=== PATIENT | male | born 1965 | race Caucasian/White ===

== ENCOUNTER → 2018-05-09 | Outpatient (CLI) | payer BC ==
--- NOTE | 2018-05-09 16:51 | US ---
EXAMINATION TYPE: US venous doppler duplex LE LT DATE OF EXAM: 05/09/2018 4:32 PM COMPARISON: NONE CLINICAL HISTORY: R22.42 Localized swelling, mass and lump, left low. scratched left lower leg and de veloped infection, morbidly obese patient SIDE PERFORMED: Left TECHNIQUE: The lower extremity deep venous system is examined utilizing real time linear array sonog yeison with graded compression, doppler sonography and color-flow sonography. VESSELS IMAGED: External Iliac Vein (EIV) Common Femoral Vein Deep Femoral Vein Greater Saphenous Vein * Femoral Vein Popliteal Vein Small Saphenous Vein * Proximal Calf Veins (* superficial vessels) Left Leg: Limited exam due to body habitus and inability to image groin, appears negative for DVT fr om left fv mid through popiteal vein IMPRESSION: No evidence of deep venous thrombosis in the left leg.
== END | disposition home or self-care (01) ==
LOC: RADUSWWP 16:13
PROVIDERS: ATTEND Internal Medicine
DX: R22.42 Localized swelling, mass and lump, left lower limb (principal)

== ENCOUNTER → 2018-09-22 | Outpatient (CLI) | payer BC ==
[2018-09-22 16:05] VITALS: BMI 72.3
== END | disposition home or self-care (01) ==
LOC: DBWHC3 12:56
PROVIDERS: ATTEND Physician Assistant
DX: E66.01 Morbid (severe) obesity due to excess calories (principal); Z68.45 Body mass index [BMI] 70 or greater, adult
CPT/HCPCS: 97802

== ENCOUNTER 2019-09-22 12:52 | Inpatient (IN) | payer BC, OTHER ==
[2019-09-22] MEDS ORDERED: SODIUM CHLORIDE 0.9% 1,000 ML IV STA (13:06)
--- NOTE | 2019-09-22 13:22 | ED ---
General Adult HPI <Pratik Guillen - Last Filed: 09/22/19 15:08> <Wilfredo Ybarra - Last Filed: 09/22/19 15:18> - General Stated complaint: Diff Breathing Time Seen by Provider: 09/22/19 13:05 - History of Present Illness Initial comments: Patient is a 54-year-old male, morbidly obese presenting to the emergency department with multiple chief complaints. States about 4 days ago he pinched his testicles on the toilet and has since developed swelling and tenderness. States he is able to urinate without issues. Denies any urinary symptoms. States also is having back pain whenever he is walking up the stairs which has been present for a few years. Patient also reports bilateral lower extremity edema for multiple years. States over the last few weeks he developed increased swelling. States that he thinks they are infected with occasional discharge noted. Patient also reports some shortness of breath which has been present for the past 8 months. States he has also noticed some wheezing over the last 4 months. Patient states he is not a smoker. (Wilfredo Ybarra) - Related Data Home Medications Medication Instructions Recorded Confirmed Aspirin 325 mg PO DIRECTED 09/30/14 09/30/14 Lovastatin Unkown Dose 40 tab PO DAILY 09/30/14 10/04/14 Irbesartan/Hydrochlorothiazide 1 tab PO DAILY 10/04/14 10/04/14 [Irbesartan-Hctz 300-12.5 mg Tb] Allergies Allergy/AdvReac Type Severity Reaction Status Date / Time No Known Allergies Allergy Verified 09/22/19 13:47 Review of Systems ROS Other: All systems not noted in ROS Statement are negative. <Pratik Guillen - Last Filed: 09/22/19 15:08> ROS Other: All systems not noted in ROS Statement are negative. <Wilfredo Ybarra - Last Filed: 09/22/19 15:18> ROS Statement: Those systems with pertinent positive or pertinent negative responses have been documented in the HPI. Past Medical History Past Medical History: Hyperlipidemia, Hypertension Additional Past Medical History / Comment(s): BLOOD IN STOOLS,"PREDIABETIC",STEROIDS W/IN 3 MOS History of Any Multi-Drug Resistant Organisms: None Reported Past Surgical History: Hernia Repair Additional Past Surgical History / Comment(s): UMBILICAL HERNIA REPAIR Past Anesthesia/Blood Transfusion Reactions: No Reported Reaction Smoking Status: Never smoker - Past Family History Mother Family Medical History: Cancer, Diabetes Mellitus Additional Family Medical History / Comment(s): OBESITY, BONE CA Father Family Medical History: Coronary Artery Disease (CAD) Additional Family Medical History / Comment(s): CABG-4 VESSEL <Wilfredo Ybarra - Last Filed: 09/22/19 15:18> General Exam Limitations: physical limitation General appearance: alert, in no apparent distress, obese (Morbidly obese) Head exam: Present: atraumatic, normocephalic, normal inspection Eye exam: Present: normal appearance, PERRL, EOMI Pupils: Present: normal accommodation ENT exam: Present: normal exam, normal oropharynx, mucous membranes moist Neck exam: Present: normal inspection, other. Absent: tenderness, meningismus, lymphadenopathy Respiratory exam: Present: wheezes (Mild bilateral wheezing) Cardiovascular Exam: Present: regular rate, normal rhythm, normal heart sounds exam: Present: testicular tenderness, scrotal swelling, other (Unable to visualize penis.) Extremities exam: Present: normal capillary refill. Absent: normal inspection (Bilateral lower extremity edema. Stasis dermatitis. Yellow/clear discharge on bilateral lower extremities.) Back exam: Present: normal inspection. Absent: full ROM (Limited range of motion due to pain) Neurological exam: Present: alert, oriented X3 Psychiatric exam: Present: normal affect, normal mood Skin exam: Present: warm, dry, intact, normal color <Wilfredo Ybarra - Last Filed: 09/22/19 15:18> Course <Pratik Guillen - Last Filed: 09/22/19 15:08> Vital Signs 09/22/19 13:00 Temperature 99.7 F H Pulse Rate 101 H Respiratory 22 Rate Blood Pressure 121/64 O2 Sat by Pulse 92 L Oximetry - Reevaluation(s) Reevaluation #1: 09/22/19 15:08 PA supervision: I proceeded [id number] evaluation patient did present with complaints that included peripheral edema scrotal edema weight gain exertional dyspnea and dyspnea at rest. He does have elevated d-dimer as well as elevated troponin. I did discuss case with Dr. bowers constipation will be admitted with cardiology and pulmonary consultation. (Pratik Guillen) EKG Findings - EKG Comments: EKG Findings:: Ventricular rate 96, MT 160, QRS 94, QTC 459. <Wilfredo Ybarra - Last Filed: 09/22/19 15:18> Medical Decision Making - Lab Data Result diagrams: 09/22/19 13:05 09/22/19 13:05 <Pratik Guillen - Last Filed: 09/22/19 15:08> - Lab Data Result diagrams: 09/22/19 13:05 09/22/19 13:05 <Wilfredo Ybarra - Last Filed: 09/22/19 15:18> - Medical Decision Making Patient is a 54-year-old male with morbid obesity presenting to the emergency department with multiple chief complaints. Patient has been gaining weight which is noticeable in peripheral edema moving progressively towards the abdomen. He does have dyspnea on exertion but denies any chest pain. Patient has elevated d-dimer and troponin. Patient will be admitted for further medical management. also examined patient and is in agreement with the treatment plan. Cardiology consulted. Pulmonology consulted. Admitting physician is (Wilfredo Ybarra) - Lab Data Lab Results 09/22/19 09/22/19 09/22/19 Range/Units 13:05 13:05 13:05 WBC 13.0 H (3.8-10.6) k/uL RBC 4.28 L (4.30-5.90) m/uL Hgb 14.0 (13.0-17.5) gm/dL Hct 45.6 (39.0-53.0) % MCV 106.6 H (80.0-100.0) fL MCH 32.7 (25.0-35.0) pg MCHC 30.7 L (31.0-37.0) g/dL RDW 15.2 (11.5-15.5) % Plt Count 323 (150-450) k/uL Neutrophils % 83 % Lymphocytes % 11 % Monocytes % 4 % Eosinophils % 1 % Basophils % 0 % Neutrophils # 10.8 H (1.3-7.7) k/uL Lymphocytes # 1.4 (1.0-4.8) k/uL Monocytes # 0.5 (0-1.0) k/uL Eosinophils # 0.2 (0-0.7) k/uL Basophils # 0.0 (0-0.2) k/uL Hypochromasia Marked Macrocytosis Moderate PT 10.8 (9.0-12.0) sec INR 1.1 (<1.2) APTT 20.0 L (22.0-30.0) sec D-Dimer (<0.60) mg/L FEU Sodium 137 (137-145) mmol/L Potassium 4.7 (3.5-5.1) mmol/L Chloride 94 L (98-107) mmol/L Carbon Dioxide 37 H (22-30) mmol/L Anion Gap 6 mmol/L BUN 15 (9-20) mg/dL Creatinine 0.89 (0.66-1.25) mg/dL Est GFR (CKD-EPI)AfAm >90 (>60 ml/min/1.73 sqM) Est GFR (CKD-EPI)NonAf >90 (>60 ml/min/1.73 sqM) Glucose 124 H (74-99) mg/dL Plasma Lactic Acid Nikunj (0.7-2.0) mmol/L Calcium 8.4 (8.4-10.2) mg/dL Magnesium 2.0 (1.6-2.3) mg/dL Total Bilirubin 0.7 (0.2-1.3) mg/dL AST 43 (17-59) U/L ALT 80 H (4-49) U/L Alkaline Phosphatase 114 (38-126) U/L Troponin I (0.000-0.034) ng/mL NT-Pro-B Natriuret Pep pg/mL Total Protein 6.8 (6.3-8.2) g/dL Albumin 3.3 L (3.5-5.0) g/dL 09/22/19 09/22/19 09/22/19 Range/Units 13:05 13:05 13:05 WBC (3.8-10.6) k/uL RBC (4.30-5.90) m/uL Hgb (13.0-17.5) gm/dL Hct (39.0-53.0) % MCV (80.0-100.0) fL MCH (25.0-35.0) pg MCHC (31.0-37.0) g/dL RDW (11.5-15.5) % Plt Count (150-450) k/uL Neutrophils % % Lymphocytes % % Monocytes % % Eosinophils % % Basophils % % Neutrophils # (1.3-7.7) k/uL Lymphocytes # (1.0-4.8) k/uL Monocytes # (0-1.0) k/uL Eosinophils # (0-0.7) k/uL Basophils # (0-0.2) k/uL Hypochromasia Macrocytosis PT (9.0-12.0) sec INR (<1.2) APTT (22.0-30.0) sec D-Dimer (<0.60) mg/L FEU Sodium (137-145) mmol/L Potassium (3.5-5.1) mmol/L Chloride (98-107) mmol/L Carbon Dioxide (22-30) mmol/L Anion Gap mmol/L BUN (9-20) mg/dL Creatinine (0.66-1.25) mg/dL Est GFR (CKD-EPI)AfAm (>60 ml/min/1.73 sqM) Est GFR (CKD-EPI)NonAf (>60 ml/min/1.73 sqM) Glucose (74-99) mg/dL Plasma Lactic Acid Nikunj 2.0 (0.7-2.0) mmol/L Calcium (8.4-10.2) mg/dL Magnesium (1.6-2.3) mg/dL Total Bilirubin (0.2-1.3) mg/dL AST (17-59) U/L ALT (4-49) U/L Alkaline Phosphatase (38-126) U/L Troponin I 0.047 H* (0.000-0.034) ng/mL NT-Pro-B Natriuret Pep 3270 pg/mL Total Protein (6.3-8.2) g/dL Albumin (3.5-5.0) g/dL 09/22/19 Range/Units 13:05 WBC (3.8-10.6) k/uL RBC (4.30-5.90) m/uL Hgb (13.0-17.5) gm/dL Hct (39.0-53.0) % MCV (80.0-100.0) fL MCH (25.0-35.0) pg MCHC (31.0-37.0) g/dL RDW (11.5-15.5) % Plt Count (150-450) k/uL Neutrophils % % Lymphocytes % % Monocytes % % Eosinophils % % Basophils % % Neutrophils # (1.3-7.7) k/uL Lymphocytes # (1.0-4.8) k/uL Monocytes # (0-1.0) k/uL Eosinophils # (0-0.7) k/uL Basophils # (0-0.2) k/uL Hypochromasia Macrocytosis PT (9.0-12.0) sec INR (<1.2) APTT (22.0-30.0) sec D-Dimer 0.98 H (<0.60) mg/L FEU Sodium (137-145) mmol/L Potassium (3.5-5.1) mmol/L Chloride (98-107) mmol/L Carbon Dioxide (22-30) mmol/L Anion Gap mmol/L BUN (9-20) mg/dL Creatinine (0.66-1.25) mg/dL Est GFR (CKD-EPI)AfAm (>60 ml/min/1.73 sqM) Est GFR (CKD-EPI)NonAf (>60 ml/min/1.73 sqM) Glucose (74-99) mg/dL Plasma Lactic Acid Nikunj (0.7-2.0) mmol/L Calcium (8.4-10.2) mg/dL Magnesium (1.6-2.3) mg/dL Total Bilirubin (0.2-1.3) mg/dL AST (17-59) U/L ALT (4-49) U/L Alkaline Phosphatase (38-126) U/L Troponin I (0.000-0.034) ng/mL NT-Pro-B Natriuret Pep pg/mL Total Protein (6.3-8.2) g/dL Albumin (3.5-5.0) g/dL Disposition <Pratik Guillen - Last Filed: 09/22/19 15:08> Is patient prescribed a controlled substance at d/c from ED?: No Time of Disposition: 15:17 <Wilfredo Ybarra - Last Filed: 09/22/19 15:18> Clinical Impression: NSTEMI (non-ST elevated myocardial infarction), Shortness of breath Disposition: ADMITTED IP TO THIS HOSP Condition: Good Additional Instructions: Patient will be admitted Referrals: Wilmer Marquez MD [Primary Care Provider] - 1-2 days
[2019-09-22 13:43] LABS: Basophils % (A) 0 %; Eosinophils # (A) 0.2 k/uL (0-0.7); Eosinophils % (A) 1 %; HCT 45.6 % (39.0-53.0); Hypochromasia Marked; Lymphocytes # (A) 1.4 k/uL (1.0-4.8); Lymphocytes % (A) 11 %; MCH 32.7 pg (25.0-35.0); MCHC 30.7 g/dL (31.0-37.0); MCV 106.6 fL (80.0-100.0); Macrocytosis Moderate; Mean Platelet Volume 6.9; Monocytes # (A) 0.5 k/uL (0-1.0); Monocytes % (A) 4 %; Neutrophils # (A) 10.8 k/uL (1.3-7.7); Neutrophils % (A) 83 %; Platelet Count 323 k/uL (150-450); RBC 4.28 m/uL (4.30-5.90); RDW 15.2 % (11.5-15.5)
[2019-09-22 13:48] LABS: ALT 80 U/L (4-49); AST 43 U/L (17-59); African American GFR (CKD) >90 (>60 ml/min/1.73 sqM); Albumin 3.3 g/dL (3.5-5.0); Alkaline Phosphatase 114 U/L (38-126); Anion Gap 6 mmol/L; Blood Urea Nitrogen 15 mg/dL (9-20); Calcium 8.4 mg/dL (8.4-10.2); Carbon Dioxide 37 mmol/L (22-30); Chloride 94 mmol/L (98-107); Glucose 124 mg/dL (74-99); Non-African American GFR(CKD) >90 (>60 ml/min/1.73 sqM); Potassium 4.7 mmol/L (3.5-5.1); Sodium 137 mmol/L (137-145); Total Bilirubin 0.7 mg/dL (0.2-1.3); Total Protein 6.8 g/dL (6.3-8.2)
[2019-09-22 14:08] LABS: INR 1.1 (<1.2); Prothrombin Time 10.8 sec (9.0-12.0)
--- NOTE | 2019-09-22 15:08 | US ---
EXAMINATION TYPE: US scrotum with doppler. Grayscale and color Doppler Duplex imaging performed of t ginna scrotum. DATE OF EXAM: 09/22/2019 COMPARISON: NONE CLINICAL HISTORY: scrotal swelling. pain and edema bilateral testes for 5 days EXAM MEASUREMENTS: TESTICLES: Right Testicle: 4.6 x 3.4 x 3.0 cm Left Testicle: 4.4 x 3.1 x 2.8 cm EPIDIDYMIS HEAD: Right Epididymis: 1.7 cm Left Epididymis: 1.4 cm Doppler performed to assess for testicular vascularity; good bilateral color flow and waveforms are s een. There is no evidence of testicular torsion. Presence of hydroceles: no Presence of varicoceles: no Small amount of fluid adjacent to the left testicle. IMPRESSION: 1. Symmetric flow to the testes. No evidence of testicular mass. 2. There appears to be a soft tissue edema diffusely correlate clinically.
[2019-09-22] MEDS ORDERED: MORPHINE SULFATE 4 MG/ML SYRINGE IV PRN (15:10)
[2019-09-22] MEDS ORDERED: NALOXONE 0.4 MG/ML 1 ML VIAL IV PRN (15:10)
[2019-09-22] MEDS ORDERED: ALPRAZolam 0.25 MG TAB PO PRN (15:10)
[2019-09-22] MEDS ORDERED: ONDANSETRON 4 MG/2 ML VIAL IVP PRN (15:10)
[2019-09-22] MEDS ORDERED: HYDROmorphone 0.5 MG/0.5 ML SYRINGE IVP PRN (15:10)
--- NOTE | 2019-09-22 15:43 | XR ---
EXAMINATION TYPE: XR chest 2V DATE OF EXAM: 09/22/2019 COMPARISON: 02/27/2012 TECHNIQUE: PA and lateral views submitted. HISTORY: Difficulty breathing FINDINGS: Exam markedly limited. There is bibasilar subsegmental consolidation. Correlate for mild venous conge stion or interstitial pneumonitis. Hypertrophic and degenerative change of the spine. Lateral view is nondiagnostic due to positioning and motion. IMPRESSION: 1. Severely Limited exam shows by basilar atelectasis or infiltrate correlate for interstitial pneumo nitis or venous congestion.
[2019-09-23] MEDS ORDERED: SODIUM BICARB 8.4% 50 ML SYR (1 MEQ/ML) ONE ×2 (03:23→03:35)
[2019-09-23] MEDS ORDERED: CALCIUM CHLORIDE 100 MG/ML 10 ML SYRINGE ONE (03:23)
[2019-09-23] MEDS ORDERED: EPINEPHrine 10 ML SYRINGE (0.1 MG/ML) ONE (03:23)
[2019-09-23 03:33] LABS: Glucose,Whole Blood 262 mg/dL (75-99)
[2019-09-23 04:31] LABS: HCT 50.2 % (39.0-53.0); Hypochromasia Marked; MCH 32.4 pg (25.0-35.0); MCHC 27.9 g/dL (31.0-37.0); Macrocytosis Marked; Mean Platelet Volume 7.1; Platelet Count 291 k/uL (150-450); RBC 4.32 m/uL (4.30-5.90); RDW 15.1 % (11.5-15.5); WBC 39.2 k/uL (3.8-10.6)
[2019-09-23 04:32] LABS: MCV 116.2 fL (80.0-100.0)
--- NOTE | 2019-09-23 04:32 | XR ---
EXAMINATION TYPE: XR chest 1V portable DATE OF EXAM: 09/23/2019 COMPARISON: Yesterday HISTORY: Cardiac arrest. TECHNIQUE: Single view FINDINGS: Endotracheal tube is 5 mm into the right mainstem bronchus. There is bilateral pulmonary ed merlyn. Heart is enlarged. Exam limited by patient's size. There is no definite pleural effusion. IMPRESSION: There is new pulmonary edema compared to yesterday and could relate to acute heart failur e or RDS. Malposition of the endotracheal tube in the proximal right mainstem bronchus.
[2019-09-23 04:42] LABS: Calcium 8.9 mg/dL (8.4-10.2)
[2019-09-23 04:55] LABS: Anisocytosis (M) Present; Band Neutrophils % 6 %; Eosinophils # (M) 0.39 k/uL (0-0.7); Lymphocytes # (M) 3.92 k/uL (1.0-4.8); Metamyelocytes # (M) 0.39 k/uL (0); Metamyelocytes % 1 %; Monocytes # (M) 0.39 k/uL (0-1.0); Myelocytes # (M) 0.39 k/uL (0); Myelocytes % 1 %; Neutrophils % (M) 82 %; Nucleated Red Blood Cells 0 /100 WBC (0-0); Polychromasia Present; Total Cells Counted 200
[2019-09-23 04:56] LABS: Stomatocytes Present
[2019-09-23 04:58] LABS: Potassium 4.9 mmol/L (3.5-5.1)
[2019-09-23 05:15] LABS: ABG Base Excess 6.7 mmol/L; ABG HCO3 35 mmol/L (21-25); ABG Oxygen Saturation 73.1 % (94-97); ABG TCO2 38 mmol/L (19-24); Allen Test Performed? Yes
[2019-09-23 05:20] LABS: ABG PCO2 97 mmHg (35-45); ABG PH 7.17 (7.35-7.45); ABG PO2 43 mmHg (83-108)
[2019-09-23] MEDS ORDERED: SODIUM CHLORIDE 0.9% 1,000 ML IV ONE (05:22)
[2019-09-23] MEDS: PROPOFOL 1,000 MG in EMPTY BAG 1 BAG IV SCH ×9 (05:22→21:09)
[2019-09-23] MEDS ORDERED: HEPARIN SODIUM,PORCINE 5,000 UNIT/ML 1 ML VIAL IV ONE (05:25)
[2019-09-23] MEDS ORDERED: HEPARIN SODIUM,PORCINE 5,000 UNIT/ML 1 ML VIAL IV PRN (05:25)
[2019-09-23] MEDS: SODIUM CHLORIDE 0.9% 1,000 ML IV SCH ×3 (05:29→07:07)
[2019-09-23] MEDS ORDERED: HEPARIN SOD,PORK IN 0.45% NACL 25,000 UNIT in 0.45% NACL 1 250ML.BAG IV SCH (05:30)
[2019-09-23 05:48] LABS: HCT 47.9 % (39.0-53.0); HGB 13.9 gm/dL (13.0-17.5); Hypochromasia Marked; MCH 32.7 pg (25.0-35.0); MCV 112.7 fL (80.0-100.0); Macrocytosis Marked; Platelet Count 308 k/uL (150-450); RBC 4.25 m/uL (4.30-5.90); RDW 14.9 % (11.5-15.5); WBC 29.5 k/uL (3.8-10.6)
[2019-09-23 06:07] LABS: D-Dimer 26.1 mg/L FEU (<0.60); INR 1.1 (<1.2); Partial Thromboplastin Time 22.8 sec (22.0-30.0); Prothrombin Time 11.7 sec (9.0-12.0)
[2019-09-23 06:27] LABS: Band Neutrophils % 6 %; Lymphocytes # (M) 1.48 k/uL (1.0-4.8); Neutrophils % (M) 89 %; Nucleated Red Blood Cells 0 /100 WBC (0-0); Total Cells Counted 100
[2019-09-23 06:28] LABS: Anisocytosis (M) Present; Polychromasia Present
[2019-09-23 06:43] LABS: ABG Base Excess 2.5 mmol/L; ABG HCO3 35 mmol/L (21-25); Allen Test Performed? Yes
[2019-09-23 06:46] LABS: ABG PCO2 102 mmHg (35-45); ABG PH 7.16 (7.35-7.45); ABG PO2 57 mmHg (83-108)
[2019-09-23] MEDS ORDERED: METOPROLOL TARTRATE 5 MG/5 ML VIAL IVP SCH (07:15)
--- NOTE | 2019-09-23 07:29 | XR ---
EXAMINATION TYPE: XR chest 1V portable DATE OF EXAM: 09/23/2019 COMPARISON: 09/23/2019 HISTORY: ET tube placement FINDINGS: There are bilateral pleural effusions with cardiomegaly and bibasilar infiltrate. There is a diffuse interstitial pattern. ET tube seen approximately 4.4 cm above the brooke. NG tube seen extending int o the upper abdomen which is only partially included on exam. Hypertrophic change of the spine. IMPRESSION: 1. ET tube now appears in good position. 2. Correlate for CHF with pulmonary edema, ARDS or diffuse pneumonia.
[2019-09-23] MEDS ORDERED: NOREPINEPHRIN 4 MG-0.9% NS PMX 4 MG/250 ML ML IV ONE (07:50)
[2019-09-23] MEDS ORDERED: CISATRACURIUM 2 MG/ML 5 ML VIAL IV ONE ×2 (07:53→08:00)
--- NOTE | 2019-09-23 07:57 | US ---
EXAMINATION TYPE: US venous doppler duplex LE BI DATE OF EXAM: 09/23/2019 7:37 AM COMPARISON: NONE CLINICAL HISTORY: R/O DVT probable PE. Extremely difficult and limited exam due to patient body habit us- [id number]. ICU patient, intubated SIDE PERFORMED: Bilateral TECHNIQUE: The lower extremity deep venous system is examined utilizing real time linear array sonog yeison with graded compression, doppler sonography and color-flow sonography. VESSELS IMAGED: Common Femoral Vein Femoral Vein Popliteal Vein Right Leg: Negative as visualized Left Leg: Negative as visualized IMPRESSION: 1. Bilateral lower extremity ultrasound negative for deep venous thrombosis
[2019-09-23] MEDS ORDERED: FUROSEMIDE 10 MG/ML 4 ML VIAL IV SCH (08:00)
[2019-09-23] MEDS: IPRATROPIUM-ALBUTEROL 3 ML NEB INHALATION SCH ×4 (08:07→20:04)
[2019-09-23] MEDS ORDERED: IPRATROPIUM-ALBUTEROL 3 ML NEB INHALATION PRN (08:11)
[2019-09-23] MEDS ORDERED: NOREPINEPHRINE 32 MG in SODIUM CHLORIDE 0.9% 218 ML IV SCH (08:15)
[2019-09-23 08:19] LABS: ABG Base Excess 8.3 mmol/L; ABG HCO3 35 mmol/L (21-25); ABG Oxygen Saturation 88.9 % (94-97); ABG PH 7.29 (7.35-7.45); ABG TCO2 37 mmol/L (19-24)
[2019-09-23 08:21] LABS: ABG PO2 56 mmHg (83-108); Allen Test Performed? no
[2019-09-23] MEDS ORDERED: DILTIAZEM 125 MG in SODIUM CHLORIDE 0.9% 100 ML IV SCH (08:30)
[2019-09-23] MEDS: NOREPINEPHRINE 4 MG in SODIUM CHLORIDE 0.9% 250 ML IV SCH ×3 (08:35→21:01)
--- NOTE | 2019-09-23 08:46 | ECHOF ---
Referral Reason:afib MEASUREMENTS -------- HEIGHT: 63.0 cm WEIGHT: 573.0 kg BP: RAP: 5.00 mmHg RVSP: 10.07 mmHg FINDINGS -------- This was a technically difficult study with suboptimal views. Morbid Obesity Limited Study Pt. on a vent. Judge not well visulized with lumason due to Morbid Obesity. The RV was not well visualized. The left atrium was not well visualized. The right atrium was not well visualized. 5.0mg of Lumason was utilized for enhancement of images The aortic valve was not well visualized. The mitral valve was not well visualized. The tricuspid valve was not well visualized. The pulmonic valve was not well visualized. CONCLUSIONS -------- 1. This was a technically difficult study with suboptimal views. 2. Morbid Obesity 3. Limited Study 4. Pt. on a vent. 5. Judge not well visulized with lumason due to Morbid Obesity. 6. The RV was not well visualized. 7. 5.0mg of Lumason was utilized for enhancement of images 8. 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
[2019-09-23 08:57] LABS: Glucose,Whole Blood 161 mg/dL (75-99)
--- NOTE | 2019-09-23 08:57 | P.PN ---
Progress Note - Text Progress Note Date: 09/23/19 Code Chance Team Note Code chance activated at 3:25 am. Arrived on the scene at 3:30 am. The patient was undergoing CPR. Notified by the RN that the patient was initially found to be resting comfortably and subsequently developed V-fib on the tele monitor and was found unresponsive in the room. The patient was given IVP Epinephrine boluses, Sodium bicarbonate, and Calcium chloride. He was initially noted to be in PEA though was subsequently noted to be in V-fib x 3 and was shocked with 200 J, 250 J, and 250 J. The patient subsequently had ROSC at 3:[address] Ramos was notified and a cardiology consult was placed. Please refer to code sheet for further information. The patient was transferred to MICU.
--- NOTE | 2019-09-23 09:20 | CONS ---
CONSULTATION Mr. Ardon is a 54-year-old male who presented to the emergency room yesterday with symptoms of progressive scrotal edema, peripheral edema and progressive dyspnea. He was unable to urinate. He was admitted to the hospital on the telemetry floor and during the night had a run of ventricular tachycardia, was intubated and transferred to the ICU. He is intubated and sedated at this time. No prior history is available to me. He is in atrial fibrillation at this time. On presentation, he had ectopic atrial rhythm. The patient has morbid obesity. The duration of his peripheral edema is unclear, but I have no prior admission in the hospital. No other prior history is available and he is medication time of admission was just Tylenol. The patient had no further episode of ventricular tachycardia following his event. He is on no pressors. There is inability to place a Kramer catheter and Urology has been consulted. PHYSICAL EXAMINATION: A 54-year-old male, intubated, sedated, morbidly obese. Blood pressure 126/70 with a heart rate in the 110s to 120s in atrial fibrillation. HEAD: Normocephalic. EYES: Sclerae nonicteric. NECK: Unable to evaluate jugular venous pressure. No bruits. LUNGS: With decreased air exchange but no wheezes. HEART: Irregular, regular, S1, S2. No S3. No rub. ABDOMEN: Obese, soft. EXTREMITIES: Chronic edema noted. Scrotal edema noted. LAB DATA: On presentation his white blood cell was 38,000. Then went up to 39,000. His D-dimer was 0.98 on admission. His BUN and creatinine were 15 and 0.89, then 18 and 1.68 today. Potassium 4.9. His troponin 0.047, 0.046 and 0.053. NT proBNP of 3270 following intubation. His pH was 7.17 with pCO2 of 97, and PO2 of 43. His pCO2 was 102 and PO2 was 57 in the more recent blood gases. His chest x-ray shows possible pulmonary edema, although the images are of suboptimal quality. His initial EKG revealed ectopic atrial rhythm with nonspecific ST-T wave changes. IMPRESSION: 1. Respiratory arrest with ventricle arrhythmia, could be related to the acidosis. Patient most likely has hypercapnic hypoxemic and severe obstructive sleep apnea. 2. Peripheral edema could be related to the right-sided failure. 3. Morbid obesity. 4. Mild troponin elevation; does not represent acute coronary syndrome, most likely related to the hypoxemia and the acidemia. 5. Leukocytosis. Workup in progress. 6. Atrial fibrillation, new since admission. RECOMMENDATION: Patient is on IV heparin at this time. The possibility of pulmonary embolism cannot be totally excluded. A duplex scan of the lower extremities is scheduled. I will obtain echocardiogram with Doppler. I will add to his regimen an intravenous beta hayden to control his ventricular response. Will continue on the IV heparin. Continue diuresis and follow his renal function and depending on his progress, further recommendation will be made. The prognosis is guarded. MMODL / IJN: [id number] /
[2019-09-23] MEDS: PIPERACILLIN-TAZOBACTAM 3.375 GM in SODIUM CHLORIDE 0.9% 100 ML IVPB SCH ×3 (09:44→22:34)
[2019-09-23] MEDS ORDERED: HEPARIN SODIUM,PORCINE 10,000 UNIT/ML 1 ML VIAL IV ONE (09:45)
[2019-09-23] MEDS: HEPARIN SOD,PORK IN 0.45% NACL 25,000 UNIT in 0.45% NACL 1 250ML.BAG IV SCH ×2 (09:45→17:45)
[2019-09-23] MEDS ORDERED: VANCOMYCIN 2,500 MG in SODIUM CHLORIDE 0.9% 500 ML 500 ML IVPB ONE (10:00)
[2019-09-23] MEDS ORDERED: AMIODARONE 360 MG in DEXTROSE 5% IN WATER 200 ML IV ONE ×2 (10:25)
[2019-09-23] MEDS ORDERED: DEXTROSE 5% IN WATER 100 ML with AMIODARONE 150 MG IV ONE (10:25)
[2019-09-23] MEDS ORDERED: METOPROLOL TARTRATE 5 MG/5 ML VIAL IVP ONE (10:29)
[2019-09-23] MEDS: ASPIRIN 81 MG PO SCH (10:33)
[2019-09-23] MEDS: CHLORHEXIDINE GLUCONATE 15 ML CUP MUCOUS MEM SCH ×2 (10:33→20:59)
[2019-09-23 12:17] LABS: Glucose,Whole Blood 163 mg/dL (75-99)
[2019-09-23] MEDS: PANTOPRAZOLE 40 MG/10 ML VIAL IV SCH (12:20)
[2019-09-23] MEDS: INSULIN ASPART (NovoLOG) 100 UNIT/ML VIAL SQ SCH ×2 (12:24→18:46)
--- NOTE | 2019-09-23 13:56 | P.GSCN ---
History of Present Illness Consult date: 09/23/19 Reason for Consult: lopez placement History of present illness: Mr. Ardon is 54 yo male with admitted to the hospital for shortness of breath patient Coded at 3:25 am, patient underwent CPR for 18 minutes with ROSC. He is currently in the ICU intubated and sedated. Of note he has significant scrotal edema, had a scrotal U/S which was WNL. attempted lopez placement was unsuccessful secondary to scrotal edema and Review of Systems ROS unobtainable: due to endotracheal tube Past Medical History Past Medical History: Hyperlipidemia, Hypertension Additional Past Medical History / Comment(s): hemrrhoids, prediabetic History of Any Multi-Drug Resistant Organisms: None Reported Past Surgical History: Hernia Repair Additional Past Surgical History / Comment(s): UMBILICAL HERNIA REPAIR Past Anesthesia/Blood Transfusion Reactions: No Reported Reaction Past Psychological History: Depression Smoking Status: Never smoker Past Alcohol Use History: None Reported Past Drug Use History: None Reported - Past Family History Mother Family Medical History: Cancer, Diabetes Mellitus Additional Family Medical History / Comment(s): OBESITY, BONE CA Father Family Medical History: Coronary Artery Disease (CAD) Additional Family Medical History / Comment(s): CABG-4 VESSEL Medications and Allergies Home Medications Medication Instructions Recorded Confirmed Type Acetaminophen [Tylenol] 1,500 mg PO DAILY PRN 09/22/19 09/22/19 History Allergies Allergy/AdvReac Type Severity Reaction Status Date / Time No Known Allergies Allergy Verified 09/22/19 16:04 Surgical - Exam Vital Signs Temp Pulse Resp BP Pulse Ox 99.7 F H 101 H 22 121/64 92 L 09/22/19 13:00 09/22/19 13:00 09/22/19 13:00 09/22/19 13:00 09/22/19 13:00 - General no distress, obese - Respiratory intubated - Cardiovascular bilateral lower extremity edema - Abdomen Abdomen: soft, non tender - Genitourinary signifcant bilateral scrotal edmea buried penis Results - Labs 09/23/19 05:31 09/23/19 04:07 Abnormal Lab Results - Last 24 Hours (Table) 09/22/19 09/22/19 09/22/19 Range/Units 13:05 13:05 13:05 WBC 13.0 H (3.8-10.6) k/uL RBC 4.28 L (4.30-5.90) m/uL MCV 106.6 H (80.0-100.0) fL MCHC 30.7 L (31.0-37.0) g/dL Neutrophils # 10.8 H (1.3-7.7) k/uL Neutrophils # (Manual) (1.3-7.7) k/uL Metamyelocytes # (Man) (0) k/uL Myelocytes # (Manual) (0) k/uL Macrocytosis APTT 20.0 L (22.0-30.0) sec D-Dimer (<0.60) mg/L FEU ABG pH (7.35-7.45) ABG pCO2 (35-45) mmHg ABG pO2 (83-108) mmHg ABG HCO3 (21-25) mmol/L ABG Total CO2 (19-24) mmol/L ABG O2 Saturation (94-97) % Chloride 94 L (98-107) mmol/L Carbon Dioxide 37 H (22-30) mmol/L Creatinine (0.66-1.25) mg/dL Glucose 124 H (74-99) mg/dL POC Glucose (mg/dL) (75-99) mg/dL Plasma Lactic Acid Nikunj (0.7-2.0) mmol/L ALT 80 H (4-49) U/L Troponin I (0.000-0.034) ng/mL Albumin 3.3 L (3.5-5.0) g/dL 09/22/19 09/22/19 09/23/19 Range/Units 13:05 13:05 03:31 WBC (3.8-10.6) k/uL RBC (4.30-5.90) m/uL MCV (80.0-100.0) fL MCHC (31.0-37.0) g/dL Neutrophils # (1.3-7.7) k/uL Neutrophils # (Manual) (1.3-7.7) k/uL Metamyelocytes # (Man) (0) k/uL Myelocytes # (Manual) (0) k/uL Macrocytosis APTT (22.0-30.0) sec D-Dimer 0.98 H (<0.60) mg/L FEU ABG pH (7.35-7.45) ABG pCO2 (35-45) mmHg ABG pO2 (83-108) mmHg ABG HCO3 (21-25) mmol/L ABG Total CO2 (19-24) mmol/L ABG O2 Saturation (94-97) % Chloride (98-107) mmol/L Carbon Dioxide (22-30) mmol/L Creatinine (0.66-1.25) mg/dL Glucose (74-99) mg/dL POC Glucose (mg/dL) 262 H (75-99) mg/dL Plasma Lactic Acid Nikunj (0.7-2.0) mmol/L ALT (4-49) U/L Troponin I 0.047 H* (0.000-0.034) ng/mL Albumin (3.5-5.0) g/dL 09/23/19 09/23/19 09/23/19 Range/Units 04:07 04:07 04:07 WBC (3.8-10.6) k/uL RBC (4.30-5.90) m/uL MCV (80.0-100.0) fL MCHC (31.0-37.0) g/dL Neutrophils # (1.3-7.7) k/uL Neutrophils # (Manual) (1.3-7.7) k/uL Metamyelocytes # (Man) (0) k/uL Myelocytes # (Manual) (0) k/uL Macrocytosis APTT (22.0-30.0) sec D-Dimer (<0.60) mg/L FEU ABG pH (7.35-7.45) ABG pCO2 (35-45) mmHg ABG pO2 (83-108) mmHg ABG HCO3 (21-25) mmol/L ABG Total CO2 (19-24) mmol/L ABG O2 Saturation (94-97) % Chloride 96 L (98-107) mmol/L Carbon Dioxide (22-30) mmol/L Creatinine 1.68 H (0.66-1.25) mg/dL Glucose 172 H (74-99) mg/dL POC Glucose (mg/dL) (75-99) mg/dL Plasma Lactic Acid Nikunj 4.9 H* (0.7-2.0) mmol/L ALT (4-49) U/L Troponin I 0.046 H* (0.000-0.034) ng/mL Albumin (3.5-5.0) g/dL 09/23/19 09/23/19 09/23/19 Range/Units 04:13 04:54 05:07 WBC 39.2 H (3.8-10.6) k/uL RBC (4.30-5.90) m/uL MCV 116.2 H D (80.0-100.0) fL MCHC 27.9 L (31.0-37.0) g/dL Neutrophils # (1.3-7.7) k/uL Neutrophils # (Manual) 34.40 H (1.3-7.7) k/uL Metamyelocytes # (Man) 0.39 H (0) k/uL Myelocytes # (Manual) 0.39 H (0) k/uL Macrocytosis Marked A APTT (22.0-30.0) sec D-Dimer (<0.60) mg/L FEU ABG pH 7.17 L* (7.35-7.45) ABG pCO2 97 H* (35-45) mmHg ABG pO2 43 L* (83-108) mmHg ABG HCO3 35 H (21-25) mmol/L ABG Total CO2 38 H (19-24) mmol/L ABG O2 Saturation 73.1 L (94-97) % Chloride (98-107) mmol/L Carbon Dioxide (22-30) mmol/L Creatinine (0.66-1.25) mg/dL Glucose (74-99) mg/dL POC Glucose (mg/dL) (75-99) mg/dL Plasma Lactic Acid Nikunj (0.7-2.0) mmol/L ALT (4-49) U/L Troponin I 0.053 H* (0.000-0.034) ng/mL Albumin (3.5-5.0) g/dL 09/23/19 09/23/19 09/23/19 Range/Units 05:31 05:31 06:35 WBC 29.5 H (3.8-10.6) k/uL RBC 4.25 L (4.30-5.90) m/uL MCV 112.7 H (80.0-100.0) fL MCHC 29.0 L (31.0-37.0) g/dL Neutrophils # (1.3-7.7) k/uL Neutrophils # (Manual) 28.00 H (1.3-7.7) k/uL Metamyelocytes # (Man) (0) k/uL Myelocytes # (Manual) (0) k/uL Macrocytosis Marked A APTT (22.0-30.0) sec D-Dimer 26.10 H (<0.60) mg/L FEU ABG pH 7.16 L* (7.35-7.45) ABG pCO2 102 H* (35-45) mmHg ABG pO2 57 L* (83-108) mmHg ABG HCO3 35 H (21-25) mmol/L ABG Total CO2 (19-24) mmol/L ABG O2 Saturation 81.0 L (94-97) % Chloride (98-107) mmol/L Carbon Dioxide (22-30) mmol/L Creatinine (0.66-1.25) mg/dL Glucose (74-99) mg/dL POC Glucose (mg/dL) (75-99) mg/dL Plasma Lactic Acid Nikunj (0.7-2.0) mmol/L ALT (4-49) U/L Troponin I (0.000-0.034) ng/mL Albumin (3.5-5.0) g/dL 09/23/19 09/23/19 09/23/19 Range/Units 08:17 08:45 08:46 WBC (3.8-10.6) k/uL RBC (4.30-5.90) m/uL MCV (80.0-100.0) fL MCHC (31.0-37.0) g/dL Neutrophils # (1.3-7.7) k/uL Neutrophils # (Manual) (1.3-7.7) k/uL Metamyelocytes # (Man) (0) k/uL Myelocytes # (Manual) (0) k/uL Macrocytosis APTT (22.0-30.0) sec D-Dimer (<0.60) mg/L FEU ABG pH 7.29 L (7.35-7.45) ABG pCO2 72 H* (35-45) mmHg ABG pO2 56 L* (83-108) mmHg ABG HCO3 35 H (21-25) mmol/L ABG Total CO2 37 H (19-24) mmol/L ABG O2 Saturation 88.9 L (94-97) % Chloride (98-107) mmol/L Carbon Dioxide (22-30) mmol/L Creatinine (0.66-1.25) mg/dL Glucose (74-99) mg/dL POC Glucose (mg/dL) 161 H (75-99) mg/dL Plasma Lactic Acid Nikunj 2.3 H* (0.7-2.0) mmol/L ALT (4-49) U/L Troponin I (0.000-0.034) ng/mL Albumin (3.5-5.0) g/dL 09/23/19 Range/Units 12:14 WBC (3.8-10.6) k/uL RBC (4.30-5.90) m/uL MCV (80.0-100.0) fL MCHC (31.0-37.0) g/dL Neutrophils # (1.3-7.7) k/uL Neutrophils # (Manual) (1.3-7.7) k/uL Metamyelocytes # (Man) (0) k/uL Myelocytes # (Manual) (0) k/uL Macrocytosis APTT (22.0-30.0) sec D-Dimer (<0.60) mg/L FEU ABG pH (7.35-7.45) ABG pCO2 (35-45) mmHg ABG pO2 (83-108) mmHg ABG HCO3 (21-25) mmol/L ABG Total CO2 (19-24) mmol/L ABG O2 Saturation (94-97) % Chloride (98-107) mmol/L Carbon Dioxide (22-30) mmol/L Creatinine (0.66-1.25) mg/dL Glucose (74-99) mg/dL POC Glucose (mg/dL) 163 H (75-99) mg/dL Plasma Lactic Acid Nikunj (0.7-2.0) mmol/L ALT (4-49) U/L Troponin I (0.000-0.034) ng/mL Albumin (3.5-5.0) g/dL Microbiology - Last 24 Hours (Table) 09/23/19 05:00 Sputum Culture - Preliminary Sputum Diabetes panel 09/22/19 09/23/19 Range/Units 13:05 04:07 Sodium 137 138 (137-145) mmol/L Potassium 4.7 4.9 (3.5-5.1) mmol/L Chloride 94 L 96 L (98-107) mmol/L Carbon Dioxide 37 H 28 (22-30) mmol/L BUN 15 18 (9-20) mg/dL Creatinine 0.89 1.68 H (0.66-1.25) mg/dL Glucose 124 H 172 H (74-99) mg/dL Calcium 8.4 8.9 (8.4-10.2) mg/dL AST 43 (17-59) U/L ALT 80 H (4-49) U/L Alkaline Phosphatase 114 (38-126) U/L Total Protein 6.8 (6.3-8.2) g/dL Albumin 3.3 L (3.5-5.0) g/dL Thyroid panel 09/23/19 Range/Units 08:46 TSH 1.610 (0.465-4.680) mIU/L Calcium panel 09/22/19 09/23/19 Range/Units 13:05 04:07 Calcium 8.4 8.9 (8.4-10.2) mg/dL Albumin 3.3 L (3.5-5.0) g/dL Pituitary panel 09/22/19 09/23/19 09/23/19 Range/Units 13:05 04:07 08:46 Sodium 137 138 (137-145) mmol/L Potassium 4.7 4.9 (3.5-5.1) mmol/L Chloride 94 L 96 L (98-107) mmol/L Carbon Dioxide 37 H 28 (22-30) mmol/L BUN 15 18 (9-20) mg/dL Creatinine 0.89 1.68 H (0.66-1.25) mg/dL Glucose 124 H 172 H (74-99) mg/dL Calcium 8.4 8.9 (8.4-10.2) mg/dL TSH 1.610 (0.465-4.680) mIU/L Adrenal panel 09/22/19 09/23/19 Range/Units 13:05 04:07 Sodium 137 138 (137-145) mmol/L Potassium 4.7 4.9 (3.5-5.1) mmol/L Chloride 94 L 96 L (98-107) mmol/L Carbon Dioxide 37 H 28 (22-30) mmol/L BUN 15 18 (9-20) mg/dL Creatinine 0.89 1.68 H (0.66-1.25) mg/dL Glucose 124 H 172 H (74-99) mg/dL Calcium 8.4 8.9 (8.4-10.2) mg/dL Total Bilirubin 0.7 (0.2-1.3) mg/dL AST 43 (17-59) U/L ALT 80 H (4-49) U/L Alkaline Phosphatase 114 (38-126) U/L Total Protein 6.8 (6.3-8.2) g/dL Albumin 3.3 L (3.5-5.0) g/dL Assessment and Plan Assessment: Ms Ardon is 54 yo male admitted to ICU following a code blue, with ROSC after 18 minutes. Nursing unable to place lopez secondary to scrotal edema and buried penius Plan: -16 Fr sillicone cather placed with return clear yellow urine. Given patient BMI of 71.6, his significant scrotal edema and buried penis, there was difficulty in placing the catheter. catheter can be removed when patient is stable for discharge Time with Patient: Greater than 30
--- NOTE | 2019-09-23 14:00 | P.CNPUL ---
History of Present Illness Consult date: 09/23/19 Reason for consult: other (Cardiac arrest and respiratory failure) Chief complaint: Scrotal swelling History of present illness: This is a 54-year-old white male morbidly obese, patient presented to the ER yesterday with progressive scrotal swelling and progressive peripheral edema. Patient was also complaining of shortness of breath, and unable to urinate. Patient is also known to have history of chronic cellulitis of lower extremities. Last night the patient had a cardiac arrest, and he had initially a run of ventricular tachycardia. Patient was intubated, transferred to the intensive care unit, during CPR, patient received IV epinephrine, sodium bicarb, calcium chloride, and at one point he was in pulseless electrical activity then he developed ventricular fibrillation were in he was shocked 3. Subsequently the patient had return of spontaneous circulation at 3:43 AM. Apparently his code was about 13 minutes long. Patient was intubated, transferred to the ICU, and I was asked to see him on consultation this morning. He is presently on assist control rate of 30 tidal volume is 500 FiO2 is 100% and PEEP is 16. ABG showed a pO2 of 57 pCO2 of 102 pH of 7.16. Patient remains in atrial fibrill ation with a rate of 137. He is also on norepinephrine at 0.05 mcg/kg/m, he is on heparin drip for atrial fibrillation and possibly for underlying deep vein thrombosis and thromboembolic disease/pulmonary embolism. Patient is on propofol at 20 mcg/kg/m, and his IV fluid is at 10 mL per hour. Chest x-ray showed evidence of any edema and recommended Lasix to be given today. I have also recommended arterial line which was placed for hemodynamic monitoring, and the patient had to midline is placed by anesthesia. Echocardiogram was noted to be extremely suboptimal mostly because of his morbid obesity. And quality was poor. However ejection fraction was guessed to be 50%, difficult to assess. Venous Doppler of both lower extremities negative for DVT. D-dimer was significantly elevated. Chest x-ray is suspicious for either congestive heart failure/cardiogenic or ARDS. I suspect this is mostly cardiac pulmonary edema rather than ARDS since developed quite abruptly after his cardiac arrest. Review of Systems ROS unobtainable: due to endotracheal tube Past Medical History Past Medical History: Hyperlipidemia, Hypertension Additional Past Medical History / Comment(s): hemrrhoids, prediabetic History of Any Multi-Drug Resistant Organisms: None Reported Past Surgical History: Hernia Repair Additional Past Surgical History / Comment(s): UMBILICAL HERNIA REPAIR Past Anesthesia/Blood Transfusion Reactions: No Reported Reaction Past Psychological History: Depression Smoking Status: Never smoker Past Alcohol Use History: None Reported Past Drug Use History: None Reported - Past Family History Mother Family Medical History: Cancer, Diabetes Mellitus Additional Family Medical History / Comment(s): OBESITY, BONE CA Father Family Medical History: Coronary Artery Disease (CAD) Additional Family Medical History / Comment(s): CABG-4 VESSEL Medications and Allergies Home Medications Medication Instructions Recorded Confirmed Type Acetaminophen [Tylenol] 1,500 mg PO DAILY PRN 09/22/19 09/22/19 History Allergies Allergy/AdvReac Type Severity Reaction Status Date / Time No Known Allergies Allergy Verified 09/22/19 16:04 Physical Exam Vitals: Vital Signs Temp Pulse Pulse Resp BP BP Pulse Ox 09/23/19 13:00 103 H 30 H 99 09/23/19 12:00 99.4 F 104 H 30 H 99 09/23/19 11:39 100 09/23/19 11:24 103 H 09/23/19 11:00 115 H 30 H 97 09/23/19 10:00 156 H 30 H 94 L 09/23/19 09:30 113 H 30 H 112/79 09/23/19 09:00 151 H 30 H 104/84 94 L 09/23/19 08:30 137 H 30 H 108/94 87 L 09/23/19 08:00 99.2 F 140 H 30 H 82/60 88 L 09/23/19 07:30 140 H 18 132/105 09/23/19 07:00 121 H 22 126/79 09/23/19 06:40 125 H 20 09/23/19 06:20 120 H 24 87/60 09/23/19 06:00 125 H 20 81 L 09/23/19 05:50 126 H 20 81 L 09/23/19 05:40 131 H 20 105/60 77 L 09/23/19 05:30 124 H 135 H 20 78 L 09/23/19 05:20 135 H 20 75 L 09/23/19 05:10 130 H 20 113/20 74 L 09/23/19 05:00 134 H 0 L 102/56 73 L 09/23/19 04:50 141 H 20 73 L 09/23/19 04:40 131 H 20 102/56 09/23/19 04:30 134 H 20 09/23/19 04:20 131 H 20 80 L 09/23/19 04:10 141 H 20 127/77 73 L 09/23/19 04:01 97.7 F 130 H 20 78 L 09/23/19 00:00 97.8 F 97 20 139/79 91 L 09/22/19 20:00 97.9 F 18 L 18 147/82 89 L 09/22/19 17:45 93 20 09/22/19 17:30 98.3 F 93 20 118/71 93 L 09/22/19 17:00 99.8 F H 89 22 134/67 96 09/22/19 15:00 88 22 131/67 99 Intake and Output 09/22/19 09/23/19 09/23/19 22:59 06:59 14:59 Intake Total 1150 1253.029 Output Total 0 500 Balance 1150 753.029 Intake: IV 12 0.9NS Pressure Bag 12 Intake, IV Titration 1150 1241.029 Amount Amiodarone 360 mg In 66 Dextrose 5% in Water 200 ml @ 1 MG/MIN 33.333 mls/ hr IV .Q6H ONE Rx#: [id number] Dextrose 5% in Water 100 100 ml @ 618 mls/hr IV .Q10M ONE with Amiodarone 150 mg Rx#:[id number] Heparin Sod,Pork in 0.45% 83.95 NaCl 25,000 unit In 0.45 % NaCl 1 250ml.bag @ 8. 846 UNITS/KG/HR 23 mls/hr IV .[id number] [facility] Rx#: [id number] Norepinephrine 4 mg In 203.899 Sodium Chloride 0.9% 250 ml @ 0.05 MCG/KG/MIN 49. 53 mls/hr IV .Q5H8M [facility] Rx#:[id number] Piperacillin-Tazobactam 3 75 .375 gm In Sodium Chloride 0.9% 100 ml @ 25 mls/hr IVPB Q8HR [facility] Rx# :[id number] Propofol 1,000 mg In 89.18 Empty Bag 1 bag @ Titrate IV .Q0M [facility] Rx#: [id number] Sodium Chloride 0.9% 1, 50 000 ml @ 10 mls/hr IV . Q24H [facility] Rx#:[id number] Sodium Chloride 0.9% 1, 150 75 000 ml @ 75 mls/hr IV . [id number] [facility] Rx#:[id number] Sodium Chloride 0.9% 1, 1000 000 ml @ 999 mls/hr IV . Q1H1M [facility] Rx#:[id number] Vancomycin 2,500 mg In 498 Sodium Chloride 0.9% 500 ml 500 ml @ 166.667 mls/ hr IVPB ONCE [facility] Rx#: [id number] Output: Urine 0 500 Other: # Voids 1 Weight 331.122 kg 260 kg ABP, PAP, CO, CI - Last 8 Hours Arterial Blood Pressure 119/74 Arterial Blood Pressure 108/74 Arterial Blood Pressure 116/74 Arterial Blood Pressure 146/87 Arterial Blood Pressure 120/85 Arterial Blood Pressure 115/71 Arterial Blood Pressure 115/73 Physical Exam: Revealed a 54-year-old white male, morbidly obese, on mechanical ventilation. Sedated. In no distress. Head: Atraumatic, normocephalic. Endotracheal tube and orogastric tubes are intact. Neck: Short obese neck, no neck masses, no JVD, HEENT: PERRLA, EOMI, no icterus, no neck masses, no stridor. Endotracheal tube is intact. Chest: [Large chest, diminished breath sounds, crackles at the bases, no rhonchi and no wheezes. Cardiac Exam: Distant S1 and S2, irregular rhythm, no S3 gallop. No rub. Abdomen: [Morbidly obese, Soft, nontender, no megaly, no rebound, no guarding, normal bowel sounds.] Extremities: [Chronic venous stasis changes. And significant excoriation of the skin and multiple areas of cellulitis and superficial ulcers in both lower extremity but more so on the left lower extremity calf region.] Neurological Exam: Cannot be assessed, patient is sedated on propofol. Musculoskeletal could not be assessed. No evidence of muscle atrophy no deformities. Skin: Areas of cellulitis and excoriation of the skin noted in lower extremities with venous stasis changes. Genitalia: Swollen scrotum, no tenderness, could not visualize the penile shaft, sunken and into the scrotal area. Results - Laboratory Findings CBC and BMP: 09/23/19 05:31 09/23/19 04:07 ABG ABG pH 7.29 (7.35-7.45) L 09/23/19 08:17 ABG pCO2 72 mmHg (35-45) H* 09/23/19 08:17 ABG pO2 56 mmHg (83-108) L* 09/23/19 08:17 ABG O2 Saturation 88.9 % (94-97) L 09/23/19 08:17 PT/INR, D-dimer PT 11.7 sec (9.0-12.0) 09/23/19 05:31 INR 1.1 (<1.2) 09/23/19 05:31 D-Dimer 26.10 mg/L FEU (<0.60) H 09/23/19 05:31 Abnormal lab findings: Abnormal Labs 09/22/19 09/22/19 09/22/19 13:05 13:05 13:05 WBC 13.0 H RBC 4.28 L MCV 106.6 H MCHC 30.7 L Neutrophils # 10.8 H Neutrophils # (Manual) Metamyelocytes # (Man) Myelocytes # (Manual) Macrocytosis APTT 20.0 L D-Dimer ABG pH ABG pCO2 ABG pO2 ABG HCO3 ABG Total CO2 ABG O2 Saturation Chloride 94 L Carbon Dioxide 37 H Creatinine Glucose 124 H POC Glucose (mg/dL) Plasma Lactic Acid Nikunj ALT 80 H Troponin I Albumin 3.3 L 09/22/19 09/22/19 09/23/19 13:05 13:05 03:31 WBC RBC MCV MCHC Neutrophils # Neutrophils # (Manual) Metamyelocytes # (Man) Myelocytes # (Manual) Macrocytosis APTT D-Dimer 0.98 H ABG pH ABG pCO2 ABG pO2 ABG HCO3 ABG Total CO2 ABG O2 Saturation Chloride Carbon Dioxide Creatinine Glucose POC Glucose (mg/dL) 262 H Plasma Lactic Acid Nikunj ALT Troponin I 0.047 H* Albumin 09/23/19 09/23/19 09/23/19 04:07 04:07 04:07 WBC RBC MCV MCHC Neutrophils # Neutrophils # (Manual) Metamyelocytes # (Man) Myelocytes # (Manual) Macrocytosis APTT D-Dimer ABG pH ABG pCO2 ABG pO2 ABG HCO3 ABG Total CO2 ABG O2 Saturation Chloride 96 L Carbon Dioxide Creatinine 1.68 H Glucose 172 H POC Glucose (mg/dL) Plasma Lactic Acid Nikunj 4.9 H* ALT Troponin I 0.046 H* Albumin 09/23/19 09/23/19 09/23/19 04:13 04:54 05:07 WBC 39.2 H RBC MCV 116.2 H D MCHC 27.9 L Neutrophils # Neutrophils # (Manual) 34.40 H Metamyelocytes # (Man) 0.39 H Myelocytes # (Manual) 0.39 H Macrocytosis Marked A APTT D-Dimer ABG pH 7.17 L* ABG pCO2 97 H* ABG pO2 43 L* ABG HCO3 35 H ABG Total CO2 38 H ABG O2 Saturation 73.1 L Chloride Carbon Dioxide Creatinine Glucose POC Glucose (mg/dL) Plasma Lactic Acid Nikunj ALT Troponin I 0.053 H* Albumin 09/23/19 09/23/19 09/23/19 05:31 05:31 06:35 WBC 29.5 H RBC 4.25 L MCV 112.7 H MCHC 29.0 L Neutrophils # Neutrophils # (Manual) 28.00 H Metamyelocytes # (Man) Myelocytes # (Manual) Macrocytosis Marked A APTT D-Dimer 26.10 H ABG pH 7.16 L* ABG pCO2 102 H* ABG pO2 57 L* ABG HCO3 35 H ABG Total CO2 ABG O2 Saturation 81.0 L Chloride Carbon Dioxide Creatinine Glucose POC Glucose (mg/dL) Plasma Lactic Acid Nikunj ALT Troponin I Albumin 09/23/19 09/23/19 09/23/19 08:17 08:45 08:46 WBC RBC MCV MCHC Neutrophils # Neutrophils # (Manual) Metamyelocytes # (Man) Myelocytes # (Manual) Macrocytosis APTT D-Dimer ABG pH 7.29 L ABG pCO2 72 H* ABG pO2 56 L* ABG HCO3 35 H ABG Total CO2 37 H ABG O2 Saturation 88.9 L Chloride Carbon Dioxide Creatinine Glucose POC Glucose (mg/dL) 161 H Plasma Lactic Acid Nikunj 2.3 H* ALT Troponin I Albumin 09/23/19 09/23/19 12:11 12:14 WBC RBC MCV MCHC Neutrophils # Neutrophils # (Manual) Metamyelocytes # (Man) Myelocytes # (Manual) Macrocytosis APTT 42.5 H D-Dimer ABG pH ABG pCO2 ABG pO2 ABG HCO3 ABG Total CO2 ABG O2 Saturation Chloride Carbon Dioxide Creatinine Glucose POC Glucose (mg/dL) 163 H Plasma Lactic Acid Nikunj ALT Troponin I Albumin - Diagnostic Findings Chest x-ray: image reviewed (As noted in HPI.) Additional studies: Echocardiogram as noted in HPI. Assessment and Plan Assessment: Impression: Acute hypoxic respiratory failure secondary to cardiac arrest, requiring CPR for 9 minutes. And secondary to acute cardiogenic pulmonary edema. Acute cardiogenic pulmonary edema, possible diastolic dysfunction. This is also contributing to his hypoxemia. Morbid obesity with acute on chronic respiratory acidosis, suspect underlying obstructive sleep apnea syndrome and obesity/hypoventilation syndrome. New onset atrial fibrillation, also contributing to his pulmonary edema. Possibility of pulmonary embolism is in the picture, however felt to be less likely especially with negative venous Doppler. Nonetheless the patient will require heparinization mostly for his atrial fibrillation with RVR, patient will not fit in the scanner to have a CT of the chest. Or a VQ scan.We'll treat empirically with heparin. Severe cellulitis of lower extremities, possible sepsis, cultures are pending. In the meantime we will continue IV antibiotics. Empirically. Recommendation: Continue ventilatory support. Will adjust ventilatory settings according to her ABG findings. Presently on high FiO2 and high PEEP at 16 point Continue hemodynamic support. Diuretics for acute pulmonary edema/congestive heart failure GI and DVT prophylaxis. Nutritional support. Empiric antibiotics. Titrate FiO2 to keep O2 saturation above 93%. Increase PEEP to 16 to be able to oxygenate the patient in the meantime diuretics were ordered. May have to consider even a Lasix drip on this patient. Urology consultation for his scrotal swelling and for placement of a Kramer catheter. Continue heparin in the meantime. Venous Doppler showed no evidence of DVT. Amiodarone for atrial fibrillation with RVR. Critical care time is 50 minutes not including time spent on procedures. Time with Patient: Greater than 30
[2019-09-23 14:12] LABS: Appearance,Urine Cloudy (Clear); Bacteria,Urine Many /hpf; Bilirubin,Urine Negative (Negative); Blood,Urine Trace (Negative); Color,Urine Yellow; Glucose,Urine (UA) Negative (Negative); Ketones,Urine Negative (Negative); Leukocyte Esterase,Urine Small (Negative); Mucus,Urine Rare /hpf; Nitrite,Urine Negative (Negative); PH, Urine 5.5 (5.0-8.0); Protein,Urine 1+ (Negative); RBC,Urine 4 /hpf (0-5); Specific Gravity,Urine 1.008 (1.001-1.035); Squamous Epithelial Cell,Urine <1 /hpf (0-4); Urobilinogen,Urine <2.0 mg/dL (<2.0); WBC,Urine 10 /hpf (0-5)
--- NOTE | 2019-09-23 14:19 | P.NPCON ---
History of Present Illness - Reason for Consult acute renal failure - History of Present Illness Reason for presentation: Acute kidney injury History of present illness: Patient is a 54-year-old male seen in consultation for acute kidney injury. Creatinine was 0.89 on admission and is up to 1.68 today. Patient presented to the hospital with generalized weakness. He was also complaining of scrotal mulugeta ma as well as generalized edema and shortness of breath upon presentation. Earlier this morning patient had cardiac arrest and was noted to be in V. fib. CPR was performed for about 18 minutes. He is currently maintained on amiodarone drip. He is also on Levophed. He is maintained on IV diuretics. Kramer catheter was placed about an hour ago. Immediately 500 mL of urine was obtained. Echocardiogram revealed ejection fraction of 50% but might not be accurate due to patient's body habitus. He is currently intubated. He is on 80% FiO2. He is noted to have cellulitis in the lower extremities. No active drainage. Tube feeding will be started today. Vital signs are stable. Currently on vasopressors. General: The patient appeared well nourished and normally developed. HEENT: Head exam is unremarkable. Neck is without jugular venous distension. Intubated. LUNGS: Breath sounds decreased. HEART: Tachycardic. ABDOMEN: Morbidly obese. EXTREMITITES: Erythema noted. No active drainage. 2+ edema. Past Medical History Past Medical History: Hyperlipidemia, Hypertension Additional Past Medical History / Comment(s): hemrrhoids, prediabetic History of Any Multi-Drug Resistant Organisms: None Reported Past Surgical History: Hernia Repair Additional Past Surgical History / Comment(s): UMBILICAL HERNIA REPAIR Past Anesthesia/Blood Transfusion Reactions: No Reported Reaction Past Psychological History: Depression Smoking Status: Never smoker Past Alcohol Use History: None Reported Past Drug Use History: None Reported - Past Family History Mother Family Medical History: Cancer, Diabetes Mellitus Additional Family Medical History / Comment(s): OBESITY, BONE CA Father Family Medical History: Coronary Artery Disease (CAD) Additional Family Medical History / Comment(s): CABG-4 VESSEL Medications and Allergies Home Medications Medication Instructions Recorded Confirmed Type Acetaminophen [Tylenol] 1,500 mg PO DAILY PRN 09/22/19 09/22/19 History Allergies Allergy/AdvReac Type Severity Reaction Status Date / Time No Known Allergies Allergy Verified 09/22/19 16:04 Physical Exam Vitals: Vital Signs Temp Pulse Pulse Resp BP BP Pulse Ox 09/23/19 13:00 103 H 30 H 99 09/23/19 12:00 99.4 F 104 H 30 H 99 09/23/19 11:39 100 09/23/19 11:24 103 H 09/23/19 11:00 115 H 30 H 97 09/23/19 10:00 156 H 30 H 94 L 09/23/19 09:30 113 H 30 H 112/79 09/23/19 09:00 151 H 30 H 104/84 94 L 09/23/19 08:30 137 H 30 H 108/94 87 L 09/23/19 08:00 99.2 F 140 H 30 H 82/60 88 L 09/23/19 07:30 140 H 18 132/105 09/23/19 07:00 121 H 22 126/79 09/23/19 06:40 125 H 20 09/23/19 06:20 120 H 24 87/60 09/23/19 06:00 125 H 20 81 L 09/23/19 05:50 126 H 20 81 L 09/23/19 05:40 131 H 20 105/60 77 L 09/23/19 05:30 124 H 135 H 20 78 L 09/23/19 05:20 135 H 20 75 L 09/23/19 05:10 130 H 20 113/20 74 L 09/23/19 05:00 134 H 0 L 102/56 73 L 09/23/19 04:50 141 H 20 73 L 09/23/19 04:40 131 H 20 102/56 09/23/19 04:30 134 H 20 09/23/19 04:20 131 H 20 80 L 09/23/19 04:10 141 H 20 127/77 73 L 09/23/19 04:01 97.7 F 130 H 20 78 L 09/23/19 00:00 97.8 F 97 20 139/79 91 L 09/22/19 20:00 97.9 F 18 L 18 147/82 89 L 09/22/19 17:45 93 20 09/22/19 17:30 98.3 F 93 20 118/71 93 L 09/22/19 17:00 99.8 F H 89 22 134/67 96 09/22/19 15:00 88 22 131/67 99 Intake and Output 09/22/19 09/23/19 09/23/19 22:59 06:59 14:59 Intake Total 1150 1253.029 Output Total 0 500 Balance 1150 753.029 Intake: IV 12 0.9NS Pressure Bag 12 Intake, IV Titration 1150 1241.029 Amount Amiodarone 360 mg In 66 Dextrose 5% in Water 200 ml @ 1 MG/MIN 33.333 mls/ hr IV .Q6H [facility] Rx#: [id number] Dextrose 5% in Water 100 100 ml @ 618 mls/hr IV .Q10M [facility] with Amiodarone 150 mg Rx#:[id number] Heparin Sod,Pork in 0.45% 83.95 NaCl 25,000 unit In 0.45 % NaCl 1 250ml.bag @ 8. 846 UNITS/KG/HR 23 mls/hr IV .[id number] [facility] Rx#: [id number] Norepinephrine 4 mg In 203.899 Sodium Chloride 0.9% 250 ml @ 0.05 MCG/KG/MIN 49. 53 mls/hr IV .Q5H8M [facility] Rx#:[id number] Piperacillin-Tazobactam 3 75 .375 gm In Sodium Chloride 0.9% 100 ml @ 25 mls/hr IVPB Q8HR [facility] Rx# :[id number] Propofol 1,000 mg In 89.18 Empty Bag 1 bag @ Titrate IV .Q0M [facility] Rx#: [id number] Sodium Chloride 0.9% 1, 50 000 ml @ 10 mls/hr IV . Q24H [facility] Rx#:[id number] Sodium Chloride 0.9% 1, 150 75 000 ml @ 75 mls/hr IV . [id number] [facility] Rx#:[id number] Sodium Chloride 0.9% 1, 1000 000 ml @ 999 mls/hr IV . Q1H1M [facility] Rx#:[id number] Vancomycin 2,500 mg In 498 Sodium Chloride 0.9% 500 ml 500 ml @ 166.667 mls/ hr IVPB ONCE [facility] Rx#: [id number] Output: Urine 0 500 Other: # Voids 1 Weight 331.122 kg 260 kg 260 kg ABP, PAP, CO, CI - Last 8 Hours Arterial Blood Pressure 119/74 Arterial Blood Pressure 108/74 Arterial Blood Pressure 116/74 Arterial Blood Pressure 146/87 Arterial Blood Pressure 120/85 Arterial Blood Pressure 115/71 Arterial Blood Pressure 115/73 Results - Lab Results Most recent lab results ABG pH 7.29 (7.35-7.45) L 09/23/19 08:17 ABG pCO2 72 mmHg (35-45) H* 09/23/19 08:17 ABG pO2 56 mmHg (83-108) L* 09/23/19 08:17 ABG HCO3 35 mmol/L (21-25) H 09/23/19 08:17 ABG O2 Saturation 88.9 % (94-97) L 09/23/19 08:17 Calcium 8.9 mg/dL (8.4-10.2) 09/23/19 04:07 Magnesium 2.0 mg/dL (1.6-2.3) 09/22/19 13:05 09/23/19 05:31 09/23/19 04:07 Assessment and Plan Plan: Assessment: 1. Acute kidney injury secondary to ATN secondary to cardiopulmonary arrest. Baseline creatinine near 1. 1.68 today. 2. Status post cardiopulmonary arrest with down time off about 18 minutes on September 22. Currently on amiodarone and heparin drip. 3. Hypotension maintained on Levophed. 4. Volume overload. 5. Morbid obesity. 6. Lower extremity cellulitis maintained on antibiotics. Plan: I will change Lasix to 60 mg IV twice daily. Maintain Kramer catheter. Strict I's and O's. Wean FiO2 and vasopressors. Check urinalysis. Tube feeds to be started today. Continue to assess daily for need for renal replacement therapy. Thank you for the consultation. I will continue to follow the patient with you during his hospital stay.
[2019-09-23] MEDS: DAPTOmycin 500 MG in SODIUM CHLORIDE 0.9% 50 ML IVPB SCH (14:34)
[2019-09-23] MEDS: METOPROLOL TARTRATE 5 MG/5 ML VIAL IVP SCH ×2 (16:56→22:35)
[2019-09-23] MEDS: AMIODARONE 300 MG in DEXTROSE 5% IN WATER 250 ML IV SCH ×2 (17:25)
[2019-09-23 18:19] LABS: Glucose,Whole Blood 150 mg/dL (75-99)
--- NOTE | 2019-09-23 19:16 | P.HPIM ---
History of Present Illness H&P Date: 09/23/19 Chief Complaint: Swelling of his testicles History of presenting complaint: This is a 54-year-old patient of Dr. Wilmer Goodrich. Presented to ER with multiple complaints. Stated that 4 days ago. Patient's testicles on the toilet this is then he developed swelling and tenderness. Also complained of some lower back pain with walking that is had for years. Also chronic lower extremity swelling. Which is increase in the last few weeks. He is also noticing increasing fluid discharge from lower extremity thought it may be infected. Also shortness of breath going on for a few months. Patient is admitted to the medical floor. At 3:25 AM cord probing was activated. Patient did develop ventricular fibrillation on a laboratory monitor and was found unresponsive in the room. Patient received IV epinephrine, sodium bicarbonate and calcium chloride. Initially found to be JANIA then into ventricular fibrillation and was shocked 3. Transferred to the ICU. Patient is return of spontaneous circulation at 3:43 AM. This morning patient is on the ventilator. Also had an episode of what could've been atrial fibrillation with a high heart rate of 160s was given 5 mg of IV metoprolol and then started on IV amiodarone. Admitting review of systems cannot be done patient intubated Past medical history to include: Hypertension, hyperlipidemia, hemorrhoids depression Social history: No history of alcohol or smoking. Physical examination: VITAL SIGNS: 99.7, 101, 22, 121/64, 92% on 4 L upon presentation GENERAL: BMI 7.6, laying in bed, intubated. EYES: Pupils equal. Conjunctiva normal. HEENT: External appearance of nose and ears normal, oral cavity endotracheal tube. NECK: JVD unable to assess; masses not palpable. HEART: Heart sounds muffled; edema present. LUNGS: Respiratory rate increased; distal breath sounds. ABDOMEN: Soft, nontender, liver spleen not palpable, no masses palpable. Swollen testicle inflamed, with penis embedded in the scrotum PSYCH: Patient sedated, unable to assessl. NEUROLOGICAL: [Cranial nerves grossly intact; no facial asymmetry, unable to assess EXTREMITIES: Breakdown of skin of lower extremity with only some drainage LYMPHATICS: No lymph nodes palpable in the axilla and neck INVESTIGATIONS, reviewed in the clinical context: White count 39.2 hemoglobin 14 platelets 291 left shift potassium 4.9 bun 15 creatinine 0.8 9 repeat 1.68 Troponin I 0.047, 0.046 Albumin 3.3 COVID 19 PCR-not detected EKG tracing personally reviewed by me-upon presentation T-wave changes Chest x-ray film personally reviewed by me-exam limited questionable infiltrate versus fluid Venous Doppler-bilateral negative for DVT 2-D [id number] study-EF around 50% difficult to assess Scrotal ultrasound-no mass. Soft tissue edema Assessment: -Initial presentation of swelling of the scrotum pain and inflammation having suffered injury with the toilet seat likely cellulitis, causing significant edema the source of initial infection -Septic and hypotensive shock -Lactic acidosis -Troponin I leak from septic shock, doubt acute coronary syndrome -Cardiac arrest from DIMAS -Morbid obesity BMI 71.6 -Bilateral lower extremity wounds likely from venous insufficiency and secondary infection with drainage -Paroxysmal atrial fibrillation with rapid ventricular rate now in sinus rhythm -Acute hypoxic and hypercapnic respiratory failure currently on the ventilator on 100% -Acute kidney injury, ATN from sepsis and hypotension Plan: Patient is on DuoNeb, IV amiodarone, was initially given vancomycin because of kidney just sure to daptomycin. IV heparin, norepinephrine, IV Zosyn and propofol. Consultations were done to dry molder, nephrology, neurology, infectious disease. Patient remains on the ventilator. Lower extremity wound care per ID. Past Medical History Past Medical History: Hyperlipidemia, Hypertension Additional Past Medical History / Comment(s): hemrrhoids, prediabetic History of Any Multi-Drug Resistant Organisms: None Reported Past Surgical History: Hernia Repair Additional Past Surgical History / Comment(s): UMBILICAL HERNIA REPAIR Past Anesthesia/Blood Transfusion Reactions: No Reported Reaction Past Psychological History: Depression Smoking Status: Never smoker Past Alcohol Use History: None Reported Past Drug Use History: None Reported - Past Family History Mother Family Medical History: Cancer, Diabetes Mellitus Additional Family Medical History / Comment(s): OBESITY, BONE CA Father Family Medical History: Coronary Artery Disease (CAD) Additional Family Medical History / Comment(s): CABG-4 VESSEL Medications and Allergies Home Medications Medication Instructions Recorded Confirmed Type Acetaminophen [Tylenol] 1,500 mg PO DAILY PRN 09/22/19 09/22/19 History Allergies Allergy/AdvReac Type Severity Reaction Status Date / Time No Known Allergies Allergy Verified 09/22/19 16:04 Physical Exam Vitals: Vital Signs Temp Pulse Pulse Resp BP BP Pulse Ox 09/23/19 10:00 156 H 30 H 94 L 09/23/19 09:30 113 H 30 H 112/79 09/23/19 09:00 151 H 30 H 104/84 94 L 09/23/19 08:30 137 H 30 H 108/94 87 L 09/23/19 08:00 99.2 F 140 H 30 H 82/60 88 L 09/23/19 07:30 140 H 18 132/105 09/23/19 07:00 121 H 22 126/79 09/23/19 06:40 125 H 20 09/23/19 06:20 120 H 24 87/60 09/23/19 06:00 125 H 20 81 L 09/23/19 05:50 126 H 20 81 L 09/23/19 05:40 131 H 20 105/60 77 L 09/23/19 05:30 124 H 135 H 20 78 L 09/23/19 05:20 135 H 20 75 L 09/23/19 05:10 130 H 20 113/20 74 L 09/23/19 05:00 134 H 0 L 102/56 73 L 09/23/19 04:50 141 H 20 73 L 09/23/19 04:40 131 H 20 102/56 09/23/19 04:30 134 H 20 09/23/19 04:20 131 H 20 80 L 09/23/19 04:10 141 H 20 127/77 73 L 09/23/19 04:01 97.7 F 130 H 20 78 L 09/23/19 00:00 97.8 F 97 20 139/79 91 L 09/22/19 20:00 97.9 F 18 L 18 147/82 89 L 09/22/19 17:45 93 20 09/22/19 17:30 98.3 F 93 20 118/71 93 L 09/22/19 17:00 99.8 F H 89 22 134/67 96 09/22/19 15:00 88 22 131/67 99 09/22/19 13:00 99.7 F H 101 H 22 121/64 92 L Intake and Output 09/22/19 09/23/19 09/23/19 22:59 06:59 14:59 Intake Total 1150 372.88 Output Total 0 Balance 1150 372.88 Intake: IV 3 0.9NS Pressure Bag 3 Intake, IV Titration 1150 369.88 Amount Piperacillin-Tazobactam 3 50 .375 gm In Sodium Chloride 0.9% 100 ml @ 25 mls/hr IVPB Q8HR [facility] Rx# :[id number] Propofol 1,000 mg In 48.88 Empty Bag 1 bag @ Titrate IV .Q0M [facility] Rx#: [id number] Sodium Chloride 0.9% 1, 30 000 ml @ 10 mls/hr IV . Q24H [facility] Rx#:[id number] Sodium Chloride 0.9% 1, 150 75 000 ml @ 75 mls/hr IV . [id number] [facility] Rx#:[id number] Sodium Chloride 0.9% 1, 1000 000 ml @ 999 mls/hr IV . Q1H1M [facility] Rx#:[id number] Vancomycin 2,500 mg In 166 Sodium Chloride 0.9% 500 ml 500 ml @ 166.667 mls/ hr IVPB ONCE [facility] Rx#: [id number] Output: Urine 0 Other: Weight 331.122 kg 260 kg ABP, PAP, CO, CI - Last 8 Hours Arterial Blood Pressure 146/87 Arterial Blood Pressure 120/85 Arterial Blood Pressure 115/71 Arterial Blood Pressure 115/73 Results CBC & Chem 7: 09/23/19 05:31 09/23/19 18:18 Labs: Abnormal Lab Results - Last 24 Hours (Table) 09/22/19 09/22/19 09/22/19 Range/Units 13:05 13:05 13:05 WBC 13.0 H (3.8-10.6) k/uL RBC 4.28 L (4.30-5.90) m/uL MCV 106.6 H (80.0-100.0) fL MCHC 30.7 L (31.0-37.0) g/dL Neutrophils # 10.8 H (1.3-7.7) k/uL Neutrophils # (Manual) (1.3-7.7) k/uL Metamyelocytes # (Man) (0) k/uL Myelocytes # (Manual) (0) k/uL Macrocytosis APTT 20.0 L (22.0-30.0) sec D-Dimer (<0.60) mg/L FEU ABG pH (7.35-7.45) ABG pCO2 (35-45) mmHg ABG pO2 (83-108) mmHg ABG HCO3 (21-25) mmol/L ABG Total CO2 (19-24) mmol/L ABG O2 Saturation (94-97) % Chloride 94 L (98-107) mmol/L Carbon Dioxide 37 H (22-30) mmol/L Creatinine (0.66-1.25) mg/dL Glucose 124 H (74-99) mg/dL POC Glucose (mg/dL) (75-99) mg/dL Plasma Lactic Acid Nikunj (0.7-2.0) mmol/L ALT 80 H (4-49) U/L Troponin I (0.000-0.034) ng/mL Albumin 3.3 L (3.5-5.0) g/dL 09/22/19 09/22/19 09/23/19 Range/Units 13:05 13:05 03:31 WBC (3.8-10.6) k/uL RBC (4.30-5.90) m/uL MCV (80.0-100.0) fL MCHC (31.0-37.0) g/dL Neutrophils # (1.3-7.7) k/uL Neutrophils # (Manual) (1.3-7.7) k/uL Metamyelocytes # (Man) (0) k/uL Myelocytes # (Manual) (0) k/uL Macrocytosis APTT (22.0-30.0) sec D-Dimer 0.98 H (<0.60) mg/L FEU ABG pH (7.35-7.45) ABG pCO2 (35-45) mmHg ABG pO2 (83-108) mmHg ABG HCO3 (21-25) mmol/L ABG Total CO2 (19-24) mmol/L ABG O2 Saturation (94-97) % Chloride (98-107) mmol/L Carbon Dioxide (22-30) mmol/L Creatinine (0.66-1.25) mg/dL Glucose (74-99) mg/dL POC Glucose (mg/dL) 262 H (75-99) mg/dL Plasma Lactic Acid Nikunj (0.7-2.0) mmol/L ALT (4-49) U/L Troponin I 0.047 H* (0.000-0.034) ng/mL Albumin (3.5-5.0) g/dL 09/23/19 09/23/19 09/23/19 Range/Units 04:07 04:07 04:07 WBC (3.8-10.6) k/uL RBC (4.30-5.90) m/uL MCV (80.0-100.0) fL MCHC (31.0-37.0) g/dL Neutrophils # (1.3-7.7) k/uL Neutrophils # (Manual) (1.3-7.7) k/uL Metamyelocytes # (Man) (0) k/uL Myelocytes # (Manual) (0) k/uL Macrocytosis APTT (22.0-30.0) sec D-Dimer (<0.60) mg/L FEU ABG pH (7.35-7.45) ABG pCO2 (35-45) mmHg ABG pO2 (83-108) mmHg ABG HCO3 (21-25) mmol/L ABG Total CO2 (19-24) mmol/L ABG O2 Saturation (94-97) % Chloride 96 L (98-107) mmol/L Carbon Dioxide (22-30) mmol/L Creatinine 1.68 H (0.66-1.25) mg/dL Glucose 172 H (74-99) mg/dL POC Glucose (mg/dL) (75-99) mg/dL Plasma Lactic Acid Nikunj 4.9 H* (0.7-2.0) mmol/L ALT (4-49) U/L Troponin I 0.046 H* (0.000-0.034) ng/mL Albumin (3.5-5.0) g/dL 09/23/19 09/23/19 09/23/19 Range/Units 04:13 04:54 05:07 WBC 39.2 H (3.8-10.6) k/uL RBC (4.30-5.90) m/uL MCV 116.2 H D (80.0-100.0) fL MCHC 27.9 L (31.0-37.0) g/dL Neutrophils # (1.3-7.7) k/uL Neutrophils # (Manual) 34.40 H (1.3-7.7) k/uL Metamyelocytes # (Man) 0.39 H (0) k/uL Myelocytes # (Manual) 0.39 H (0) k/uL Macrocytosis Marked A APTT (22.0-30.0) sec D-Dimer (<0.60) mg/L FEU ABG pH 7.17 L* (7.35-7.45) ABG pCO2 97 H* (35-45) mmHg ABG pO2 43 L* (83-108) mmHg ABG HCO3 35 H (21-25) mmol/L ABG Total CO2 38 H (19-24) mmol/L ABG O2 Saturation 73.1 L (94-97) % Chloride (98-107) mmol/L Carbon Dioxide (22-30) mmol/L Creatinine (0.66-1.25) mg/dL Glucose (74-99) mg/dL POC Glucose (mg/dL) (75-99) mg/dL Plasma Lactic Acid Nikunj (0.7-2.0) mmol/L ALT (4-49) U/L Troponin I 0.053 H* (0.000-0.034) ng/mL Albumin (3.5-5.0) g/dL 09/23/19 09/23/19 09/23/19 Range/Units 05:31 05:31 06:35 WBC 29.5 H (3.8-10.6) k/uL RBC 4.25 L (4.30-5.90) m/uL MCV 112.7 H (80.0-100.0) fL MCHC 29.0 L (31.0-37.0) g/dL Neutrophils # (1.3-7.7) k/uL Neutrophils # (Manual) 28.00 H (1.3-7.7) k/uL Metamyelocytes # (Man) (0) k/uL Myelocytes # (Manual) (0) k/uL Macrocytosis Marked A APTT (22.0-30.0) sec D-Dimer 26.10 H (<0.60) mg/L FEU ABG pH 7.16 L* (7.35-7.45) ABG pCO2 102 H* (35-45) mmHg ABG pO2 57 L* (83-108) mmHg ABG HCO3 35 H (21-25) mmol/L ABG Total CO2 (19-24) mmol/L ABG O2 Saturation 81.0 L (94-97) % Chloride (98-107) mmol/L Carbon Dioxide (22-30) mmol/L Creatinine (0.66-1.25) mg/dL Glucose (74-99) mg/dL POC Glucose (mg/dL) (75-99) mg/dL Plasma Lactic Acid Nikunj (0.7-2.0) mmol/L ALT (4-49) U/L Troponin I (0.000-0.034) ng/mL Albumin (3.5-5.0) g/dL 09/23/19 09/23/19 09/23/19 Range/Units 08:17 08:45 08:46 WBC (3.8-10.6) k/uL RBC (4.30-5.90) m/uL MCV (80.0-100.0) fL MCHC (31.0-37.0) g/dL Neutrophils # (1.3-7.7) k/uL Neutrophils # (Manual) (1.3-7.7) k/uL Metamyelocytes # (Man) (0) k/uL Myelocytes # (Manual) (0) k/uL Macrocytosis APTT (22.0-30.0) sec D-Dimer (<0.60) mg/L FEU ABG pH 7.29 L (7.35-7.45) ABG pCO2 72 H* (35-45) mmHg ABG pO2 56 L* (83-108) mmHg ABG HCO3 35 H (21-25) mmol/L ABG Total CO2 37 H (19-24) mmol/L ABG O2 Saturation 88.9 L (94-97) % Chloride (98-107) mmol/L Carbon Dioxide (22-30) mmol/L Creatinine (0.66-1.25) mg/dL Glucose (74-99) mg/dL POC Glucose (mg/dL) 161 H (75-99) mg/dL Plasma Lactic Acid Nikunj 2.3 H* (0.7-2.0) mmol/L ALT (4-49) U/L Troponin I (0.000-0.034) ng/mL Albumin (3.5-5.0) g/dL Microbiology - Last 24 Hours (Table) 06/10/20 05:00 Sputum Culture - Preliminary Sputum Thrombosis Risk Factor Assmnt - Choose All That Apply Each Factor Represents 1 point: Age 41-60 years, Obesity (BMI >25) Thrombosis Risk Factor Assessment Total Risk Factor Score: 2 Thrombosis Risk Factor Assessment Level: Low Risk
--- NOTE | 2019-09-23 19:28 | PCN ---
PROCEDURE NOTE PROCEDURE PERFORMED: Placement of a right radial arterial line. PREOPERATIVE DIAGNOSIS: Acute hypoxic respiratory failure, status post cardiac arrest and CPR. POSTOPERATIVE DIAGNOSIS: Acute hypoxic respiratory failure, status post cardiac arrest and CPR. ANESTHESIA: None deployed. PROCEDURE DETAILS: The patient was placed in the supine position, the right wrist was prepared in a sterile fashion and drapes were applied. The right radial artery was palpated, cannulated, and a guidewire was placed. A Cook's catheter was inserted over the guidewire, and the guidewire was removed. Good blood flow and good waveform noted. No evidence of any immediate complications. MMODL / IJN: [id number] /
[2019-09-23] MEDS: HEPARIN SODIUM,PORCINE 5,000 UNIT/ML 1 ML VIAL IV PRN (20:59)
[2019-09-23] MEDS: FUROSEMIDE 10 MG/ML 10 ML VIAL IV SCH (21:00)
[2019-09-24] MEDS ORDERED: INSULIN ASPART (NovoLOG) 100 UNIT/ML VIAL SQ ONE
[2019-09-24] MEDS: AMIODARONE 300 MG in DEXTROSE 5% IN WATER 250 ML IV SCH ×2 (03:30)
[2019-09-24 03:45] LABS: Glucose,Whole Blood 160 mg/dL (75-99)
[2019-09-24] MEDS: INSULIN ASPART (NovoLOG) 100 UNIT/ML VIAL SQ SCH ×4 (04:43→18:14)
[2019-09-24 04:57] LABS: Glucose,Whole Blood 154 mg/dL (75-99)
[2019-09-24] MEDS: IPRATROPIUM-ALBUTEROL 3 ML NEB INHALATION SCH ×6 (04:57→19:48)
[2019-09-24 05:19] LABS: Basophils % (A) 0 %; Eosinophils # (A) 0.1 k/uL (0-0.7); Eosinophils % (A) 1 %; HCT 43.3 % (39.0-53.0); HGB 13.5 gm/dL (13.0-17.5); Hypochromasia Marked; Lymphocytes # (A) 1.6 k/uL (1.0-4.8); Lymphocytes % (A) 9 %; MCH 32.1 pg (25.0-35.0); MCHC 31.1 g/dL (31.0-37.0); Macrocytosis Slight; Mean Platelet Volume 7.1; Monocytes # (A) 0.9 k/uL (0-1.0); Monocytes % (A) 5 %; Neutrophils # (A) 14.4 k/uL (1.3-7.7); Neutrophils % (A) 84 %; Platelet Count 263 k/uL (150-450); RDW 15.3 % (11.5-15.5); WBC 17.1 k/uL (3.8-10.6)
[2019-09-24 05:25] LABS: MCV 103.1 fL (80.0-100.0)
[2019-09-24 05:37] LABS: Glucose,Whole Blood 162 mg/dL (75-99)
--- NOTE | 2019-09-24 06:49 | P.CONS ---
History of Present Illness - Reason for Consult Consult date: 09/23/19 sepsis Requesting physician: Gustabo Ramos - Chief Complaint scrotal swelling and leg swelling/infection x few days - History of Present Illness Patient is a 54-year-old morbidly obese male presenting to the ER at [facility] yesterday with multiple complaints apparently the patient about 4 days ago paged his testicle on the toilet and since then has developed swelling and tenderness to the testicle area patient denies having any difficulty urination or any burning or frequency of urine he also complaining of back pain patient is walking upstairs. Pain has been there for few years and also significant swelling of the lower extremity apparently also complaining of increasing swelling of the legs and some superficial ulceration and concern for infection with the symptom the patient was evaluated by ER physician on arrival to the ER patient has been running a low-grade fever of 99.7 patient did have a white count of 13,000 patient UA was negative griggs PCR was negative patient did have a chest x-ray which was a limited exam with some pneumonitis or venous congestion while on the floor the patient did correlate her been interventricula r fibrillation/tachycardia patient has been resuscitated intubated and subsequently has been admitted to the ICU patient also noticed to have significant jump in his white count there is up to 39.2 today and the patient had did have a repeat chest x-ray this morning which shows correlate for CHF wit h pulmonary edema ARDS or diffuse pneumonia patient will extremity venous Doppler has been negative for DVT patient received a dose of vancomycin subsequently but has been treated with daptomycin and Zosyn infectious disease has been consulted for further management of antibiotic therapy patient did have a scrotal ultrasound on presentation which did show some soft tissue edema diffusely but no testicular abnormality all this information has been obtained from chart review the chart and talking to the nursing staff the patient currently sedated on the vent and is unable provide any history. Review of Systems Positive point has been mentioned in HPI complete review could not be obtained because of underlying mental status Past Medical History Past Medical History: Hyperlipidemia, Hypertension Additional Past Medical History / Comment(s): hemrrhoids, prediabetic History of Any Multi-Drug Resistant Organisms: None Reported Past Surgical History: Hernia Repair Additional Past Surgical History / Comment(s): UMBILICAL HERNIA REPAIR Past Anesthesia/Blood Transfusion Reactions: No Reported Reaction Past Psychological History: Depression Smoking Status: Never smoker Past Alcohol Use History: None Reported Past Drug Use History: None Reported - Past Family History Mother Family Medical History: Cancer, Diabetes Mellitus Additional Family Medical History / Comment(s): OBESITY, BONE CA Father Family Medical History: Coronary Artery Disease (CAD) Additional Family Medical History / Comment(s): CABG-4 VESSEL Medications and Allergies Home Medications Medication Instructions Recorded Confirmed Type Acetaminophen [Tylenol] 1,500 mg PO DAILY PRN 09/22/19 09/22/19 History Allergies Allergy/AdvReac Type Severity Reaction Status Date / Time No Known Allergies Allergy Verified 09/22/19 16:04 Physical Exam Vitals: Vital Signs Temp Pulse Pulse Resp BP BP Pulse Ox 09/23/19 13:00 103 H 30 H 99 09/23/19 12:00 99.4 F 104 H 30 H 99 09/23/19 11:39 100 09/23/19 11:24 103 H 09/23/19 11:00 115 H 30 H 97 09/23/19 10:00 156 H 30 H 94 L 09/23/19 09:30 113 H 30 H 112/79 09/23/19 09:00 151 H 30 H 104/84 94 L 09/23/19 08:30 137 H 30 H 108/94 87 L 09/23/19 08:00 99.2 F 140 H 30 H 82/60 88 L 09/23/19 07:30 140 H 18 132/105 09/23/19 07:00 121 H 22 126/79 09/23/19 06:40 125 H 20 09/23/19 06:20 120 H 24 87/60 09/23/19 06:00 125 H 20 81 L 09/23/19 05:50 126 H 20 81 L 09/23/19 05:40 131 H 20 105/60 77 L 09/23/19 05:30 124 H 135 H 20 78 L 09/23/19 05:20 135 H 20 75 L 09/23/19 05:10 130 H 20 113/20 74 L 09/23/19 05:00 134 H 0 L 102/56 73 L 09/23/19 04:50 141 H 20 73 L 09/23/19 04:40 131 H 20 102/56 09/23/19 04:30 134 H 20 09/23/19 04:20 131 H 20 80 L 09/23/19 04:10 141 H 20 127/77 73 L 09/23/19 04:01 97.7 F 130 H 20 78 L 09/23/19 00:00 97.8 F 97 20 139/79 91 L 09/22/19 20:00 97.9 F 18 L 18 147/82 89 L 09/22/19 17:45 93 20 09/22/19 17:30 98.3 F 93 20 118/71 93 L 09/22/19 17:00 99.8 F H 89 22 134/67 96 09/22/19 15:00 88 22 131/67 99 Intake and Output 09/22/19 09/23/19 09/23/19 22:59 06:59 14:59 Intake Total 1150 1253.029 Output Total 0 500 Balance 1150 753.029 Intake: IV 12 0.9NS Pressure Bag 12 Intake, IV Titration 1150 1241.029 Amount Amiodarone 360 mg In 66 Dextrose 5% in Water 200 ml @ 1 MG/MIN 33.333 mls/ hr IV .Q6H [facility] Rx#: [id number] Dextrose 5% in Water 100 100 ml @ 618 mls/hr IV .Q10M ONE with Amiodarone 150 mg Rx#:[id number] Heparin Sod,Pork in 0.45% 83.95 NaCl 25,000 unit In 0.45 % NaCl 1 250ml.bag @ 8. 846 UNITS/KG/HR 23 mls/hr IV .[id number] [facility] Rx#: [id number] Norepinephrine 4 mg In 203.899 Sodium Chloride 0.9% 250 ml @ 0.05 MCG/KG/MIN 49. 53 mls/hr IV .Q5H8M [facility] Rx#:[id number] Piperacillin-Tazobactam 3 75 .375 gm In Sodium Chloride 0.9% 100 ml @ 25 mls/hr IVPB Q8HR [facility] Rx# :[id number] Propofol 1,000 mg In 89.18 Empty Bag 1 bag @ Titrate IV .Q0M [facility] Rx#: [id number] Sodium Chloride 0.9% 1, 50 000 ml @ 10 mls/hr IV . Q24H [facility] Rx#:[id number] Sodium Chloride 0.9% 1, 150 75 000 ml @ 75 mls/hr IV . [id number] [facility] Rx#:[id number] Sodium Chloride 0.9% 1, 1000 000 ml @ 999 mls/hr IV . Q1H1M [facility] Rx#:[id number] Vancomycin 2,500 mg In 498 Sodium Chloride 0.9% 500 ml 500 ml @ 166.667 mls/ hr IVPB ONCE ONE Rx#: [id number] Output: Urine 0 500 Other: # Voids 1 Weight 331.122 kg 260 kg 260 kg ABP, PAP, CO, CI - Last 8 Hours Arterial Blood Pressure 119/74 Arterial Blood Pressure 108/74 Arterial Blood Pressure 116/74 Arterial Blood Pressure 146/87 Arterial Blood Pressure 120/85 Arterial Blood Pressure 115/71 Arterial Blood Pressure 115/73 GENERAL DESCRIPTION: Middle-aged male intubated on the vent no distress. No tachypnea or accessory muscle of respiration use. HEENT: Shows Pallor , no scleral icterus. Patient is orally intubated nECK: Trachea central, no thyromegaly. LUNGS: Unlabored breathing. Decreased breath sound at the base. No wheeze or crackle. HEART: S1, S2, regular rate and rhythm. ABDOMEN: Soft, no tenderness , guarding or rigidity EXTREMITIES: Diffuse lower extremity swelling with some pigmentation and superficial ulceration no foul-smelling drainage. SKIN: No rash, no masses palpable. NEUROLOGICAL: The patient is sedated on the vent. Results CBC & Chem 7: 09/24/19 04:55 09/23/19 18:18 Labs: Abnormal Lab Results - Last 24 Hours (Table) 09/22/19 09/22/19 09/22/19 Range/Units 13:05 13:05 13:05 WBC (3.8-10.6) k/uL RBC (4.30-5.90) m/uL MCV (80.0-100.0) fL MCHC (31.0-37.0) g/dL Neutrophils # (Manual) (1.3-7.7) k/uL Metamyelocytes # (Man) (0) k/uL Myelocytes # (Manual) (0) k/uL Macrocytosis APTT 20.0 L (22.0-30.0) sec D-Dimer 0.98 H (<0.60) mg/L FEU ABG pH (7.35-7.45) ABG pCO2 (35-45) mmHg ABG pO2 (83-108) mmHg ABG HCO3 (21-25) mmol/L ABG Total CO2 (19-24) mmol/L ABG O2 Saturation (94-97) % Chloride (98-107) mmol/L Creatinine (0.66-1.25) mg/dL Glucose (74-99) mg/dL POC Glucose (mg/dL) (75-99) mg/dL Plasma Lactic Acid Nikunj (0.7-2.0) mmol/L Troponin I 0.047 H* (0.000-0.034) ng/mL 09/23/19 09/23/19 09/23/19 Range/Units 03:31 04:07 04:07 WBC (3.8-10.6) k/uL RBC (4.30-5.90) m/uL MCV (80.0-100.0) fL MCHC (31.0-37.0) g/dL Neutrophils # (Manual) (1.3-7.7) k/uL Metamyelocytes # (Man) (0) k/uL Myelocytes # (Manual) (0) k/uL Macrocytosis APTT (22.0-30.0) sec D-Dimer (<0.60) mg/L FEU ABG pH (7.35-7.45) ABG pCO2 (35-45) mmHg ABG pO2 (83-108) mmHg ABG HCO3 (21-25) mmol/L ABG Total CO2 (19-24) mmol/L ABG O2 Saturation (94-97) % Chloride 96 L (98-107) mmol/L Creatinine 1.68 H (0.66-1.25) mg/dL Glucose 172 H (74-99) mg/dL POC Glucose (mg/dL) 262 H (75-99) mg/dL Plasma Lactic Acid Nikunj 4.9 H* (0.7-2.0) mmol/L Troponin I (0.000-0.034) ng/mL 09/23/19 09/23/19 09/23/19 Range/Units 04:07 04:13 04:54 WBC 39.2 H (3.8-10.6) k/uL RBC (4.30-5.90) m/uL MCV 116.2 H D (80.0-100.0) fL MCHC 27.9 L (31.0-37.0) g/dL Neutrophils # (Manual) 34.40 H (1.3-7.7) k/uL Metamyelocytes # (Man) 0.39 H (0) k/uL Myelocytes # (Manual) 0.39 H (0) k/uL Macrocytosis Marked A APTT (22.0-30.0) sec D-Dimer (<0.60) mg/L FEU ABG pH (7.35-7.45) ABG pCO2 (35-45) mmHg ABG pO2 (83-108) mmHg ABG HCO3 (21-25) mmol/L ABG Total CO2 (19-24) mmol/L ABG O2 Saturation (94-97) % Chloride (98-107) mmol/L Creatinine (0.66-1.25) mg/dL Glucose (74-99) mg/dL POC Glucose (mg/dL) (75-99) mg/dL Plasma Lactic Acid Nikunj (0.7-2.0) mmol/L Troponin I 0.046 H* 0.053 H* (0.000-0.034) ng/mL 09/23/19 09/23/19 09/23/19 Range/Units 05:07 05:31 05:31 WBC 29.5 H (3.8-10.6) k/uL RBC 4.25 L (4.30-5.90) m/uL MCV 112.7 H (80.0-100.0) fL MCHC 29.0 L (31.0-37.0) g/dL Neutrophils # (Manual) 28.00 H (1.3-7.7) k/uL Metamyelocytes # (Man) (0) k/uL Myelocytes # (Manual) (0) k/uL Macrocytosis Marked A APTT (22.0-30.0) sec D-Dimer 26.10 H (<0.60) mg/L FEU ABG pH 7.17 L* (7.35-7.45) ABG pCO2 97 H* (35-45) mmHg ABG pO2 43 L* (83-108) mmHg ABG HCO3 35 H (21-25) mmol/L ABG Total CO2 38 H (19-24) mmol/L ABG O2 Saturation 73.1 L (94-97) % Chloride (98-107) mmol/L Creatinine (0.66-1.25) mg/dL Glucose (74-99) mg/dL POC Glucose (mg/dL) (75-99) mg/dL Plasma Lactic Acid Nikunj (0.7-2.0) mmol/L Troponin I (0.000-0.034) ng/mL 09/23/19 09/23/19 09/23/19 Range/Units 06:35 08:17 08:45 WBC (3.8-10.6) k/uL RBC (4.30-5.90) m/uL MCV (80.0-100.0) fL MCHC (31.0-37.0) g/dL Neutrophils # (Manual) (1.3-7.7) k/uL Metamyelocytes # (Man) (0) k/uL Myelocytes # (Manual) (0) k/uL Macrocytosis APTT (22.0-30.0) sec D-Dimer (<0.60) mg/L FEU ABG pH 7.16 L* 7.29 L (7.35-7.45) ABG pCO2 102 H* 72 H* (35-45) mmHg ABG pO2 57 L* 56 L* (83-108) mmHg ABG HCO3 35 H 35 H (21-25) mmol/L ABG Total CO2 37 H (19-24) mmol/L ABG O2 Saturation 81.0 L 88.9 L (94-97) % Chloride (98-107) mmol/L Creatinine (0.66-1.25) mg/dL Glucose (74-99) mg/dL POC Glucose (mg/dL) 161 H (75-99) mg/dL Plasma Lactic Acid Nikunj (0.7-2.0) mmol/L Troponin I (0.000-0.034) ng/mL 09/23/19 09/23/19 09/23/19 Range/Units 08:46 12:11 12:11 WBC (3.8-10.6) k/uL RBC (4.30-5.90) m/uL MCV (80.0-100.0) fL MCHC (31.0-37.0) g/dL Neutrophils # (Manual) (1.3-7.7) k/uL Metamyelocytes # (Man) (0) k/uL Myelocytes # (Manual) (0) k/uL Macrocytosis APTT 42.5 H (22.0-30.0) sec D-Dimer (<0.60) mg/L FEU ABG pH (7.35-7.45) ABG pCO2 (35-45) mmHg ABG pO2 (83-108) mmHg ABG HCO3 (21-25) mmol/L ABG Total CO2 (19-24) mmol/L ABG O2 Saturation (94-97) % Chloride (98-107) mmol/L Creatinine (0.66-1.25) mg/dL Glucose (74-99) mg/dL POC Glucose (mg/dL) (75-99) mg/dL Plasma Lactic Acid Nikunj 2.3 H* (0.7-2.0) mmol/L Troponin I 0.188 H* (0.000-0.034) ng/mL 09/23/19 Range/Units 12:14 WBC (3.8-10.6) k/uL RBC (4.30-5.90) m/uL MCV (80.0-100.0) fL MCHC (31.0-37.0) g/dL Neutrophils # (Manual) (1.3-7.7) k/uL Metamyelocytes # (Man) (0) k/uL Myelocytes # (Manual) (0) k/uL Macrocytosis APTT (22.0-30.0) sec D-Dimer (<0.60) mg/L FEU ABG pH (7.35-7.45) ABG pCO2 (35-45) mmHg ABG pO2 (83-108) mmHg ABG HCO3 (21-25) mmol/L ABG Total CO2 (19-24) mmol/L ABG O2 Saturation (94-97) % Chloride (98-107) mmol/L Creatinine (0.66-1.25) mg/dL Glucose (74-99) mg/dL POC Glucose (mg/dL) 163 H (75-99) mg/dL Plasma Lactic Acid Nikunj (0.7-2.0) mmol/L Troponin I (0.000-0.034) ng/mL Microbiology - Last 24 Hours (Table) 09/23/19 05:00 Sputum Culture - Preliminary Sputum Assessment and Plan Assessment: -patient is a 54-year-old morbidly obese male presented hospital with multiple symptoms this patient apparently did have trauma to his scrotal area and significant swelling to the scrotum though scrotal ultrasound was negative and UA has been negative also have significant lower extremity swelling with some superficial ulceration with concern for possible cellulitis subsequently he did have a cardiac arrest requiring resuscitation and is intubated on the vent with concern for possible aspiration pneumonitis will need to cover for both gram-positive skin solo and polymicrobial solo associated with aspiration pneumonitis (1) Sepsis Current Visit: Yes Status: Acute Code(s): A41.9 - SEPSIS, UNSPECIFIED ORGANISM SNOMED Code(s): 81833575 (2) Aspiration pneumonitis Current Visit: Yes Status: Acute Code(s): J69.0 - PNEUMONITIS DUE TO INHALATION OF FOOD AND VOMIT SNOMED Code(s): 222349054 (3) Wound of lower extremity Current Visit: Yes Status: Acute Code(s): S81.809A - UNSPECIFIED OPEN WOUND, UNSPECIFIED LOWER LEG, INIT ENCNTR SNOMED Code(s): 314337465 (4) Cellulitis Current Visit: Yes Status: Acute Code(s): L03.90 - CELLULITIS, UNSPECIFIED SNOMED Code(s): 273931637 Plan: 1-Zosyn 3.375 g every 8 hours 2-daptomycin 4 mg/kg daily 3-we will follow his sputum and blood cultures 4-local wound care to the leg wounds with a dry Aquacel dressing and then Adrian wrap from just above the toe to below the knee We will follow on clinical condition and cultures to further adjust medication if needed Thank you for this consultation we will follow the patient along with you Time with Patient: Greater than 30
[2019-09-24 06:53] LABS: Calcium 7.6 mg/dL (8.4-10.2); Potassium 4.2 mmol/L (3.5-5.1)
[2019-09-24] MEDS: PROPOFOL 1,000 MG in EMPTY BAG 1 BAG IV SCH ×7 (07:21→23:41)
[2019-09-24] MEDS: NOREPINEPHRINE 4 MG in SODIUM CHLORIDE 0.9% 250 ML IV SCH ×4 (07:22→18:59)
[2019-09-24] MEDS: SODIUM CHLORIDE 0.9% 1,000 ML IV SCH (07:26)
[2019-09-24 07:32] LABS: ABG Base Excess 14.4 mmol/L; ABG HCO3 37 mmol/L (21-25); ABG PCO2 47 mmHg (35-45); ABG PH 7.51 (7.35-7.45); ABG PO2 83 mmHg (83-108); ABG TCO2 39 mmol/L (19-24); Allen Test Performed? Yes
[2019-09-24 07:35] LABS: ABG Oxygen Saturation 96.6 % (94-97)
[2019-09-24] MEDS: CHLORHEXIDINE GLUCONATE 15 ML CUP MUCOUS MEM SCH ×2 (08:01→20:25)
[2019-09-24] MEDS: FUROSEMIDE 10 MG/ML 10 ML VIAL IV SCH ×2 (08:02→16:29)
[2019-09-24] MEDS: PIPERACILLIN-TAZOBACTAM 3.375 GM in SODIUM CHLORIDE 0.9% 100 ML IVPB SCH ×2 (08:02→16:30)
[2019-09-24] MEDS: PANTOPRAZOLE 40 MG/10 ML VIAL IV SCH (08:02)
[2019-09-24] MEDS: AMIODARONE 200 MG TAB PO SCH ×2 (08:13→20:25)
[2019-09-24] MEDS: ASPIRIN 81 MG PO SCH (08:13)
[2019-09-24] MEDS: METOPROLOL TARTRATE 50 MG TAB PO SCH ×2 (08:13→20:25)
--- NOTE | 2019-09-24 08:17 | XR ---
EXAMINATION TYPE: XR chest 1V DATE OF EXAM: 09/24/2019 COMPARISON: 09/23/2019 HISTORY: 54-year-old male intubated TECHNIQUE: Single frontal view of the chest is obtained. FINDINGS: ET tube tip at the level of the medial clavicular heads. Exam is underpenetrated. NG tube is seen to the mid thoracic level and then obscured. Moderate cardiomegaly. Perihilar and diffuse interstitial a nd patchy opacities throughout. The right costophrenic angle is excluded from view. IMPRESSION: Underpenetrated exam. Right costophrenic angle is cut off. Findings suggest cardiomegaly with on salma g CHF and pulmonary edema with underlying effusions.
--- NOTE | 2019-09-24 09:11 | PN ---
PROGRESS NOTE Mr. Ardon is a 54-year-old male with severe morbid obesity who presented with symptoms of progressive dyspnea, worsening peripheral edema, subsequently had a run of ventricular tachycardia and subsequently was intubated, transferred to the ICU. He remains intubated and sedated. He presented with ectopic atrial rhythm. Subsequently, he has went in atrial fibrillation with initial rapid ventricular response. His rate is under better control at this time. He has been started on IV amiodarone yesterday in addition to IV Lopressor. A Kramer catheter was in place by the Urology Service. He underwent an echocardiogram yesterday that was a poor study but was reported showing ejection fraction probably around 50%. He is maintained on the IV amiodarone drip as well as the Lasix 60 mg IV q.12 hours, IV heparin and IV metoprolol 5 mg q.8 hours. PHYSICAL EXAMINATION: Blood pressure running in the 100 with a heart rate in the low 100s. LUNGS: Decreased air exchange anteriorly. HEART: Irregular, regular, S1, S2. No S3. No rub appreciated. ABDOMEN: Soft, obese. Positive bowel sounds. EXTREMITIES: +3 edema. Scrotal edema was noted. LAB DATA: Revealed BUN and creatinine 28 and 1.27, potassium 4.2, hemoglobin 13.5, white blood cell of 17.1. IMPRESSION: 1. Respiratory failure with severe hypoxemia, probable an element of obstructive lung disease or hypercapnic hypoxemic state. 2. Atrial fibrillation, new since the respiratory arrest. 3. Morbid obesity. 4. Acute renal injury with ATN, improving. 5. Lower extremities cellulitis. RECOMMENDATION: From the cardiac standpoint, I will continue on IV heparin and once the decision is made that no intervention is needed and oral anticoagulation. I will switch him to oral amiodarone as well as oral beta hayden. Will continue IV diuretics. I will follow his renal function closely. If they are stable, I will add Aldactone to his regimen. Depending on his progress, further recommendation will be made. MMODL / IJN: [id number] /
[2019-09-24] MEDS: HEPARIN SOD,PORK IN 0.45% NACL 25,000 UNIT in 0.45% NACL 1 250ML.BAG IV SCH ×3 (09:46→23:42)
--- NOTE | 2019-09-24 10:23 | P.PN ---
Subjective Patient is seen in follow-up for acute kidney injury. Creatinine peaked at 1.68 this admission and is down to 1.27 today. He is maintained on IV Lasix 60 mg 3 times daily. Nonoliguric. Urine output over 100 mL an hour. Remains edematous. Currently intubated. On 55% FiO2. He is receiving tube feeding. Amiodarone drip to be discontinued today. Still on Levophed. Vital signs are stable. On vasopressor support. General: The patient appeared well nourished and normally developed. HEENT: Head exam is unremarkable. Neck is without jugular venous distension. Intubated. LUNGS: Breath sounds decreased. HEART: Irregular rate and rhythm. ABDOMEN: Soft, obese. EXTREMITITES: 2+ edema. Erythema noted. No drainage. Scrotal edema noted. Objective - Vital Signs Vital signs: Vital Signs Temp 99.5 F 09/24/19 08:00 Pulse 101 H 09/24/19 10:00 Resp 30 H 09/24/19 10:00 BP 112/79 09/23/19 09:30 Pulse Ox 95 09/24/19 10:00 Intake & Output 09/23/19 09/24/19 09/24/19 18:59 06:59 18:59 Intake Total 9090.594 9696.442 651.861 Output Total 1200 2060 1080 Balance 661.530 -297.558 -428.139 Weight 260 kg Intake: IV 27 499 142 0.9NS Pressure Bag 27 39 12 Piperacillin-Tazobactam 3 200 50 .375 gm In Sodium Chloride 0.9% 100 ml @ 25 mls/hr IVPB Q8HR [facility] Rx# :[id number] Sodium Chloride 0.9% 1, 260 80 000 ml @ 10 mls/hr IV . Q24H [facility] Rx#:[id number] Intake, IV Titration 1814.530 803.442 339.861 Amount Amiodarone 300 mg In 25 275 Dextrose 5% in Water 250 ml @ 0.5 MG/MIN 25 mls/hr IV .Q10H [facility] Rx#: [id number] Amiodarone 360 mg In 198 Dextrose 5% in Water 200 ml @ 1 MG/MIN 33.333 mls/ hr IV .Q6H [facility] Rx#: [id number] DAPTOmycin 500 mg In 50 Sodium Chloride 0.9% 50 ml @ 100 mls/hr IVPB Q24H [facility] Rx#:[id number] Dextrose 5% in Water 100 100 ml @ 618 mls/hr IV .Q10M ONE with Amiodarone 150 mg Rx#:[id number] Heparin Sod,Pork in 0.45% 206.62 250.00 NaCl 25,000 unit In 0.45 % NaCl 1 250ml.bag @ 8. 846 UNITS/KG/HR 23 mls/hr IV .[id number] [facility] Rx#: [id number] Norepinephrine 4 mg In 254.000 69.342 217.271 Sodium Chloride 0.9% 250 ml @ 0.05 MCG/KG/MIN 49. 53 mls/hr IV .Q5H8M [facility] Rx#:[id number] Piperacillin-Tazobactam 3 75 .375 gm In Sodium Chloride 0.9% 100 ml @ 25 mls/hr IVPB Q8HR [facility] Rx# :[id number] Propofol 1,000 mg In 282.91 209.1 122.59 Empty Bag 1 bag @ Titrate IV .Q0M [facility] Rx#: [id number] Sodium Chloride 0.9% 1, 50 000 ml @ 10 mls/hr IV . Q24H [facility] Rx#:[id number] Sodium Chloride 0.9% 1, 75 000 ml @ 75 mls/hr IV . [id number] [facility] Rx#:[id number] Vancomycin 2,500 mg In 498 Sodium Chloride 0.9% 500 ml 500 ml @ 166.667 mls/ hr IVPB ONCE [facility] Rx#: [id number] Tube Feeding 20 400 140 Other 60 30 Output: Urine 1200 2060 1080 Other: Voiding Method Indwelling Catheter # Voids 1 ABP, PAP, CO, CI - Last Documented Arterial Blood Pressure 107/66 - Labs CBC & Chem 7: 09/24/19 04:55 09/24/19 04:55 Labs: Abnormal Lab Results - Last 24 Hours (Table) 09/23/19 09/23/19 09/23/19 Range/Units 08:46 12:11 12:11 WBC (3.8-10.6) k/uL RBC (4.30-5.90) m/uL MCV (80.0-100.0) fL Neutrophils # (1.3-7.7) k/uL APTT 42.5 H (22.0-30.0) sec ABG pH (7.35-7.45) ABG pCO2 (35-45) mmHg ABG HCO3 (21-25) mmol/L ABG Total CO2 (19-24) mmol/L Sodium (137-145) mmol/L Chloride (98-107) mmol/L Carbon Dioxide (22-30) mmol/L BUN (9-20) mg/dL Creatinine (0.66-1.25) mg/dL Glucose (74-99) mg/dL POC Glucose (mg/dL) (75-99) mg/dL Plasma Lactic Acid Nikunj 2.3 H* (0.7-2.0) mmol/L Calcium (8.4-10.2) mg/dL Troponin I 0.188 H* (0.000-0.034) ng/mL Urine Protein (Negative) Urine Blood (Negative) Ur Leukocyte Esterase (Negative) Urine WBC (0-5) /hpf Urine Bacteria (None) /hpf Urine Mucus (None) /hpf 09/23/19 09/23/19 09/23/19 Range/Units 12:14 12:35 18:16 WBC (3.8-10.6) k/uL RBC (4.30-5.90) m/uL MCV (80.0-100.0) fL Neutrophils # (1.3-7.7) k/uL APTT (22.0-30.0) sec ABG pH (7.35-7.45) ABG pCO2 (35-45) mmHg ABG HCO3 (21-25) mmol/L ABG Total CO2 (19-24) mmol/L Sodium (137-145) mmol/L Chloride (98-107) mmol/L Carbon Dioxide (22-30) mmol/L BUN (9-20) mg/dL Creatinine (0.66-1.25) mg/dL Glucose (74-99) mg/dL POC Glucose (mg/dL) 163 H 150 H (75-99) mg/dL Plasma Lactic Acid Nikunj (0.7-2.0) mmol/L Calcium (8.4-10.2) mg/dL Troponin I (0.000-0.034) ng/mL Urine Protein 1+ H (Negative) Urine Blood Trace H (Negative) Ur Leukocyte Esterase Small H (Negative) Urine WBC 10 H (0-5) /hpf Urine Bacteria Many H (None) /hpf Urine Mucus Rare H (None) /hpf 09/23/19 09/23/19 09/24/19 Range/Units 19:34 23:39 03:00 WBC (3.8-10.6) k/uL RBC (4.30-5.90) m/uL MCV (80.0-100.0) fL Neutrophils # (1.3-7.7) k/uL APTT 33.5 H 45.8 H (22.0-30.0) sec ABG pH (7.35-7.45) ABG pCO2 (35-45) mmHg ABG HCO3 (21-25) mmol/L ABG Total CO2 (19-24) mmol/L Sodium (137-145) mmol/L Chloride (98-107) mmol/L Carbon Dioxide (22-30) mmol/L BUN (9-20) mg/dL Creatinine (0.66-1.25) mg/dL Glucose (74-99) mg/dL POC Glucose (mg/dL) 160 H (75-99) mg/dL Plasma Lactic Acid Nikunj (0.7-2.0) mmol/L Calcium (8.4-10.2) mg/dL Troponin I (0.000-0.034) ng/mL Urine Protein (Negative) Urine Blood (Negative) Ur Leukocyte Esterase (Negative) Urine WBC (0-5) /hpf Urine Bacteria (None) /hpf Urine Mucus (None) /hpf 09/24/19 09/24/19 09/24/19 Range/Units 04:55 04:55 04:55 WBC 17.1 H (3.8-10.6) k/uL RBC 4.20 L (4.30-5.90) m/uL MCV 103.1 H D (80.0-100.0) fL Neutrophils # 14.4 H (1.3-7.7) k/uL APTT (22.0-30.0) sec ABG pH (7.35-7.45) ABG pCO2 (35-45) mmHg ABG HCO3 (21-25) mmol/L ABG Total CO2 (19-24) mmol/L Sodium 136 L (137-145) mmol/L Chloride 96 L (98-107) mmol/L Carbon Dioxide 35 H (22-30) mmol/L BUN 28 H (9-20) mg/dL Creatinine 1.27 H (0.66-1.25) mg/dL Glucose 154 H (74-99) mg/dL POC Glucose (mg/dL) 154 H (75-99) mg/dL Plasma Lactic Acid Nikunj (0.7-2.0) mmol/L Calcium 7.6 L (8.4-10.2) mg/dL Troponin I (0.000-0.034) ng/mL Urine Protein (Negative) Urine Blood (Negative) Ur Leukocyte Esterase (Negative) Urine WBC (0-5) /hpf Urine Bacteria (None) /hpf Urine Mucus (None) /hpf 09/24/19 09/24/19 Range/Units 05:33 07:25 WBC (3.8-10.6) k/uL RBC (4.30-5.90) m/uL MCV (80.0-100.0) fL Neutrophils # (1.3-7.7) k/uL APTT (22.0-30.0) sec ABG pH 7.51 H (7.35-7.45) ABG pCO2 47 H (35-45) mmHg ABG HCO3 37 H (21-25) mmol/L ABG Total CO2 39 H (19-24) mmol/L Sodium (137-145) mmol/L Chloride (98-107) mmol/L Carbon Dioxide (22-30) mmol/L BUN (9-20) mg/dL Creatinine (0.66-1.25) mg/dL Glucose (74-99) mg/dL POC Glucose (mg/dL) 162 H (75-99) mg/dL Plasma Lactic Acid Nikunj (0.7-2.0) mmol/L Calcium (8.4-10.2) mg/dL Troponin I (0.000-0.034) ng/mL Urine Protein (Negative) Urine Blood (Negative) Ur Leukocyte Esterase (Negative) Urine WBC (0-5) /hpf Urine Bacteria (None) /hpf Urine Mucus (None) /hpf Microbiology - Last 24 Hours (Table) 09/23/19 12:05 Gram Stain - Preliminary Leg - Right Wound Culture - Preliminary 09/23/19 12:05 Gram Stain - Preliminary Leg - Left Wound Culture - Preliminary 09/23/19 10:45 Urine Culture - Preliminary Urine,Catheterized 09/23/19 05:00 Gram Stain - Preliminary Sputum Sputum Culture - Preliminary Assessment and Plan Plan: Assessment: 1. Acute kidney injury secondary to ATN secondary to cardiopulmonary arrest. Baseline creatinine near 1 and peaked at 1.68 this admission - 1.27 today. 2. Status post cardiopulmonary arrest with down time off about 18 minutes on September 22. Currently on amiodarone and heparin drip. 3. Hypotension maintained on Levophed. 4. Volume overload. 5. Morbid obesity. 6. Lower extremity cellulitis maintained on antibiotics. 7. Atrial fibrillation maintained on amiodarone drip and IV heparin. Plan: Maintain IV Lasix 60 mg 3 times daily. Maintain Kramer catheter. Strict I's and O's. Wean FiO2 and vasopressors. Maintain tube feeding. Continue to assess daily for need for renal replacement therapy.
[2019-09-24] MEDS ORDERED: METOPROLOL TARTRATE 5 MG/5 ML VIAL IVP ONE (11:18)
--- NOTE | 2019-09-24 11:39 | CDI ---
Documentation Clarification Form Date: 09/24/2019 11:30:16 AM From: Johnna Peralta RN, CCDS Admit Date: 09/22/2019 03:08:00 PM Patient Name: Troy Ardon Visit Number: [id number] ATTENTION: The Clinical Documentation Specialists (CDI) and [facility] Coding Staff appreciate your assistance in clarifying documentation. Please respond to the clarification below the line at the bottom and electronically sign. The CDI & [facility] Coding staff will review the response and follow-up if needed. Please note: Queries are made part of the Legal Health Record. If you have any questions, please contact the author of this message via ITS. Dr. Gustabo Ramos CHF is documented in the Pulmonary Consult and requires further specificity. History/Risk Factors: HTN, S/P cardiac arrest with 18 minute down time this admission Clinical Indicators: 09/22 Pulmonary Consult: "Chest x-ray is suspicious for either congestive heart failure/cardiogenic or ARDS. Recommendation: Diuretics for acute pulmonary edema/congestive heart failure GI and DVT prophylaxis." 09/21 1300 Admission VS/Pulse OX: Temp 99.7, HR 101, RR 22, B/P 121/64, Spo2 92% 4L NC 09/21 BNP: 3270 09/22 Echocardiogram Results: "EF is probably around 50%- difficult to assess." 09/23 Chest X Ray: "Underpenetrated exam. Right costophrenic angle is cut off. Findings suggest cardiomegaly with on going CHF and pulmonary edema with underlying effusions." Treatment: Lasix 40 mg IVP x 1 dose Lasix 60 mg IVP Q 8 hrs Lopressor 50 mg BID 09/21 1L 0.9% NS IVF Bolus 09/22 1L 0.9% NS IVF bolus In your professional opinion, can you please clarify the acuity and type of CHF if known? Diastolic Heart Failure: Acute Chronic Acute on Chronic Systolic & Diastolic Heart Failure: Acute Chronic Acute on Chronic Heart Failure Unable to Determine Other, please specify (Last Revision: July 2017) Unable to determine MTDD
[2019-09-24 11:57] LABS: Glucose,Whole Blood 189 mg/dL (75-99)
--- NOTE | 2019-09-24 12:55 | P.PN ---
Subjective Progress Note Date: 09/24/19 Principal diagnosis: Acute hypoxic respiratory failure secondary to cardiac arrest, required CPR for 9 minutes. This is a 54-year-old white male morbidly obese, patient presented to the ER yesterday with progressive scrotal swelling and progressive peripheral edema. Patient was also complaining of shortness of breath, and unable to urinate. Patient is also known to have history of chronic cellulitis of lower extremities. Last night the patient had a cardiac arrest, and he had initially a run of ventricular tachycardia. Patient was intubated, transferred to the intensive care unit, during CPR, patient received IV epinephrine, sodium bicarb, calcium chloride, and at one point he was in pulseless electrical activity then he developed ventricular fibrillation were in he was shocked 3. Subsequently the patient had return of spontaneous circulation at 3:43 AM. Apparently his code was about 13 minutes long. Patient was intubated, transferred to the ICU, and I was asked to see him on consultation this morning. He is presently on assist control rate of 30 tidal volume is 500 FiO2 is 100% and PEEP is 16. ABG showed a pO2 of 57 pCO2 of 102 pH of 7.16. Patient remains in atrial fibrillation with a rate of 137. He is also on norepinephrine at 0.05 mcg/kg/m, he is on heparin drip for atrial fibrillation and possibly for underlying deep vein thrombosis and thromboembolic disease/pulmonary embolism. Patient is on propofol at 20 mcg/kg/m, and his IV fluid is at 10 mL per hour. Chest x-ray showed evidence of any edema and recommended Lasix to be given today. I have also recommended arterial line which was placed for hemodynamic monitoring, and the patient had to midline is placed by anesthesia. Echocardiogram was noted to be extremely suboptimal mostly because of his morbid obesity. And quality was poor. However ejection fraction was guessed to be 50%, difficult to assess. Venous Doppler of both lower extremities negative for DVT. D-dimer was s ignificantly elevated. Chest x-ray is suspicious for either congestive heart failure/cardiogenic or ARDS. I suspect this is mostly cardiac pulmonary edema rather than ARDS since developed quite abruptly after his cardiac arrest. Patient was evaluated today on 09/24/19, remains in the ICU, intubated and mechanically ventilated. His ventilator settings are assist control rate of 30 tidal volume is 500 FiO2 is 60% and I cut it down to 55% PEEP remains at 16. ABG showed a pO2 of 83 pCO2 of 47 pH of 7.51. Patient remains on propofol at 15 mcg/kg/m norepinephrine at 0.01 mcg/kg/m amiodarone drip at 0.5 mg per hour. He is also on heparin drip. Chest x-ray continues to show evidence of interstitial edema. Patient responded well to Lasix, hence I increased the dose to 60 mg IV push 3 times a day. Today I plan to hold sedation and assessment of status, and if mental status or neurological findings are abnormal, may even consider a neurological consultation. I'm quite concerned about the possibility of anoxic brain injury . Again the patient had CPR for about 9 minutes. Patient is on enteral feeding, and his feeding is at goal. His cultures including blood cultures and sputum cultures as well as urine cultures and wound cultures are nondiagnostic so far. Patient remains on Zosyn and daptomycin. His atrial fibrillation seems to be well-controlled with amiodarone at present. Objective - Vital Signs Vital signs: Vital Signs Temp 100.5 F H 09/24/19 12:00 Pulse 100 09/24/19 12:00 Resp 30 H 09/24/19 12:00 BP 112/79 09/23/19 09:30 Pulse Ox 96 09/24/19 12:00 Intake & Output 09/23/19 09/24/19 09/24/19 18:59 06:59 18:59 Intake Total 6849.504 5211.442 932.861 Output Total 1200 2060 2030 Balance 661.530 -297.558 -1097.139 Weight 260 kg Intake: IV 27 499 213 0.9NS Pressure Bag 27 39 18 Piperacillin-Tazobactam 3 200 75 .375 gm In Sodium Chloride 0.9% 100 ml @ 25 mls/hr IVPB Q8HR [facility] Rx# :[id number] Sodium Chloride 0.9% 1, 260 120 000 ml @ 10 mls/hr IV . Q24H [facility] Rx#:[id number] Intake, IV Titration 1814.530 803.442 339.861 Amount Amiodarone 300 mg In 25 275 Dextrose 5% in Water 250 ml @ 0.5 MG/MIN 25 mls/hr IV .Q10H [facility] Rx#: [id number] Amiodarone 360 mg In 198 Dextrose 5% in Water 200 ml @ 1 MG/MIN 33.333 mls/ hr IV .Q6H [facility] Rx#: [id number] DAPTOmycin 500 mg In 50 Sodium Chloride 0.9% 50 ml @ 100 mls/hr IVPB Q24H [facility] Rx#:[id number] Dextrose 5% in Water 100 100 ml @ 618 mls/hr IV .Q10M [facility] with Amiodarone 150 mg Rx#:[id number] Heparin Sod,Pork in 0.45% 206.62 250.00 NaCl 25,000 unit In 0.45 % NaCl 1 250ml.bag @ 8. 846 UNITS/KG/HR 23 mls/hr IV .[id number] [facility] Rx#: [id number] Norepinephrine 4 mg In 254.000 69.342 217.271 Sodium Chloride 0.9% 250 ml @ 0.05 MCG/KG/MIN 49. 53 mls/hr IV .Q5H8M [facility] Rx#:[id number] Piperacillin-Tazobactam 3 75 .375 gm In Sodium Chloride 0.9% 100 ml @ 25 mls/hr IVPB Q8HR [facility] Rx# :[id number] Propofol 1,000 mg In 282.91 209.1 122.59 Empty Bag 1 bag @ Titrate IV .Q0M [facility] Rx#: [id number] Sodium Chloride 0.9% 1, 50 000 ml @ 10 mls/hr IV . Q24H [facility] Rx#:[id number] Sodium Chloride 0.9% 1, 75 000 ml @ 75 mls/hr IV . [id number] [facility] Rx#:[id number] Vancomycin 2,500 mg In 498 Sodium Chloride 0.9% 500 ml 500 ml @ 166.667 mls/ hr IVPB ONCE [facility] Rx#: [id number] Tube Feeding 20 400 320 Other 60 60 Output: Urine 1200 2059 2029 Other: Voiding Method Indwelling Catheter # Voids 1 ABP, PAP, CO, CI - Last Documented Arterial Blood Pressure 117/71 - Exam Physical Exam: Revealed a 54-year-old white male, morbidly obese, on mechanical ventilation. Head: Atraumatic, normocephalic. Endotracheal tube and orogastric tubes are intact. Neck: Short obese neck, no neck masses, no JVD, HEENT: PERRLA, EOMI, no icterus, no neck masses, no stridor. Endotracheal tube is intact. Chest: [Large chest, diminished breath sounds, crackles at the bases, no rhonchi and no wheezes. Cardiac Exam: Distant S1 and S2, irregular rhythm, no S3 gallop. No rub. Abdomen: [Morbidly obese, Soft, nontender, no megaly, no rebound, no guarding, normal bowel sounds.] Extremities: [Chronic venous stasis changes. And significant excoriation of the skin and multiple areas of cellulitis and superficial ulcers in both lower extremity but more so on the left lower extremity calf region.] Neurological Exam: Cannot be assessed, patient is sedated on propofol. Musculoskeletal could not be assessed. No evidence of muscle atrophy no deformities. Skin: Areas of cellulitis and excoriation of the skin noted in lower extremities with venous stasis changes. Genitalia: Swollen scrotum, no tenderness, - Labs CBC & Chem 7: 09/24/19 04:55 09/24/19 04:55 Labs: Abnormal Lab Results - Last 24 Hours (Table) 09/23/19 09/23/19 09/23/19 Range/Units 12:11 12:11 12:35 WBC (3.8-10.6) k/uL RBC (4.30-5.90) m/uL MCV (80.0-100.0) fL Neutrophils # (1.3-7.7) k/uL APTT 42.5 H (22.0-30.0) sec ABG pH (7.35-7.45) ABG pCO2 (35-45) mmHg ABG HCO3 (21-25) mmol/L ABG Total CO2 (19-24) mmol/L Sodium (137-145) mmol/L Chloride (98-107) mmol/L Carbon Dioxide (22-30) mmol/L BUN (9-20) mg/dL Creatinine (0.66-1.25) mg/dL Glucose (74-99) mg/dL POC Glucose (mg/dL) (75-99) mg/dL Calcium (8.4-10.2) mg/dL Troponin I 0.188 H* (0.000-0.034) ng/mL Urine Protein 1+ H (Negative) Urine Blood Trace H (Negative) Ur Leukocyte Esterase Small H (Negative) Urine WBC 10 H (0-5) /hpf Urine Bacteria Many H (None) /hpf Urine Mucus Rare H (None) /hpf 09/23/19 09/23/19 09/23/19 Range/Units 18:16 19:34 23:39 WBC (3.8-10.6) k/uL RBC (4.30-5.90) m/uL MCV (80.0-100.0) fL Neutrophils # (1.3-7.7) k/uL APTT 33.5 H (22.0-30.0) sec ABG pH (7.35-7.45) ABG pCO2 (35-45) mmHg ABG HCO3 (21-25) mmol/L ABG Total CO2 (19-24) mmol/L Sodium (137-145) mmol/L Chloride (98-107) mmol/L Carbon Dioxide (22-30) mmol/L BUN (9-20) mg/dL Creatinine (0.66-1.25) mg/dL Glucose (74-99) mg/dL POC Glucose (mg/dL) 150 H 160 H (75-99) mg/dL Calcium (8.4-10.2) mg/dL Troponin I (0.000-0.034) ng/mL Urine Protein (Negative) Urine Blood (Negative) Ur Leukocyte Esterase (Negative) Urine WBC (0-5) /hpf Urine Bacteria (None) /hpf Urine Mucus (None) /hpf 09/24/19 09/24/19 09/24/19 Range/Units 03:00 04:55 04:55 WBC 17.1 H (3.8-10.6) k/uL RBC 4.20 L (4.30-5.90) m/uL MCV 103.1 H D (80.0-100.0) fL Neutrophils # 14.4 H (1.3-7.7) k/uL APTT 45.8 H (22.0-30.0) sec ABG pH (7.35-7.45) ABG pCO2 (35-45) mmHg ABG HCO3 (21-25) mmol/L ABG Total CO2 (19-24) mmol/L Sodium 136 L (137-145) mmol/L Chloride 96 L (98-107) mmol/L Carbon Dioxide 35 H (22-30) mmol/L BUN 28 H (9-20) mg/dL Creatinine 1.27 H (0.66-1.25) mg/dL Glucose 154 H (74-99) mg/dL POC Glucose (mg/dL) (75-99) mg/dL Calcium 7.6 L (8.4-10.2) mg/dL Troponin I (0.000-0.034) ng/mL Urine Protein (Negative) Urine Blood (Negative) Ur Leukocyte Esterase (Negative) Urine WBC (0-5) /hpf Urine Bacteria (None) /hpf Urine Mucus (None) /hpf 09/24/19 09/24/19 09/24/19 Range/Units 04:55 05:33 07:25 WBC (3.8-10.6) k/uL RBC (4.30-5.90) m/uL MCV (80.0-100.0) fL Neutrophils # (1.3-7.7) k/uL APTT (22.0-30.0) sec ABG pH 7.51 H (7.35-7.45) ABG pCO2 47 H (35-45) mmHg ABG HCO3 37 H (21-25) mmol/L ABG Total CO2 39 H (19-24) mmol/L Sodium (137-145) mmol/L Chloride (98-107) mmol/L Carbon Dioxide (22-30) mmol/L BUN (9-20) mg/dL Creatinine (0.66-1.25) mg/dL Glucose (74-99) mg/dL POC Glucose (mg/dL) 154 H 162 H (75-99) mg/dL Calcium (8.4-10.2) mg/dL Troponin I (0.000-0.034) ng/mL Urine Protein (Negative) Urine Blood (Negative) Ur Leukocyte Esterase (Negative) Urine WBC (0-5) /hpf Urine Bacteria (None) /hpf Urine Mucus (None) /hpf 09/24/19 Range/Units 11:55 WBC (3.8-10.6) k/uL RBC (4.30-5.90) m/uL MCV (80.0-100.0) fL Neutrophils # (1.3-7.7) k/uL APTT (22.0-30.0) sec ABG pH (7.35-7.45) ABG pCO2 (35-45) mmHg ABG HCO3 (21-25) mmol/L ABG Total CO2 (19-24) mmol/L Sodium (137-145) mmol/L Chloride (98-107) mmol/L Carbon Dioxide (22-30) mmol/L BUN (9-20) mg/dL Creatinine (0.66-1.25) mg/dL Glucose (74-99) mg/dL POC Glucose (mg/dL) 189 H (75-99) mg/dL Calcium (8.4-10.2) mg/dL Troponin I (0.000-0.034) ng/mL Urine Protein (Negative) Urine Blood (Negative) Ur Leukocyte Esterase (Negative) Urine WBC (0-5) /hpf Urine Bacteria (None) /hpf Urine Mucus (None) /hpf Microbiology - Last 24 Hours (Table) 09/23/19 09:25 Blood Culture - Preliminary Blood No Growth after 24 hours 09/23/19 08:46 Blood Culture - Preliminary Blood No Growth after 24 hours 09/23/19 12:05 Gram Stain - Preliminary Leg - Right Wound Culture - Preliminary 09/23/19 12:05 Gram Stain - Preliminary Leg - Left Wound Culture - Preliminary 09/23/19 10:45 Urine Culture - Preliminary Urine,Catheterized 09/23/19 05:00 Gram Stain - Preliminary Sputum Sputum Culture - Preliminary Assessment and Plan Assessment: Impression: Acute hypoxic respiratory failure secondary to cardiac arrest, requiring CPR for 9 minutes. And secondary to acute cardiogenic pulmonary edema. Acute cardiogenic pulmonary edema, possible diastolic dysfunction. This is also contributing to his hypoxemia. Morbid obesity with acute on chronic respiratory acidosis, suspect underlying obstructive sleep apnea syndrome and obesity/hypoventilation syndrome. New onset atrial fibrillation, also contributing to his pulmonary edema. Possibility of pulmonary embolism is in the picture, however felt to be less likely especially with negative venous Doppler. Nonetheless the patient will require heparinization mostly for his atrial fibrillation with RVR, patient will not fit in the scanner to have a CT of the chest. Or a VQ scan.We'll treat empirically with heparin. Severe cellulitis of lower extremities, possible sepsis, cultures are pending. In the meantime we will continue IV antibiotics. Patient is presently on Zosyn and daptomycin. Possible anoxic brain injury. Recommendation: Continue ventilatory support. Decrease FiO2 to 55% continue PEEP at 16 otherwise the ventilator settings remained the same. Continue hemodynamic support. Titrate norepinephrine accordingly. Diuretics for acute pulmonary edema/congestive heart failure, increase Lasix to 60 mg IV push every 8 hours. GI and DVT prophylaxis. Nutritional support. Continue enteral feeding. Continue antibiotics. Titrate FiO2 to keep O2 saturation above 93%. Continue PEEP at 16 for an LP Continue heparin in the meantime. Venous Doppler showed no evidence of DVT. Amiodarone for atrial fibrillation with RVR. Critical care time is 32 minutes Discussed his condition with cardiology on the case. Prognosis is guarded. May have to consider neurological evaluation to assess for possible anoxic brain injury. Time with Patient: Greater than 30
[2019-09-24 13:21] LABS: ABG PCO2 72 mmHg (35-45)
[2019-09-24] MEDS: DAPTOmycin 500 MG in SODIUM CHLORIDE 0.9% 50 ML IVPB SCH (15:24)
--- NOTE | 2019-09-24 16:26 | PN ---
PROGRESS NOTE DATE OF SERVICE: 09/24/2019 REASON FOR FOLLOWUP: Aspiration pneumonia and cellulitis. INTERVAL HISTORY: The patient did have low fever of 100.5. Patient did have low-dose pressor support. The patient's FiO2 is currently stable, no significant pleural secretion through the ET and is slowly on sedation only. PHYSICAL EXAMINATION: Blood pressure is 102/62 with a pulse of 112, temperature 100.5. He is 95% on 55% FiO2. General description is a middle-aged male, intubated on the vent. RESPIRATORY SYSTEM: Unlabored breathing, coarse breath sounds bilaterally, no wheeze. HEART: S1, S2. Regular rate and rhythm. ABDOMEN: Soft, nontender. is currently wrapped up. No obvious drainage on the dressing. LABS: Hemoglobin 13.5, white count 17.1, BUN of 28, creatinine 1.27. Blood culture, wound cultures currently pending. DIAGNOSTIC IMPRESSION AND PLAN: Patient with sepsis, source likely combination of aspiration pneumonitis and worsening cellulitis. The patient is covered with Zosyn and daptomycin to continue while waiting for the culture to finalize and monitor clinical course closely. MMODL / IJN: [id number] /
[2019-09-24 18:08] LABS: Glucose,Whole Blood 143 mg/dL (75-99)
--- NOTE | 2019-09-24 20:08 | P.PN ---
Progress Note - Text Progress Note Date: 09/24/19 Chief Complaint: Swelling of his testicles History of presenting complaint: This is a 54-year-old patient of Dr. Wilmer Goodrich. Presented to ER with multiple complaints. Stated that 4 days ago. Patient's testicles on the toilet this is then he developed swelling and tenderness. Also complained of some lower back pain with walking that is had for years. Also chronic lower extremity swelling. Which is increase in the last few weeks. He is also noticing increasing fluid discharge from lower extremity thought it may be infected. Also shortness of breath going on for a few months. Patient is admitted to the medical floor. At 3:25 AM cord probing was activated. Patient did develop ventricular fibrillation on a mri specialist and was found unresponsive in the room. Patient received IV epinephrine, sodium bicarbonate and calcium chloride. Initially found to be JANIA then into ventricular fibrillation and was shocked 3. Transferred to the ICU. Patient is return of spontaneous circulation at 3:43 AM. This morning patient is on the ventilator. Also had an episode of what could've been atrial fibrillation with a high heart rate of 160s was given 5 mg of IV metoprolol and then started on IV amiodarone. Admitted with-scrotal cellulitis, septic shock, troponin leak, cardiac arrest from [facility], bilateral lower extremity venous insufficiency wounds, paroxysmal atrial fibrillation with rapid ventricular rate, acute hypoxic and hypercapnic respiratory failure requiring ventilator support, acute kidney injury from ATN. Started on bronchodilators, steroids, daptomycin, Zosyn, pressor support propofol. Today-earlier today given a sedation holiday. Patient not really responding. Some spontaneous movements. Had been on Diprivan levo fed. IV amiodarone was switched over to by mouth amiodarone. Patient remains in atrial fibrillation heart rate in the 130s. 2 feeding at 60 mL an hour. Ventilated Progress review of systems cannot be done patient intubated Active Medications Acetaminophen (Tylenol Tab) 650 mg PO Q6HR PRN PRN Reason: Mild Pain or Fever > 100.5 Albuterol/Ipratropium (Duoneb 0.5 Mg-3 Mg/3 Ml Soln) 3 ml INHALATION RT-Q4H [facility] Last Admin: 09/24/19 19:48 Dose: 3 ml Documented by: Albuterol/Ipratropium (Duoneb 0.5 Mg-3 Mg/3 Ml Soln) 3 ml INHALATION RT-Q2H PRN PRN Reason: Shortness Of Breath Or Wheezing Amiodarone HCl (Cordarone) 400 mg PO BID [facility] Last Admin: 09/24/19 08:13 Dose: 400 mg Documented by: Aspirin (Aspirin) 81 mg PO DAILY [facility] Last Admin: 09/24/19 08:13 Dose: 81 mg Documented by: Chlorhexidine Gluconate (Peridex) 15 ml MUCOUS MEM BID [facility] Last Admin: 09/24/19 08:01 Dose: 15 ml Documented by: Furosemide (Lasix) 60 mg IV Q8HR [facility] Last Admin: 09/24/19 16:29 Dose: 60 mg Documented by: Heparin Sodium (Porcine) (Heparin) 0 unit IV PER PROTOCOL PRN; Protocol PRN Reason: Low PTT Last Admin: 09/23/19 20:59 Dose: 4,000 unit Documented by: Hydromorphone HCl (Dilaudid) 0.5 mg IVP Q3HR PRN PRN Reason: Moderate Pain Last Admin: 09/22/19 18:22 Dose: 0.5 mg Documented by: Propofol 1,000 mg/ IV Solution 100 mls @ 0 mls/hr IV .Q0M [facility]; Protocol Last Admin: 09/24/19 16:53 Dose: 30 mcg/kg/min, 46.8 mls/hr Documented by: Piperacillin Sod/Tazobactam (Sod 3.375 gm/ Sodium Chloride) 100 mls @ 25 mls/hr IVPB Q8HR [facility] Last Admin: 09/24/19 16:30 Dose: 25 mls/hr Documented by: Sodium Chloride (Saline 0.9%) 1,000 mls @ 10 mls/hr IV .Q24H [facility] Last Admin: 09/24/19 07:26 Dose: 10 mls/hr Documented by: Heparin Sodium/Sodium Chloride (25,000 unit/ Sodium Chloride) 250 mls @ 23 mls/hr IV .[id number] [facility]; Protocol Last Admin: 09/24/19 16:54 Dose: 13.846 units/kg/hr, 36 mls/hr Documented by: Norepinephrine Bitartrate 4 mg (/ Sodium Chloride) 254 mls @ 49.53 mls/hr IV .Q5H8M [facility]; Protocol Last Admin: 09/24/19 18:59 Dose: Not Given Documented by: Daptomycin 500 mg/ Sodium (Chloride) 50 mls @ 100 mls/hr IVPB Q24H [facility]; Protocol Last Admin: 09/24/19 15:24 Dose: 100 mls/hr Documented by: Insulin Aspart (Novolog) 0 unit SQ Q6H [facility]; Protocol Last Admin: 09/24/19 18:14 Dose: 2 unit Documented by: Metoprolol Tartrate (Lopressor) 50 mg PO BID [facility] Last Admin: 09/24/19 08:13 Dose: 50 mg Documented by: Morphine Sulfate (Morphine Sulfate (Inj)) 4 mg IV Q4HR PRN PRN Reason: Severe Pain Naloxone HCl (Narcan) 0.2 mg IV Q2M PRN PRN Reason: Opioid Reversal Ondansetron HCl (Zofran) 4 mg IVP Q8HR PRN PRN Reason: Nausea And Vomiting Pantoprazole Sodium (Protonix) 40 mg IV DAILY [facility] Last Admin: 09/24/19 08:02 Dose: 40 mg Documented by: Physical examination: VITAL SIGNS: 99.3, 130, 30, 126/79, 95% on the ventilator GENERAL: laying in bed, intubated. EYES: Pupils equal. Conjunctiva normal. HEENT: External appearance of nose and ears normal, oral cavity endotracheal tube. NECK: JVD unable to assess; masses not palpable. HEART: Heart sounds muffled; edema present. LUNGS: Respiratory rate increased; distal breath sounds. ABDOMEN: Soft, nontender, liver spleen not palpable, no masses palpable. Swollen testicle inflamed, with penis embedded in the scrotum PSYCH: Patient sedated, unable to assessl. NEUROLOGICAL: Distal eyelids spontaneously EXTREMITIES: Lower extremity-Adrian wrap INVESTIGATIONS, reviewed in the clinical context: White count 17.1 hemoglobin 13.5 potassium 4.2 bun 28 creatinine 1.27 Previous testing White count 39.2 hemoglobin 14 platelets 291 left shift potassium 4.9 bun 15 creatinine 0.8 9 repeat 1.68 Troponin I 0.047, 0.046 Albumin 3.3 COVID 19 PCR-not detected EKG tracing personally reviewed by me-upon presentation T-wave changes Chest x-ray film personally reviewed by me-exam limited questionable infiltrate versus fluid Venous Doppler-bilateral negative for DVT 2-D [id number] study-EF around 50% difficult to assess Scrotal ultrasound-no mass. Soft tissue edema Assessment: -Acute scrotal cellulitis secondary to local injury -Septic and hypotensive shock-slow to respond -Lactic acidosis -Troponin I leak from septic shock, doubt acute coronary syndrome -Cardiac arrest from [facility] -Morbid obesity BMI 71.6 -Bilateral lower extremity wounds likely from venous insufficiency and secondary infection with drainage -Paroxysmal atrial fibrillation with rapid ventricular rate-currently uncontrolled -Acute hypoxic and hypercapnic respiratory failure currently on the ventilator- slow to respond -Acute kidney injury, ATN from sepsis and hypotension-some improvement Plan: -Patient remains on the ventilator. Did receive a sedation holiday. Switched to oral amiodarone. On IV heparin, IV daptomycin, levo fed, IV Zosyn. In the ICU..
[2019-09-24] MEDS: ACETAMINOPHEN TAB 325 MG TAB PO PRN (20:25)
[2019-09-25 00:27] LABS: Glucose,Whole Blood 153 mg/dL (75-99)
[2019-09-25] MEDS: PIPERACILLIN-TAZOBACTAM 3.375 GM in SODIUM CHLORIDE 0.9% 100 ML IVPB SCH ×3 (00:37→16:34)
[2019-09-25] MEDS: FUROSEMIDE 10 MG/ML 10 ML VIAL IV SCH ×4 (00:37→21:47)
[2019-09-25] MEDS: INSULIN ASPART (NovoLOG) 100 UNIT/ML VIAL SQ SCH ×5 (00:38→23:21)
[2019-09-25] MEDS: IPRATROPIUM-ALBUTEROL 3 ML NEB INHALATION SCH ×7 (00:38→23:26)
[2019-09-25] MEDS: PROPOFOL 1,000 MG in EMPTY BAG 1 BAG IV SCH ×3 (02:47→06:53)
[2019-09-25] MEDS: ACETAMINOPHEN TAB 325 MG TAB PO PRN (04:46)
[2019-09-25 05:31] LABS: Basophils % (A) 0 %; Eosinophils # (A) 0.1 k/uL (0-0.7); Eosinophils % (A) 1 %; HCT 41.2 % (39.0-53.0); HGB 12.6 gm/dL (13.0-17.5); Hypochromasia Marked; Lymphocytes # (A) 1.8 k/uL (1.0-4.8); Lymphocytes % (A) 14 %; MCH 31.7 pg (25.0-35.0); MCHC 30.6 g/dL (31.0-37.0); MCV 103.6 fL (80.0-100.0); Macrocytosis Moderate; Mean Platelet Volume 7.4; Monocytes # (A) 0.6 k/uL (0-1.0); Monocytes % (A) 5 %; Neutrophils # (A) 10.7 k/uL (1.3-7.7); Neutrophils % (A) 81 %; Platelet Count 248 k/uL (150-450); RBC 3.98 m/uL (4.30-5.90); RDW 15.4 % (11.5-15.5); WBC 13.3 k/uL (3.8-10.6)
[2019-09-25 06:28] LABS: Calcium 7.2 mg/dL (8.4-10.2); Potassium 3.7 mmol/L (3.5-5.1)
[2019-09-25] MEDS ORDERED: Potassium Replacement Protocol 1 EACH MISC MISCELLANE PRN (06:41)
[2019-09-25 07:12] LABS: ABG Base Excess 16.8 mmol/L; ABG PCO2 49 mmHg (35-45); ABG PH 7.52 (7.35-7.45); ABG PO2 91 mmHg (83-108); ABG TCO2 41 mmol/L (19-24); Allen Test Performed? Yes
[2019-09-25 07:14] LABS: ABG HCO3 40 mmol/L (21-25); ABG Oxygen Saturation 97.5 % (94-97)
[2019-09-25] MEDS ORDERED: LIDOCAINE 1% INJ 10MG/ML (20 ML MDV) ONE (07:48)
--- NOTE | 2019-09-25 07:58 | XR ---
EXAMINATION TYPE: XR chest 1V portable DATE OF EXAM: 09/25/2019 COMPARISON: 09/24/2019 HISTORY: Shortness of breath FINDINGS: There are bilateral pleural effusions with cardiomegaly and bibasilar infiltrate. There is a diffuse interstitial pattern. ET and NG tube noted. IMPRESSION: 1. Bilateral pleural-parenchymal changes stable correlate for ARDS, pulmonary edema or diffuse pneumo tadeo.
[2019-09-25] MEDS ORDERED: POTASSIUM BICARBONATE/CIT AC 20 MEQ TABLET.EFF NG-TUBE SCH (08:00)
[2019-09-25] MEDS ORDERED: LIDOCAINE 1% INJ 10MG/ML (20 ML MDV) SQ ONE (08:17)
--- NOTE | 2019-09-25 08:52 | XR ---
EXAMINATION TYPE: XR chest 1V portable DATE OF EXAM: 09/25/2019 COMPARISON: 09/25/2019 HISTORY: Line placement FINDINGS: There are bilateral pleural effusions with cardiomegaly and bibasilar infiltrate. There is a diffuse interstitial pattern. Right-sided central line is coiled back upon itself. ET and NG tube stable. Hy pertrophic change of the spine. IMPRESSION: 1. Diffuse pleural-parenchymal changes are stable. 2. PICC line appears coiled upon itself.
--- NOTE | 2019-09-25 08:53 | XR ---
EXAMINATION TYPE: XR chest 1V portable DATE OF EXAM: 09/25/2019 COMPARISON: 09/25/2019 HISTORY: PICC line placement TECHNIQUE: Single frontal view of the chest is obtained. FINDINGS: There are bilateral pleural effusions with cardiomegaly and bibasilar infiltrate. There is a diffuse interstitial pattern. ET and NG tube noted. PICC line extending into the neck. IMPRESSION: 1. Bilateral pleural-parenchymal changes stable correlate for ARDS, pulmonary edema or diffuse pneumo tadeo.
--- NOTE | 2019-09-25 08:54 | XR ---
EXAMINATION TYPE: XR chest 1V portable DATE OF EXAM: 09/25/2019 COMPARISON: 09/25/2019 HISTORY: PICC line placement FINDINGS: There are bilateral pleural effusions with cardiomegaly and bibasilar infiltrate. There is a diffuse interstitial pattern. ET and NG tube noted. PICC line appears to be malpositioned extending into the neck IMPRESSION: 1. See above
--- NOTE | 2019-09-25 08:55 | XR ---
EXAMINATION TYPE: XR chest 1V portable DATE OF EXAM: 09/25/2019 COMPARISON: 09/25/2019 HISTORY: PICC line placement FINDINGS: There are bilateral pleural effusions with cardiomegaly and bibasilar infiltrate. There is a diffuse interstitial pattern. PICC line malpositioned extending into the soft tissues of the neck. ET and NG tube noted. IMPRESSION: 1. Stable diffuse pleural-parenchymal changes. 2. Malpositioned PICC line
--- NOTE | 2019-09-25 08:56 | XR ---
EXAMINATION TYPE: XR chest 1V portable DATE OF EXAM: 09/25/2019 COMPARISON: 09/25/2019 HISTORY: PICC line placement FINDINGS: There are bilateral pleural effusions with cardiomegaly and bibasilar infiltrate. There is a diffuse interstitial pattern. ET and NG tubes stable. PICC line appears to be malpositioned extending into t he soft tissues of the neck IMPRESSION: 1. Malpositioned PICC line
--- NOTE | 2019-09-25 08:57 | XR ---
EXAMINATION TYPE: XR chest 1V portable DATE OF EXAM: 09/25/2019 COMPARISON: 09/25/2019 HISTORY: PICC line placement TECHNIQUE: Single frontal view of the chest is obtained. FINDINGS: Diffuse pleural-parenchymal changes stable. ET and NG tube noted. There is a linear densit y extending along the right axilla terminating near the upper clavicle. Should be correlated for posi tioning of the PICC line. IMPRESSION: 1. Stable diffuse pleural-parenchymal changes correlate for CHF versus pneumonia. 2. Linear density extending from the axilla to the right clavicle could represent a PICC line termina ting near the subclavian region but should be correlated clinically.
--- NOTE | 2019-09-25 09:26 | PN ---
PROGRESS NOTE Mr. Ardon is a 54-year-old male with morbid obesity who presents with progressive respiratory failure, significant edema requiring mechanical ventilation. He came in with ectopic atrial rhythm and subsequently went into atrial fibrillation persisted to be in atrial fibrillation. He remains intubated and sedated. Hemodynamically stable. He is on a lower dose of norepinephrine. Hemodynamically, his rate has been relatively stable on oral amiodarone and beta hayden. He is scheduled to undergo placement of a central line today. He is tolerating feeding tube. He continues to be at this time on amiodarone 400 mg twice a day, aspirin 81 mg daily, Lasix 60 mg IV q.8 hours, IV heparin, metoprolol tartrate 50 mg twice a day. PHYSICAL EXAMINATION: Blood pressure running in the 110s with a heart rate in the 100. LUNGS: Clear anteriorly. HEART: Irregular, regular, S1, S2. No S3 with no rub. ABDOMEN: Soft, obese, nontender. EXTREMITIES: Adrian wrapping in place. LAB DATA: Revealed BUN and creatinine of 31 and 1.2, his potassium is 3.7. His hemoglobin 12.6, white blood cells 13.3. Is and Os is - 2 L. IMPRESSION: 1. Respiratory failure with cardiac arrest, intubated. 2. Hypercapnic hypoxic status. 3. Atrial fibrillation with episode of rapid ventricular response. 4. Morbid obesity. 5. Renal failure, improving. 6. Acute renal injury with ATN, improving. RECOMMENDATION: I will add Aldactone to his regimen. I will increase the dose of his beta hayden. Continue rest of his medical regimen. Follow his renal function closely and depending on his progress, further recommendation will be made. MMODL / IJN: [id number] /
[2019-09-25] MEDS: METOPROLOL TARTRATE 50 MG TAB PO SCH ×3 (09:49→21:47)
[2019-09-25] MEDS: AMIODARONE 200 MG TAB PO SCH ×2 (09:49→21:47)
[2019-09-25] MEDS: NOREPINEPHRINE 4 MG in SODIUM CHLORIDE 0.9% 250 ML IV SCH ×5 (10:01→19:03)
[2019-09-25] MEDS: SODIUM CHLORIDE 0.9% 1,000 ML IV SCH (10:05)
[2019-09-25] MEDS: DAPTOmycin 500 MG in SODIUM CHLORIDE 0.9% 50 ML IVPB SCH (10:20)
[2019-09-25] MEDS: ASPIRIN 81 MG PO SCH (10:21)
[2019-09-25] MEDS: TRIAMCINOLONE 0.1% CREAM 80 GM TUBE TOPICAL SCH ×2 (10:21→21:47)
[2019-09-25] MEDS: SPIRONOLACTONE 25 MG TAB PO SCH (10:21)
[2019-09-25] MEDS: CHLORHEXIDINE GLUCONATE 15 ML CUP MUCOUS MEM SCH ×2 (10:22→21:46)
[2019-09-25] MEDS: PANTOPRAZOLE 40 MG/10 ML VIAL IV SCH (10:22)
[2019-09-25 10:45] LABS: Albumin 2.9 g/dL (3.5-5.0); Bilirubin, Delta 0.3 mg/dL (0.0-0.2); Bilirubin,Unconjugated 0.6 mg/dL (0.0-1.1); Total Bilirubin 0.9 mg/dL (0.2-1.3); Total Protein 6.6 g/dL (6.3-8.2)
--- NOTE | 2019-09-25 11:11 | IR ---
EXAMINATION TYPE: IR cvc insert >=5 years DATE OF EXAM: 09/25/2019 COMPARISON: NONE HISTORY: Cellulitis, needs long-term intravenous access for therapy FINDINGS: Maximal barrier technique was utilized. Hand hygiene obtained with soap and water. The ski n overlying the right basilic vein was localized with ultrasound and noted to be compressible and pat ent by ultrasound. An ultrasound image was obtained and submitted on patient's chart. Sterile techni que utilized with the ultrasound machine. The skin overlying was prepped and draped and Lidocaine use d for local anesthesia. A skin carson was made with a scalpel. Access was gained to the vein under di rect ultrasound guidance with a 21-gauge needle and a 0.018 inch wire was advanced. Access site was dilated with a peel-away sheath and the catheter tailored to length. Catheter advanced centrally and a post procedure chest x-ray verified placement in the right jugular vein, multiple catheter manipul ations and follow-up chest x-rays were performed and the catheter was subsequently left such that the tip is overlying subclavian vein as verified by chest x-ray. Catheter was fixed to the and a steri le dressing placed. Hemostasis achieved and the catheter was aspirated and flushed with sterile sali ne. The patient remained in stable condition. IMPRESSION: STATUS POST ULTRASOUND GUIDED PICC LINE PLACEMENT, READY FOR USE. THIS PROCEDURE WAS PER FORMED BY THE UNDERSIGNED.
[2019-09-25] MEDS: HEPARIN SOD,PORK IN 0.45% NACL 25,000 UNIT in 0.45% NACL 1 250ML.BAG IV SCH ×2 (11:15→18:15)
--- NOTE | 2019-09-25 11:25 | P.PN ---
Subjective Patient is seen in follow-up for acute kidney injury. Creatinine peaked at 1.68 this admission and is down to 1.2 today. He is maintained on IV Lasix 60 mg 2 times daily. Diamox was added this morning due to alkalosis. Nonoliguric. Urine output over 100-200 mL an hour. Remains edematous. Currently intubated. On 55% FiO2. He is receiving tube feeding. Levophed discontinued yesterday. Vital signs are stable. Off vasopressor support. General: The patient appeared well nourished and normally developed. HEENT: Head exam is unremarkable. Neck is without jugular venous distension. Intubated. LUNGS: Breath sounds decreased. HEART: Irregular rate and rhythm. ABDOMEN: Soft, obese. EXTREMITITES: 2+ edema. Erythema noted. No drainage. Scrotal edema noted. Objective - Vital Signs Vital signs: Vital Signs Temp 99.1 F 09/25/19 10:00 Pulse 125 H 09/25/19 10:00 Resp 30 H 09/25/19 10:00 BP 112/79 09/23/19 09:30 Pulse Ox 92 L 09/25/19 10:00 Intake & Output 09/24/19 09/25/19 09/25/19 18:59 06:59 18:59 Intake Total 2214.430 2604.34 529.66 Output Total 3430 3815 410 Balance -1215.570 -1210.66 119.66 Weight 256.932 kg 256.932 kg Intake: IV 401 306 52 0.9NS Pressure Bag 36 36 12 Piperacillin-Tazobactam 3 125 150 .375 gm In Sodium Chloride 0.9% 100 ml @ 25 mls/hr IVPB Q8HR [facility] Rx# :[id number] Sodium Chloride 0.9% 1, 240 120 40 000 ml @ 10 mls/hr IV . Q24H [facility] Rx#:[id number] Intake, IV Titration 4099.659 3504.34 145.66 Amount DAPTOmycin 500 mg In 50 Sodium Chloride 0.9% 50 ml @ 100 mls/hr IVPB Q24H [facility] Rx#:[id number] Heparin Sod,Pork in 0.45% 250 448.2 46.6 NaCl 25,000 unit In 0.45 % NaCl 1 250ml.bag @ 8. 846 UNITS/KG/HR 23 mls/hr IV .[id number] [facility] Rx#: [id number] Norepinephrine 4 mg In 437.680 254 Sodium Chloride 0.9% 250 ml @ 0.05 MCG/KG/MIN 49. 53 mls/hr IV .Q5H8M [facility] Rx#:[id number] Propofol 1,000 mg In 265.75 488.14 99.06 Empty Bag 1 bag @ Titrate IV .Q0M [facility] Rx#: [id number] Tube Feeding 720 918 332 Other 90 190 Output: Urine 3430 3815 410 Other: Voiding Method Indwelling Catheter Indwelling Catheter ABP, PAP, CO, CI - Last Documented Arterial Blood Pressure 120/67 - Labs CBC & Chem 7: 09/25/19 05:00 09/25/19 05:00 Labs: Abnormal Lab Results - Last 24 Hours (Table) 09/23/19 09/24/19 09/24/19 Range/Units 08:17 11:55 18:06 WBC (3.8-10.6) k/uL RBC (4.30-5.90) m/uL Hgb (13.0-17.5) gm/dL MCV (80.0-100.0) fL MCHC (31.0-37.0) g/dL Neutrophils # (1.3-7.7) k/uL APTT (22.0-30.0) sec ABG pH (7.35-7.45) ABG pCO2 72 H* (35-45) mmHg ABG HCO3 (21-25) mmol/L ABG Total CO2 (19-24) mmol/L ABG O2 Saturation (94-97) % Chloride (98-107) mmol/L Carbon Dioxide (22-30) mmol/L BUN (9-20) mg/dL Glucose (74-99) mg/dL POC Glucose (mg/dL) 189 H 143 H (75-99) mg/dL Calcium (8.4-10.2) mg/dL Delta Bilirubin (0.0-0.2) mg/dL AST (17-59) U/L ALT (4-49) U/L Ammonia (<30) umol/L Albumin (3.5-5.0) g/dL 09/25/19 09/25/19 09/25/19 Range/Units 00:26 05:00 05:00 WBC 13.3 H (3.8-10.6) k/uL RBC 3.98 L (4.30-5.90) m/uL Hgb 12.6 L (13.0-17.5) gm/dL MCV 103.6 H (80.0-100.0) fL MCHC 30.6 L (31.0-37.0) g/dL Neutrophils # 10.7 H (1.3-7.7) k/uL APTT 53.8 H (22.0-30.0) sec ABG pH (7.35-7.45) ABG pCO2 (35-45) mmHg ABG HCO3 (21-25) mmol/L ABG Total CO2 (19-24) mmol/L ABG O2 Saturation (94-97) % Chloride (98-107) mmol/L Carbon Dioxide (22-30) mmol/L BUN (9-20) mg/dL Glucose (74-99) mg/dL POC Glucose (mg/dL) 153 H (75-99) mg/dL Calcium (8.4-10.2) mg/dL Delta Bilirubin (0.0-0.2) mg/dL AST (17-59) U/L ALT (4-49) U/L Ammonia (<30) umol/L Albumin (3.5-5.0) g/dL 09/25/19 09/25/19 09/25/19 Range/Units 05:00 07:06 10:00 WBC (3.8-10.6) k/uL RBC (4.30-5.90) m/uL Hgb (13.0-17.5) gm/dL MCV (80.0-100.0) fL MCHC (31.0-37.0) g/dL Neutrophils # (1.3-7.7) k/uL APTT (22.0-30.0) sec ABG pH 7.52 H (7.35-7.45) ABG pCO2 49 H (35-45) mmHg ABG HCO3 40 H* (21-25) mmol/L ABG Total CO2 41 H (19-24) mmol/L ABG O2 Saturation 97.5 H (94-97) % Chloride 96 L (98-107) mmol/L Carbon Dioxide 36 H (22-30) mmol/L BUN 31 H (9-20) mg/dL Glucose 162 H (74-99) mg/dL POC Glucose (mg/dL) (75-99) mg/dL Calcium 7.2 L (8.4-10.2) mg/dL Delta Bilirubin 0.3 H (0.0-0.2) mg/dL AST 164 H (17-59) U/L ALT 81 H (4-49) U/L Ammonia (<30) umol/L Albumin 2.9 L (3.5-5.0) g/dL 09/25/19 Range/Units 10:00 WBC (3.8-10.6) k/uL RBC (4.30-5.90) m/uL Hgb (13.0-17.5) gm/dL MCV (80.0-100.0) fL MCHC (31.0-37.0) g/dL Neutrophils # (1.3-7.7) k/uL APTT (22.0-30.0) sec ABG pH (7.35-7.45) ABG pCO2 (35-45) mmHg ABG HCO3 (21-25) mmol/L ABG Total CO2 (19-24) mmol/L ABG O2 Saturation (94-97) % Chloride (98-107) mmol/L Carbon Dioxide (22-30) mmol/L BUN (9-20) mg/dL Glucose (74-99) mg/dL POC Glucose (mg/dL) (75-99) mg/dL Calcium (8.4-10.2) mg/dL Delta Bilirubin (0.0-0.2) mg/dL AST (17-59) U/L ALT (4-49) U/L Ammonia 36 H (<30) umol/L Albumin (3.5-5.0) g/dL Microbiology - Last 24 Hours (Table) 09/23/19 08:46 Blood Culture - Preliminary Blood No Growth after 48 hours 09/23/19 05:00 Gram Stain - Final Sputum Sputum Culture - Final 09/23/19 10:45 Urine Culture - Preliminary Urine,Catheterized Gram Neg Bacilli 09/23/19 12:05 Gram Stain - Preliminary Leg - Right Wound Culture - Preliminary 09/23/19 09:25 Blood Culture - Preliminary Blood No Growth after 24 hours Assessment and Plan Plan: Assessment: 1. Acute kidney injury secondary to ATN secondary to cardiopulmonary arrest. Baseline creatinine near 1 and peaked at 1.68 this admission - 1.2 today. 2. Status post cardiopulmonary arrest with down time off about 18 minutes on September 22. Currently on amiodarone and heparin drip. 3. Hypotension status post Levophed. 4. Volume overload. Improving with diuresis. 5. Morbid obesity. 6. Lower extremity cellulitis maintained on antibiotics. 7. Atrial fibrillation maintained on heparin drip. Also on oral amiodarone. 8. UTI with urine culture positive for gram-negative bacilli. 9. Metabolic alkalosis secondary to diuresis. Plan: Maintain IV Lasix 60 mg 2 times daily. Continue with Diamox. Maintain Kramer catheter. Strict I's and O's. Wean FiO2 and vasopressors. Maintain tube feeding.
--- NOTE | 2019-09-25 11:52 | P.PN ---
Subjective Progress Note Date: 09/25/19 Principal diagnosis: Acute hypoxic respiratory failure secondary to cardiac arrest, required CPR for 9 minutes. This is a 54-year-old white male morbidly obese, patient presented to the ER yesterday with progressive scrotal swelling and progressive peripheral edema. Patient was also complaining of shortness of breath, and unable to urinate. Patient is also known to have history of chronic cellulitis of lower extremities. Last night the patient had a cardiac arrest, and he had initially a run of ventricular tachycardia. Patient was intubated, transferred to the intensive care unit, during CPR, patient received IV epinephrine, sodium bicarb, calcium chloride, and at one point he was in pulseless electrical activity then he developed ventricular fibrillation were in he was shocked 3. Subsequently the patient had return of spontaneous circulation at 3:43 AM. Apparently his code was about 13 minutes long. Patient was intubated, transferred to the ICU, and I was asked to see him on consultation this morning. He is presently on assist control rate of 30 tidal volume is 500 FiO2 is 100% and PEEP is 16. ABG showed a pO2 of 57 pCO2 of 102 pH of 7.16. Patient remains in atrial fibrillation with a rate of 137. He is also on norepinephrine at 0.05 mcg/kg/m, he is on heparin drip for atrial fibrillation and possibly for underlying deep vein thrombosis and thromboembolic disease/pulmonary embolism. Patient is on propofol at 20 mcg/kg/m, and his IV fluid is at 10 mL per hour. Chest x-ray showed evidence of any edema and recommended Lasix to be given today. I have also recommended arterial line which was placed for hemodynamic monitoring, and the patient had to midline is placed by anesthesia. Echocardiogram was noted to be extremely suboptimal mostly because of his morbid obesity. And quality was poor. However ejection fraction was guessed to be 50%, difficult to assess. Venous Doppler of both lower extremities negative for DVT. D-dimer was s ignificantly elevated. Chest x-ray is suspicious for either congestive heart failure/cardiogenic or ARDS. I suspect this is mostly cardiac pulmonary edema rather than ARDS since developed quite abruptly after his cardiac arrest. Patient was evaluated today on 09/24/19, remains in the ICU, intubated and mechanically ventilated. His ventilator settings are assist control rate of 30 tidal volume is 500 FiO2 is 60% and I cut it down to 55% PEEP remains at 16. ABG showed a pO2 of 83 pCO2 of 47 pH of 7.51. Patient remains on propofol at 15 mcg/kg/m norepinephrine at 0.01 mcg/kg/m amiodarone drip at 0.5 mg per hour. He is also on heparin drip. Chest x-ray continues to show evidence of interstitial edema. Patient responded well to Lasix, hence I increased the dose to 60 mg IV push 3 times a day. Today I plan to hold sedation and assessment of status, and if mental status or neurological findings are abnormal, may even consider a neurological consultation. I'm quite concerned about the possibility of anoxic brain injury . Again the patient had CPR for about 9 minutes. Patient is on enteral feeding, and his feeding is at goal. His cultures including blood cultures and sputum cultures as well as urine cultures and wound cultures are nondiagnostic so far. Patient remains on Zosyn and daptomycin. His atrial fibrillation seems to be well-controlled with amiodarone at present. Reevaluated today on 09/25/19, remains in ICU, intubated and mechanically ventilated. His ventilator settings are presently assist control rate of 30 tidal volume is 500 FiO2 is 55% and PEEP was 16 but I cut it down to 12. His ABG earlier today showed a pO2 of 91 pCO2 of 49 pH of 7.5. Patient remains on propofol at 30 mcg/kg/m, norepinephrine is presently off. And he is on heparin, IV fluid at KVO. Antibiotics yu he remains on daptomycin and Zosyn. Patient is yet to have a sedation holiday today, yesterday when he was sedated, patient woke up, and he was noted to have left deviation of gaze. Hence the neurology was consulted. However the patient could not have a CT of the head because of his weight and size. His tube feeds are at goal 83 mL per hour. Patient is in atrial fibrillation but rate seems to be around 113 and regular rhythm. Patient is now on oral amiodarone and Lopressor as per cardiology. Patient had PICC line placed by interventional radiology, and it is functional. Cultures have been negative including all blood cultures. His urine is showing gram-negative bacilli. However her only 50,000-100,000 colony count. Patient remains empirically on antibiotics. Objective - Vital Signs Vital signs: Vital Signs Temp 99.1 F 06/12/20 10:00 Pulse 97 09/25/19 11:25 Resp 30 H 09/25/19 11:00 BP 112/79 09/23/19 09:30 Pulse Ox 97 09/25/19 11:00 Intake & Output 09/24/19 09/25/19 09/25/19 18:59 06:59 18:59 Intake Total 2214.430 2604.34 625.66 Output Total 3430 3815 760 Balance -1215.570 -1210.66 -134.34 Weight 256.932 kg 256.932 kg Intake: IV 401 306 65 0.9NS Pressure Bag 36 36 15 Piperacillin-Tazobactam 3 125 150 .375 gm In Sodium Chloride 0.9% 100 ml @ 25 mls/hr IVPB Q8HR [facility] Rx# :[id number] Sodium Chloride 0.9% 1, 240 120 50 000 ml @ 10 mls/hr IV . Q24H [facility] Rx#:[id number] Intake, IV Titration 1034.155 8176.34 145.66 Amount DAPTOmycin 500 mg In 50 Sodium Chloride 0.9% 50 ml @ 100 mls/hr IVPB Q24H [facility] Rx#:[id number] Heparin Sod,Pork in 0.45% 250 448.2 46.6 NaCl 25,000 unit In 0.45 % NaCl 1 250ml.bag @ 8. 846 UNITS/KG/HR 23 mls/hr IV .[id number] [facility] Rx#: [id number] Norepinephrine 4 mg In 437.680 254 Sodium Chloride 0.9% 250 ml @ 0.05 MCG/KG/MIN 49. 53 mls/hr IV .Q5H8M [facility] Rx#:[id number] Propofol 1,000 mg In 265.75 488.14 99.06 Empty Bag 1 bag @ Titrate IV .Q0M [facility] Rx#: [id number] Tube Feeding 720 918 415 Other 90 190 Output: Urine 3430 3815 760 Other: Voiding Method Indwelling Catheter Indwelling Catheter ABP, PAP, CO, CI - Last Documented Arterial Blood Pressure 106/70 - Exam Physical Exam: Revealed a 54-year-old white male, morbidly obese, on mechanical ventilation. Head: Atraumatic, normocephalic. Endotracheal tube and orogastric tubes are intact. Neck: Short obese neck, no neck masses, no JVD, HEENT: PERRLA, EOMI, no icterus, no neck masses, no stridor. Endotracheal tube is intact. Chest: [Large chest, diminished breath sounds, crackles at the bases, no rhonchi and no wheezes. Cardiac Exam: Distant S1 and S2, irregular rhythm, no S3 gallop. No rub. Abdomen: [Morbidly obese, Soft, nontender, no megaly, no rebound, no guarding, normal bowel sounds.] Extremities: [Chronic venous stasis changes. And significant excoriation of the skin and multiple areas of cellulitis and superficial ulcers in both lower extremity but more so on the left lower extremity calf region.] Right brachial PICC line is noted. Neurological Exam: patient is sedated on propofol. Which I wouldn't placed on hold today to assess mental status. Musculoskeletal No evidence of muscle atrophy no deformities. Skin: Areas of cellulitis and excoriation of the skin noted in lower extremities with venous stasis changes. Genitalia: Swollen scrotum, no tenderness, - Labs CBC & Chem 7: 09/25/19 05:00 09/25/19 05:00 Labs: Abnormal Lab Results - Last 24 Hours (Table) 09/23/19 09/24/19 09/24/19 Range/Units 08:17 11:55 18:06 WBC (3.8-10.6) k/uL RBC (4.30-5.90) m/uL Hgb (13.0-17.5) gm/dL MCV (80.0-100.0) fL MCHC (31.0-37.0) g/dL Neutrophils # (1.3-7.7) k/uL APTT (22.0-30.0) sec ABG pH (7.35-7.45) ABG pCO2 72 H* (35-45) mmHg ABG HCO3 (21-25) mmol/L ABG Total CO2 (19-24) mmol/L ABG O2 Saturation (94-97) % Chloride (98-107) mmol/L Carbon Dioxide (22-30) mmol/L BUN (9-20) mg/dL Glucose (74-99) mg/dL POC Glucose (mg/dL) 189 H 143 H (75-99) mg/dL Calcium (8.4-10.2) mg/dL Delta Bilirubin (0.0-0.2) mg/dL AST (17-59) U/L ALT (4-49) U/L Ammonia (<30) umol/L Albumin (3.5-5.0) g/dL 09/25/19 09/25/19 09/25/19 Range/Units 00:26 05:00 05:00 WBC 13.3 H (3.8-10.6) k/uL RBC 3.98 L (4.30-5.90) m/uL Hgb 12.6 L (13.0-17.5) gm/dL MCV 103.6 H (80.0-100.0) fL MCHC 30.6 L (31.0-37.0) g/dL Neutrophils # 10.7 H (1.3-7.7) k/uL APTT 53.8 H (22.0-30.0) sec ABG pH (7.35-7.45) ABG pCO2 (35-45) mmHg ABG HCO3 (21-25) mmol/L ABG Total CO2 (19-24) mmol/L ABG O2 Saturation (94-97) % Chloride (98-107) mmol/L Carbon Dioxide (22-30) mmol/L BUN (9-20) mg/dL Glucose (74-99) mg/dL POC Glucose (mg/dL) 153 H (75-99) mg/dL Calcium (8.4-10.2) mg/dL Delta Bilirubin (0.0-0.2) mg/dL AST (17-59) U/L ALT (4-49) U/L Ammonia (<30) umol/L Albumin (3.5-5.0) g/dL 09/25/19 09/25/19 09/25/19 Range/Units 05:00 07:06 10:00 WBC (3.8-10.6) k/uL RBC (4.30-5.90) m/uL Hgb (13.0-17.5) gm/dL MCV (80.0-100.0) fL MCHC (31.0-37.0) g/dL Neutrophils # (1.3-7.7) k/uL APTT (22.0-30.0) sec ABG pH 7.52 H (7.35-7.45) ABG pCO2 49 H (35-45) mmHg ABG HCO3 40 H* (21-25) mmol/L ABG Total CO2 41 H (19-24) mmol/L ABG O2 Saturation 97.5 H (94-97) % Chloride 96 L (98-107) mmol/L Carbon Dioxide 36 H (22-30) mmol/L BUN 31 H (9-20) mg/dL Glucose 162 H (74-99) mg/dL POC Glucose (mg/dL) (75-99) mg/dL Calcium 7.2 L (8.4-10.2) mg/dL Delta Bilirubin 0.3 H (0.0-0.2) mg/dL AST 164 H (17-59) U/L ALT 81 H (4-49) U/L Ammonia (<30) umol/L Albumin 2.9 L (3.5-5.0) g/dL 09/25/19 Range/Units 10:00 WBC (3.8-10.6) k/uL RBC (4.30-5.90) m/uL Hgb (13.0-17.5) gm/dL MCV (80.0-100.0) fL MCHC (31.0-37.0) g/dL Neutrophils # (1.3-7.7) k/uL APTT (22.0-30.0) sec ABG pH (7.35-7.45) ABG pCO2 (35-45) mmHg ABG HCO3 (21-25) mmol/L ABG Total CO2 (19-24) mmol/L ABG O2 Saturation (94-97) % Chloride (98-107) mmol/L Carbon Dioxide (22-30) mmol/L BUN (9-20) mg/dL Glucose (74-99) mg/dL POC Glucose (mg/dL) (75-99) mg/dL Calcium (8.4-10.2) mg/dL Delta Bilirubin (0.0-0.2) mg/dL AST (17-59) U/L ALT (4-49) U/L Ammonia 36 H (<30) umol/L Albumin (3.5-5.0) g/dL Microbiology - Last 24 Hours (Table) 09/23/19 09:25 Blood Culture - Preliminary Blood No Growth after 48 hours 09/23/19 08:46 Blood Culture - Preliminary Blood No Growth after 48 hours 09/23/19 05:00 Gram Stain - Final Sputum Sputum Culture - Final 09/23/19 10:45 Urine Culture - Preliminary Urine,Catheterized Gram Neg Bacilli 09/23/19 12:05 Gram Stain - Preliminary Leg - Right Wound Culture - Preliminary Assessment and Plan Assessment: Impression: Acute hypoxic respiratory failure secondary to cardiac arrest, requiring CPR for 9 minutes. And secondary to acute cardiogenic pulmonary edema. Acute cardiogenic pulmonary edema, possible diastolic dysfunction. This is also contributing to his hypoxemia. Chest x-ray is significantly improved. However O2 saturations remained marginal. Morbid obesity with acute on chronic respiratory acidosis, suspect underlying obstructive sleep apnea syndrome and obesity/hypoventilation syndrome. New onset atrial fibrillation, also contributing to his pulmonary edema. Possibility of pulmonary embolism is in the picture, however felt to be less likely especially with negative venous Doppler. Nonetheless the patient will require heparinization mostly for his atrial fibrillation with RVR, patient will not fit in the scanner to have a CT of the chest. Or a VQ scan.We'll treat empirically with heparin. Severe cellulitis of lower extremities, possible sepsis, cultures are pending. In the meantime we will continue IV antibiotics. Patient is presently on Zosyn and daptomycin. Possible anoxic brain injury. That is yet to be determined. Status post PICC line placement on 09/24. Possible urinary tract infection as noted on his urine culture. Final identification is pending. Recommendation: Continue ventilatory support. Decrease FiO2 to 55% continue PEEP was decreased down to 12. Continue hemodynamic support. Patient is presently off norepinephrine. Diuretics for acute pulmonary edema/congestive heart failure, Diamox was added, and Lasix was made 60 mg IV push every 12 hours. Patient seems to be developing some metabolic alkalosis. GI and DVT prophylaxis. Nutritional support. Continue enteral feeding. Continue antibiotics. Patient remains on Zosyn and daptomycin. Continue heparin in the meantime. Will eventually switched to oral anticoagulation treatment. Venous Doppler showed no evidence of DVT. Amiodarone for atrial fibrillation with RVR. Patient will be placed on oral amiodarone as. Cardiology on the case with Critical care time is 32 minutes Neurology to evaluate for possible anoxic brain injury. We'll continue to follow. Time with Patient: Greater than 30
[2019-09-25 11:54] LABS: Glucose,Whole Blood 140 mg/dL (75-99)
--- NOTE | 2019-09-25 12:40 | CONS ---
CONSULTATION DATE OF THIS DICTATION: 09/25/2019. REFERRING PHYSICIAN: Dr. Cornell. HISTORY OF PRESENT ILLNESS: Thank you for allowing me to evaluate Troy Ardon who is a 54-year-old white male who presented to [facility] on 09/21/2009 with complaints of testicular pain/swelling after he had reportedly "pinched" his testicles on the toilet, according to the emergency room note. In addition, the patient had lower extremity edema with discharge and shortness of breath. The patient was found to have an elevated troponin in the emergency room. Early in the morning on 09/23/2019, the patient developed ventricular fibrillation, cardiopulmonary arrest and was unresponsive. Resuscitative measures were pursued and the patient reportedly had return of spontaneous circulation within 13-18 minutes. The patient subsequently developed new onset atrial fibrillation and has remained in this rhythm. Cardiology is now following and the patient has been on an IV heparin drip and amiodarone. The patient has also been diagnosed with acute cardiogenic pulmonary edema and acute kidney injury. The patient has been febrile, suspected to be in the setting of lower extremity cellulitis with discharge, gram- negative bacilli urinary tract infection and possible aspiration pneumonia. With sedation breaks, the patient has been noted to open his eyes, although the eyes are in upgaze and slightly deviated to the left. According to nursing staff, the patient has been moving extremities in a symmetric fashion. No seizure activity has been witnessed. In review of the medical record, there is no mention of previous history of stroke or seizure. Unfortunately, due to the patient's morbid obesity (weight of 256.9 kg), the patient is unable to fit in the CT scanner at this facility, this was discussed with Radiology. ALLERGIES: No known drug allergies. HOME MEDICATIONS: Tylenol. CURRENT MEDICATIONS: Tylenol, Diamox, amiodarone, aspirin 81 mg daily, Peridex, Daptomycin, Lasix, heparin drip, Dilaudid p.r.n., insulin, DuoNeb, Lopressor, morphine p.r.n., Levophed (just discontinued this morning at 7 am per nursing staff), Zofran p.r.n., Protonix, Zosyn, potassium, and Aldactone. PAST MEDICAL HISTORY: Morbid obesity, chronic low back pain and lower extremity edema. PAST SURGICAL HISTORY: Umbilical hernia repair. SOCIAL HISTORY: Unobtainable. FAMILY HISTORY: Unobtainable. REVIEW OF SYSTEMS: Unobtainable as the patient is currently intubated. PHYSICAL EXAMINATION: Upon my arrival to the patient's room in the ICU, he was lying in bed, Diprivan had been held for 45 minutes prior to this evaluation. The patient is morbidly obese with anasarca and appears of stated age. There is diffuse edema including the scrotum. The patient's eyes are open in upgaze and slightly to the left. No seizure activity was witnessed. VITAL SIGNS: Blood pressure is 98/56 with a pulse of 113 (patient in atrial fibrillation), respiratory rate 19, temperature is 101.1. Weight is 256.9 kg on a 6 foot 3 inch frame. SKIN/EXTREMITIES: There is diffuse edema involving the bilateral upper/lower extremities. HEAD AND NECK: No signs of trauma. Neck is supple without meningeal signs. Bruits are difficult to auscultate due to harsh breath sounds. HEART: Irregularly irregular, higher cortical function. MENTAL STATUS: Patient was off sedation for 45 minutes at the time of my evaluation. Pressors were also on hold from 7 am (patient was evaluated at 10 am). The patient's eyes are open in upgaze and slightly to the left, he did not make eye contact with the examiner and would not track the examiner with his eyes. The patient would not attempt to respond to questions or mild word. He did not follow any commands consistently. At one point, when I asked the patient to wiggle his toes, he did wiggle the toes on both feet, which appeared to be to my command initially, although he would not reproduce this. CRANIAL NERVES 2-12: Pupils are equal and reactive to light symmetrically. No afferent pupillary defect. There was no consistently to threat. III, IV, : No ptosis or nystagmus was noted. Oculocephalic reflex is intact. The patient's eyes are open in upgaze and slightly to the left. V: Chronic reflex/nasal tickle are intact. VII: No clear facial asymmetry. VIII: Could not be assessed. VIIII, X: Patient is breathing over the ventilator. Gag reflex is suppressed. XI: Patient would not shrug his shoulders. XII: Patient would not protrude his tongue to command. The patient initially had his tongue sticking out when I entered the room, but through the course of the evaluation, did withdraw the tongue. MOTOR EXAMINATION: There were no spontaneous movements noted of the upper and lower extremities except for the patient at times moving the toes. Normal bulk and tone are noted in all major muscle groups with no involuntary movements noted. No seizure activity was witnessed. With noxious stimulation, there was no significant withdrawal in any extremity. SENSORY: Patient did not withdraw extremities to noxious stimulation. REFLEXES: Patient is areflexic throughout. Plantar response appears flexor bilaterally. Vega's is absent. Coordination/gait and station could not be tested. DIAGNOSTIC TESTING: The patient had an echocardiogram completed, which was of limited quality due to the patient's body habitus with ejection fraction around 50%. Most recent chest x- ray demonstrates diffuse parenchymal changes. EKG and telemetry have revealed atrial fibrillation. The patient's lab work demonstrates a white blood count of 13.3 with a hemoglobin of 12.6, platelet count 248. Sodium 138, potassium 3.7, BUN 31, with creatinine 1.2. Today's blood gas revealed a pH of 7.52, pCO2 of 49, PO2 of 91, bicarb of 40. INR 1.1. Ge virus negative. TSH within normal limits. Troponin has been as high as 0.188, calcium 7.2, magnesium 2.0. ALT 88, AST 43. Urinalysis revealed small leuko esterase, 10 WBCs, 4 RBCs, many bacteria. Urine culture demonstrated gram-negative bacilli. Lower extremity venous Dopplers were negative for DVT. IMPRESSION: 1. Hypoxic encephalopathy, status post VFib cardiopulmonary arrest on 09/23/2019 with additional contributors to the encephalopathy including medication effect, infection, acute kidney injury, and hypercapnia. 2. Fever with urinary tract infection, lower extremity cellulitis and possible aspiration pneumonia. 3. New onset atrial fibrillation, maintained on heparin drip/amiodarone. 4. Elevated troponin, defer to Cardiology. 5. Cardiogenic pulmonary edema per consultants. 6. Morbid obesity with the body mass index of 70.8. RECOMMENDATION: 1. Case was discussed with nursing staff. 2. Will obtain an EEG. 3. Treatment of medical issues per primary service. 4. The patient's case has been discussed with the radiology staff and the patient will not fit in the CT scanner. If the patient's mental status fails to improve with treatment of medical issues, the patient may require transfer to a facility capable of imaging morbidly obese patients. 5. This is my last day on the Neurology Service, please refer to the schedule for neurologic coverage. Thank for allowing me to participate in the care of your patient. Critical care time spent in evaluation 65 minutes. MICHAEL / ZEINAB: [id number] / MTDD
[2019-09-25 14:32] LABS: Glucose,Whole Blood 134 mg/dL (75-99)
--- NOTE | 2019-09-25 16:13 | PN ---
PROGRESS NOTE DATE OF SERVICE: 09/25/2019 REASON FOR FOLLOWUP: Aspiration pneumonitis and lower extremity cellulitis. INTERVAL HISTORY: The patient did spike a fever last night and this morning of 101.1. The patient afebrile since then. The patient is hemodynamically stable. FiO2 is currently down to 55%. No significant ET or any diarrhea reported. PHYSICAL EXAMINATION: Blood pressure is 94/66, pulse of 112, temperature 98.2. He is 95% on 55% FiO2. General description is a middle-aged male, intubated on the vent. RESPIRATORY SYSTEM: Unlabored breathing with no wheeze. HEART: S1, S2. Regular rate and rhythm. ABDOMEN: Soft, no tenderness. LABS: Hemoglobin is 12.6, white count is down to 15.3, creatinine is 1.20. Liver enzymes mildly elevated. Urine showing gram-negative. Sputum so far negative. Chest x-ray multiple this morning with diffuse infiltrate. DIAGNOSTIC IMPRESSION AND PLAN: Patient with acute respiratory failure which is likely multifactorial in this patient, did have significant lower extremity swelling, redness but no cellulitis and superficial incision and aspiration pneumonitis after cardiac arrest and resuscitation. Patient is covered with Zosyn to continue while waiting for the culture to finalize. Monitor clinical course closely. MMODL / IJN: [id number] /
[2019-09-25] MEDS: HEPARIN SODIUM,PORCINE 5,000 UNIT/ML 1 ML VIAL IV PRN (17:22)
[2019-09-25 18:11] LABS: Glucose,Whole Blood 147 mg/dL (75-99)
--- NOTE | 2019-09-25 20:01 | P.PN ---
Progress Note - Text Progress Note Date: 09/25/19 Chief Complaint: Swelling of his testicles History of presenting complaint: This is a 54-year-old patient of Dr. Wilmer blount. Presented to ER with multiple complaints. Stated that 4 days ago. Patient's testicles on the toilet this is then he developed swelling and tenderness. Also complained of some lower back pain with walking that is had for years. Also chronic lower extremity swelling. Which is increase in the last few weeks. He is also noticing increasing fluid discharge from lower extremity thought it may be infected. Also shortness of breath going on for a few months. Patient is admitted to the medical floor. At 3:25 AM cord probing was activated. Patient did develop ventricular fibrillation on a conveyor monitor and was found unresponsive in the room. Patient received IV epinephrine, sodium bicarbonate and calcium chloride. Initially found to be JANIA then into ventricular fibrillation and was shocked 3. Transferred to the ICU. Patient is return of spontaneous circulation at 3:43 AM. This morning patient is on the ventilator. Also had an episode of what could've been atrial fibrillation with a high heart rate of 160s was given 5 mg of IV metoprolol and then started on IV amiodarone. Admitted with-scrotal cellulitis, septic shock, troponin leak, cardiac arrest from DIMAS, bilateral lower extremity venous insufficiency wounds, paroxysmal atrial fibrillation with rapid ventricular rate, acute hypoxic and hypercapnic respiratory failure requiring ventilator support, acute kidney injury from ATN. Started on bronchodilators, steroids, daptomycin, Zosyn, pressor support propofol. Today-ICU. Taken off Diprivan this morning. Continue sedation holiday. Eyes are open but not really falling commands. Patient's symptoms spontaneously resolved and look upwards. Patient been off levo fed since yesterday. 2 feeding at 83 mL an hour. Remains in atrial fibrillation with a heart rate around 100. Progress review of systems cannot be done patient intubated Active Medications Acetaminophen (Tylenol Tab) 650 mg PO Q6HR PRN PRN Reason: Mild Pain or Fever > 100.5 Last Admin: 09/25/19 04:46 Dose: 650 mg Documented by: Acetazolamide Sodium (Diamox) 250 mg IV Q12HR [facility] Last Admin: 09/25/19 10:23 Dose: 250 mg Documented by: Albuterol/Ipratropium (Duoneb 0.5 Mg-3 Mg/3 Ml Soln) 3 ml INHALATION RT-Q4H [facility] Last Admin: 09/25/19 19:50 Dose: 3 ml Documented by: Albuterol/Ipratropium (Duoneb 0.5 Mg-3 Mg/3 Ml Soln) 3 ml INHALATION RT-Q2H PRN PRN Reason: Shortness Of Breath Or Wheezing Amiodarone HCl (Cordarone) 400 mg PO BID [facility] Last Admin: 09/25/19 09:49 Dose: 400 mg Documented by: Aspirin (Aspirin) 81 mg PO DAILY [facility] Last Admin: 09/25/19 10:21 Dose: 81 mg Documented by: Chlorhexidine Gluconate (Peridex) 15 ml MUCOUS MEM BID [facility] Last Admin: 09/25/19 10:22 Dose: 15 ml Documented by: Furosemide (Lasix) 60 mg IV Q12HR [facility] Last Admin: 09/25/19 10:22 Dose: 60 mg Documented by: Heparin Sodium (Porcine) (Heparin) 0 unit IV PER PROTOCOL PRN; Protocol PRN Reason: Low PTT Last Admin: 09/25/19 17:22 Dose: 10,000 unit Documented by: Hydromorphone HCl (Dilaudid) 0.5 mg IVP Q3HR PRN PRN Reason: Moderate Pain Last Admin: 09/22/19 18:22 Dose: 0.5 mg Documented by: Propofol 1,000 mg/ IV Solution 100 mls @ 0 mls/hr IV .Q0M [facility]; Protocol Last Titration: 09/25/19 09:00 Dose: 0 mcg/kg/min, 0 mls/hr Documented by: Piperacillin Sod/Tazobactam (Sod 3.375 gm/ Sodium Chloride) 100 mls @ 25 mls/hr IVPB Q8HR [facility] Last Admin: 09/25/19 16:34 Dose: 25 mls/hr Documented by: Sodium Chloride (Saline 0.9%) 1,000 mls @ 10 mls/hr IV .Q24H [facility] Last Admin: 09/25/19 10:05 Dose: 10 mls/hr Documented by: Heparin Sodium/Sodium Chloride (25,000 unit/ Sodium Chloride) 250 mls @ 23 mls/hr IV .[id number] [facility]; Protocol Last Admin: 09/25/19 18:15 Dose: 15.856 units/kg/hr, 41.226 mls/hr Documented by: Norepinephrine Bitartrate 4 mg (/ Sodium Chloride) 254 mls @ 49.53 mls/hr IV .Q5H8M [facility]; Protocol Last Admin: 09/25/19 19:03 Dose: Not Given Documented by: Daptomycin 500 mg/ Sodium (Chloride) 50 mls @ 100 mls/hr IVPB Q24H [facility]; Protocol Last Admin: 09/25/19 10:20 Dose: 100 mls/hr Documented by: Insulin Aspart (Novolog) 0 unit SQ Q6H [facility]; Protocol Last Admin: 09/25/19 18:16 Dose: 2 unit Documented by: Metoprolol Tartrate (Lopressor) 50 mg PO TID [facility] Last Admin: 09/25/19 16:33 Dose: 50 mg Documented by: Miscellaneous Information (Potassium Per Protocol) 1 each MISCELLANE DAILY PRN; Protocol PRN Reason: Per Protocol Morphine Sulfate (Morphine Sulfate (Inj)) 4 mg IV Q4HR PRN PRN Reason: Severe Pain Naloxone HCl (Narcan) 0.2 mg IV Q2M PRN PRN Reason: Opioid Reversal Ondansetron HCl (Zofran) 4 mg IVP Q8HR PRN PRN Reason: Nausea And Vomiting Pantoprazole Sodium (Protonix) 40 mg IV DAILY [facility] Last Admin: 09/25/19 10:22 Dose: 40 mg Documented by: Sodium Chloride (Saline Flush) 10 ml IV Q4HR PRN PRN Reason: PICC Line Sodium Chloride (Saline Flush) 10 ml IV WEEKLY [facility] Sodium Chloride (Saline Flush) 20 ml IV Q4HR PRN PRN Reason: PICC Line Spironolactone (Aldactone) 25 mg PO DAILY [facility] Last Admin: 09/25/19 10:21 Dose: 25 mg Documented by: Triamcinolone Acetonide (Kenalog) 1 applic TOPICAL BID [facility] Last Admin: 09/25/19 10:21 Dose: 1 applic Documented by: Physical examination: VITAL SIGNS: 98.2, 100, 20, but he does 62, 94% on ventilator GENERAL: laying in bed, intubated. EYES: Pupils equal. Conjunctiva normal. HEENT: External appearance of nose and ears normal, oral cavity endotracheal tube. NECK: JVD unable to assess; masses not palpable. HEART: Heart sounds muffled; edema present. LUNGS: Respiratory rate increased; distal breath sounds. ABDOMEN: Soft, nontender, liver spleen not palpable, no masses palpable. Swollen testicle inflamed, with penis embedded in the scrotum PSYCH: Patient sedated, unable to assessl. NEUROLOGICAL: His IV movements spontaneously raise his right arm, currently on a Diprivan holiday EXTREMITIES: Lower extremity-Adrian wrap INVESTIGATIONS, reviewed in the clinical context: White count 13.3 hemoglobin 12.6 platelets 248 potassium 3.7 creatinine 1.2 Previous testing White count 39.2 hemoglobin 14 platelets 291 left shift potassium 4.9 bun 15 creatinine 0.8 9 repeat 1.68 Troponin I 0.047, 0.046 Albumin 3.3 COVID 19 PCR-not detected EKG tracing personally reviewed by me-upon presentation T-wave changes Chest x-ray film personally reviewed by me-exam limited questionable infiltrate versus fluid Venous Doppler-bilateral negative for DVT 2-D mvcgiyccuodkhx-[id number]-zifd study-EF around 50% difficult to assess Scrotal ultrasound-no mass. Soft tissue edema Assessment: -Acute scrotal cellulitis secondary to local injury -Septic and hypotensive shock-slow to respond -Lactic acidosis -Troponin I leak from septic shock, doubt acute coronary syndrome -Cardiac arrest from DIMAS -Morbid obesity BMI 71.6 -Bilateral lower extremity wounds likely from venous insufficiency and secondary infection with drainage -Paroxysmal atrial fibrillation with rapid ventricular rate-currently uncontrolled -Acute hypoxic and hypercapnic respiratory failure currently on the ventilator- slow to respond -Acute kidney injury, ATN from sepsis and hypotension-some improvement -Metabolic encephalopathy. Plan: -oral amiodarone. On IV heparin, IV daptomycin, levo fed, IV Zosyn. On propofol sedation today. Definitely appears to be encephalopathic... Seen by neurology today. Follow
[2019-09-25] MEDS ORDERED: ARTIFICIAL TEARS-HYPROMELLOSE DROPS 15 ML BTL BOTH EYES PRN (22:31)
[2019-09-25 23:20] LABS: Glucose,Whole Blood 128 mg/dL (75-99)
[2019-09-26] MEDS: HEPARIN SOD,PORK IN 0.45% NACL 25,000 UNIT in 0.45% NACL 1 250ML.BAG IV SCH ×3 (00:03→18:22)
[2019-09-26] MEDS: PIPERACILLIN-TAZOBACTAM 3.375 GM in SODIUM CHLORIDE 0.9% 100 ML IVPB SCH ×3 (00:30→16:01)
[2019-09-26] MEDS: IPRATROPIUM-ALBUTEROL 3 ML NEB INHALATION SCH ×6 (03:21→23:41)
[2019-09-26 06:32] LABS: Glucose,Whole Blood 155 mg/dL (75-99)
[2019-09-26] MEDS: NOREPINEPHRINE 4 MG in SODIUM CHLORIDE 0.9% 250 ML IV SCH ×4 (06:33→20:54)
--- NOTE | 2019-09-26 06:36 | XR ---
EXAMINATION TYPE: XR chest 1V portable DATE OF EXAM: 09/26/2019 HISTORY: Tube placement. REFERENCE: Previous study dated 09/25/2019. FINDINGS: The study is underexposed. Patient remains intubated. The tip of the ET tube appears to be pulled back and is now at level of th e clavicles. The patient is NG tube cannot be visualized on this study. The heart is enlarged. There is bibasilar atelectasis. There is vascular congestion. I could not excl ude small effusions. The entire right lung is not included on this study. IMPRESSION: MARKEDLY SUBOPTIMAL EXAMINATION WITH EVIDENCE OF BIBASILAR AIRSPACE DISEASE AND VASCULAR CONGESTION. A REPEAT EXAMINATION USING IMPROVED TECHNIQUE WOULD BE SUGGESTED.
[2019-09-26] MEDS: INSULIN ASPART (NovoLOG) 100 UNIT/ML VIAL SQ SCH ×3 (06:37→17:54)
[2019-09-26 06:41] LABS: Basophils % (A) 0 %; Eosinophils # (A) 0.1 k/uL (0-0.7); Eosinophils % (A) 1 %; HCT 41.1 % (39.0-53.0); HGB 12.1 gm/dL (13.0-17.5); Hypochromasia Marked; Lymphocytes # (A) 1.1 k/uL (1.0-4.8); Lymphocytes % (A) 10 %; MCH 30.9 pg (25.0-35.0); MCHC 29.5 g/dL (31.0-37.0); MCV 104.5 fL (80.0-100.0); Macrocytosis Moderate; Mean Platelet Volume 7.9; Monocytes # (A) 0.5 k/uL (0-1.0); Monocytes % (A) 4 %; Neutrophils # (A) 9.4 k/uL (1.3-7.7); Neutrophils % (A) 84 %; Platelet Count 193 k/uL (150-450); RBC 3.93 m/uL (4.30-5.90); RDW 15.2 % (11.5-15.5); WBC 11.3 k/uL (3.8-10.6)
[2019-09-26 08:03] LABS: ABG Base Excess 13.6 mmol/L; ABG HCO3 37 mmol/L (21-25); ABG Oxygen Saturation 94.9 % (94-97); ABG PCO2 52 mmHg (35-45); ABG PH 7.46 (7.35-7.45); ABG PO2 75 mmHg (83-108); ABG TCO2 39 mmol/L (19-24); Allen Test Performed? Yes
[2019-09-26] MEDS: PROPOFOL 1,000 MG in EMPTY BAG 1 BAG IV SCH ×2 (08:35→11:49)
[2019-09-26] MEDS: AMIODARONE 200 MG TAB PO SCH ×2 (08:36→20:53)
[2019-09-26] MEDS: METOPROLOL TARTRATE 50 MG TAB PO SCH (08:36)
[2019-09-26] MEDS: CHLORHEXIDINE GLUCONATE 15 ML CUP MUCOUS MEM SCH ×2 (08:36→20:40)
[2019-09-26] MEDS: FUROSEMIDE 10 MG/ML 10 ML VIAL IV SCH (08:36)
[2019-09-26] MEDS: ASPIRIN 81 MG PO SCH (08:36)
[2019-09-26] MEDS: PANTOPRAZOLE 40 MG/10 ML VIAL IV SCH (08:36)
[2019-09-26] MEDS: SPIRONOLACTONE 25 MG TAB PO SCH (08:36)
[2019-09-26 08:39] LABS: Potassium 4.1 mmol/L (3.5-5.1)
--- NOTE | 2019-09-26 10:16 | EEG ---
ELECTROENCEPHALOGRAM REPORT DATE OF EE09/25/2019 CLINICAL HISTORY: This is a 20 channel EEG with 1 channel EKG recording on a 54-year-old male who presented to [facility] on 09/22/2019 with testicular pain/swelling, lower extremity edema and shortness of breath. On the morning of 09/23/2019, the patient developed ventricular fibrillation cardiopulmonary arrest and was unresponsive. The patient has no history of seizures. This study is being done to rule out epileptiform discharges and assess background rhythm. FINDINGS: No discernible posterior dominant alpha rhythm was noted throughout the recording. The predominant background consisted of moderate voltage mixed frequency 3-6 hertz activity which is poorly regulated, poorly sustained and symmetric. Low-voltage faster frequencies were reduced over the frontal central head regions. No sleep architecture was seen. The main feature of this recording is the presence of intermittent, bifrontally dominant slow waves with triphasic morphology, consistent with triphasic waves. The triphasic waves become semi rhythmic at times during the recording. No epileptiform discharges or electrographic seizures were recorded. SUMMARY: This EEG is abnormal due to the presence of: 1. Slowing and disorganization of background rhythm. 2. Triphasic waves. The background slowing is a nonspecific sign of bihemispheric neuronal dysfunction as seen in a moderate to severe diffuse encephalopathy. The presence of triphasic waves suggests a metabolic etiology and has been described in post-anoxic cases. No epileptiform discharges or electrographic seizures were recorded. MMODL / IJN: [id number] / MTDD
[2019-09-26] MEDS: TRIAMCINOLONE 0.1% CREAM 80 GM TUBE TOPICAL SCH ×2 (10:20→20:54)
--- NOTE | 2019-09-26 10:30 | P.PN ---
Subjective Progress Note Date: 09/26/19 Principal diagnosis: Acute hypoxic respiratory failure secondary to cardiac arrest, required CPR for 9 minutes. This is a 54-year-old white male morbidly obese, patient presented to the ER yesterday with progressive scrotal swelling and progressive peripheral edema. Patient was also complaining of shortness of breath, and unable to urinate. Patient is also known to have history of chronic cellulitis of lower extremities. Last night the patient had a cardiac arrest, and he had initially a run of ventricular tachycardia. Patient was intubated, transferred to the intensive care unit, during CPR, patient received IV epinephrine, sodium bicarb, calcium chloride, and at one point he was in pulseless electrical activity then he developed ventricular fibrillation were in he was shocked 3. Subsequently the patient had return of spontaneous circulation at 3:43 AM. Apparently his code was about 13 minutes long. Patient was intubated, transferred to the ICU, and I was asked to see him on consultation this morning. He is presently on assist control rate of 30 tidal volume is 500 FiO2 is 100% and PEEP is 16. ABG showed a pO2 of 57 pCO2 of 102 pH of 7.16. Patient remains in atrial fibrillation with a rate of 137. He is also on norepinephrine at 0.05 mcg/kg/m, he is on heparin drip for atrial fibrillation and possibly for underlying deep vein thrombosis and thromboembolic disease/pulmonary embolism. Patient is on propofol at 20 mcg/kg/m, and his IV fluid is at 10 mL per hour. Chest x-ray showed evidence of any edema and recommended Lasix to be given today. I have also recommended arterial line which was placed for hemodynamic monitoring, and the patient had to midline is placed by anesthesia. Echocardiogram was noted to be extremely suboptimal mostly because of his morbid obesity. And quality was poor. However ejection fraction was guessed to be 50%, difficult to assess. Venous Doppler of both lower extremities negative for DVT. D-dimer was s ignificantly elevated. Chest x-ray is suspicious for either congestive heart failure/cardiogenic or ARDS. I suspect this is mostly cardiac pulmonary edema rather than ARDS since developed quite abruptly after his cardiac arrest. Patient was evaluated today on 09/24/19, remains in the ICU, intubated and mechanically ventilated. His ventilator settings are assist control rate of 30 tidal volume is 500 FiO2 is 60% and I cut it down to 55% PEEP remains at 16. ABG showed a pO2 of 83 pCO2 of 47 pH of 7.51. Patient remains on propofol at 15 mcg/kg/m norepinephrine at 0.01 mcg/kg/m amiodarone drip at 0.5 mg per hour. He is also on heparin drip. Chest x-ray continues to show evidence of interstitial edema. Patient responded well to Lasix, hence I increased the dose to 60 mg IV push 3 times a day. Today I plan to hold sedation and assessment of status, and if mental status or neurological findings are abnormal, may even consider a neurological consultation. I'm quite concerned about the possibility of anoxic brain injury . Again the patient had CPR for about 9 minutes. Patient is on enteral feeding, and his feeding is at goal. His cultures including blood cultures and sputum cultures as well as urine cultures and wound cultures are nondiagnostic so far. Patient remains on Zosyn and daptomycin. His atrial fibrillation seems to be well-controlled with amiodarone at present. Reevaluated today on 09/25/19, remains in ICU, intubated and mechanically ventilated. His ventilator settings are presently assist control rate of 30 tidal volume is 500 FiO2 is 55% and PEEP was 16 but I cut it down to 12. His ABG earlier today showed a pO2 of 91 pCO2 of 49 pH of 7.5. Patient remains on propofol at 30 mcg/kg/m, norepinephrine is presently off. And he is on heparin, IV fluid at KVO. Antibiotics yu he remains on daptomycin and Zosyn. Patient is yet to have a sedation holiday today, yesterday when he was sedated, patient woke up, and he was noted to have left deviation of gaze. Hence the neurology was consulted. However the patient could not have a CT of the head because of his weight and size. His tube feeds are at goal 83 mL per hour. Patient is in atrial fibrillation but rate seems to be around 113 and regular rhythm. Patient is now on oral amiodarone and Lopressor as per cardiology. Patient had PICC line placed by interventional radiology, and it is functional. Cultures have been negative including all blood cultures. His urine is showing gram-negative bacilli. However her only 50,000-100,000 colony count. Patient remains empirically on antibiotics. Reevaluated today on , patient remains in the ICU, intubated and mechanically ventilated. His ventilator settings are assist control rate of 30 tidal volume is 500 FiO2 is 55% and I cut it down to 50 his PEEP is at 12. ABG showed a pO2 of 75 pCO2 of 52 pH of 7.46. Patient is off propofol, awake, follows simple instructions like wiggling toes and squeezing hands. Cultures were all negative except for urine showing E. coli. Patient remains on heparin for atrial fibrillation with RVR which is presently seems to be better controlled. Chest x-ray is showing improvement in his interstitial edema, continues to have some bibasilar atelectasis. Considering the ABG is marginal, I have no plans to wean and extubate the patient today, he is not quite ready yet. I did cut down the PEEP to 12 from 16. And I cut down the FiO2 to 50%. Objective - Vital Signs Vital signs: Vital Signs Temp 99.3 F 09/26/19 08:00 Pulse 97 09/26/19 10:00 Resp 30 H 09/26/19 10:00 BP 112/79 09/23/19 09:30 Pulse Ox 92 L 09/26/19 10:00 Intake & Output 09/25/19 09/26/19 09/26/19 18:59 06:59 18:59 Intake Total 0684.460 0642.208 584.727 Output Total 2930 3405 450 Balance -1171.340 -1512.792 134.727 Weight 256.932 kg 253.161 kg Intake: IV 156 226 99 0.9NS Pressure Bag 36 36 9 Piperacillin-Tazobactam 3 100 50 .375 gm In Sodium Chloride 0.9% 100 ml @ 25 mls/hr IVPB Q8HR [facility] Rx# :[id number] Sodium Chloride 0.9% 1, 120 90 40 000 ml @ 10 mls/hr IV . Q24H [facility] Rx#:[id number] Intake, IV Titration 395.660 476.208 55.727 Amount Heparin Sod,Pork in 0.45% 296.600 476.208 46.233 NaCl 25,000 unit In 0.45 % NaCl 1 250ml.bag @ 8. 846 UNITS/KG/HR 23 mls/hr IV .[id number] [facility] Rx#: [id number] Propofol 1,000 mg In 99.06 9.494 Empty Bag 1 bag @ Titrate IV .Q0M [facility] Rx#: [id number] Tube Feeding 1147 1100 400 Other 60 90 30 Output: Urine 2930 3405 450 Other: Voiding Method Indwelling Catheter Indwelling Catheter Indwelling Catheter # Voids 1 ABP, PAP, CO, CI - Last Documented Arterial Blood Pressure 96/62 - Exam Physical Exam: Revealed a 54-year-old white male, morbidly obese, on mechanical ventilation. Awake, follows simple instructions. Head: Atraumatic, normocephalic. Endotracheal tube and orogastric tubes are intact. Neck: Short obese neck, no neck masses, no JVD, HEENT: PERRLA, EOMI, no icterus, no neck masses, no stridor. Endotracheal tube is intact. Chest: [Large chest, diminished breath sounds, no rhonchi no wheezes Cardiac Exam: Distant S1 and S2, irregular rhythm, no S3 gallop. No rub. Abdomen: [Morbidly obese, Soft, nontender, no megaly, no rebound, no guarding, normal bowel sounds.] Extremities: [Chronic venous stasis changes. And significant excoriation of the skin and multiple areas of cellulitis and superficial ulcers in both lower extremity but more so on the left lower extremity calf region.] Right brachial PICC line is noted. Neurological Exam: Awake, follows simple instructions like squeezing hands and wiggling toes. Seems to be appropriate. Musculoskeletal No evidence of muscle atrophy no deformities. Skin: Areas of cellulitis and excoriation of the skin noted in lower extremities with venous stasis changes. Both lower extremities are wrapped with Adrian wrap Genitalia: Swollen scrotum, no tenderness, - Labs CBC & Chem 7: 09/26/19 06:30 09/26/19 06:30 Labs: Abnormal Lab Results - Last 24 Hours (Table) 09/25/19 09/25/19 09/25/19 Range/Units 10:00 10:00 11:53 WBC (3.8-10.6) k/uL RBC (4.30-5.90) m/uL Hgb (13.0-17.5) gm/dL MCV (80.0-100.0) fL MCHC (31.0-37.0) g/dL Neutrophils # (1.3-7.7) k/uL APTT (22.0-30.0) sec ABG pH (7.35-7.45) ABG pCO2 (35-45) mmHg ABG pO2 (83-108) mmHg ABG HCO3 (21-25) mmol/L ABG Total CO2 (19-24) mmol/L Carbon Dioxide (22-30) mmol/L BUN (9-20) mg/dL Glucose (74-99) mg/dL POC Glucose (mg/dL) 140 H (75-99) mg/dL Calcium (8.4-10.2) mg/dL Delta Bilirubin 0.3 H (0.0-0.2) mg/dL AST 164 H (17-59) U/L ALT 81 H (4-49) U/L Ammonia 36 H (<30) umol/L Albumin 2.9 L (3.5-5.0) g/dL 09/25/19 09/25/19 09/25/19 Range/Units 14:30 15:40 18:10 WBC (3.8-10.6) k/uL RBC (4.30-5.90) m/uL Hgb (13.0-17.5) gm/dL MCV (80.0-100.0) fL MCHC (31.0-37.0) g/dL Neutrophils # (1.3-7.7) k/uL APTT 43.4 H (22.0-30.0) sec ABG pH (7.35-7.45) ABG pCO2 (35-45) mmHg ABG pO2 (83-108) mmHg ABG HCO3 (21-25) mmol/L ABG Total CO2 (19-24) mmol/L Carbon Dioxide (22-30) mmol/L BUN (9-20) mg/dL Glucose (74-99) mg/dL POC Glucose (mg/dL) 134 H 147 H (75-99) mg/dL Calcium (8.4-10.2) mg/dL Delta Bilirubin (0.0-0.2) mg/dL AST (17-59) U/L ALT (4-49) U/L Ammonia (<30) umol/L Albumin (3.5-5.0) g/dL 09/25/19 09/25/19 09/26/19 Range/Units 23:15 23:18 06:28 WBC (3.8-10.6) k/uL RBC (4.30-5.90) m/uL Hgb (13.0-17.5) gm/dL MCV (80.0-100.0) fL MCHC (31.0-37.0) g/dL Neutrophils # (1.3-7.7) k/uL APTT 69.6 H (22.0-30.0) sec ABG pH (7.35-7.45) ABG pCO2 (35-45) mmHg ABG pO2 (83-108) mmHg ABG HCO3 (21-25) mmol/L ABG Total CO2 (19-24) mmol/L Carbon Dioxide (22-30) mmol/L BUN (9-20) mg/dL Glucose (74-99) mg/dL POC Glucose (mg/dL) 128 H 155 H (75-99) mg/dL Calcium (8.4-10.2) mg/dL Delta Bilirubin (0.0-0.2) mg/dL AST (17-59) U/L ALT (4-49) U/L Ammonia (<30) umol/L Albumin (3.5-5.0) g/dL 09/26/19 09/26/19 09/26/19 Range/Units 06:30 06:30 06:30 WBC 11.3 H (3.8-10.6) k/uL RBC 3.93 L (4.30-5.90) m/uL Hgb 12.1 L (13.0-17.5) gm/dL MCV 104.5 H (80.0-100.0) fL MCHC 29.5 L (31.0-37.0) g/dL Neutrophils # 9.4 H (1.3-7.7) k/uL APTT 41.9 H (22.0-30.0) sec ABG pH (7.35-7.45) ABG pCO2 (35-45) mmHg ABG pO2 (83-108) mmHg ABG HCO3 (21-25) mmol/L ABG Total CO2 (19-24) mmol/L Carbon Dioxide 35 H (22-30) mmol/L BUN 34 H (9-20) mg/dL Glucose 158 H (74-99) mg/dL POC Glucose (mg/dL) (75-99) mg/dL Calcium 8.0 L (8.4-10.2) mg/dL Delta Bilirubin (0.0-0.2) mg/dL AST (17-59) U/L ALT (4-49) U/L Ammonia (<30) umol/L Albumin (3.5-5.0) g/dL 09/26/19 Range/Units 08:00 WBC (3.8-10.6) k/uL RBC (4.30-5.90) m/uL Hgb (13.0-17.5) gm/dL MCV (80.0-100.0) fL MCHC (31.0-37.0) g/dL Neutrophils # (1.3-7.7) k/uL APTT (22.0-30.0) sec ABG pH 7.46 H (7.35-7.45) ABG pCO2 52 H (35-45) mmHg ABG pO2 75 L (83-108) mmHg ABG HCO3 37 H (21-25) mmol/L ABG Total CO2 39 H (19-24) mmol/L Carbon Dioxide (22-30) mmol/L BUN (9-20) mg/dL Glucose (74-99) mg/dL POC Glucose (mg/dL) (75-99) mg/dL Calcium (8.4-10.2) mg/dL Delta Bilirubin (0.0-0.2) mg/dL AST (17-59) U/L ALT (4-49) U/L Ammonia (<30) umol/L Albumin (3.5-5.0) g/dL Microbiology - Last 24 Hours (Table) 09/23/19 12:05 Gram Stain - Final Leg - Left Wound Culture - Final 09/23/19 10:45 Urine Culture - Final Urine,Catheterized Escherichia coli 09/23/19 12:05 Gram Stain - Final Leg - Right Wound Culture - Final 09/23/19 09:25 Blood Culture - Preliminary Blood No Growth after 48 hours 09/23/19 08:46 Blood Culture - Preliminary Blood No Growth after 48 hours 09/23/19 05:00 Gram Stain - Final Sputum Sputum Culture - Final Assessment and Plan Assessment: Impression: Acute hypoxic respiratory failure secondary to cardiac arrest, requiring CPR for 9 minutes. And secondary to acute cardiogenic pulmonary edema. Acute cardiogenic pulmonary edema, possible diastolic dysfunction. This is also contributing to his hypoxemia. Significant improvement in chest x-ray and ABG noted, however ABG remains marginal and not ready for weaning. Morbid obesity with acute on chronic respiratory acidosis, suspect underlying obstructive sleep apnea syndrome and obesity/hypoventilation syndrome. New onset atrial fibrillation, also contributing to his pulmonary edema. Possibility of pulmonary embolism is in the picture, however felt to be less likely especially with negative venous Doppler. Nonetheless the patient will require heparinization mostly for his atrial fibrillation with RVR, patient will not fit in the scanner to have a CT of the chest. Or a VQ scan.continue heparin empirically. Severe cellulitis of lower extremities, possible sepsis, cultures are nondiagnostic, patient remains on daptomycin and Zosyn. Possible anoxic brain injury. That is yet to be determined. Status post PICC line placement on 09/24. Acute urinary tract infection secondary to E. coli. Recommendation: Continue ventilatory support. Decrease FiO2 to 50%, decreased PEEP to 8. Continue with diuretics support, remains off norepinephrine at present. Diuretics for acute pulmonary edema/congestive heart failure, remains on Diamox and Lasix GI and DVT prophylaxis. Nutritional support. Continue enteral feeding. Continue antibiotics. As. Infectious disease on the case. Continue heparin in the meantime. Will eventually switched to oral anticoagulation treatment. Venous Doppler showed no evidence of DVT. Continue amiodarone. Critical care time is 33 minutes Not quite ready for weaning at this point. However I cut down his FiO2 and PEEP We'll continue to follow. Time with Patient: Greater than 30
--- NOTE | 2019-09-26 11:10 | PN ---
PROGRESS NOTE Mr. Ardon is a 54-year-old male who presented with progressive respiratory failure requiring mechanical ventilation. He has morbid obesity and progressive peripheral edema. He continues to be in atrial fibrillation. He is off his vasopressor. He is tolerating tube feeding. Hemodynamically, he is stable. He still has episode of rapid ventricular response, although much better compared to before. His urine output has been quite good. He has no episodes of ventricular tachycardia. He continues to be on amiodarone 400 mg twice a day, Lasix 60 mg IV q.12 hours, metoprolol tartrate 50 mg 3 times a day, spironolactone 25 mg daily. PHYSICAL EXAMINATION: Blood pressure running 100s-140s with a heart rate in the 110s. LUNGS: Clear anteriorly. HEART: Irregular, regular. S1, S2. No S3. No rub. ABDOMEN: Soft, obese, nontender. EXTREMITIES: +2 to 3 edema with scrotal edema, Adrian wrapping in place. LAB DATA: Revealed hemoglobin of 12.1, BUN and creatinine 34 and 1.25, pH 7.46, pCO2 of 52 with a PO2 of 75. He continues to be on the IV heparin. IMPRESSION: 1. Respiratory failure with fluid overload and probable hypercapnic hypoxic arrest. 2. Fluid overload with diastolic dysfunction. 3. Morbid obesity. 4. Atrial fibrillation. 5. Cellulitis. 6. Possible urinary tract infection. RECOMMENDATION: I will increase the dose of his beta hayden. If no intervention is scheduled then I will switch him to oral anticoagulation. Continue supportive care at this time. Wean as tolerated. We will follow his renal function closely and depending on that, the dose of his Aldactone can be further increased. MMODL / IJN: [id number] /
[2019-09-26 11:52] LABS: Glucose,Whole Blood 145 mg/dL (75-99)
--- NOTE | 2019-09-26 12:13 | P.PN ---
Subjective Progress Note Date: 09/26/19 Follow-up for acute kidney injury and volume overload. Currently on ventilator with FiO2 50% and a PEEP of 12. Urine output of 6.3 liters in the last 24 hours. Net negative of only 1300 ML's. Objective - Vital Signs Vital signs: Vital Signs Temp 99.3 F 09/26/19 08:00 Pulse 90 09/26/19 11:35 Resp 30 H 09/26/19 11:00 BP 112/79 09/23/19 09:30 Pulse Ox 93 L 09/26/19 11:00 Intake & Output 09/25/19 09/26/19 09/26/19 18:59 06:59 18:59 Intake Total 6159.357 9914.208 775.233 Output Total 2930 3405 600 Balance -1171.340 -1512.792 175.233 Weight 256.932 kg 253.161 kg Intake: IV 156 226 99 0.9NS Pressure Bag 36 36 9 Piperacillin-Tazobactam 3 100 50 .375 gm In Sodium Chloride 0.9% 100 ml @ 25 mls/hr IVPB Q8HR [facility] Rx# :[id number] Sodium Chloride 0.9% 1, 120 90 40 000 ml @ 10 mls/hr IV . Q24H [facility] Rx#:[id number] Intake, IV Titration 395.660 476.208 146.233 Amount Heparin Sod,Pork in 0.45% 296.600 476.208 46.233 NaCl 25,000 unit In 0.45 % NaCl 1 250ml.bag @ 8. 846 UNITS/KG/HR 23 mls/hr IV .[id number] [facility] Rx#: [id number] Propofol 1,000 mg In 99.06 100.000 Empty Bag 1 bag @ Titrate IV .Q0M [facility] Rx#: [id number] Tube Feeding 1147 1100 500 Other 60 90 30 Output: Urine 2930 3405 600 Other: Voiding Method Indwelling Catheter Indwelling Catheter Indwelling Catheter # Voids 1 ABP, PAP, CO, CI - Last Documented Arterial Blood Pressure 84/60 - Exam No acute distress S1-S2 heard Lungs clear Abdomen distended Edema Oral intubation - Labs CBC & Chem 7: 09/26/19 06:30 09/26/19 06:30 Labs: Abnormal Lab Results - Last 24 Hours (Table) 09/25/19 09/25/19 09/25/19 Range/Units 14:30 15:40 18:10 WBC (3.8-10.6) k/uL RBC (4.30-5.90) m/uL Hgb (13.0-17.5) gm/dL MCV (80.0-100.0) fL MCHC (31.0-37.0) g/dL Neutrophils # (1.3-7.7) k/uL APTT 43.4 H (22.0-30.0) sec ABG pH (7.35-7.45) ABG pCO2 (35-45) mmHg ABG pO2 (83-108) mmHg ABG HCO3 (21-25) mmol/L ABG Total CO2 (19-24) mmol/L Carbon Dioxide (22-30) mmol/L BUN (9-20) mg/dL Glucose (74-99) mg/dL POC Glucose (mg/dL) 134 H 147 H (75-99) mg/dL Calcium (8.4-10.2) mg/dL 09/25/19 09/25/19 09/26/19 Range/Units 23:15 23:18 06:28 WBC (3.8-10.6) k/uL RBC (4.30-5.90) m/uL Hgb (13.0-17.5) gm/dL MCV (80.0-100.0) fL MCHC (31.0-37.0) g/dL Neutrophils # (1.3-7.7) k/uL APTT 69.6 H (22.0-30.0) sec ABG pH (7.35-7.45) ABG pCO2 (35-45) mmHg ABG pO2 (83-108) mmHg ABG HCO3 (21-25) mmol/L ABG Total CO2 (19-24) mmol/L Carbon Dioxide (22-30) mmol/L BUN (9-20) mg/dL Glucose (74-99) mg/dL POC Glucose (mg/dL) 128 H 155 H (75-99) mg/dL Calcium (8.4-10.2) mg/dL 09/26/19 09/26/19 09/26/19 Range/Units 06:30 06:30 06:30 WBC 11.3 H (3.8-10.6) k/uL RBC 3.93 L (4.30-5.90) m/uL Hgb 12.1 L (13.0-17.5) gm/dL MCV 104.5 H (80.0-100.0) fL MCHC 29.5 L (31.0-37.0) g/dL Neutrophils # 9.4 H (1.3-7.7) k/uL APTT 41.9 H (22.0-30.0) sec ABG pH (7.35-7.45) ABG pCO2 (35-45) mmHg ABG pO2 (83-108) mmHg ABG HCO3 (21-25) mmol/L ABG Total CO2 (19-24) mmol/L Carbon Dioxide 35 H (22-30) mmol/L BUN 34 H (9-20) mg/dL Glucose 158 H (74-99) mg/dL POC Glucose (mg/dL) (75-99) mg/dL Calcium 8.0 L (8.4-10.2) mg/dL 09/26/19 09/26/19 Range/Units 08:00 11:51 WBC (3.8-10.6) k/uL RBC (4.30-5.90) m/uL Hgb (13.0-17.5) gm/dL MCV (80.0-100.0) fL MCHC (31.0-37.0) g/dL Neutrophils # (1.3-7.7) k/uL APTT (22.0-30.0) sec ABG pH 7.46 H (7.35-7.45) ABG pCO2 52 H (35-45) mmHg ABG pO2 75 L (83-108) mmHg ABG HCO3 37 H (21-25) mmol/L ABG Total CO2 39 H (19-24) mmol/L Carbon Dioxide (22-30) mmol/L BUN (9-20) mg/dL Glucose (74-99) mg/dL POC Glucose (mg/dL) 145 H (75-99) mg/dL Calcium (8.4-10.2) mg/dL Microbiology - Last 24 Hours (Table) 09/23/19 09:25 Blood Culture - Preliminary Blood No Growth after 72 hours 06/10/20 08:46 Blood Culture - Preliminary Blood No Growth after 72 hours 09/23/19 12:05 Gram Stain - Final Leg - Left Wound Culture - Final 09/23/19 10:45 Urine Culture - Final Urine,Catheterized Escherichia coli 09/23/19 12:05 Gram Stain - Final Leg - Right Wound Culture - Final 09/23/19 05:00 Gram Stain - Final Sputum Sputum Culture - Final Assessment and Plan Assessment: #1 nonoliguric acute kidney injury secondary to ischemic ATN from cardiopulmonary arrest. Baseline creatinine 1.0 MG per DL. #2 ventilator-dependent respiratory failure #3 hypotension #4 volume overload #5 A. fib on amiodarone #6 complicated UTI #7 metabolic alkalosis secondary to diuresis Plan: #1 goal ultrafiltration [net negative] off 2-3 L in 24 hours. As currently on Lasix 60 mg IV twice a day, increase to Lasix drip at 10 mg an hour. #2 stop Aldactone with hypotensive episodes to provide wound for diuresis. Once euvolemic and hemodynamically stable Aldactone can be restarted. #3 with alkalosis and needing for diuresis continue with Diamox. #4 ween off ventilator #5 avoid nephrotoxic agents and hypotensive episodes #6 labs in the morning
[2019-09-26] MEDS: FUROSEMIDE 100 MG in SODIUM CHLORIDE 0.9% 90 ML IV SCH ×2 (12:22→20:39)
[2019-09-26] MEDS: ACETAMINOPHEN TAB 325 MG TAB PO PRN ×2 (12:23→20:53)
--- NOTE | 2019-09-26 12:55 | PN ---
PROGRESS NOTE DATE OF SERVICE: 09/26/2019 REASON FOR FOLLOWUP: Aspiration pneumonitis and lower extremity cellulitis. INTERVAL HISTORY: The patient overall pain and swelling has improved. Did have low temperature of 100.2 around midnight. No fever since then. The patient is hemodynamically stable. FiO2 is currently stable. He did get on today and was responding to the nursing staff. He has been tolerating his tube feeds. No diarrhea has been reported. PHYSICAL EXAMINATION: Blood pressure 104/71 with a pulse of 104. Temperature of 99. He is 91% on 50% FiO2. General description is a middle-aged male intubated on the vent. Respiratory system: Unlabored breathing. Clear to auscultation anteriorly. HEART S1, S2. Regular rate and rhythm. ABDOMEN: Soft, no tenderness. LABS: Hemoglobin is 12.1, white count of 11.2, BUN of 24, creatinine 1.25. Urine is E coli sensitive pathogen. Wound culture so far negative. Sputum has been negative as well. DIAGNOSTIC IMPRESSION AND PLAN: Patient admitted to the hospital with bilateral lower extremity swelling and a question of cellulitis. Subsequently did have cardiac arrest and had to be intubated and sedated. The patient is currently covered with broad spectrum antibiotics in the form of daptomycin and Zosyn. Continue supportive care. MMODL / IJN: [id number] /
[2019-09-26] MEDS: HEPARIN SODIUM,PORCINE 5,000 UNIT/ML 1 ML VIAL IV PRN (13:13)
[2019-09-26] MEDS: DAPTOmycin 500 MG in SODIUM CHLORIDE 0.9% 50 ML IVPB SCH (14:27)
--- NOTE | 2019-09-26 14:45 | P.PN ---
Progress Note - Text Progress Note Date: 09/26/19 Chief Complaint: Swelling of his testicles History of presenting complaint: This is a 54-year-old patient of Dr. Wilmer blount. Presented to ER with multiple complaints. Stated that 4 days ago. Patient's testicles on the toilet this is then he developed swelling and tenderness. Also complained of some lower back pain with walking that is had for years. Also chronic lower extremity swelling. Which is increase in the last few weeks. He is also noticing increasing fluid discharge from lower extremity thought it may be infected. Also shortness of breath going on for a few months. Patient is admitted to the medical floor. At 3:25 AM cord probing was activated. 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 Patient received IV epinephrine, sodium bicarbonate and calcium chloride. Initially found to be JANIA then into ventricular fibrillation and was shocked 3. Transferred to the ICU. Patient is return of spontaneous circulation at 3:43 AM. This morning patient is on the ventilator. Also had an episode of what could've been atrial fibrillation with a high heart rate of 160s was given 5 mg of IV metoprolol and then started on IV amiodarone. Admitted with-scrotal cellulitis, septic shock, troponin leak, cardiac arrest from DIMAS, bilateral lower extremity venous insufficiency wounds, paroxysmal atrial fibrillation with rapid ventricular rate, acute hypoxic and hypercapnic respiratory failure requiring ventilator support, acute kidney injury from ATN. Started on bronchodilators, steroids, daptomycin, Zosyn, pressor support propofol. Today-ICU. Remains on the ventilator. FiO2 50 and PEEP of 12. Atrial fibrillation. Drips include IV Lasix and IV propofol. 2 feeding 100 mL an hour. Sedated. Progress review of systems cannot be done patient intubated Active Medications Acetaminophen (Tylenol Tab) 650 mg PO Q6HR PRN PRN Reason: Mild Pain or Fever > 100.5 Last Admin: 09/26/19 12:23 Dose: 650 mg Documented by: Acetazolamide Sodium (Diamox) 250 mg IV Q12HR [facility] Last Admin: 09/26/19 08:35 Dose: 250 mg Documented by: Albuterol/Ipratropium (Duoneb 0.5 Mg-3 Mg/3 Ml Soln) 3 ml INHALATION RT-Q4H [facility] Last Admin: 09/26/19 11:16 Dose: 3 ml Documented by: Albuterol/Ipratropium (Duoneb 0.5 Mg-3 Mg/3 Ml Soln) 3 ml INHALATION RT-Q2H PRN PRN Reason: Shortness Of Breath Or Wheezing Amiodarone HCl (Cordarone) 400 mg PO BID [facility] Last Admin: 09/26/19 08:36 Dose: 400 mg Documented by: Artificial Tears (Artificial Tear Drops) 2 drops BOTH EYES QID PRN PRN Reason: Dry Eye(s) Aspirin (Aspirin) 81 mg PO DAILY [facility] Last Admin: 09/26/19 08:36 Dose: 81 mg Documented by: Chlorhexidine Gluconate (Peridex) 15 ml MUCOUS MEM BID [facility] Last Admin: 09/26/19 08:36 Dose: 15 ml Documented by: Heparin Sodium (Porcine) (Heparin) 0 unit IV PER PROTOCOL PRN; Protocol PRN Reason: Low PTT Last Admin: 09/26/19 13:13 Dose: 10,000 unit Documented by: Hydromorphone HCl (Dilaudid) 0.5 mg IVP Q3HR PRN PRN Reason: Moderate Pain Last Admin: 09/22/19 18:22 Dose: 0.5 mg Documented by: Propofol 1,000 mg/ IV Solution 100 mls @ 0 mls/hr IV .Q0M [facility]; Protocol Last Titration: 09/26/19 14:36 Dose: Infused Documented by: Piperacillin Sod/Tazobactam (Sod 3.375 gm/ Sodium Chloride) 100 mls @ 25 mls/hr IVPB Q8HR [facility] Last Admin: 09/26/19 08:35 Dose: 25 mls/hr Documented by: Sodium Chloride (Saline 0.9%) 1,000 mls @ 10 mls/hr IV .Q24H [facility] Last Admin: 09/25/19 10:05 Dose: 10 mls/hr Documented by: Heparin Sodium/Sodium Chloride (25,000 unit/ Sodium Chloride) 250 mls @ 23 mls/hr IV .[id number] [facility]; Protocol Last Titration: 09/26/19 13:09 Dose: Infused Documented by: Norepinephrine Bitartrate 4 mg (/ Sodium Chloride) 254 mls @ 49.53 mls/hr IV .Q5H8M [facility]; Protocol Last Admin: 09/26/19 10:20 Dose: Not Given Documented by: Daptomycin 500 mg/ Sodium (Chloride) 50 mls @ 100 mls/hr IVPB Q24H [facility]; Protocol Last Admin: 09/26/19 14:27 Dose: 100 mls/hr Documented by: Furosemide 100 mg/ Sodium (Chloride) 100 mls @ 10 mls/hr IV .Q10H [facility] Last Admin: 09/26/19 12:22 Dose: 10 mg/hr, 10 mls/hr Documented by: Insulin Aspart (Novolog) 0 unit SQ Q6H [facility]; Protocol Last Admin: 09/26/19 12:01 Dose: 2 unit Documented by: Metoprolol Tartrate (Lopressor) 75 mg PO TID [facility] Miscellaneous Information (Potassium Per Protocol) 1 each MISCELLANE DAILY PRN; Protocol PRN Reason: Per Protocol Morphine Sulfate (Morphine Sulfate (Inj)) 4 mg IV Q4HR PRN PRN Reason: Severe Pain Naloxone HCl (Narcan) 0.2 mg IV Q2M PRN PRN Reason: Opioid Reversal Ondansetron HCl (Zofran) 4 mg IVP Q8HR PRN PRN Reason: Nausea And Vomiting Pantoprazole Sodium (Protonix) 40 mg IV DAILY [facility] Last Admin: 09/26/19 08:36 Dose: 40 mg Documented by: Sodium Chloride (Saline Flush) 10 ml IV Q4HR PRN PRN Reason: PICC Line Sodium Chloride (Saline Flush) 10 ml IV WEEKLY [facility] Sodium Chloride (Saline Flush) 20 ml IV Q4HR PRN PRN Reason: PICC Line Triamcinolone Acetonide (Kenalog) 1 applic TOPICAL BID [facility] Last Admin: 09/26/19 10:20 Dose: 1 applic Documented by: Physical examination: VITAL SIGNS: 101.4, 101, 30, 33 was 62, 91% on the ventilator GENERAL: laying in bed, intubated. EYES: Pupils equal. Conjunctiva normal. HEENT: External appearance of nose and ears normal, oral cavity endotracheal tube. NECK: JVD unable to assess; masses not palpable. HEART: Heart sounds muffled; edema present. LUNGS: Respiratory rate increased; distal breath sounds. ABDOMEN: Soft, nontender, liver spleen not palpable, no masses palpable. Swollen testicle inflamed, with penis embedded in the scrotum PSYCH: Patient sedated, unable to assessl. EXTREMITIES: Lower extremity-Adrian wrap INVESTIGATIONS, reviewed in the clinical context: White count 10.3 hemoglobin 12.1 potassium 4.1 and creatinine 1.25 Previous testing White count 39.2 hemoglobin 14 platelets 291 left shift potassium 4.9 bun 15 creatinine 0.8 9 repeat 1.68 Troponin I 0.047, 0.046 Albumin 3.3 COVID 19 PCR-not detected EKG tracing personally reviewed by me-upon presentation T-wave changes Chest x-ray film personally reviewed by me-exam limited questionable infiltrate versus fluid Venous Doppler-bilateral negative for DVT 2-D [id number] study-EF around 50% difficult to assess Scrotal ultrasound-no mass. Soft tissue edema Assessment: -Acute scrotal cellulitis secondary to local injury -Septic and hypotensive shock-slow to respond, febrile today -Lactic acidosis -Troponin I leak from septic shock, doubt acute coronary syndrome -Cardiac arrest from DIMAS -Morbid obesity BMI 71.6 -Bilateral lower extremity wounds likely from venous insufficiency and secondary infection with drainage -Paroxysmal atrial fibrillation with rapid ventricular rate-currently uncontrolled -Acute hypoxic and hypercapnic respiratory failure currently on the ventilator- slow to respond -Acute kidney injury, ATN from sepsis and hypotension-some improvement -Metabolic encephalopathy. -Acute metabolic/toxic encephalopathy, Plan: -oral amiodarone. On IV heparin, IV daptomycin, levo fed, IV Zosyn. On propofol sedation. Follow with ID.
[2019-09-26] MEDS: METOPROLOL TARTRATE 25 MG TAB PO SCH ×2 (16:01→21:00)
[2019-09-26 17:48] LABS: Glucose,Whole Blood 134 mg/dL (75-99)
[2019-09-26] MEDS: SODIUM CHLORIDE 0.9% 1,000 ML IV SCH (17:54)
[2019-09-27 00:03] LABS: Glucose,Whole Blood 123 mg/dL (75-99)
[2019-09-27] MEDS: PIPERACILLIN-TAZOBACTAM 3.375 GM in SODIUM CHLORIDE 0.9% 100 ML IVPB SCH ×4 (00:48→23:41)
[2019-09-27] MEDS: PROPOFOL 1,000 MG in EMPTY BAG 1 BAG IV SCH ×6 (01:07→21:30)
[2019-09-27] MEDS: INSULIN ASPART (NovoLOG) 100 UNIT/ML VIAL SQ SCH ×5 (01:57→23:41)
[2019-09-27] MEDS: NOREPINEPHRINE 4 MG in SODIUM CHLORIDE 0.9% 250 ML IV SCH ×3 (01:58→17:27)
[2019-09-27] MEDS: HEPARIN SOD,PORK IN 0.45% NACL 25,000 UNIT in 0.45% NACL 1 250ML.BAG IV SCH ×3 (02:31→22:16)
[2019-09-27] MEDS: IPRATROPIUM-ALBUTEROL 3 ML NEB INHALATION SCH ×5 (03:30→19:59)
[2019-09-27] MEDS: FUROSEMIDE 100 MG in SODIUM CHLORIDE 0.9% 90 ML IV SCH ×3 (05:13→22:14)
[2019-09-27 05:22] LABS: Glucose,Whole Blood 134 mg/dL (75-99)
[2019-09-27 05:50] LABS: HCT 40.6 % (39.0-53.0); HGB 11.9 gm/dL (13.0-17.5); Hypochromasia Marked; MCH 30.8 pg (25.0-35.0); MCHC 29.3 g/dL (31.0-37.0); MCV 105.3 fL (80.0-100.0); Macrocytosis Moderate; Mean Platelet Volume 7.8; Platelet Count 218 k/uL (150-450); RBC 3.85 m/uL (4.30-5.90); RDW 15.4 % (11.5-15.5); WBC 11.6 k/uL (3.8-10.6)
[2019-09-27 05:59] LABS: Potassium 3.7 mmol/L (3.5-5.1)
--- NOTE | 2019-09-27 06:46 | XR ---
EXAMINATION TYPE: XR chest 1V portable DATE OF EXAM: 09/27/2019 HISTORY: Tube placement. REFERENCE: Previous study dated 09/26/2019. FINDINGS: The study is underexposed and quite lordotic. Patient is intubated. An NG tube is present. The tip of the NG tube is not visualized. The ET tube ap pears unchanged in position. There is gross cardiomegaly. I cannot exclude bibasilar airspace disease. I cannot exclude effusions. IMPRESSION: MARKEDLY SUBOPTIMAL EXAMINATION DEMONSTRATING CARDIOMEGALY WITHOUT THE ABILITY TO EXCLUDE OTHER DISEA SE PROCESSES.
[2019-09-27] MEDS: SODIUM CHLORIDE 0.9% 1,000 ML IV SCH (08:09)
[2019-09-27] MEDS: CHLORHEXIDINE GLUCONATE 15 ML CUP MUCOUS MEM SCH ×2 (08:10→22:15)
[2019-09-27] MEDS: ASPIRIN 81 MG PO SCH (08:11)
[2019-09-27] MEDS: METOPROLOL TARTRATE 25 MG TAB PO SCH ×3 (08:11→22:14)
[2019-09-27] MEDS: AMIODARONE 200 MG TAB PO SCH ×2 (08:11→22:14)
[2019-09-27] MEDS: PANTOPRAZOLE 40 MG/10 ML VIAL IV SCH (08:11)
[2019-09-27 08:29] LABS: ABG Base Excess 9.7 mmol/L; ABG HCO3 34 mmol/L (21-25); ABG Oxygen Saturation 95.2 % (94-97); ABG PCO2 49 mmHg (35-45); ABG PH 7.44 (7.35-7.45); ABG PO2 78 mmHg (83-108); ABG TCO2 35 mmol/L (19-24); Allen Test Performed? Yes
[2019-09-27] MEDS: TRIAMCINOLONE 0.1% CREAM 80 GM TUBE TOPICAL SCH ×2 (08:54→22:15)
[2019-09-27] MEDS ORDERED: POTASSIUM BICARBONATE/CIT AC 20 MEQ TABLET.EFF NG-TUBE SCH (09:00)
--- NOTE | 2019-09-27 09:31 | PN ---
PROGRESS NOTE Mr. Ardon is a 54-year-old male who presented with progressive dyspnea, had cardiopulmonary arrest requiring mechanical ventilation. He is in atrial fibrillation at this time. Continues to be in atrial fibrillation. He is on no vasopressor. He has a good urinary output. His ventricular response is under better control. He is not ready for extubation yet. He is tolerating tube feeding. He has no evidence of ventricular tachyarrhythmia or hypotension. He continues to be on IV heparin, amiodarone 400 mg twice a day, aspirin 81 mg daily, Lasix drip that was started yesterday and metoprolol tartrate 75 mg 3 times a day. PHYSICAL EXAMINATION: Blood pressure running in the 110s with a heart rate in the 90s to 100s. LUNGS: Clear to auscultation anteriorly. HEART is irregular, irregularly, S1, S2. No S3. No rub. ABDOMEN: Soft, obese, nontender. EXTREMITIES +2 to 3 edema bilaterally. LAB DATA: Revealed hemoglobin of 11.9. BUN and creatinine of 40 and 1.36, potassium 3.7, calcium 8. IMPRESSION: 1. Respiratory failure, requiring mechanical ventilation after cardiopulmonary arrest. 2. Atrial fibrillation, rate under better control. 3. Severe fluid overload with diastolic dysfunction. 4. Morbid obesity. 5. Probable obstructive sleep apnea with hypercapnic hypoxemia. 6. Cellulitis. RECOMMENDATIONS: At this time, we will continue on the present dose of beta hayden. I discussed his case with Dr. Cornell. We will await the decision regarding probable tracheostomy. We will the switch him to oral anticoagulation. Otherwise, we will continue the rest of his medical regimen. MMODL / LUISN: [id number] /
[2019-09-27 11:47] LABS: Glucose,Whole Blood 148 mg/dL (75-99)
[2019-09-27] MEDS: ACETAMINOPHEN TAB 325 MG TAB PO PRN (11:55)
--- NOTE | 2019-09-27 12:12 | P.PN ---
Subjective Progress Note Date: 09/27/19 Principal diagnosis: Acute hypoxic respiratory failure secondary to cardiac arrest, required CPR for 9 minutes. This is a 54-year-old white male morbidly obese, patient presented to the ER yesterday with progressive scrotal swelling and progressive peripheral edema. Patient was also complaining of shortness of breath, and unable to urinate. Patient is also known to have history of chronic cellulitis of lower extremities. Last night the patient had a cardiac arrest, and he had initially a run of ventricular tachycardia. Patient was intubated, transferred to the intensive care unit, during CPR, patient received IV epinephrine, sodium bicarb, calcium chloride, and at one point he was in pulseless electrical activity then he developed ventricular fibrillation were in he was shocked 3. Subsequently the patient had return of spontaneous circulation at 3:43 AM. Apparently his code was about 13 minutes long. Patient was intubated, transferred to the ICU, and I was asked to see him on consultation this morning. He is presently on assist control rate of 30 tidal volume is 500 FiO2 is 100% and PEEP is 16. ABG showed a pO2 of 57 pCO2 of 102 pH of 7.16. Patient remains in atrial fibrillation with a rate of 137. He is also on norepinephrine at 0.05 mcg/kg/m, he is on heparin drip for atrial fibrillation and possibly for underlying deep vein thrombosis and thromboembolic disease/pulmonary embolism. Patient is on propofol at 20 mcg/kg/m, and his IV fluid is at 10 mL per hour. Chest x-ray showed evidence of any edema and recommended Lasix to be given today. I have also recommended arterial line which was placed for hemodynamic monitoring, and the patient had to midline is placed by anesthesia. Echocardiogram was noted to be extremely suboptimal mostly because of his morbid obesity. And quality was poor. However ejection fraction was guessed to be 50%, difficult to assess. Venous Doppler of both lower extremities negative for DVT. D-dimer was s ignificantly elevated. Chest x-ray is suspicious for either congestive heart failure/cardiogenic or ARDS. I suspect this is mostly cardiac pulmonary edema rather than ARDS since developed quite abruptly after his cardiac arrest. Patient was evaluated today on 09/24/19, remains in the ICU, intubated and mechanically ventilated. His ventilator settings are assist control rate of 30 tidal volume is 500 FiO2 is 60% and I cut it down to 55% PEEP remains at 16. ABG showed a pO2 of 83 pCO2 of 47 pH of 7.51. Patient remains on propofol at 15 mcg/kg/m norepinephrine at 0.01 mcg/kg/m amiodarone drip at 0.5 mg per hour. He is also on heparin drip. Chest x-ray continues to show evidence of interstitial edema. Patient responded well to Lasix, hence I increased the dose to 60 mg IV push 3 times a day. Today I plan to hold sedation and assessment of status, and if mental status or neurological findings are abnormal, may even consider a neurological consultation. I'm quite concerned about the possibility of anoxic brain injury . Again the patient had CPR for about 9 minutes. Patient is on enteral feeding, and his feeding is at goal. His cultures including blood cultures and sputum cultures as well as urine cultures and wound cultures are nondiagnostic so far. Patient remains on Zosyn and daptomycin. His atrial fibrillation seems to be well-controlled with amiodarone at present. Reevaluated today on 09/25/19, remains in ICU, intubated and mechanically ventilated. His ventilator settings are presently assist control rate of 30 tidal volume is 500 FiO2 is 55% and PEEP was 16 but I cut it down to 12. His ABG earlier today showed a pO2 of 91 pCO2 of 49 pH of 7.5. Patient remains on propofol at 30 mcg/kg/m, norepinephrine is presently off. And he is on heparin, IV fluid at KVO. Antibiotics yu he remains on daptomycin and Zosyn. Patient is yet to have a sedation holiday today, yesterday when he was sedated, patient woke up, and he was noted to have left deviation of gaze. Hence the neurology was consulted. However the patient could not have a CT of the head because of his weight and size. His tube feeds are at goal 83 mL per hour. Patient is in atrial fibrillation but rate seems to be around 113 and regular rhythm. Patient is now on oral amiodarone and Lopressor as per cardiology. Patient had PICC line placed by interventional radiology, and it is functional. Cultures have been negative including all blood cultures. His urine is showing gram-negative bacilli. However her only 50,000-100,000 colony count. Patient remains empirically on antibiotics. Reevaluated today on 09/26/19, patient remains in the ICU, intubated and mechanically ventilated. His ventilator settings are assist control rate of 30 tidal volume is 500 FiO2 is 55% and I cut it down to 50 his PEEP is at 12. ABG showed a pO2 of 75 pCO2 of 52 pH of 7.46. Patient is off propofol, awake, follows simple instructions like wiggling toes and squeezing hands. Cultures were all negative except for urine showing E. coli. Patient remains on heparin for atrial fibrillation with RVR which is presently seems to be better controlled. Chest x-ray is showing improvement in his interstitial edema, continues to have some bibasilar atelectasis. Considering the ABG is marginal, I have no plans to wean and extubate the patient today, he is not quite ready yet. I did cut down the PEEP to 12 from 16. And I cut down the FiO2 to 50%. Patient was reevaluated today on 09/27/19, remains in the ICU, remains on mechanical ventilation, his ventilator settings are assist control rate of 30 tidal volume is 500 FiO2 is up to 60% this morning, and PEEP remains at 12. However I increased his PEEP to 14 and cut down his FiO2 to 55%. ABG this morning showed a pO2 of 78 pCO2 of 49 pH of 7.44. And this was on 60% FiO2 with PEEP of 12. Patient remains on propofol, 20 mcg/kg/m, arousable but does not seem to follow instructions today. Noted to have upward gaze deviation. His Lasix remains at 10 mg per hour drip, this was started by nephrology. Chest x- ray is basically about the same, suspicious for mild interstitial edema. Patient is on enteral feeding, and he is up to goal. All labs were reviewed today, he had a relatively normal CBC, WBC count 11.6. Renal profile showed a BUN of 40 creatinine 1.36, bicarb remains at 36. Objective - Vital Signs Vital signs: Vital Signs Temp 101.2 F H 09/27/19 12:00 Pulse 96 09/27/19 12:00 Resp 36 H 09/27/19 12:00 BP 112/79 09/23/19 09:30 Pulse Ox 94 L 09/27/19 12:00 Intake & Output 09/26/19 09/27/19 09/27/19 18:59 06:59 18:59 Intake Total 2634.000 7562.730 1825.594 Output Total 2850 2725 775 Balance -216.000 -877.300 515.594 Weight 247.406 kg Intake: IV 494 343 162 0.9NS Pressure Bag 39 33 12 DAPTOmycin 500 mg In 50 Sodium Chloride 0.9% 50 ml @ 100 mls/hr IVPB Q24H [facility] Rx#:[id number] Furosemide 100 mg In 80 100 40 Sodium Chloride 0.9% 90 ml @ 10 MG/HR 10 mls/hr IV .Q10H [facility] Rx#: [id number] Piperacillin-Tazobactam 3 200 100 75 .375 gm In Sodium Chloride 0.9% 100 ml @ 25 mls/hr IVPB Q8HR [facility] Rx# :[id number] Sodium Chloride 0.9% 1, 125 110 35 000 ml @ 10 mls/hr IV . Q24H [facility] Rx#:[id number] Intake, IV Titration 450.000 514.700 498.594 Amount Furosemide 100 mg In 168.500 65.667 Sodium Chloride 0.9% 90 ml @ 10 MG/HR 10 mls/hr IV .Q10H [facility] Rx#: [id number] Heparin Sod,Pork in 0.45% 250.000 250 232.927 NaCl 25,000 unit In 0.45 % NaCl 1 250ml.bag @ 8. 846 UNITS/KG/HR 23 mls/hr IV .[id number] [facility] Rx#: [id number] Propofol 1,000 mg In 200.000 96.2 200 Empty Bag 1 bag @ Titrate IV .Q0M [facility] Rx#: [id number] Tube Feeding 1600 900 600 Other 90 90 30 Output: Urine 2850 2725 775 Other: Voiding Method Indwelling Catheter Indwelling Catheter Indwelling Catheter ABP, PAP, CO, CI - Last Documented Arterial Blood Pressure 102/61 - Exam Physical Exam: Revealed a 54-year-old white male, morbidly obese, on mechanical ventilation. Arousable, opens eyes, upward gaze deviation is noted. Head: Atraumatic, normocephalic. Endotracheal tube and orogastric tubes are intact. Neck: Short obese neck, no neck masses, no JVD, HEENT: PERRLA, EOMI, no icterus, no neck masses, no stridor. Endotracheal tube is intact. Chest: [Large chest, diminished breath sounds, no rhonchi no wheezes Cardiac Exam: Distant S1 and S2, irregular rhythm, no S3 gallop. No rub. Abdomen: [Morbidly obese, Soft, nontender, no megaly, no rebound, no guarding, normal bowel sounds.] Extremities: [Chronic venous stasis changes. And superficial cellulitis of both lower extremities. Neurological Exam: Arousable today but does not follow any instructions, upward gaze deviation was noted. Musculoskeletal No evidence of muscle atrophy no deformities. Skin: Areas of cellulitis and excoriation of the skin noted in lower extremities with venous stasis changes. Both lower extremities are wrapped with Adrian wrap Genitalia: Swollen scrotum, no tenderness, - Labs CBC & Chem 7: 09/27/19 05:10 09/27/19 05:10 Labs: Abnormal Lab Results - Last 24 Hours (Table) 09/26/19 09/26/19 09/26/19 Range/Units 12:30 17:45 17:47 WBC (3.8-10.6) k/uL RBC (4.30-5.90) m/uL Hgb (13.0-17.5) gm/dL MCV (80.0-100.0) fL MCHC (31.0-37.0) g/dL APTT 41.7 H 79.9 H (22.0-30.0) sec ABG pCO2 (35-45) mmHg ABG pO2 (83-108) mmHg ABG HCO3 (21-25) mmol/L ABG Total CO2 (19-24) mmol/L Carbon Dioxide (22-30) mmol/L BUN (9-20) mg/dL Creatinine (0.66-1.25) mg/dL Glucose (74-99) mg/dL POC Glucose (mg/dL) 134 H (75-99) mg/dL Calcium (8.4-10.2) mg/dL 09/27/19 09/27/19 09/27/19 Range/Units 00:02 00:45 05:10 WBC (3.8-10.6) k/uL RBC (4.30-5.90) m/uL Hgb (13.0-17.5) gm/dL MCV (80.0-100.0) fL MCHC (31.0-37.0) g/dL APTT 53.7 H (22.0-30.0) sec ABG pCO2 (35-45) mmHg ABG pO2 (83-108) mmHg ABG HCO3 (21-25) mmol/L ABG Total CO2 (19-24) mmol/L Carbon Dioxide 36 H (22-30) mmol/L BUN 40 H (9-20) mg/dL Creatinine 1.36 H (0.66-1.25) mg/dL Glucose 139 H (74-99) mg/dL POC Glucose (mg/dL) 123 H (75-99) mg/dL Calcium 8.0 L (8.4-10.2) mg/dL 09/27/19 09/27/19 09/27/19 Range/Units 05:10 05:19 08:27 WBC 11.6 H (3.8-10.6) k/uL RBC 3.85 L (4.30-5.90) m/uL Hgb 11.9 L (13.0-17.5) gm/dL MCV 105.3 H (80.0-100.0) fL MCHC 29.3 L (31.0-37.0) g/dL APTT (22.0-30.0) sec ABG pCO2 49 H (35-45) mmHg ABG pO2 78 L (83-108) mmHg ABG HCO3 34 H (21-25) mmol/L ABG Total CO2 35 H (19-24) mmol/L Carbon Dioxide (22-30) mmol/L BUN (9-20) mg/dL Creatinine (0.66-1.25) mg/dL Glucose (74-99) mg/dL POC Glucose (mg/dL) 134 H (75-99) mg/dL Calcium (8.4-10.2) mg/dL 09/27/19 Range/Units 11:46 WBC (3.8-10.6) k/uL RBC (4.30-5.90) m/uL Hgb (13.0-17.5) gm/dL MCV (80.0-100.0) fL MCHC (31.0-37.0) g/dL APTT (22.0-30.0) sec ABG pCO2 (35-45) mmHg ABG pO2 (83-108) mmHg ABG HCO3 (21-25) mmol/L ABG Total CO2 (19-24) mmol/L Carbon Dioxide (22-30) mmol/L BUN (9-20) mg/dL Creatinine (0.66-1.25) mg/dL Glucose (74-99) mg/dL POC Glucose (mg/dL) 148 H (75-99) mg/dL Calcium (8.4-10.2) mg/dL Microbiology - Last 24 Hours (Table) 09/23/19 09:25 Blood Culture - Preliminary Blood No Growth after 96 hours 09/23/19 08:46 Blood Culture - Preliminary Blood No Growth after 96 hours Assessment and Plan Assessment: Impression: Acute hypoxic respiratory failure secondary to cardiac arrest, requiring CPR for 9 minutes. And secondary to acute cardiogenic pulmonary edema. Acute cardiogenic pulmonary edema, possible diastolic dysfunction. This is also contributing to his hypoxemia. Significant improvement in chest x-ray and ABG noted, however ABG remains marginal and not ready for weaning. Morbid obesity with acute on chronic respiratory acidosis, suspect underlying obstructive sleep apnea syndrome and obesity/hypoventilation syndrome. New onset atrial fibrillation, also contributing to his pulmonary edema. Possibility of pulmonary embolism is in the picture, however felt to be less likely especially with negative venous Doppler. Nonetheless the patient will require heparinization mostly for his atrial fibrillation with RVR, patient will not fit in the scanner to have a CT of the chest. Or a VQ scan.continue heparin empirically. Severe cellulitis of lower extremities, possible sepsis, cultures are nondiagn ostic, patient remains on daptomycin and Zosyn. Possible anoxic brain injury. Suspect anoxic encephalopathy. Status post PICC line placement on 09/24. Acute urinary tract infection secondary to E. coli. Recommendation: Continue ventilatory support. PEEP is back up to 14, FiO2 is at 55%. Tidal vol ume is 500 assist control rate is 30. Continue Lasix drip at 10 mg per hour.. Continue Diamox GI and DVT prophylaxis. Nutritional support. Continue enteral feeding. Continue antibiotics. Continue heparin in the meantime. Will eventually switched to oral anticoagulation treatment. Venous Doppler showed no evidence of DVT. Continue amiodarone. Considering the patient is going to be very difficult to wean, I will go ahead and recommend evaluation by Dr. Clemente for possible tracheostomy and PEG tube placement early next week. Critical care time is 34 minutes. Time with Patient: Greater than 30
--- NOTE | 2019-09-27 12:44 | P.PN ---
Subjective Progress Note Date: 09/27/19 Follow-up for acute kidney injury and volume overload. Currently on ventilator with FiO2 50% and a PEEP of 14 Objective - Vital Signs Vital signs: Vital Signs Temp 101.2 F H 09/27/19 12:00 Pulse 93 09/27/19 12:19 Resp 36 H 09/27/19 12:00 BP 112/79 09/23/19 09:30 Pulse Ox 94 L 09/27/19 12:00 Intake & Output 09/26/19 09/27/19 09/27/19 18:59 06:59 18:59 Intake Total 2634.000 7188.438 4356.594 Output Total 2850 2725 775 Balance -216.000 -877.300 515.594 Weight 247.406 kg Intake: IV 494 343 162 0.9NS Pressure Bag 39 33 12 DAPTOmycin 500 mg In 50 Sodium Chloride 0.9% 50 ml @ 100 mls/hr IVPB Q24H [facility] Rx#:[id number] Furosemide 100 mg In 80 100 40 Sodium Chloride 0.9% 90 ml @ 10 MG/HR 10 mls/hr IV .Q10H [facility] Rx#: [id number] Piperacillin-Tazobactam 3 200 100 75 .375 gm In Sodium Chloride 0.9% 100 ml @ 25 mls/hr IVPB Q8HR [facility] Rx# :[id number] Sodium Chloride 0.9% 1, 125 110 35 000 ml @ 10 mls/hr IV . Q24H [facility] Rx#:[id number] Intake, IV Titration 450.000 514.700 498.594 Amount Furosemide 100 mg In 168.500 65.667 Sodium Chloride 0.9% 90 ml @ 10 MG/HR 10 mls/hr IV .Q10H [facility] Rx#: [id number] Heparin Sod,Pork in 0.45% 250.000 250 232.927 NaCl 25,000 unit In 0.45 % NaCl 1 250ml.bag @ 8. 846 UNITS/KG/HR 23 mls/hr IV .[id number] [facility] Rx#: [id number] Propofol 1,000 mg In 200.000 96.2 200 Empty Bag 1 bag @ Titrate IV .Q0M [facility] Rx#: [id number] Tube Feeding 1600 900 600 Other 90 90 30 Output: Urine 2850 2725 775 Other: Voiding Method Indwelling Catheter Indwelling Catheter Indwelling Catheter ABP, PAP, CO, CI - Last Documented Arterial Blood Pressure 102/61 - Exam No acute distress S1-S2 heard Lungs clear Abdomen distended Edema Oral intubation - Labs CBC & Chem 7: 09/27/19 05:10 09/27/19 05:10 Labs: Abnormal Lab Results - Last 24 Hours (Table) 09/26/19 09/26/19 09/26/19 Range/Units 12:30 17:45 17:47 WBC (3.8-10.6) k/uL RBC (4.30-5.90) m/uL Hgb (13.0-17.5) gm/dL MCV (80.0-100.0) fL MCHC (31.0-37.0) g/dL APTT 41.7 H 79.9 H (22.0-30.0) sec ABG pCO2 (35-45) mmHg ABG pO2 (83-108) mmHg ABG HCO3 (21-25) mmol/L ABG Total CO2 (19-24) mmol/L Carbon Dioxide (22-30) mmol/L BUN (9-20) mg/dL Creatinine (0.66-1.25) mg/dL Glucose (74-99) mg/dL POC Glucose (mg/dL) 134 H (75-99) mg/dL Calcium (8.4-10.2) mg/dL 09/27/19 09/27/19 09/27/19 Range/Units 00:02 00:45 05:10 WBC (3.8-10.6) k/uL RBC (4.30-5.90) m/uL Hgb (13.0-17.5) gm/dL MCV (80.0-100.0) fL MCHC (31.0-37.0) g/dL APTT 53.7 H (22.0-30.0) sec ABG pCO2 (35-45) mmHg ABG pO2 (83-108) mmHg ABG HCO3 (21-25) mmol/L ABG Total CO2 (19-24) mmol/L Carbon Dioxide 36 H (22-30) mmol/L BUN 40 H (9-20) mg/dL Creatinine 1.36 H (0.66-1.25) mg/dL Glucose 139 H (74-99) mg/dL POC Glucose (mg/dL) 123 H (75-99) mg/dL Calcium 8.0 L (8.4-10.2) mg/dL 09/27/19 09/27/19 09/27/19 Range/Units 05:10 05:19 08:27 WBC 11.6 H (3.8-10.6) k/uL RBC 3.85 L (4.30-5.90) m/uL Hgb 11.9 L (13.0-17.5) gm/dL MCV 105.3 H (80.0-100.0) fL MCHC 29.3 L (31.0-37.0) g/dL APTT (22.0-30.0) sec ABG pCO2 49 H (35-45) mmHg ABG pO2 78 L (83-108) mmHg ABG HCO3 34 H (21-25) mmol/L ABG Total CO2 35 H (19-24) mmol/L Carbon Dioxide (22-30) mmol/L BUN (9-20) mg/dL Creatinine (0.66-1.25) mg/dL Glucose (74-99) mg/dL POC Glucose (mg/dL) 134 H (75-99) mg/dL Calcium (8.4-10.2) mg/dL 09/27/19 Range/Units 11:46 WBC (3.8-10.6) k/uL RBC (4.30-5.90) m/uL Hgb (13.0-17.5) gm/dL MCV (80.0-100.0) fL MCHC (31.0-37.0) g/dL APTT (22.0-30.0) sec ABG pCO2 (35-45) mmHg ABG pO2 (83-108) mmHg ABG HCO3 (21-25) mmol/L ABG Total CO2 (19-24) mmol/L Carbon Dioxide (22-30) mmol/L BUN (9-20) mg/dL Creatinine (0.66-1.25) mg/dL Glucose (74-99) mg/dL POC Glucose (mg/dL) 148 H (75-99) mg/dL Calcium (8.4-10.2) mg/dL Microbiology - Last 24 Hours (Table) 09/23/19 09:25 Blood Culture - Preliminary Blood No Growth after 96 hours 09/23/19 08:46 Blood Culture - Preliminary Blood No Growth after 96 hours Assessment and Plan Assessment: #1 nonoliguric acute kidney injury secondary to ischemic ATN from card iopulmonary arrest. Baseline creatinine 1.0 MG per DL. #2 ventilator-dependent respiratory failure #3 hypotension #4 volume overload #5 A. fib on amiodarone #6 complicated UTI #7 metabolic alkalosis secondary to diuresis Plan: #1 goal ultrafiltration [net negative] off 2-3 L in 24 hours. Continue with Lasix drip, add 2.5 mg of metolazone twice a day. #2 with alkalosis and needing for diuresis continue with Diamox. #3 ween off ventilator #4 avoid nephrotoxic agents and hypotensive episodes #5 labs in the morning
[2019-09-27] MEDS: DAPTOmycin 500 MG in SODIUM CHLORIDE 0.9% 50 ML IVPB SCH (14:19)
--- NOTE | 2019-09-27 15:39 | P.PN ---
Progress Note - Text Progress Note Date: 09/27/19 Chief Complaint: Swelling of his testicles History of presenting complaint: This is a 54-year-old patient of Dr. Wilmer blount. Presented to ER with multiple complaints. Stated that 4 days ago. Patient's testicles on the toilet this is then he developed swelling and tenderness. Also complained of some lower back pain with walking that is had for years. Also chronic lower extremity swelling. Which is increase in the last few weeks. He is also noticing increasing fluid discharge from lower extremity thought it may be infected. Also shortness of breath going on for a few months. Patient is admitted to the medical floor. At 3:25 AM cord probing was activated. Patient did develop ventricular fibrillation on a campus monitor and was found unresponsive in the room. Patient received IV epinephrine, sodium bicarbonate and calcium chloride. Initially found to be JANIA then into ventricular fibrillation and was shocked 3. Transferred to the ICU. Patient is return of spontaneous circulation at 3:43 AM. This morning patient is on the ventilator. Also had an episode of what could've been atrial fibrillation with a high heart rate of 160s was given 5 mg of IV metoprolol and then started on IV amiodarone. Admitted with-scrotal cellulitis, septic shock, troponin leak, cardiac arrest from DIMAS, bilateral lower extremity venous insufficiency wounds, paroxysmal atrial fibrillation with rapid ventricular rate, acute hypoxic and hypercapnic respiratory failure requiring ventilator support, acute kidney injury from ATN. Started on bronchodilators, steroids, daptomycin, Zosyn, pressor support propofol. Also put on a Lasix drip. 2 feeding was started. Today-ICU. Drips include propofol and Lasix. On the ventilator with FiO2 55 and a PEEP of 14. Atrial fibrillation rate not controlled. 2 feeding at 100 mL an hour. Febrile Progress review of systems cannot be done patient intubated Active Medications Acetaminophen (Tylenol Tab) 650 mg PO Q6HR PRN PRN Reason: Mild Pain or Fever > 100.5 Last Admin: 09/27/19 11:55 Dose: 650 mg Documented by: Acetazolamide Sodium (Diamox) 250 mg IV Q12HR [facility] Last Admin: 09/27/19 08:11 Dose: 250 mg Documented by: Albuterol/Ipratropium (Duoneb 0.5 Mg-3 Mg/3 Ml Soln) 3 ml INHALATION RT-Q4H [facility] Last Admin: 09/27/19 11:48 Dose: 3 ml Documented by: Albuterol/Ipratropium (Duoneb 0.5 Mg-3 Mg/3 Ml Soln) 3 ml INHALATION RT-Q2H PRN PRN Reason: Shortness Of Breath Or Wheezing Amiodarone HCl (Cordarone) 400 mg PO BID [facility] Last Admin: 09/27/19 08:11 Dose: 400 mg Documented by: Artificial Tears (Artificial Tear Drops) 2 drops BOTH EYES QID PRN PRN Reason: Dry Eye(s) Aspirin (Aspirin) 81 mg PO DAILY [facility] Last Admin: 09/27/19 08:11 Dose: 81 mg Documented by: Chlorhexidine Gluconate (Peridex) 15 ml MUCOUS MEM BID [facility] Last Admin: 09/27/19 08:10 Dose: 15 ml Documented by: Heparin Sodium (Porcine) (Heparin) 0 unit IV PER PROTOCOL PRN; Protocol PRN Reason: Low PTT Last Admin: 09/26/19 13:13 Dose: 10,000 unit Documented by: Hydromorphone HCl (Dilaudid) 0.5 mg IVP Q3HR PRN PRN Reason: Moderate Pain Last Admin: 09/22/19 18:22 Dose: 0.5 mg Documented by: Propofol 1,000 mg/ IV Solution 100 mls @ 0 mls/hr IV .Q0M [facility]; Protocol Last Admin: 09/27/19 14:19 Dose: 20 mcg/kg/min, 29.689 mls/hr Documented by: Piperacillin Sod/Tazobactam (Sod 3.375 gm/ Sodium Chloride) 100 mls @ 25 mls/hr IVPB Q8HR [facility] Last Admin: 09/27/19 08:10 Dose: 25 mls/hr Documented by: Sodium Chloride (Saline 0.9%) 1,000 mls @ 10 mls/hr IV .Q24H [facility] Last Admin: 09/27/19 08:09 Dose: 10 mls/hr Documented by: Heparin Sodium/Sodium Chloride (25,000 unit/ Sodium Chloride) 250 mls @ 23 mls/hr IV .[id number] [facility]; Protocol Last Admin: 09/27/19 08:10 Dose: 15.856 units/kg/hr, 41.226 mls/hr Documented by: Norepinephrine Bitartrate 4 mg (/ Sodium Chloride) 254 mls @ 49.53 mls/hr IV .Q5H8M [facility]; Protocol Last Admin: 09/27/19 06:37 Dose: Not Given Documented by: Daptomycin 500 mg/ Sodium (Chloride) 50 mls @ 100 mls/hr IVPB Q24H [facility]; Protocol Last Admin: 09/27/19 14:19 Dose: 100 mls/hr Documented by: Furosemide 100 mg/ Sodium (Chloride) 100 mls @ 10 mls/hr IV .Q10H [facility] Last Admin: 09/27/19 11:47 Dose: 10 mg/hr, 10 mls/hr Documented by: Insulin Aspart (Novolog) 0 unit SQ Q6H [facility]; Protocol Last Admin: 09/27/19 11:52 Dose: 2 unit Documented by: Metolazone (Zaroxolyn) 2.5 mg PO BID [facility] Metoprolol Tartrate (Lopressor) 75 mg PO TID [facility] Last Admin: 09/27/19 08:11 Dose: 75 mg Documented by: Miscellaneous Information (Potassium Per Protocol) 1 each MISCELLANE DAILY PRN; Protocol PRN Reason: Per Protocol Morphine Sulfate (Morphine Sulfate (Inj)) 4 mg IV Q4HR PRN PRN Reason: Severe Pain Naloxone HCl (Narcan) 0.2 mg IV Q2M PRN PRN Reason: Opioid Reversal Ondansetron HCl (Zofran) 4 mg IVP Q8HR PRN PRN Reason: Nausea And Vomiting Pantoprazole Sodium (Protonix) 40 mg IV DAILY [facility] Last Admin: 09/27/19 08:11 Dose: 40 mg Documented by: Sodium Chloride (Saline Flush) 10 ml IV Q4HR PRN PRN Reason: PICC Line Sodium Chloride (Saline Flush) 10 ml IV WEEKLY [facility] Sodium Chloride (Saline Flush) 20 ml IV Q4HR PRN PRN Reason: PICC Line Triamcinolone Acetonide (Kenalog) 1 applic TOPICAL BID [facility] Last Admin: 09/27/19 08:54 Dose: 1 applic Documented by: Physical examination: VITAL SIGNS: 101.2, 96, 36, 102/61, 94% on the ventilator GENERAL: laying in bed, intubated. EYES: Pupils equal. Conjunctiva normal. HEENT: External appearance of nose and ears normal, oral cavity endotracheal tube. NECK: JVD unable to assess; masses not palpable. HEART: Heart sounds muffled; edema present. LUNGS: Respiratory rate increased; distal breath sounds. ABDOMEN: Soft, nontender, liver spleen not palpable, no masses palpable. Swollen testicle inflamed, with penis embedded in the scrotum PSYCH: Patient sedated, unable to assessl. EXTREMITIES: Lower extremity-Adrian wrap INVESTIGATIONS, reviewed in the clinical context: White count 10.6 hemoglobin 11.9 platelets 218 bun 40 creatinine 1.36 Previous testing White count 39.2 hemoglobin 14 platelets 291 left shift potassium 4.9 bun 15 creatinine 0.8 9 repeat 1.68 Troponin I 0.047, 0.046 Albumin 3.3 COVID 19 PCR-not detected EKG tracing personally reviewed by me-upon presentation T-wave changes Chest x-ray film personally reviewed by me-exam limited questionable infiltrate versus fluid Venous Doppler-bilateral negative for DVT 2-D [id number] study-EF around 50% difficult to assess Scrotal ultrasound-no mass. Soft tissue edema Urine culture-E. coli Assessment: -Acute scrotal cellulitis secondary to local injury -Septic and hypotensive shock-slow to respond, continues to be febrile -Lactic acidosis -Troponin I leak from septic shock, doubt acute coronary syndrome -Cardiac arrest from PEA -Morbid obesity BMI 71.6 -Bilateral lower extremity wounds likely from venous insufficiency and secondary infection with drainage -Paroxysmal atrial fibrillation with rapid ventricular rate-currently uncontrolled -Acute hypoxic and hypercapnic respiratory failure currently on the ventilator- slow to respond -Acute kidney injury, ATN from sepsis and slow to respond -Acute metabolic/toxic encephalopathy, Plan: -oral amiodarone. On IV heparin, IV daptomycin, levo fed, IV Zosyn. Daptomycin , propofol sedation. Remains critical. Patient may need a tracheostomy and PEG tube-Shortly
--- NOTE | 2019-09-27 17:11 | P.GSCN ---
History of Present Illness Consult date: 09/27/19 History of present illness: Patient admitted to the hospital 09/22/2019 presented in acute cardiopulmonary arrest including prolonged CPR for 9 minutes. He has been intubated for more than 5-6 days. Patient comes in with additional comorbidities including BMI almost 70. Secondary to difficulty with weaning parameters, tracheostomy and gastrostomy tube placement is being requested. PLAN: 1. Continue weaning parameters. 2. Hold anticoagulants for 12-24 hours. Past Medical History Past Medical History: Hyperlipidemia, Hypertension Additional Past Medical History / Comment(s): hemrrhoids, prediabetic History of Any Multi-Drug Resistant Organisms: None Reported Past Surgical History: Hernia Repair Additional Past Surgical History / Comment(s): UMBILICAL HERNIA REPAIR Past Anesthesia/Blood Transfusion Reactions: No Reported Reaction Past Psychological History: Depression Smoking Status: Never smoker Past Alcohol Use History: None Reported Past Drug Use History: None Reported - Past Family History Mother Family Medical History: Cancer, Diabetes Mellitus Additional Family Medical History / Comment(s): OBESITY, BONE CA Father Family Medical History: Coronary Artery Disease (CAD) Additional Family Medical History / Comment(s): CABG-4 VESSEL Medications and Allergies Home Medications Medication Instructions Recorded Confirmed Type Acetaminophen [Tylenol] 1,500 mg PO DAILY PRN 09/22/19 09/22/19 History Allergies Allergy/AdvReac Type Severity Reaction Status Date / Time No Known Allergies Allergy Verified 09/22/19 16:04 Surgical - Exam Vital Signs Temp Pulse Resp BP Pulse Ox 99.7 F H 101 H 22 121/64 92 L 09/22/19 13:00 09/22/19 13:00 09/22/19 13:00 09/22/19 13:00 09/22/19 13:00 Results - Labs 09/27/19 05:10 09/27/19 05:10 Abnormal Lab Results - Last 24 Hours (Table) 09/26/19 09/26/19 09/27/19 Range/Units 17:45 17:47 00:02 WBC (3.8-10.6) k/uL RBC (4.30-5.90) m/uL Hgb (13.0-17.5) gm/dL MCV (80.0-100.0) fL MCHC (31.0-37.0) g/dL APTT 79.9 H (22.0-30.0) sec ABG pCO2 (35-45) mmHg ABG pO2 (83-108) mmHg ABG HCO3 (21-25) mmol/L ABG Total CO2 (19-24) mmol/L Carbon Dioxide (22-30) mmol/L BUN (9-20) mg/dL Creatinine (0.66-1.25) mg/dL Glucose (74-99) mg/dL POC Glucose (mg/dL) 134 H 123 H (75-99) mg/dL Calcium (8.4-10.2) mg/dL 09/27/19 09/27/19 09/27/19 Range/Units 00:45 05:10 05:10 WBC 11.6 H (3.8-10.6) k/uL RBC 3.85 L (4.30-5.90) m/uL Hgb 11.9 L (13.0-17.5) gm/dL MCV 105.3 H (80.0-100.0) fL MCHC 29.3 L (31.0-37.0) g/dL APTT 53.7 H (22.0-30.0) sec ABG pCO2 (35-45) mmHg ABG pO2 (83-108) mmHg ABG HCO3 (21-25) mmol/L ABG Total CO2 (19-24) mmol/L Carbon Dioxide 36 H (22-30) mmol/L BUN 40 H (9-20) mg/dL Creatinine 1.36 H (0.66-1.25) mg/dL Glucose 139 H (74-99) mg/dL POC Glucose (mg/dL) (75-99) mg/dL Calcium 8.0 L (8.4-10.2) mg/dL 09/27/19 09/27/19 09/27/19 Range/Units 05:19 08:27 11:46 WBC (3.8-10.6) k/uL RBC (4.30-5.90) m/uL Hgb (13.0-17.5) gm/dL MCV (80.0-100.0) fL MCHC (31.0-37.0) g/dL APTT (22.0-30.0) sec ABG pCO2 49 H (35-45) mmHg ABG pO2 78 L (83-108) mmHg ABG HCO3 34 H (21-25) mmol/L ABG Total CO2 35 H (19-24) mmol/L Carbon Dioxide (22-30) mmol/L BUN (9-20) mg/dL Creatinine (0.66-1.25) mg/dL Glucose (74-99) mg/dL POC Glucose (mg/dL) 134 H 148 H (75-99) mg/dL Calcium (8.4-10.2) mg/dL 09/27/19 Range/Units 14:15 WBC (3.8-10.6) k/uL RBC (4.30-5.90) m/uL Hgb (13.0-17.5) gm/dL MCV (80.0-100.0) fL MCHC (31.0-37.0) g/dL APTT 48.6 H (22.0-30.0) sec ABG pCO2 (35-45) mmHg ABG pO2 (83-108) mmHg ABG HCO3 (21-25) mmol/L ABG Total CO2 (19-24) mmol/L Carbon Dioxide (22-30) mmol/L BUN (9-20) mg/dL Creatinine (0.66-1.25) mg/dL Glucose (74-99) mg/dL POC Glucose (mg/dL) (75-99) mg/dL Calcium (8.4-10.2) mg/dL Microbiology - Last 24 Hours (Table) 09/23/19 09:25 Blood Culture - Preliminary Blood No Growth after 96 hours 09/23/19 08:46 Blood Culture - Preliminary Blood No Growth after 96 hours Diabetes panel 09/27/19 Range/Units 05:10 Sodium 140 (137-145) mmol/L Potassium 3.7 (3.5-5.1) mmol/L Chloride 101 (98-107) mmol/L Carbon Dioxide 36 H (22-30) mmol/L BUN 40 H (9-20) mg/dL Creatinine 1.36 H (0.66-1.25) mg/dL Glucose 139 H (74-99) mg/dL Calcium 8.0 L (8.4-10.2) mg/dL Calcium panel 09/27/19 Range/Units 05:10 Calcium 8.0 L (8.4-10.2) mg/dL Pituitary panel 09/27/19 Range/Units 05:10 Sodium 140 (137-145) mmol/L Potassium 3.7 (3.5-5.1) mmol/L Chloride 101 (98-107) mmol/L Carbon Dioxide 36 H (22-30) mmol/L BUN 40 H (9-20) mg/dL Creatinine 1.36 H (0.66-1.25) mg/dL Glucose 139 H (74-99) mg/dL Calcium 8.0 L (8.4-10.2) mg/dL Adrenal panel 09/27/19 Range/Units 05:10 Sodium 140 (137-145) mmol/L Potassium 3.7 (3.5-5.1) mmol/L Chloride 101 (98-107) mmol/L Carbon Dioxide 36 H (22-30) mmol/L BUN 40 H (9-20) mg/dL Creatinine 1.36 H (0.66-1.25) mg/dL Glucose 139 H (74-99) mg/dL Calcium 8.0 L (8.4-10.2) mg/dL
[2019-09-27] MEDS ORDERED: LACTULOSE 20 GM/30 ML CUP PO ONE (17:17)
[2019-09-27] MEDS: METOLAZONE 2.5 MG TAB PO SCH ×2 (17:26→22:10)
[2019-09-27 17:41] LABS: Glucose,Whole Blood 137 mg/dL (75-99)
[2019-09-27 23:33] LABS: Glucose,Whole Blood 135 mg/dL (75-99)
--- NOTE | 2019-09-28 00:36 | PN ---
PROGRESS NOTE DATE OF SERVICE: 09/27/2019 REASON FOR FOLLOWUP: Aspiration pneumonitis and lower extremity cellulitis. INTERVAL HISTORY: The patient did spike another fever of 101 degrees Fahrenheit at midnight and subsequently at noon. The patient is hemodynamically stable. FiO2 is currently 55%. No significant purulent secretion in the ET or any diarrhea has been reported by nursing staff. PHYSICAL EXAMINATION: Blood pressure 114/68 with a pulse of 95, temperature 99.9. He is 93% on 55% FiO2. General description is a middle-aged male intubated on the vent. RESPIRATORY SYSTEM: Unlabored breathing, decreased breath sounds at the bases. No wheeze. HEART: S1, S2. Regular rate and rhythm. ABDOMEN: Soft, no tenderness. LABS: Hemoglobin 11.9, white count 11.6, BUN of 40, creatinine 1.36. Culture so far negative. DIAGNOSTIC IMPRESSION AND PLAN: Patient with acute respiratory failure which is multifactorial with a component of aspiration pneumonitis. This patient did have cardiac arrest, persistent fever, questionable central fever; hence, the patient cultures has been negative for any resistant pathogen. White count has normalized and he is covered with a broad spectrum antibiotic in the form of Zosyn and daptomycin to continue while we monitor his clinical course closely and continue with supportive care. MMODL / IJN: [id number] /
[2019-09-28] MEDS: PROPOFOL 1,000 MG in EMPTY BAG 1 BAG IV SCH ×5 (01:00→23:09)
[2019-09-28] MEDS: IPRATROPIUM-ALBUTEROL 3 ML NEB INHALATION SCH ×6 (01:12→20:40)
[2019-09-28] MEDS: HEPARIN SOD,PORK IN 0.45% NACL 25,000 UNIT in 0.45% NACL 1 250ML.BAG IV SCH ×3 (03:12→21:14)
[2019-09-28 05:18] LABS: ABG Base Excess 12.4 mmol/L; ABG HCO3 36 mmol/L (21-25); ABG Oxygen Saturation 93.1 % (94-97); ABG PCO2 49 mmHg (35-45); ABG PH 7.47 (7.35-7.45); ABG PO2 66 mmHg (83-108); ABG TCO2 38 mmol/L (19-24); Allen Test Performed? Yes
[2019-09-28 06:05] LABS: HCT 43.1 % (39.0-53.0); HGB 12.9 gm/dL (13.0-17.5); Hypochromasia Marked; MCH 31.3 pg (25.0-35.0); MCV 104.3 fL (80.0-100.0); Macrocytosis Moderate; Platelet Count 254 k/uL (150-450); RBC 4.13 m/uL (4.30-5.90); RDW 15.1 % (11.5-15.5); WBC 13.5 k/uL (3.8-10.6)
[2019-09-28 06:48] LABS: Glucose,Whole Blood 130 mg/dL (75-99)
--- NOTE | 2019-09-28 07:24 | PN ---
PROGRESS NOTE Mr. Ardon is a 54-year-old male who presented with worsening dyspnea and peripheral edema, had a cardiopulmonary arrest requiring mechanical ventilation. He remains intubated and sedated. He continues to be in atrial fibrillation with overall controlled ventricular response. His diuresis is good. He continued to be on IV Lasix drip as well as Zaroxolyn. He has no ventricle tachycardia and he is on no vasopressors. He continues to be on amiodarone 400 mg twice a day, Diamox 250 IV q.12 hours, aspirin 81 mg daily, IV heparin, Lasix 10 mg an hour, insulin, metolazone 2.5 mg twice a day, metoprolol tartrate 75 mg 3 times a day. PHYSICAL EXAMINATION: Blood pressure running in the one teens to 120s with the heart rate in the 100's. LUNGS: Clear anteriorly. HEART: Irregular, irregular, S1, S2. No S3. No rub appreciated. ABDOMEN: Soft, obese. Positive bowel sounds. EXTREMITIES: LYNN wrapping in place, +2 edema noted. LAB DATA: Lab data revealed a hemoglobin of 12.9. His pH 7.47, pCO2 of 49, pO2 of 66. IMPRESSION: 1. Respiratory failure with evidence of fluid overload and preserved systolic function. 2. Atrial fibrillation persistent with relatively controlled ventricular response. 3. Probable obstructive sleep apnea hypercapnic and hypoxemia. 4. Morbid obesity. 5. Cellulitis. RECOMMENDATION: From the cardiac standpoint, will continue on IV heparin until the decision is to proceed with tracheostomy, then I will switch him to oral anticoagulant. I will increase the dose of his beta hayden to improve his ventricular response. We will follow his renal function closely and depending on his progress, further recommendation will be made. MMODL / IJN: [id number] /
[2019-09-28 07:27] LABS: Calcium 8.4 mg/dL (8.4-10.2); Potassium 3.5 mmol/L (3.5-5.1)
--- NOTE | 2019-09-28 07:41 | XR ---
EXAMINATION TYPE: XR chest 1V portable DATE OF EXAM: 09/28/2019 CLINICAL HISTORY: Difficulty breathing progress study. TECHNIQUE: Single AP portable supine view of the chest is obtained. COMPARISON: Chest x-ray from one day earlier and older studies. FINDINGS: Exam noted suboptimal due to patient's large body habitus and portable technique. In addit ion lateral left lung base is not completely imaged on this study. Stable endotracheal and orogastric tubes. Persistent cardiomegaly and fairly moderate central vascular congestion. Osseous structures g rossly intact. IMPRESSION: Suspect CHF exacerbation as there is cardiomegaly with early moderate central vascular co ngestion redemonstrated. No significant change from one day earlier.
[2019-09-28] MEDS: NOREPINEPHRINE 4 MG in SODIUM CHLORIDE 0.9% 250 ML IV SCH ×5 (07:46→23:16)
[2019-09-28] MEDS: INSULIN ASPART (NovoLOG) 100 UNIT/ML VIAL SQ SCH ×3 (07:47→19:16)
[2019-09-28] MEDS: SODIUM CHLORIDE 0.9% 1,000 ML IV SCH (07:47)
[2019-09-28] MEDS: PIPERACILLIN-TAZOBACTAM 3.375 GM in SODIUM CHLORIDE 0.9% 100 ML IVPB SCH ×2 (08:47→16:02)
[2019-09-28] MEDS: AMIODARONE 200 MG TAB PO SCH ×2 (08:48→19:59)
[2019-09-28] MEDS: ASPIRIN 81 MG PO SCH (08:49)
[2019-09-28] MEDS: PANTOPRAZOLE 40 MG/10 ML VIAL IV SCH (08:49)
[2019-09-28] MEDS: METOPROLOL TARTRATE 50 MG TAB PO SCH ×3 (08:49→19:59)
[2019-09-28] MEDS: CHLORHEXIDINE GLUCONATE 15 ML CUP MUCOUS MEM SCH ×2 (08:49→19:59)
[2019-09-28] MEDS: TRIAMCINOLONE 0.1% CREAM 80 GM TUBE TOPICAL SCH ×2 (08:49→20:01)
[2019-09-28] MEDS: METOLAZONE 2.5 MG TAB PO SCH ×2 (08:51→20:00)
--- NOTE | 2019-09-28 09:35 | P.PN ---
Subjective Progress Note Date: 09/28/19 Principal diagnosis: Acute hypoxic respiratory failure secondary to cardiac arrest, requiring CPR On 09/29/2019 patient seen in follow-up in the intensive care unit. He remains sedated and intubated, current vent settings are assist-control mode of ventilation with a rate of 30, tidal volume 500, FiO2 of 55% and PEEP of 14, this morning's blood gases showed pO2 of 66, pCO2 of 49, and pH of 7.47. IV fluids and drips include 0.9 normal saline at a rate of 10 ML per hour, Lasix at 10 mg per hour, Diprivan and is at 20 mics per kilo per minute, and heparin per weight-based protocol, patient remains in atrial fibrillation with a rate of 105 BPM. T-max in the last 24 hours was 101.2F, a low-grade fevers this morning a temp of 99.2F. Today's chest x-ray shows persistent cardiomegaly and fairly moderate central vascular congestion without significant change from yesterday's exam. Patient is in -1.2 L net fluid balance over the last 24 hours. Remains on combination of antibiotics with daptomycin and Zosyn. The patient and did have a urine culture positive for E. coli, sputum, blood cultures and wound cultures from the left and right leg cellulitis have been negative to date. Today's labs have been reviewed, showing no evidence of, 13.5, hemoglobin of 12.9, sodium was 140, potassium 3.5, chloride is 98, CO2 35, BUN of 41, creatinine is 1.4. Patient is tolerating tube feedings, currently on vital high-protein at a rate of 100 with a goal of 100. Sedation holiday has not been attempted yet this morning, but patient is lightly sedated only on 20 mics of the previously on, and she is opening eyes to voice. Not following commands yet. Appears to be comfortable. Surgical consultation was placed to Gen. surgery for placement of tracheostomy and PEG tube placement. Objective - Vital Signs Vital signs: Vital Signs Temp 99.2 F 09/28/19 08:00 Pulse 105 H 09/28/19 09:00 Resp 24 09/28/19 09:00 BP 112/79 09/23/19 09:30 Pulse Ox 92 L 09/28/19 09:00 Intake & Output 09/27/19 09/28/1920 18:59 06:59 18:59 Intake Total 3083.301 1938.913 440.046 Output Total 3400 5850 1650 Balance -316.699 -3911.087 -1209.954 Weight 239.582 kg Intake: IV 469 353 49 0.9NS Pressure Bag 39 33 9 Furosemide 100 mg In 130 110 10 Sodium Chloride 0.9% 90 ml @ 10 MG/HR 10 mls/hr IV .Q10H [facility] Rx#: [id number] Piperacillin-Tazobactam 3 175 100 .375 gm In Sodium Chloride 0.9% 100 ml @ 25 mls/hr IVPB Q8HR [facility] Rx# :[id number] Sodium Chloride 0.9% 1, 125 110 30 000 ml @ 10 mls/hr IV . Q24H [facility] Rx#:[id number] Intake, IV Titration 924.301 495.913 91.046 Amount Furosemide 100 mg In 65.667 100 Sodium Chloride 0.9% 90 ml @ 10 MG/HR 10 mls/hr IV .Q10H [facility] Rx#: [id number] Heparin Sod,Pork in 0.45% 482.927 203.382 NaCl 25,000 unit In 0.45 % NaCl 1 250ml.bag @ 8. 846 UNITS/KG/HR 23 mls/hr IV .[id number] [facility] Rx#: [id number] Propofol 1,000 mg In 375.707 192.531 91.046 Empty Bag 1 bag @ Titrate IV .Q0M [facility] Rx#: [id number] Tube Feeding 1600 1000 300 Other 90 90 Output: Urine 3400 5850 1650 Other: Voiding Method Indwelling Catheter Indwelling Catheter Indwelling Catheter ABP, PAP, CO, CI - Last Documented Arterial Blood Pressure 118/73 - Exam GENERAL EXAM: Sedated, super morbidly obese 54-year-old white male intubated, sedated on mechanical ventilator comfortable in no apparent distress. HEAD: Normocephalic/atraumatic. EYES: Normal reaction of pupils, equal size. Conjunctiva pink, sclera white. NOSE: Clear with pink turbinates. THROAT: No erythema or exudates. NECK: No masses, no JVD, no thyroid enlargement, no adenopathy. CHEST: No chest wall deformity. Symmetrical expansion. LUNGS: Equal air entry with no crackles, wheeze, rhonchi or dullness. CVS: Irregular rate and rhythm, normal S1 and S2, no gallops, no murmurs, no rubs ABDOMEN: Soft, nontender. No hepatosplenomegaly, normal bowel sounds, no guarding or rigidity. EXTREMITIES: No clubbing, 2+ lower extremity edema, nonpitting involving abdominal wall, and bilateral lower extremities with chronic venous stasis changes. no cyanosis, 2+ pulses and upper and lower extremities. MUSCULOSKELETAL: Muscle strength and tone normal. SPINE: No scoliosis or deformity SKIN: Cellulitis involving lower extremities both legs are wrapped. Redness, and rash involving upper arms CENTRAL NERVOUS SYSTEM: Sedated, intubated. No focal deficits, tone is normal in all 4 extremities. - Labs CBC & Chem 7: 09/28/19 05:35 09/28/19 05:35 Labs: Abnormal Lab Results - Last 24 Hours (Table) 09/27/19 09/27/19 09/27/19 Range/Units 11:46 14:15 17:39 WBC (3.8-10.6) k/uL RBC (4.30-5.90) m/uL Hgb (13.0-17.5) gm/dL MCV (80.0-100.0) fL MCHC (31.0-37.0) g/dL APTT 48.6 H (22.0-30.0) sec ABG pH (7.35-7.45) ABG pCO2 (35-45) mmHg ABG pO2 (83-108) mmHg ABG HCO3 (21-25) mmol/L ABG Total CO2 (19-24) mmol/L ABG O2 Saturation (94-97) % Carbon Dioxide (22-30) mmol/L BUN (9-20) mg/dL Creatinine (0.66-1.25) mg/dL Glucose (74-99) mg/dL POC Glucose (mg/dL) 148 H 137 H (75-99) mg/dL 09/27/19 09/28/19 09/28/19 Range/Units 23:32 05:12 05:35 WBC 13.5 H (3.8-10.6) k/uL RBC 4.13 L (4.30-5.90) m/uL Hgb 12.9 L (13.0-17.5) gm/dL MCV 104.3 H (80.0-100.0) fL MCHC 30.0 L (31.0-37.0) g/dL APTT (22.0-30.0) sec ABG pH 7.47 H (7.35-7.45) ABG pCO2 49 H (35-45) mmHg ABG pO2 66 L (83-108) mmHg ABG HCO3 36 H (21-25) mmol/L ABG Total CO2 38 H (19-24) mmol/L ABG O2 Saturation 93.1 L (94-97) % Carbon Dioxide (22-30) mmol/L BUN (9-20) mg/dL Creatinine (0.66-1.25) mg/dL Glucose (74-99) mg/dL POC Glucose (mg/dL) 135 H (75-99) mg/dL 09/28/19 09/28/19 09/28/19 Range/Units 05:35 05:35 06:46 WBC (3.8-10.6) k/uL RBC (4.30-5.90) m/uL Hgb (13.0-17.5) gm/dL MCV (80.0-100.0) fL MCHC (31.0-37.0) g/dL APTT 43.3 H (22.0-30.0) sec ABG pH (7.35-7.45) ABG pCO2 (35-45) mmHg ABG pO2 (83-108) mmHg ABG HCO3 (21-25) mmol/L ABG Total CO2 (19-24) mmol/L ABG O2 Saturation (94-97) % Carbon Dioxide 35 H (22-30) mmol/L BUN 41 H (9-20) mg/dL Creatinine 1.40 H (0.66-1.25) mg/dL Glucose 133 H (74-99) mg/dL POC Glucose (mg/dL) 130 H (75-99) mg/dL Microbiology - Last 24 Hours (Table) 09/23/19 09:25 Blood Culture - Preliminary Blood No Growth after 96 hours 09/23/19 08:46 Blood Culture - Preliminary Blood No Growth after 96 hours Assessment and Plan Plan: Assessment: #1. Acute hypoxic respiratory failure secondary to cardiac arrest, requiring CPR for 9 minutes related to acute cardiogenic pulmonary edema #2. Acute cardiogenic pulmonary edema with possible diastolic dysfunction #3. Morbid obesity with acute on chronic respiratory acidosis, suspected underlying obstructive sleep apnea and obesity/hypoventilation syndrome #4. New-onset atrial fibrillation, and the patient remains in atrial fibrillation currently on heparin infusion, oral amiodarone, and metoprolol 100 mg 3 times daily. Possibility of pulmonary embolism is considered however was felt to be less likely especially with negative venous Dopplers, and patient is already on anticoagulation in the form of heparin for his atrial fibrillation with RVR. #5. Severe cellulitis of lower extremities and scrotal cellulitis, possible sepsis, wound cultures on bilateral lower extremities are nondiagnostic, patient remains on daptomycin and Zosyn #6. Possible sick brain injury, suspect anoxic encephalopathy #7. Status post PICC line placement on 09/25/2019 #8. Acute urinary tract infection secondary to E. coli #9. Acute kidney injury, ATN Plan: Continue with current vent settings, continue Lasix infusion, today's chest x- ray has been reviewed and is still showing central vascular congestion. Antibiotics per ID service recommendations, he'll pattern seems to be improving although patient is still having low-grade fevers. Maintaining negative fluid balance, continue current dose Diamox, will speak to cardiology about keeping the heparin infusion for anticoagulation for possibility of tracheostomy and PEG tube placement. Surgical consultation has already been placed to Gen. surgery. Proceed with daily interruption of sedation assessment status. GI and DVT prophylaxis and nutritional support. We'll continue to monitor in the intensive care unit I performed a history & physical examination of the patient and discussed their management with my nurse practitioner, Ely Roland. I reviewed the nurse practitioner's note and agree with the documented findings and plan of care. Lung sounds are positive for diminished breath sounds.. The findings and the impression was discussed with the patient. I attest to the documentation by the nurse practitioner. Time with Patient: Greater than 30
[2019-09-28 11:45] LABS: Glucose,Whole Blood 132 mg/dL (75-99)
--- NOTE | 2019-09-28 12:19 | P.PN ---
Subjective Progress Note Date: 09/28/19 CHIEF COMPLAINT: Trach and PEG HISTORY OF PRESENT ILLNESS: Patient examined in the intensive care unit with Dr. Clemente. He remains on mechanical ventilation. He is receiving continuous sedation. Tube feedings are infusing. PHYSICAL EXAM: VITAL SIGNS: Reviewed. GENERAL: Well-developed in no acute distress. HEENT: No sclera icterus. Extraocular movements grossly intact. Moist buccal mucosa. Head is atraumatic, normocephalic. ABDOMEN: Soft. Nondistended. Nontender. NEUROLOGIC: Sedated on mechanical ventilation ASSESSMENT: 1. Acute hypoxic respiratory failure PLAN: -Stop tube feedings at midnight -Stop heparin drip at 0300 -Patient scheduled for trach/peg tomorrow with Dr. Clemente Nurse practitioner note has been reviewed by physician. Signing provider agrees with the documented findings, assessment, and plan of care. Objective - Vital Signs Vital signs: Vital Signs Temp 99.2 F 09/28/19 08:00 Pulse 91 09/28/19 11:54 Resp 30 H 09/28/19 10:00 BP 112/79 09/23/19 09:30 Pulse Ox 93 L 09/28/19 10:00 Intake & Output 09/27/19 09/28/19 09/28/19 18:59 06:59 18:59 Intake Total 3083.301 1938.913 703.046 Output Total 3400 5850 1999 Balance -316.699 -3911.087 -1296.954 Weight 239.582 kg 239.582 kg Intake: IV 469 353 62 0.9NS Pressure Bag 39 33 12 Furosemide 100 mg In 130 110 10 Sodium Chloride 0.9% 90 ml @ 10 MG/HR 10 mls/hr IV .Q10H [facility] Rx#: [id number] Piperacillin-Tazobactam 3 175 100 .375 gm In Sodium Chloride 0.9% 100 ml @ 25 mls/hr IVPB Q8HR [facility] Rx# :[id number] Sodium Chloride 0.9% 1, 125 110 40 000 ml @ 10 mls/hr IV . Q24H [facility] Rx#:[id number] Intake, IV Titration 924.301 495.913 341.046 Amount Furosemide 100 mg In 65.667 100 Sodium Chloride 0.9% 90 ml @ 10 MG/HR 10 mls/hr IV .Q10H [facility] Rx#: [id number] Heparin Sod,Pork in 0.45% 482.927 203.382 250 NaCl 25,000 unit In 0.45 % NaCl 1 250ml.bag @ 8. 846 UNITS/KG/HR 23 mls/hr IV .[id number] [facility] Rx#: [id number] Propofol 1,000 mg In 375.707 192.531 91.046 Empty Bag 1 bag @ Titrate IV .Q0M [facility] Rx#: [id number] Tube Feeding 1600 1000 300 Other 90 90 Output: Urine 3400 5850 2000 Other: Voiding Method Indwelling Catheter Indwelling Catheter Indwelling Catheter ABP, PAP, CO, CI - Last Documented Arterial Blood Pressure 91/57 - Labs CBC & Chem 7: 09/28/19 05:35 09/28/19 05:35 Labs: Abnormal Lab Results - Last 24 Hours (Table) 09/27/19 09/27/19 09/27/19 Range/Units 14:15 17:39 23:32 WBC (3.8-10.6) k/uL RBC (4.30-5.90) m/uL Hgb (13.0-17.5) gm/dL MCV (80.0-100.0) fL MCHC (31.0-37.0) g/dL APTT 48.6 H (22.0-30.0) sec ABG pH (7.35-7.45) ABG pCO2 (35-45) mmHg ABG pO2 (83-108) mmHg ABG HCO3 (21-25) mmol/L ABG Total CO2 (19-24) mmol/L ABG O2 Saturation (94-97) % Carbon Dioxide (22-30) mmol/L BUN (9-20) mg/dL Creatinine (0.66-1.25) mg/dL Glucose (74-99) mg/dL POC Glucose (mg/dL) 137 H 135 H (75-99) mg/dL 09/28/19 09/28/19 09/28/19 Range/Units 05:12 05:35 05:35 WBC 13.5 H (3.8-10.6) k/uL RBC 4.13 L (4.30-5.90) m/uL Hgb 12.9 L (13.0-17.5) gm/dL MCV 104.3 H (80.0-100.0) fL MCHC 30.0 L (31.0-37.0) g/dL APTT 43.3 H (22.0-30.0) sec ABG pH 7.47 H (7.35-7.45) ABG pCO2 49 H (35-45) mmHg ABG pO2 66 L (83-108) mmHg ABG HCO3 36 H (21-25) mmol/L ABG Total CO2 38 H (19-24) mmol/L ABG O2 Saturation 93.1 L (94-97) % Carbon Dioxide (22-30) mmol/L BUN (9-20) mg/dL Creatinine (0.66-1.25) mg/dL Glucose (74-99) mg/dL POC Glucose (mg/dL) (75-99) mg/dL 09/28/19 09/28/19 09/28/19 Range/Units 05:35 06:46 11:43 WBC (3.8-10.6) k/uL RBC (4.30-5.90) m/uL Hgb (13.0-17.5) gm/dL MCV (80.0-100.0) fL MCHC (31.0-37.0) g/dL APTT (22.0-30.0) sec ABG pH (7.35-7.45) ABG pCO2 (35-45) mmHg ABG pO2 (83-108) mmHg ABG HCO3 (21-25) mmol/L ABG Total CO2 (19-24) mmol/L ABG O2 Saturation (94-97) % Carbon Dioxide 35 H (22-30) mmol/L BUN 41 H (9-20) mg/dL Creatinine 1.40 H (0.66-1.25) mg/dL Glucose 133 H (74-99) mg/dL POC Glucose (mg/dL) 130 H 132 H (75-99) mg/dL Microbiology - Last 24 Hours (Table) 09/23/19 09:25 Blood Culture - Preliminary Blood No Growth after 120 hours 09/23/19 08:46 Blood Culture - Preliminary Blood No Growth after 120 hours
[2019-09-28] MEDS: DAPTOmycin 500 MG in SODIUM CHLORIDE 0.9% 50 ML IVPB SCH (15:04)
[2019-09-28] MEDS: FUROSEMIDE 100 MG in SODIUM CHLORIDE 0.9% 90 ML IV SCH (16:02)
--- NOTE | 2019-09-28 16:35 | PN ---
PROGRESS NOTE Patient is seen for followup for acute kidney injury. The patient is currently being diuresed. He is maintained on a Lasix drip. Urine output has actually picked up overnight with urine output at 500 am to 400 mL/hour. FiO2 is at 55%, but patient is on 14 of PEEP. No pressors. He is hemodynamically stable. PHYSICAL EXAMINATION: This morning blood pressure was 113/64, heart rate 96 per minute, he is afebrile. Examination of the heart S1, S2. Examination of the lungs, bilateral breath sounds are heard. Abdomen is distended, obese. Examination of the lower extremities. Bilateral extremities are wrapped. [employer]ATFORM [employer]INE[employer] exam cannot be assessed. LABS: Show sodium of 140, potassium 3.5, chloride 98, CO2 is 35, BUN 41, creatinine 1.4, calcium 8.4. ASSESSMENT: 1. Acute kidney injury, nonoliguric, mainly ATN, currently with increased urine output. The patient is also severely volume overloaded and is currently being diuresed. 2. Volume overload, maintained on Lasix drip along with Zaroxolyn, currently diuresing well. Continue to monitor electrolytes and hemodynamics. 3. Status post cardiopulmonary arrest. 4. Metabolic alkalosis secondary to diuresis. 5. Urinary tract infection. Urine culture grew E coli. 6. Hypoxic respiratory failure. PLAN: Continue with the Lasix drip for now, repeat labs in a.m. Continue with the Zaroxolyn and the Diamox. MMODL / IJN: [id number] /
[2019-09-28] MEDS: HEPARIN SODIUM,PORCINE 5,000 UNIT/ML 1 ML VIAL IV PRN (17:25)
[2019-09-28 18:09] LABS: Basophils % (A) 0 %; Eosinophils # (A) 0.1 k/uL (0-0.7); Eosinophils % (A) 1 %; HCT 43.8 % (39.0-53.0); HGB 13.2 gm/dL (13.0-17.5); Hypochromasia Marked; Lymphocytes # (A) 1.4 k/uL (1.0-4.8); Lymphocytes % (A) 10 %; MCHC 30.2 g/dL (31.0-37.0); Macrocytosis Moderate; Monocytes # (A) 0.6 k/uL (0-1.0); Monocytes % (A) 5 %; Neutrophils % (A) 83 %; Platelet Count 261 k/uL (150-450); RBC 4.14 m/uL (4.30-5.90); WBC 13.3 k/uL (3.8-10.6)
[2019-09-28 19:03] LABS: Glucose,Whole Blood 167 mg/dL (75-99)
--- NOTE | 2019-09-28 19:12 | PN ---
PROGRESS NOTE DATE OF SERVICE: 09/28/2019 REASON FOR FOLLOWUP: Aspiration pneumonitis and lower extremity cellulitis. INTERVAL HISTORY: The patient is currently afebrile. The patient is hemodynamically stable. FiO2 is currently 55%. The patient remains to be intubated on the vent. No other changes reported by nursing staff. PHYSICAL EXAMINATION: Blood pressure 104/59 with a pulse of 100. Temperature 98.4. He is 90% on 55% FiO2. General description is a middle-aged male intubated on the vent. Respiratory system: Unlabored breathing. Clear to auscultation anteriorly. HEART: S1, S2. Regular rate and rhythm. Abdomen: Soft. No tenderness. LABS: Hemoglobin is 12.8, white count 13.5. BUN of 41, creatinine 1.40. Urine with E coli. Leg wounds are currently negative. DIAGNOSTIC IMPRESSION AND PLAN: Patient with acute respiratory failure which is multifactorial in this patient who did have cardiac arrest with concern for possible aspiration pneumonitis. Patient is covered with Zosyn. In view of lower extremity swelling, cellulitis, covered daptomycin to continue and monitor clinical course closely. MMODL / IJN: [id number] /
--- NOTE | 2019-09-28 19:38 | P.PN ---
Subjective On-call hospitalist covering for Dr. Ramos From records This is a 54-year-old patient of Dr. Wilmer blount. Presented to ER with multiple complaints. Stated that 4 days ago. Patient's testicles on the toilet this is then he developed swelling and tenderness. Also complained of some lower back pain with walking that is had for years. Also chronic lower extremity swelling. Which is increase in the last few weeks. He is also noticing increasing fluid discharge from lower extremity thought it may be infected. Also shortness of breath going on for a few months. Patient is admitted to the medical floor. At 3:25 AM cord probing was activated. Patient did develop ventricular fibrillation on a monitoring tech and was found unresponsive in the room. Patient received IV epinephrine, sodium bicarbonate and calcium chloride. Initially found to be JANIA then into ventricular fibrillation and was shocked 3. Transferred to the ICU. Patient is return of spontaneous circulation at 3:43 AM. This morning patient is on the ventilator. Also had an episode of what could've been atrial fibrillation with a high heart rate of 160s was given 5 mg of IV metoprolol and then started on IV amiodarone. Admitted with-scrotal cellulitis, septic shock, troponin leak, cardiac arrest from DIMAS, bilateral lower extremity venous insufficiency wounds, paroxysmal atrial fibrillation with rapid ventricular rate, acute hypoxic and hypercapnic respiratory failure requiring ventilator support, acute kidney injury from ATN. Started on bronchodilators, steroids, daptomycin, Zosyn, pressor support propofol. Today-ICU. Remains on the ventilator. FiO2 50 and PEEP of 12. Atrial fibrillation. Drips include IV Lasix and IV propofol. 2 feeding 100 mL an hour. Sedated. 09/28/2019 Patient remains in the ICU, sedated and intubated. He is status post cardiac arrest for 9 minutes related to cardiopulmonary edema as per critical care team evaluation. With acute hypoxic respiratory failure needing intubation and mechanical ventilation. With suspected anoxic brain injury. Also patient found to have multiple problems including infection with UTIs secondary to E. coli and bilateral cellulitis of the leg and scrotal. Also he has acute diastolic congestive heart failure and new onset atrial fibrillation and placed on heparin drip. Because of fluid overload and pulmonary condition is on Lasix drip at 10 mg per hour. He needed pressors.. He is also on Zosyn and daptomycin and aspirin Surgery team are planning for peptic/tracheostomy tomorrow His creatinine is 1.4, baseline 1.0, WBCs 15.5 K, liver function tests slightly elevated liver enzymes. He had fever yesterday of 101, no fever so far today. His breathing at a rate of 30 Review of systems: N/a Active Medications Generic Name Dose Route Start Last Admin Trade Name Freq PRN Reason Stop Dose Admin Acetaminophen 650 mg 09/22/19 15:10 09/27/19 11:55 Tylenol Tab PO 650 mg Q6HR PRN Administration Mild Pain or Fever > 100.5 Acetazolamide Sodium 250 mg 09/25/19 09:00 09/28/19 08:48 Diamox IV 250 mg Q12HR VENANCIO Administration Albuterol/Ipratropium 3 ml 09/23/19 08:00 09/28/19 15:55 Duoneb 0.5 Mg-3 Mg/3 Ml Soln INHALATION 3 ml RT-Q4H VENANCIO Administration Albuterol/Ipratropium 3 ml 09/23/19 08:11 Duoneb 0.5 Mg-3 Mg/3 Ml Soln INHALATION RT-Q2H PRN Shortness Of Breath Or Wheezing Amiodarone HCl 400 mg 09/24/19 09:00 09/28/19 08:48 Cordarone PO 400 mg BID VENANCIO Administration Artificial Tears 2 drops 09/25/19 22:31 Artificial Tear Drops BOTH EYES QID PRN Dry Eye(s) Aspirin 81 mg 09/23/19 09:00 09/28/19 08:49 Aspirin PO 81 mg DAILY VENANCIO Administration Chlorhexidine Gluconate 15 ml 09/23/19 09:00 09/28/19 08:49 Peridex MUCOUS MEM 15 ml BID VENANCIO Administration Heparin Sodium (Porcine) 0 unit 09/23/19 09:45 09/28/19 17:25 Heparin IV 9,583 unit PER PROTOCOL PRN Administration Low PTT Protocol Hydromorphone HCl 0.5 mg 09/22/19 15:10 09/22/19 18:22 Dilaudid IVP 0.5 mg Q3HR PRN Administration Moderate Pain Propofol 1,000 mg/ IV Solution 100 mls @ 0 mls/hr 09/23/19 04:30 09/28/19 10:00 IV 0 mcg/kg/min .Q0M VENANCIO 0 mls/hr Titration Protocol Titrate Piperacillin Sod/Tazobactam 100 mls @ 25 mls/hr 09/23/19 08:00 09/28/19 16:02 Sod 3.375 gm/ Sodium Chloride IVPB 25 mls/hr Q8HR VENANCIO Administration Sodium Chloride 1,000 mls @ 10 mls/hr 09/23/19 07:00 09/28/19 07:47 Saline 0.9% IV Not Given .Q24H VENANCIO Heparin Sodium/Sodium Chloride 250 mls @ 23 mls/hr 09/23/19 09:45 09/28/19 17:27 25,000 unit/ Sodium Chloride IV 19 units/kg/hr .[id number] VENANCIO 49.4 mls/hr Administration Protocol 8.846 UNITS/KG/HR Norepinephrine Bitartrate 4 mg 254 mls @ 49.53 mls/hr 09/23/19 10:00 09/28/19 19:00 / Sodium Chloride IV Not Given .Q5H8M VENANCIO Protocol 0.05 MCG/KG/MIN Daptomycin 500 mg/ Sodium 50 mls @ 100 mls/hr 09/23/19 14:00 09/28/19 15:04 Chloride IVPB 100 mls/hr Q24H VENANCIO Administration Protocol Furosemide 100 mg/ Sodium 100 mls @ 10 mls/hr 09/26/19 12:00 09/28/19 16:02 Chloride IV 10 mg/hr .Q10H VENANCIO 10 mls/hr Administration 10 MG/HR Insulin Aspart 0 unit 09/23/19 12:00 09/28/19 19:16 Novolog SQ 3 unit Q6H VENANCIO Administration Protocol Metolazone 2.5 mg 09/27/19 12:45 09/28/19 08:51 Zaroxolyn PO 2.5 mg BID VENANCIO Administration Metoprolol Tartrate 100 mg 09/28/19 09:00 09/28/19 16:01 Lopressor PO 100 mg TID VENANCIO Administration Miscellaneous Information 1 each 09/25/19 06:41 Potassium Per Protocol MISCELLANE DAILY PRN Per Protocol Protocol Morphine Sulfate 4 mg 09/22/19 15:10 Morphine Sulfate (Inj) IV Q4HR PRN Severe Pain Naloxone HCl 0.2 mg 09/22/19 15:10 Narcan IV Q2M PRN Opioid Reversal Ondansetron HCl 4 mg 09/22/19 15:10 Zofran IVP Q8HR PRN Nausea And Vomiting Pantoprazole Sodium 40 mg 09/23/19 11:15 09/28/19 08:49 Protonix IV 40 mg DAILY VENANCIO Administration Sodium Chloride 10 ml 09/25/19 11:06 Saline Flush IV Q4HR PRN PICC Line Sodium Chloride 10 ml 10/02/19 09:00 Saline Flush IV WEEKLY VENANCIO Sodium Chloride 20 ml 09/25/19 11:06 Saline Flush IV Q4HR PRN PICC Line Triamcinolone Acetonide 1 applic 09/25/19 09:15 09/28/19 08:49 Kenalog TOPICAL 1 applic BID VENANCIO Administration Objective - Vital Signs Vital signs: Vital Signs Temp 98.4 F 09/28/19 16:00 Pulse 101 H 09/28/19 17:00 Resp 30 H 09/28/19 17:00 BP 112/79 09/23/19 09:30 Pulse Ox 92 L 09/28/19 17:00 Intake & Output 09/27/19 09/28/19 09/28/19 18:59 06:59 18:59 Intake Total 3083.301 9687.317 2667.670 Output Total 3400 5850 3750 Balance -316.699 -3911.087 -2369.330 Weight 239.582 kg 239.582 kg Intake: IV 469 353 256 0.9NS Pressure Bag 39 33 36 DAPTOmycin 500 mg In 100 Sodium Chloride 0.9% 50 ml @ 100 mls/hr IVPB Q24H VENANCIO Rx#:[id number] Furosemide 100 mg In 130 110 10 Sodium Chloride 0.9% 90 ml @ 10 MG/HR 10 mls/hr IV .Q10H VENANCIO Rx#: [id number] Piperacillin-Tazobactam 3 175 100 .375 gm In Sodium Chloride 0.9% 100 ml @ 25 mls/hr IVPB Q8HR VENANCIO Rx# :[id number] Sodium Chloride 0.9% 1, 125 110 110 000 ml @ 10 mls/hr IV . Q24H VENANCIO Rx#:[id number] Intake, IV Titration 924.301 495.913 524.670 Amount Furosemide 100 mg In 65.667 100 100 Sodium Chloride 0.9% 90 ml @ 10 MG/HR 10 mls/hr IV .Q10H VENANCIO Rx#: [id number] Heparin Sod,Pork in 0.45% 482.927 203.382 250 NaCl 25,000 unit In 0.45 % NaCl 1 250ml.bag @ 8. 846 UNITS/KG/HR 23 mls/hr IV .[id number] VENANCIO Rx#: [id number] Propofol 1,000 mg In 375.707 192.531 174.670 Empty Bag 1 bag @ Titrate IV .Q0M VENANCIO Rx#: [id number] Tube Feeding 1600 1000 600 Other 90 90 Output: Urine 3400 5850 3750 Other: Voiding Method Indwelling Catheter Indwelling Catheter Indwelling Catheter ABP, PAP, CO, CI - Last Documented Arterial Blood Pressure 121/61 - Exam -GENERAL: The patient is intubated and sedated, morbidly obese HEENT: Pupils are round and equally reacting to light. EOMI. No scleral icterus. No conjunctival pallor. Normocephalic, atraumatic. No pharyngeal erythema. No thyromegaly. CARDIOVASCULAR: S1 and S2 present. No murmurs, rubs, or gallops. -PULMONARY: Chest is clear to auscultation, bilateral crepitation, low total breath sounds. ABDOMEN: Soft, nontender, nondistended, normoactive bowel sounds. No palpable organomegaly. MUSCULOSKELETAL: No joint swelling or deformity. -EXTREMITIES: No cyanosis, clubbing. Bilateral leg swelling and scrotal swelling NEUROLOGICAL: Gross neurological examination did not reveal any focal deficits. SKIN: No rashes. no petechiae. - Labs CBC & Chem 7: 09/28/19 Unknown 09/28/19 05:35 Labs: Abnormal Lab Results - Last 24 Hours (Table) 09/27/19 09/27/19 09/28/19 Range/Units 17:39 23:32 05:12 WBC (3.8-10.6) k/uL RBC (4.30-5.90) m/uL Hgb (13.0-17.5) gm/dL MCV (80.0-100.0) fL MCHC (31.0-37.0) g/dL APTT (22.0-30.0) sec ABG pH 7.47 H (7.35-7.45) ABG pCO2 49 H (35-45) mmHg ABG pO2 66 L (83-108) mmHg ABG HCO3 36 H (21-25) mmol/L ABG Total CO2 38 H (19-24) mmol/L ABG O2 Saturation 93.1 L (94-97) % Carbon Dioxide (22-30) mmol/L BUN (9-20) mg/dL Creatinine (0.66-1.25) mg/dL Glucose (74-99) mg/dL POC Glucose (mg/dL) 137 H 135 H (75-99) mg/dL 09/28/19 09/28/19 09/28/19 Range/Units 05:35 05:35 05:35 WBC 13.5 H (3.8-10.6) k/uL RBC 4.13 L (4.30-5.90) m/uL Hgb 12.9 L (13.0-17.5) gm/dL MCV 104.3 H (80.0-100.0) fL MCHC 30.0 L (31.0-37.0) g/dL APTT 43.3 H (22.0-30.0) sec ABG pH (7.35-7.45) ABG pCO2 (35-45) mmHg ABG pO2 (83-108) mmHg ABG HCO3 (21-25) mmol/L ABG Total CO2 (19-24) mmol/L ABG O2 Saturation (94-97) % Carbon Dioxide 35 H (22-30) mmol/L BUN 41 H (9-20) mg/dL Creatinine 1.40 H (0.66-1.25) mg/dL Glucose 133 H (74-99) mg/dL POC Glucose (mg/dL) (75-99) mg/dL 09/28/19 09/28/19 09/28/19 Range/Units 06:46 11:43 15:44 WBC (3.8-10.6) k/uL RBC (4.30-5.90) m/uL Hgb (13.0-17.5) gm/dL MCV (80.0-100.0) fL MCHC (31.0-37.0) g/dL APTT 40.8 H (22.0-30.0) sec ABG pH (7.35-7.45) ABG pCO2 (35-45) mmHg ABG pO2 (83-108) mmHg ABG HCO3 (21-25) mmol/L ABG Total CO2 (19-24) mmol/L ABG O2 Saturation (94-97) % Carbon Dioxide (22-30) mmol/L BUN (9-20) mg/dL Creatinine (0.66-1.25) mg/dL Glucose (74-99) mg/dL POC Glucose (mg/dL) 130 H 132 H (75-99) mg/dL Microbiology - Last 24 Hours (Table) 09/23/19 09:25 Blood Culture - Preliminary Blood No Growth after 120 hours 09/23/19 08:46 Blood Culture - Preliminary Blood No Growth after 120 hours Assessment and Plan Assessment: Acute hypoxic respiratory failure, on mechanical ventilation Status post cardiac arrest related to cardiopulmonary edema Acute diastolic congestive heart failure New-onset atrial fibrillation Possible anoxic brain injury UTI secondary to E. coli Bilateral cellulitis of legs and scrotum Acute kidney injury Morbid obesity Plan: This is a 54 years old male who presents with cardiac arrest, anoxic brain injury, CHF and UTI/cellulitis. Continue with daptomycin and Zosyn and antibiotics as per ID team. He is on heparin drip with plan to switch to oral antral cannulation by cardiology. Continue with diuretic and pressors as needed. Is followed by several consultants including pulmonary/critical care team, nephrology, surgery, infectious disease and cardiology. Labs and medication were reviewed.. Continue same treatment. Continue with symptomatic treatment. Resume home medication. Monitor lytes and vitals. DVT and GI prophylaxis. Further recommendations of the clinical course of the patient DVT prophylaxis: heparin GI Prophylaxis: Protonix Prognosis is guarded
[2019-09-28 23:27] LABS: Glucose,Whole Blood 130 mg/dL (75-99)
[2019-09-29] MEDS: INSULIN ASPART (NovoLOG) 100 UNIT/ML VIAL SQ SCH ×4 (00:02→17:24)
[2019-09-29] MEDS: IPRATROPIUM-ALBUTEROL 3 ML NEB INHALATION SCH ×7 (00:28→23:26)
[2019-09-29] MEDS: PIPERACILLIN-TAZOBACTAM 3.375 GM in SODIUM CHLORIDE 0.9% 100 ML IVPB SCH ×3 (00:53→17:27)
[2019-09-29] MEDS: FUROSEMIDE 100 MG in SODIUM CHLORIDE 0.9% 90 ML IV SCH ×3 (00:53→19:55)
[2019-09-29] MEDS: PROPOFOL 1,000 MG in EMPTY BAG 1 BAG IV SCH ×9 (00:55→21:45)
[2019-09-29] MEDS: NOREPINEPHRINE 4 MG in SODIUM CHLORIDE 0.9% 250 ML IV SCH ×4 (04:24→19:56)
[2019-09-29 04:51] LABS: Calcium 8.6 mg/dL (8.4-10.2); Potassium 3.4 mmol/L (3.5-5.1)
[2019-09-29 05:36] LABS: ABG Base Excess 14.5 mmol/L; ABG HCO3 38 mmol/L (21-25); ABG PCO2 49 mmHg (35-45); ABG TCO2 39 mmol/L (19-24); Allen Test Performed? Yes
[2019-09-29 05:41] LABS: ABG PO2 59 mmHg (83-108)
[2019-09-29] MEDS: SODIUM CHLORIDE 0.9% 1,000 ML IV SCH (06:05)
[2019-09-29] MEDS: POTASSIUM BICARBONATE/CIT AC 20 MEQ TABLET.EFF NG-TUBE SCH ×4 (07:04→20:03)
[2019-09-29] MEDS: METOPROLOL TARTRATE 50 MG TAB PO SCH ×3 (07:04→19:54)
[2019-09-29] MEDS: PANTOPRAZOLE 40 MG/10 ML VIAL IV SCH (08:12)
[2019-09-29] MEDS: AMIODARONE 200 MG TAB PO SCH ×2 (08:12→19:54)
[2019-09-29] MEDS: CHLORHEXIDINE GLUCONATE 15 ML CUP MUCOUS MEM SCH ×2 (08:12→19:54)
[2019-09-29] MEDS: METOLAZONE 2.5 MG TAB PO SCH ×2 (08:13→19:54)
[2019-09-29] MEDS: ACETAMINOPHEN TAB 325 MG TAB PO PRN ×2 (08:16→20:12)
[2019-09-29] MEDS: TRIAMCINOLONE 0.1% CREAM 80 GM TUBE TOPICAL SCH ×2 (08:19→19:55)
--- NOTE | 2019-09-29 08:47 | P.PN ---
Subjective Progress Note Date: 09/29/19 Principal diagnosis: Acute hypoxic respiratory failure secondary to cardiac arrest, requiring CPR On 09/28/2019 patient seen in follow-up in the intensive care unit. He remains sedated and intubated, current vent settings are assist-control mode of ventilation with a rate of 30, tidal volume 500, FiO2 of 55% and PEEP of 14, this morning's blood gases showed pO2 of 66, pCO2 of 49, and pH of 7.47. IV fluids and drips include 0.9 normal saline at a rate of 10 ML per hour, Lasix at 10 mg per hour, Diprivan and is at 20 mics per kilo per minute, and heparin per weight-based protocol, patient remains in atrial fibrillation with a rate of 105 BPM. T-max in the last 24 hours was 101.2F, a low-grade fevers this morning a temp of 99.2F. Today's chest x-ray shows persistent cardiomegaly and fairly moderate central vascular congestion without significant change from yesterday's exam. Patient is in -1.2 L net fluid balance over the last 24 hours. Remains on combination of antibiotics with daptomycin and Zosyn. The patient and did have a urine culture positive for E. coli, sputum, blood cultures and wound cultures from the left and right leg cellulitis have been negative to date. Today's labs have been reviewed, showing no evidence of, 13.5, hemoglobin of 12.9, sodium was 140, potassium 3.5, chloride is 98, CO2 35, BUN of 41, creatinine is 1.4. Patient is tolerating tube feedings, currently on vital high-protein at a rate of 100 with a goal of 100. Sedation holiday has not been attempted yet this morning, but patient is lightly sedated only on 20 mics of the previously on, and she is opening eyes to voice. Not following commands yet. Appears to be comfortable. Surgical consultation was placed to Gen. surgery for placement of tracheostomy and PEG tube placement. On 09/29/2019 patient seen in follow-up in the intensive care unit, he remains sedated, and intubated on mechanical ventilator with assist control mode of ventilation with a rate of 30, tidal volume 500, FiO2 of 60% and PEEP of 14. This morning his blood gases revealed pO2 of 59, pCO2 49, and pH of 7.50, and FiO2 has been cut back to 55%, current IV fluids include 0.9 normal saline at it rate of 10 ML per hour, Diprivan is at 30 mics per kilo per minute, and Lasix at 10 mg per hour. His tube feedings are on hold for tracheostomy and PEG tube insertion today, heparin drip has been on hold since or 3 this morning. This morning's chest x-ray has been reviewed showing early moderate central vessel congestion, relatively stable compared to yesterday, patient is in negative f luid balance -4.6 L over the last 24 hours. Still has quite significant swelling involving his lower extremities, and upper extremities. Remains in atrial fibrillation with a controlled rate. Today's labs have been reviewed, showing sodium of 138, potassium is 3.4, chloride is 94, CO2 is 36, BUN is 52, and creatinine is 1.53. No acute events overnight. Patient is scheduled for tracheostomy and PEG tube placement by Dr. Clemente today. Patient remains on daptomycin and Zosyn, urine culture was positive for E. coli, sputum, blood cultures and wound cultures from the left and right leg cellulitis have been negative to date. Still remains intermittently febrile, with T-max of 100.5F Objective - Vital Signs Vital signs: Vital Signs Temp 100.1 F H 09/29/19 04:00 Pulse 127 H 09/29/19 07:49 Resp 30 H 09/29/19 07:00 BP 112/79 09/23/19 09:30 Pulse Ox 90 L 09/29/19 07:00 Intake & Output 09/28/19 09/29/19 09/29/19 18:59 06:59 18:59 Intake Total 7753.783 8374.242 94.219 Output Total 4100 3750 300 Balance -2706.330 -1895.758 -205.781 Weight 239.582 kg Intake: IV 269 156 13 0.9NS Pressure Bag 39 36 3 DAPTOmycin 500 mg In 100 Sodium Chloride 0.9% 50 ml @ 100 mls/hr IVPB Q24H VENANCIO Rx#:[id number] Furosemide 100 mg In 10 Sodium Chloride 0.9% 90 ml @ 10 MG/HR 10 mls/hr IV .Q10H VENANCIO Rx#: [id number] Sodium Chloride 0.9% 1, 120 120 10 000 ml @ 10 mls/hr IV . Q24H VENANCIO Rx#:[id number] Intake, IV Titration 524.670 868.242 81.219 Amount Furosemide 100 mg In 100 88.5 Sodium Chloride 0.9% 90 ml @ 10 MG/HR 10 mls/hr IV .Q10H VENANCIO Rx#: [id number] Heparin Sod,Pork in 0.45% 250 436.897 NaCl 25,000 unit In 0.45 % NaCl 1 250ml.bag @ 8. 846 UNITS/KG/HR 23 mls/hr IV .[id number] VENANCIO Rx#: [id number] Propofol 1,000 mg In 174.670 342.845 81.219 Empty Bag 1 bag @ Titrate IV .Q0M VENANCIO Rx#: [id number] Tube Feeding 600 800 Other 30 Output: Urine 4100 3750 300 Other: Voiding Method Indwelling Catheter Indwelling Catheter ABP, PAP, CO, CI - Last Documented Arterial Blood Pressure 120/74 - Exam GENERAL EXAM: Sedated, super morbidly obese 54-year-old white male intubated, sedated on mechanical ventilator comfortable in no apparent distress. HEAD: Normocephalic/atraumatic. EYES: Normal reaction of pupils, equal size. Conjunctiva pink, sclera white. NOSE: Clear with pink turbinates. THROAT: No erythema or exudates. NECK: No masses, no JVD, no thyroid enlargement, no adenopathy. CHEST: No chest wall deformity. Symmetrical expansion. LUNGS: Equal air entry with no crackles, wheeze, rhonchi or dullness. CVS: Irregular rate and rhythm, normal S1 and S2, no gallops, no murmurs, no rubs ABDOMEN: Soft, nontender. No hepatosplenomegaly, normal bowel sounds, no guarding or rigidity. EXTREMITIES: No clubbing, 2+ lower extremity edema, nonpitting involving abdominal wall, and bilateral lower extremities with chronic venous stasis changes. no cyanosis, 2+ pulses and upper and lower extremities. MUSCULOSKELETAL: Muscle strength and tone normal. SPINE: No scoliosis or deformity SKIN: Cellulitis involving lower extremities both legs are wrapped. Redness, and rash involving upper arms CENTRAL NERVOUS SYSTEM: Sedated, intubated. No focal deficits, tone is normal in all 4 extremities. - Labs CBC & Chem 7: 09/28/19 Unknown 09/29/19 04:15 Labs: Abnormal Lab Results - Last 24 Hours (Table) 09/28/19 09/28/19 09/28/19 Range/Units 11:43 15:44 19:02 WBC (3.8-10.6) k/uL RBC (4.30-5.90) m/uL MCV (80.0-100.0) fL MCHC (31.0-37.0) g/dL Neutrophils # (1.3-7.7) k/uL APTT 40.8 H (22.0-30.0) sec ABG pH (7.35-7.45) ABG pCO2 (35-45) mmHg ABG pO2 (83-108) mmHg ABG HCO3 (21-25) mmol/L ABG Total CO2 (19-24) mmol/L ABG O2 Saturation (94-97) % Potassium (3.5-5.1) mmol/L Chloride (98-107) mmol/L Carbon Dioxide (22-30) mmol/L BUN (9-20) mg/dL Creatinine (0.66-1.25) mg/dL Glucose (74-99) mg/dL POC Glucose (mg/dL) 132 H 167 H (75-99) mg/dL 09/28/19 09/28/19 09/28/19 Range/Units 23:25 23:50 Unknown WBC 13.3 H (3.8-10.6) k/uL RBC 4.14 L (4.30-5.90) m/uL MCV 106.0 H (80.0-100.0) fL MCHC 30.2 L (31.0-37.0) g/dL Neutrophils # 11.0 H (1.3-7.7) k/uL APTT 81.6 H (22.0-30.0) sec ABG pH (7.35-7.45) ABG pCO2 (35-45) mmHg ABG pO2 (83-108) mmHg ABG HCO3 (21-25) mmol/L ABG Total CO2 (19-24) mmol/L ABG O2 Saturation (94-97) % Potassium (3.5-5.1) mmol/L Chloride (98-107) mmol/L Carbon Dioxide (22-30) mmol/L BUN (9-20) mg/dL Creatinine (0.66-1.25) mg/dL Glucose (74-99) mg/dL POC Glucose (mg/dL) 130 H (75-99) mg/dL 09/29/19 09/29/19 Range/Units 04:15 05:30 WBC (3.8-10.6) k/uL RBC (4.30-5.90) m/uL MCV (80.0-100.0) fL MCHC (31.0-37.0) g/dL Neutrophils # (1.3-7.7) k/uL APTT (22.0-30.0) sec ABG pH 7.50 H (7.35-7.45) ABG pCO2 49 H (35-45) mmHg ABG pO2 59 L* (83-108) mmHg ABG HCO3 38 H (21-25) mmol/L ABG Total CO2 39 H (19-24) mmol/L ABG O2 Saturation 89.0 L (94-97) % Potassium 3.4 L (3.5-5.1) mmol/L Chloride 94 L (98-107) mmol/L Carbon Dioxide 36 H (22-30) mmol/L BUN 52 H (9-20) mg/dL Creatinine 1.53 H (0.66-1.25) mg/dL Glucose 147 H (74-99) mg/dL POC Glucose (mg/dL) (75-99) mg/dL Microbiology - Last 24 Hours (Table) 09/23/19 09:25 Blood Culture - Preliminary Blood No Growth after 120 hours 09/23/19 08:46 Blood Culture - Preliminary Blood No Growth after 120 hours Assessment and Plan Plan: Assessment: #1. Acute hypoxic respiratory failure secondary to cardiac arrest, requiring CPR for 9 minutes related to acute cardiogenic pulmonary edema #2. Acute cardiogenic pulmonary edema with possible diastolic dysfunction #3. Morbid obesity with acute on chronic respiratory acidosis, suspected underlying obstructive sleep apnea and obesity/hypoventilation syndrome #4. New-onset atrial fibrillation, and the patient remains in atrial fibrillation currently on heparin infusion, oral amiodarone, and metoprolol 100 mg 3 times daily. Possibility of pulmonary embolism is considered however was felt to be less likely especially with negative venous Dopplers, and patient is already on anticoagulation in the form of heparin for his atrial fibrillation with RVR. #5. Severe cellulitis of lower extremities and scrotal cellulitis, possible sepsis, wound cultures on bilateral lower extremities are nondiagnostic, patient remains on daptomycin and Zosyn #6. Possible sick brain injury, suspect anoxic encephalopathy #7. Status post PICC line placement on 09/25/2019 #8. Acute urinary tract infection secondary to E. coli #9. Acute kidney injury, ATN Plan: Continue with current vent settings, continue current medical treatment, antibiotics per ID service recommendations, patient still continues to have a low-grade fevers. No new cultures except for coli in the urine, all other cultures have been negative to date. Heparin is on hold for tracheostomy and PEG tube placement today. Continue with Lasix, consider switching her to oral Lasix starting tomorrow, FiO2 is down to 55%, once the patient is back from the procedure as long as he is stable May attempt daily interruption of sedation. GI and DVT prophylaxis. Oral anticoagulation will be started once cleared by surgery after the PEG tube and tracheostomy has been placed. Will continue to closely follow in the ICU I performed a history & physical examination of the patient and discussed their management with my nurse practitioner, Ely Roland. I reviewed the nurse practitioner's note and agree with the documented findings and plan of care. Lung sounds are positive for diminished breath sounds.. The findings and the impression was discussed with the patient. I attest to the documentation by the nurse practitioner. Time with Patient: Greater than 30
--- NOTE | 2019-09-29 08:48 | XR ---
EXAMINATION TYPE: XR chest 1V portable DATE OF EXAM: 09/29/2019 COMPARISON: 09/28/2019 INDICATION: Assess lungs, management, difficulty breathing TECHNIQUE: Single frontal view of the chest is obtained. FINDINGS: The heart size is normal. The pulmonary vasculature is normal. Mild bibasilar infiltrates are present. There is poor visualization left diaphragm. There is improvin g visualization of the right diaphragm. Endotracheal tube tip is 6.9 cm above the brooke. Nasogastric tube transverses the [id number]. The distal tips not clearly identified but likely is within the abdomen. IMPRESSION: 1. Improving bibasilar infiltrates. 2. Lines and catheters discussed above
--- NOTE | 2019-09-29 09:48 | PN ---
PROGRESS NOTE Mr. Ardon is a 54-year-old male who presented with symptoms of progressive edema and respiratory distress. He required mechanical ventilation. He went in atrial fibrillation. He remains in atrial fibrillation with overall controlled ventricular response until this morning. He is scheduled to undergo a PEG and trach this morning. Hemodynamically, he is off pressors. His urine output has been good. He has no evidence of ventricular ectopic activity or pauses. He continues to be on amiodarone 400 mg twice a day, Diamox 250 mg IV q.12 hours, aspirin, Lasix drip, metolazone 2.5 mg twice a day, Protonix IV. PHYSICAL EXAMINATION: Blood pressure 120/70 with a heart rate in the 90s to 120s. LUNGS: Clear to auscultation anteriorly. HEART: Irregular, regular, S1, S2. No S3 with a systolic murmur, no diastolic murmur. ABDOMEN: Soft, obese, nontender. EXTREMITIES Adrian wrap in place, appears with less edema. LAB DATA: Revealed a BUN and creatinine of 52 and 1.53 that appears to be worsened compared to yesterday. His potassium is 3.4. PSA 7.5, PC of 249, PO2 of 59, hemoglobin of 13.2. IMPRESSION: 1. Respiratory failure with a large amount of fluid overload. 2. Overall preserved systolic function. 3. Morbid obesity. 4. Atrial fibrillation, was on IV heparin. 5. Probable anoxic encephalopathy, although the patient is moving his toes this morning. 6. Acute kidney injury. RECOMMENDATION: From the cardiac standpoint, will continue present therapy. I will leave it to the Nephrology Service about his diuretics, but I would believe that we can cut down on his Zaroxolyn at this time. I would initiate oral anticoagulation when surgical intervention is done. Will continue the rest of his medical regimen and supportive care. Depending on his progress, further recommendation will be made. The prognosis remains guarded. MMODL / IJN: [id number] /
[2019-09-29] MEDS ORDERED: VECURONIUM 10 MG VIAL IV ONE (10:40)
[2019-09-29] MEDS ORDERED: fentaNYL (PF) 50 MCG/ML 2 ML AMP ONE (10:40)
[2019-09-29] MEDS ORDERED: MIDAZOLAM 2 MG/2 ML VIAL ONE (10:40)
[2019-09-29] MEDS ORDERED: LIDOCAINE (PF) 10 MG/ML 2 ML VIAL SQ ONE (11:25)
--- NOTE | 2019-09-29 11:52 | P.OP ---
Date of Procedure: 09/29/19 Preoperative Diagnosis: Respiratory failure Postoperative Diagnosis: Respiratory failure Procedure(s) Performed: Tracheostomy Anesthesia: ANIL Surgeon: Hugo Clemente Estimated Blood Loss (ml): 10 Pathology: none sent Condition: stable Disposition: PACU Description of Procedure: The patient's placed on the operative table in the supine position. Patient will be. His BMI of 66. Patient had very thick neck. The neck was prepped and draped usual fashion. A standard [place] incision was made. A left cautery used to divide the subcutaneous tissue and platysma. Using the lateral traction was exposed. The strap muscles were divided in the midline using left cautery. Another weight ([place] was placed the wound. The patient a very deep neck. Further dissection was performed and a third we'll add retractors placed a wound. The thyroid gland was visualized. The thyroid gland was divided in the midline using left cautery. The trachea was then exposed. The introducer tube was inserted into the right mainstem bronchus. And then the tracheotomy was performed between second and third tracheal rings. The NG tube brought back under direct vision. A #7 long bovia a cuffed tracheostomy tube was then placed. Patient currently to the ventilator. And held CO2 was confirmed. Patient tidal volumes in the 400-500 range. The skin was closed interrupted 3-0 nylon suture. The trach tie was placed on the tracheostomy tube. And secured. Using 3-0 nylon the tracheostomy tube was also secured at the flange. Patient top she will was sent to recovery ICU in stable condition.
[2019-09-29 12:48] LABS: Glucose,Whole Blood 124 mg/dL (75-99)
--- NOTE | 2019-09-29 14:16 | PN ---
PROGRESS NOTE Patient is seen for followup for acute kidney injury. Patient remains on the vent. He is sedated. FiO2 is at 50%, PEEP remains at 14. Urine output at 300 to 250 mL an hour. The patient is maintained on Lasix drip at 10 mg an hour. His blood pressure was slightly on the lower side. He did have a temp of 101.5 degrees Fahrenheit, heart rate 113 per minute, blood pressure 102/66. Examination of the heart S1, S2. Examination of the lungs, bilateral breath sounds are heard. Patient is on the vent. Abdomen is soft. Morbidly obese. Examination of the lower extremities shows bilateral extremities to be wrapped. There is edema noted. DIRECTOR OF CONSUMER AFFAIRS exam cannot be performed. LABS: Show sodium of 138, potassium 3.4, chloride 94, CO2 is 36, BUN 52, creatinine 1.3. ASSESSMENT: 1. Acute kidney injury, ATN currently improving. Serum creatinine is actually slightly higher today. This is most likely related to hypotension. Patient continues to have good urine output. He is also having fever. Levophed has not been started yet. 2. Volume overload maintained on Lasix drip. I will decrease it to 5 mg an hour. 3. Sepsis. Urine culture grew E coli. 4. Hypoxic respiratory failure. Currently patient remains on high PEEP and is going for trach and PEG today. 5. Status post cardiac arrest. 6. Cellulitis, bilateral lower extremities. PLAN: Decrease Lasix drip to 5 mg an hour. Antibiotics as per ID, add oral midodrine. MMODL / IJN: [id number] /
--- NOTE | 2019-09-29 14:56 | XR ---
EXAMINATION TYPE: XR chest 1V portable DATE OF EXAM: 09/29/2019 COMPARISON: 09/29/2019 earlier exam INDICATION: Verify OG placement TECHNIQUE: Single frontal view of the chest is obtained. FINDINGS: The heart size is upper limits of normal. The pulmonary vasculature is normal. Mild right basilar infiltrate is present. There is silhouetting the left diaphragm. Findings may have slightly improved over the interval. There is a tracheostomy tube placed with the tip 5.2 cm above brooke. Nasogastric tube is present wit h the tip distally. IMPRESSION: 1. Tracheostomy tube tip above the brooke. 2. Nasogastric tube tip within the very proximal left upper quadrant abdomen. This should be advanced approximately 10 cm.
--- NOTE | 2019-09-29 15:31 | PN ---
PROGRESS NOTE DATE OF SERVICE: 09/29/2019 REASON FOR FOLLOWUP: Aspiration pneumonitis, lower extremity cellulitis. INTERVAL HISTORY: The patient did spike another fever this morning of 101 degrees Fahrenheit and then a fever of 100.9 now. The patient is hemodynamically stable, not on any pressor support. FiO2 is currently at 100%, status post trach and PEG per Surgery. PHYSICAL EXAMINATION: Blood pressure 125/59 with a pulse of 125, temperature 100.9. He is 94% on 100% FiO2. General description is a middle-aged male intubated on the vent. RESPIRATORY SYSTEM: Unlabored breathing with decreased breath sounds at the base. No wheeze. HEART: S1, S2. Tachycardia. ABDOMEN: Soft. No tenderness. Extremities are currently wrapped up. No redness on the legs. LABS: Hemoglobin is 13.2, white count 13.3, BUN of 52, creatinine 1.53. Initial urine was E coli. DIAGNOSTIC IMPRESSION AND PLAN: Patient admitted to hospital with lower extremity swelling and concern about possible cellulitis. Subsequently did have a cardiac arrest with concern about aspiration pneumonitis, though x-ray did not show significant consolidation and sputum has been negative. He did have persistent fever with concern about possible central fever. We will repeat his cultures and adjust antibiotic if needed. Monitor clinical course closely. MMODL / IJN: [id number] /
[2019-09-29 15:48] LABS: C Reactive Protein 60.4 mg/L (<10.0); Potassium 3.4 mmol/L (3.5-5.1)
[2019-09-29] MEDS: ASPIRIN 81 MG PO SCH (16:07)
[2019-09-29] MEDS: DAPTOmycin 500 MG in SODIUM CHLORIDE 0.9% 50 ML IVPB SCH (16:08)
[2019-09-29 17:25] LABS: Glucose,Whole Blood 128 mg/dL (75-99)
[2019-09-29] MEDS: MIDODRINE 5 MG TAB PO SCH (17:27)
[2019-09-29 18:40] LABS: Appearance,Urine Clear (Clear); Bilirubin,Urine Negative (Negative); Blood,Urine Negative (Negative); Color,Urine Yellow; Glucose,Urine (UA) Negative (Negative); Ketones,Urine Negative (Negative); Leukocyte Esterase,Urine Moderate (Negative); Mucus,Urine Rare /hpf; Nitrite,Urine Negative (Negative); PH, Urine 5.5 (5.0-8.0); Protein,Urine Negative (Negative); RBC,Urine 7 /hpf (0-5); Specific Gravity,Urine 1.015 (1.001-1.035); WBC,Urine 5 /hpf (0-5)
--- NOTE | 2019-09-29 18:56 | P.PN ---
Subjective On-call hospitalist covering for Dr. Ramos From records This is a 54-year-old patient of Dr. Wilmer blount. Presented to ER with multiple complaints. Stated that 4 days ago. Patient's testicles on the toilet this is then he developed swelling and tenderness. Also complained of some lower back pain with walking that is had for years. Also chronic lower extremity swelling. Which is increase in the last few weeks. He is also noticing increasing fluid discharge from lower extremity thought it may be infected. Also shortness of breath going on for a few months. Patient is admitted to the medical floor. At 3:25 AM cord probing was activated. Patient did develop ventricular fibrillation on a groundwater monitoring technician and was found unresponsive in the room. Patient received IV epinephrine, sodium bicarbonate and calcium chloride. Initially found to be JANIA then into ventricular fibrillation and was shocked 3. Transferred to the ICU. Patient is return of spontaneous circulation at 3:43 AM. This morning patient is on the ventilator. Also had an episode of what could've been atrial fibrillation with a high heart rate of 160s was given 5 mg of IV metoprolol and then started on IV amiodarone. Admitted with-scrotal cellulitis, septic shock, troponin leak, cardiac arrest from DIMAS, bilateral lower extremity venous insufficiency wounds, paroxysmal atrial fibrillation with rapid ventricular rate, acute hypoxic and hypercapnic respiratory failure requiring ventilator support, acute kidney injury from ATN. Started on bronchodilators, steroids, daptomycin, Zosyn, pressor support propofol. Today-ICU. Remains on the ventilator. FiO2 50 and PEEP of 12. Atrial fibrillation. Drips include IV Lasix and IV propofol. 2 feeding 100 mL an hour. Sedated. 09/28/2019 Patient remains in the ICU, sedated and intubated. He is status post cardiac arrest for 9 minutes related to cardiopulmonary edema as per critical care team evaluation. With acute hypoxic respiratory failure needing intubation and mechanical ventilation. With suspected anoxic brain injury. Also patient found to have multiple problems including infection with UTIs secondary to E. coli and bilateral cellulitis of the leg and scrotal. Also he has acute diastolic congestive heart failure and new onset atrial fibrillation and placed on heparin drip. Because of fluid overload and pulmonary condition is on Lasix drip at 10 mg per hour. He needed pressors.. He is also on Zosyn and daptomycin and aspirin Surgery team are planning for peptic/tracheostomy tomorrow His creatinine is 1.4, baseline 1.0, WBCs 15.5 K, liver function tests slightly elevated liver enzymes. He had fever yesterday of 101, no fever so far today. His breathing at a rate of 30 09/29/2019 Patient in the ICU, intubated, he underwent check S to me today with interruption of anticoagulation. Also his planned for PEG tube placement by surgery service tomorrow. His labs showing creatinine is stable at 1.5 which is elevated. The procedure 13.3, he had a fever today of 101 and he remains on daptomycin and Zosyn. He is on mechanical ventilation with a breathing rate at 3, today after the tracheostomy he needed more oxygen with FiO2 increased to 100%. Also remains on heparin drip, Lasix drip was lowered to 5 mg per hour, no pressors. Midodrine has been added just x-ray showing improved duration Pulmonary/care team on the case and once a stable 1 trial will be attempted Review of systems: N/a Active Medications Generic Name Dose Route Start Last Admin Trade Name Freq PRN Reason Stop Dose Admin Acetaminophen 650 mg 09/22/19 15:10 09/29/19 08:16 Tylenol Tab PO 650 mg Q6HR PRN Administration Mild Pain or Fever > 100.5 Acetazolamide Sodium 250 mg 09/25/19 09:00 09/29/19 08:12 Diamox IV 250 mg Q12HR VENANCIO Administration Albuterol/Ipratropium 3 ml 09/23/19 08:00 09/29/19 15:24 Duoneb 0.5 Mg-3 Mg/3 Ml Soln INHALATION 3 ml RT-Q4H VENANCIO Administration Albuterol/Ipratropium 3 ml 09/23/19 08:11 Duoneb 0.5 Mg-3 Mg/3 Ml Soln INHALATION RT-Q2H PRN Shortness Of Breath Or Wheezing Amiodarone HCl 400 mg 09/24/19 09:00 09/29/19 08:12 Cordarone PO 400 mg BID VENANCIO Administration Artificial Tears 2 drops 09/25/19 22:31 Artificial Tear Drops BOTH EYES QID PRN Dry Eye(s) Aspirin 81 mg 09/23/19 09:00 09/29/19 16:07 Aspirin PO 81 mg DAILY VENANCIO Administration Chlorhexidine Gluconate 15 ml 09/23/19 09:00 09/29/19 08:12 Peridex MUCOUS MEM 15 ml BID VENANCIO Administration Heparin Sodium (Porcine) 0 unit 09/23/19 09:45 09/28/19 17:25 Heparin IV 9,583 unit PER PROTOCOL PRN Administration Low PTT Protocol Hydromorphone HCl 0.5 mg 09/22/19 15:10 09/22/19 18:22 Dilaudid IVP 0.5 mg Q3HR PRN Administration Moderate Pain Propofol 1,000 mg/ IV Solution 100 mls @ 0 mls/hr 09/23/19 04:30 09/29/19 16:57 IV 25 mcg/kg/min .Q0M VENANCIO 35.937 mls/hr Administration Protocol Titrate Piperacillin Sod/Tazobactam 100 mls @ 25 mls/hr 09/23/19 08:00 09/29/19 17:27 Sod 3.375 gm/ Sodium Chloride IVPB 25 mls/hr Q8HR VENANCIO Administration Sodium Chloride 1,000 mls @ 10 mls/hr 09/23/19 07:00 09/29/19 06:05 Saline 0.9% IV 10 mls/hr .Q24H VENANCIO Administration Heparin Sodium/Sodium Chloride 250 mls @ 23 mls/hr 09/23/19 09:45 09/29/19 03:00 25,000 unit/ Sodium Chloride IV Infused .[id number] VENANCIO Titration Protocol 8.846 UNITS/KG/HR Norepinephrine Bitartrate 4 mg 254 mls @ 49.53 mls/hr 09/23/19 10:00 09/29/19 14:46 / Sodium Chloride IV Not Given .Q5H8M VENANCIO Protocol 0.05 MCG/KG/MIN Daptomycin 500 mg/ Sodium 50 mls @ 100 mls/hr 09/23/19 14:00 09/29/19 16:08 Chloride IVPB 100 mls/hr Q24H VENANCIO Administration Protocol Furosemide 100 mg/ Sodium 100 mls @ 5 mls/hr 09/26/19 12:00 09/29/19 13:00 Chloride IV 5 mg/hr .Q20H VENANCIO 5 mls/hr Administration 5 MG/HR Insulin Aspart 0 unit 09/23/19 12:00 09/29/19 17:24 Novolog SQ Not Given Q6H VENANCIO Protocol Metolazone 2.5 mg 09/27/19 12:45 09/29/19 08:13 Zaroxolyn PO 2.5 mg BID VENANCIO Administration Metoprolol Tartrate 100 mg 09/28/19 09:00 09/29/19 16:07 Lopressor PO 100 mg TID VENANCIO Administration Midodrine 10 mg 09/29/19 17:30 09/29/19 17:27 Proamatine PO 10 mg AC-TID VENANCIO Administration Miscellaneous Information 1 each 09/25/19 06:41 Potassium Per Protocol MISCELLANE DAILY PRN Per Protocol Protocol Morphine Sulfate 4 mg 09/22/19 15:10 Morphine Sulfate (Inj) IV Q4HR PRN Severe Pain Naloxone HCl 0.2 mg 09/22/19 15:10 Narcan IV Q2M PRN Opioid Reversal Ondansetron HCl 4 mg 09/22/19 15:10 Zofran IVP Q8HR PRN Nausea And Vomiting Pantoprazole Sodium 40 mg 09/23/19 11:15 09/29/19 08:12 Protonix IV 40 mg DAILY VENANCIO Administration Sodium Chloride 10 ml 09/25/19 11:06 Saline Flush IV Q4HR PRN PICC Line Sodium Chloride 10 ml 10/02/19 09:00 Saline Flush IV WEEKLY VENANCIO Sodium Chloride 20 ml 09/25/19 11:06 Saline Flush IV Q4HR PRN PICC Line Triamcinolone Acetonide 1 applic 09/25/19 09:15 09/29/19 08:19 Kenalog TOPICAL 1 applic BID VENANCIO Administration Objective - Vital Signs Vital signs: Vital Signs Temp 101.3 F H 09/29/19 16:00 Pulse 111 H 09/29/19 16:00 Resp 30 H 09/29/19 16:00 BP 111/66 09/29/19 16:00 Pulse Ox 90 L 09/29/19 16:00 Intake & Output 09/28/19 09/29/19 09/29/19 18:59 06:59 18:59 Intake Total 0926.369 1492.242 801.219 Output Total 4100 9170 0262 Balance -2706.330 -1895.758 -3683.781 Weight 239.582 kg 239.497 kg Intake: IV 269 156 220 0.9NS Pressure Bag 39 36 30 DAPTOmycin 500 mg In 100 Sodium Chloride 0.9% 50 ml @ 100 mls/hr IVPB Q24H VENANCIO Rx#:[id number] Furosemide 100 mg In 10 Sodium Chloride 0.9% 90 ml @ 5 MG/HR 5 mls/hr IV .Q20H VENANCIO Rx#:[id number] Piperacillin-Tazobactam 3 100 .375 gm In Sodium Chloride 0.9% 100 ml @ 25 mls/hr IVPB Q8HR VENANCIO Rx# :[id number] Sodium Chloride 0.9% 1, 120 120 90 000 ml @ 10 mls/hr IV . Q24H VENANCIO Rx#:[id number] Intake, IV Titration 524.670 868.242 481.219 Amount Furosemide 100 mg In 100 88.5 100 Sodium Chloride 0.9% 90 ml @ 5 MG/HR 5 mls/hr IV .Q20H VENANCIO Rx#:[id number] Heparin Sod,Pork in 0.45% 250 436.897 NaCl 25,000 unit In 0.45 % NaCl 1 250ml.bag @ 8. 846 UNITS/KG/HR 23 mls/hr IV .[id number] VENANCIO Rx#: [id number] Propofol 1,000 mg In 174.670 342.845 381.219 Empty Bag 1 bag @ Titrate IV .Q0M VENANCIO Rx#: [id number] Tube Feeding 600 800 Other 30 100 Output: Urine 4100 3750 4475 Estimated Blood Loss 10 Other: Voiding Method Indwelling Catheter Indwelling Catheter Indwelling Catheter ABP, PAP, CO, CI - Last Documented Arterial Blood Pressure 93/64 - Exam -GENERAL: The patient is intubated and sedated, morbidly obese HEENT: Pupils are round and equally reacting to light. EOMI. No scleral icterus. No conjunctival pallor. Normocephalic, atraumatic. No pharyngeal erythema. No thyromegaly. CARDIOVASCULAR: S1 and S2 present. No murmurs, rubs, or gallops. -PULMONARY: Chest is clear to auscultation, bilateral crepitation, low total breath sounds. ABDOMEN: Soft, nontender, nondistended, normoactive bowel sounds. No palpable organomegaly. MUSCULOSKELETAL: No joint swelling or deformity. -EXTREMITIES: No cyanosis, clubbing. Bilateral leg swelling and scrotal swe lling NEUROLOGICAL: Gross neurological examination did not reveal any focal deficits. SKIN: No rashes. no petechiae. - Labs CBC & Chem 7: 09/28/19 Unknown 09/29/19 15:10 Labs: Abnormal Lab Results - Last 24 Hours (Table) 09/28/19 09/28/19 09/28/19 Range/Units 19:02 23:25 23:50 WBC (3.8-10.6) k/uL RBC (4.30-5.90) m/uL MCV (80.0-100.0) fL MCHC (31.0-37.0) g/dL Neutrophils # (1.3-7.7) k/uL APTT 81.6 H (22.0-30.0) sec ABG pH (7.35-7.45) ABG pCO2 (35-45) mmHg ABG pO2 (83-108) mmHg ABG HCO3 (21-25) mmol/L ABG Total CO2 (19-24) mmol/L ABG O2 Saturation (94-97) % Potassium (3.5-5.1) mmol/L Chloride (98-107) mmol/L Carbon Dioxide (22-30) mmol/L BUN (9-20) mg/dL Creatinine (0.66-1.25) mg/dL Glucose (74-99) mg/dL POC Glucose (mg/dL) 167 H 130 H (75-99) mg/dL C-Reactive Protein (<10.0) mg/L 09/28/19 09/29/19 09/29/19 Range/Units Unknown 04:15 05:30 WBC 13.3 H (3.8-10.6) k/uL RBC 4.14 L (4.30-5.90) m/uL MCV 106.0 H (80.0-100.0) fL MCHC 30.2 L (31.0-37.0) g/dL Neutrophils # 11.0 H (1.3-7.7) k/uL APTT (22.0-30.0) sec ABG pH 7.50 H (7.35-7.45) ABG pCO2 49 H (35-45) mmHg ABG pO2 59 L* (83-108) mmHg ABG HCO3 38 H (21-25) mmol/L ABG Total CO2 39 H (19-24) mmol/L ABG O2 Saturation 89.0 L (94-97) % Potassium 3.4 L (3.5-5.1) mmol/L Chloride 94 L (98-107) mmol/L Carbon Dioxide 36 H (22-30) mmol/L BUN 52 H (9-20) mg/dL Creatinine 1.53 H (0.66-1.25) mg/dL Glucose 147 H (74-99) mg/dL POC Glucose (mg/dL) (75-99) mg/dL C-Reactive Protein (<10.0) mg/L 09/29/19 09/29/19 Range/Units 12:46 15:10 WBC (3.8-10.6) k/uL RBC (4.30-5.90) m/uL MCV (80.0-100.0) fL MCHC (31.0-37.0) g/dL Neutrophils # (1.3-7.7) k/uL APTT (22.0-30.0) sec ABG pH (7.35-7.45) ABG pCO2 (35-45) mmHg ABG pO2 (83-108) mmHg ABG HCO3 (21-25) mmol/L ABG Total CO2 (19-24) mmol/L ABG O2 Saturation (94-97) % Potassium 3.4 L (3.5-5.1) mmol/L Chloride (98-107) mmol/L Carbon Dioxide (22-30) mmol/L BUN (9-20) mg/dL Creatinine (0.66-1.25) mg/dL Glucose (74-99) mg/dL POC Glucose (mg/dL) 124 H (75-99) mg/dL C-Reactive Protein 60.4 H (<10.0) mg/L Microbiology - Last 24 Hours (Table) 09/23/19 09:25 Blood Culture - Final Blood No Growth after 144 hours 09/23/19 08:46 Blood Culture - Final Blood No Growth after 144 hours Assessment and Plan Assessment: Acute hypoxic respiratory failure, on mechanical ventilation Status post cardiac arrest related to cardiopulmonary edema Acute diastolic congestive heart failure New-onset atrial fibrillation Possible anoxic brain injury UTI secondary to E. coli Bilateral cellulitis of legs and scrotum Acute kidney injury Morbid obesity Plan: This is a 54 years old male who presents with cardiac arrest, anoxic brain injury, CHF and UTI/cellulitis. Continue with daptomycin and Zosyn and antibiotics as per ID team. He is on heparin drip with plan to switch to oral antral cannulation by cardiology. Continue with diuretic and pressors as needed. Is followed by several consultants including pulmonary/critical care team, nephrology, surgery, infectious disease and cardiology. Labs and medication were reviewed.. Continue same treatment. Continue with symptomatic treatment. Resume home medication. Monitor lytes and vitals. DVT and GI prophylaxis. Further recommendations of the clinical course of the patient DVT prophylaxis: heparin GI Prophylaxis: Protonix Prognosis is guarded
[2019-09-30] MEDS: PROPOFOL 1,000 MG in EMPTY BAG 1 BAG IV SCH ×10 (00:07→22:33)
[2019-09-30] MEDS: PIPERACILLIN-TAZOBACTAM 3.375 GM in SODIUM CHLORIDE 0.9% 100 ML IVPB SCH ×2 (00:08→08:37)
[2019-09-30 00:34] LABS: Glucose,Whole Blood 119 mg/dL (75-99)
[2019-09-30] MEDS: INSULIN ASPART (NovoLOG) 100 UNIT/ML VIAL SQ SCH ×5 (01:44→23:51)
[2019-09-30] MEDS: NOREPINEPHRINE 4 MG in SODIUM CHLORIDE 0.9% 250 ML IV SCH ×6 (01:46→22:35)
[2019-09-30] MEDS: ACETAMINOPHEN TAB 325 MG TAB PO PRN ×2 (01:50→19:07)
[2019-09-30] MEDS: IPRATROPIUM-ALBUTEROL 3 ML NEB INHALATION SCH ×6 (03:20→23:12)
[2019-09-30 04:36] LABS: HCT 46.7 % (39.0-53.0); HGB 14.2 gm/dL (13.0-17.5); Hypochromasia Marked; MCHC 30.5 g/dL (31.0-37.0); MCV 104.9 fL (80.0-100.0); Macrocytosis Moderate; Mean Platelet Volume 8.7; Platelet Count 242 k/uL (150-450); RBC 4.45 m/uL (4.30-5.90); RDW 14.9 % (11.5-15.5)
[2019-09-30 04:54] LABS: Calcium 8.9 mg/dL (8.4-10.2); Potassium 3.9 mmol/L (3.5-5.1)
[2019-09-30 05:24] LABS: ABG Base Excess 14.3 mmol/L; ABG HCO3 39 mmol/L (21-25); ABG Oxygen Saturation 91.7 % (94-97); ABG PCO2 63 mmHg (35-45); ABG PO2 70 mmHg (83-108); ABG TCO2 41 mmol/L (19-24); Allen Test Performed? Yes
[2019-09-30 05:45] LABS: Glucose,Whole Blood 139 mg/dL (75-99)
[2019-09-30] MEDS ORDERED: Potassium Replacement Protocol 1 EACH MISC MISCELLANE PRN (06:04)
[2019-09-30] MEDS: SODIUM CHLORIDE 0.9% 1,000 ML IV SCH (06:46)
[2019-09-30] MEDS: MIDODRINE 5 MG TAB PO SCH ×3 (06:50→18:25)
[2019-09-30] MEDS ORDERED: POTASSIUM BICARBONATE/CIT AC 20 MEQ TABLET.EFF NG-TUBE SCH (07:00)
--- NOTE | 2019-09-30 07:36 | P.PN ---
Subjective Progress Note Date: 09/30/19 Principal diagnosis: Acute hypoxic respiratory failure secondary to cardiac arrest, requiring CPR The patient is seen today 09/30/2019 in follow-up in the intensive care unit. He did undergo tracheostomy tube placement yesterday 09/29/2019, he received a #7 long Brovana coughed tracheostomy tube. He remains on the mechanical ventilator at assist control rate of 30, tidal volume 500, FiO2 90% and a PEEP of 14. Morning blood gases reveal a pO2 70, pCO2 63, pH 7.40. White count 14.0. Hemoglobin 14.2. Sodium 138. Potassium 3.9. Creatinine 1.85. Glucose 141. He remains on a Lasix drip at 5 mg per hour. 0.9 normal saline at 10 MLS per hour. Propofol at 25 mcg/kg/m. The plan is for PEG tube placement today. Tube feeds are on hold. He remains on bronchodilators, daptomycin, Zosyn. Objective - Vital Signs Vital signs: Vital Signs Temp 102.4 F H 09/30/19 04:00 Pulse 128 H 09/30/19 07:15 Resp 30 H 09/30/19 07:00 BP 121/73 09/30/19 07:00 Pulse Ox 90 L 09/30/19 07:00 Intake & Output 09/29/19 09/30/19 09/30/19 18:59 06:59 18:59 Intake Total 940.219 693.172 10 Output Total 5060 1725 150 Balance -4119.781 -1031.828 -140 Weight 239.497 kg Intake: IV 359 210 10 0.9NS Pressure Bag 39 Piperacillin-Tazobactam 3 200 100 .375 gm In Sodium Chloride 0.9% 100 ml @ 25 mls/hr IVPB Q8HR [facility] Rx# :[id number] Sodium Chloride 0.9% 1, 120 110 10 000 ml @ 10 mls/hr IV . Q24H [facility] Rx#:[id number] Intake, IV Titration 481.219 483.172 Amount Furosemide 100 mg In 100 34.583 Sodium Chloride 0.9% 90 ml @ 5 MG/HR 5 mls/hr IV .Q20H [facility] Rx#:[id number] Propofol 1,000 mg In 381.219 448.589 Empty Bag 1 bag @ Titrate IV .Q0M [facility] Rx#: [id number] Other 100 Output: Urine 5050 1725 150 Estimated Blood Loss 10 Other: Voiding Method Indwelling Catheter Indwelling Catheter ABP, PAP, CO, CI - Last Documented Arterial Blood Pressure 93/64 - Exam GENERAL EXAM: Super morbidly obese 54-year-old male patient, sedated on mechanical ventilator comfortable in no apparent distress. HEAD: Normocephalic/atraumatic. EYES: Normal reaction of pupils, equal size. Conjunctiva pink, sclera white. NOSE: Clear with pink turbinates. THROAT: No erythema or exudates. NECK: Tracheostomy tube secured in place No masses, no JVD, no thyroid enlargement, no adenopathy. CHEST: No chest wall deformity. Symmetrical expansion. LUNGS: Equal air entry with no crackles, wheeze, rhonchi or dullness. CVS: Irregular rate and rhythm, normal S1 and S2, no gallops, no murmurs, no rubs ABDOMEN: Soft, nontender. No hepatosplenomegaly, normal bowel sounds, no guarding or rigidity. EXTREMITIES: No clubbing, 2+ lower extremity edema, nonpitting involving abdominal wall, and bilateral lower extremities with chronic venous stasis changes. no cyanosis, 2+ pulses and upper and lower extremities. MUSCULOSKELETAL: Muscle strength and tone normal. SPINE: No scoliosis or deformity SKIN: Cellulitis involving lower extremities both legs are wrapped. Redness, and rash involving upper arms CENTRAL NERVOUS SYSTEM: Sedated, intubated. No focal deficits, tone is normal in all 4 extremities. - Labs CBC & Chem 7: 09/30/19 04:19 09/30/19 04:19 Labs: Abnormal Lab Results - Last 24 Hours (Table) 09/29/19 09/29/19 09/29/19 Range/Units 12:46 15:10 17:24 WBC (3.8-10.6) k/uL MCV (80.0-100.0) fL MCHC (31.0-37.0) g/dL ABG pCO2 (35-45) mmHg ABG pO2 (83-108) mmHg ABG HCO3 (21-25) mmol/L ABG Total CO2 (19-24) mmol/L ABG O2 Saturation (94-97) % Potassium 3.4 L (3.5-5.1) mmol/L Chloride (98-107) mmol/L Carbon Dioxide (22-30) mmol/L BUN (9-20) mg/dL Creatinine (0.66-1.25) mg/dL Glucose (74-99) mg/dL POC Glucose (mg/dL) 124 H 128 H (75-99) mg/dL C-Reactive Protein 60.4 H (<10.0) mg/L Ur Leukocyte Esterase (Negative) Urine RBC (0-5) /hpf Urine Mucus (None) /hpf 09/29/19 09/30/19 09/30/19 Range/Units 17:35 00:33 04:19 WBC (3.8-10.6) k/uL MCV (80.0-100.0) fL MCHC (31.0-37.0) g/dL ABG pCO2 (35-45) mmHg ABG pO2 (83-108) mmHg ABG HCO3 (21-25) mmol/L ABG Total CO2 (19-24) mmol/L ABG O2 Saturation (94-97) % Potassium (3.5-5.1) mmol/L Chloride 93 L (98-107) mmol/L Carbon Dioxide 33 H (22-30) mmol/L BUN 65 H (9-20) mg/dL Creatinine 1.85 H (0.66-1.25) mg/dL Glucose 141 H (74-99) mg/dL POC Glucose (mg/dL) 119 H (75-99) mg/dL C-Reactive Protein (<10.0) mg/L Ur Leukocyte Esterase Moderate H (Negative) Urine RBC 7 H (0-5) /hpf Urine Mucus Rare H (None) /hpf 09/30/19 09/30/19 09/30/19 Range/Units 04:19 05:18 05:43 WBC 14.0 H (3.8-10.6) k/uL MCV 104.9 H (80.0-100.0) fL MCHC 30.5 L (31.0-37.0) g/dL ABG pCO2 63 H (35-45) mmHg ABG pO2 70 L (83-108) mmHg ABG HCO3 39 H (21-25) mmol/L ABG Total CO2 41 H (19-24) mmol/L ABG O2 Saturation 91.7 L (94-97) % Potassium (3.5-5.1) mmol/L Chloride (98-107) mmol/L Carbon Dioxide (22-30) mmol/L BUN (9-20) mg/dL Creatinine (0.66-1.25) mg/dL Glucose (74-99) mg/dL POC Glucose (mg/dL) 139 H (75-99) mg/dL C-Reactive Protein (<10.0) mg/L Ur Leukocyte Esterase (Negative) Urine RBC (0-5) /hpf Urine Mucus (None) /hpf Microbiology - Last 24 Hours (Table) 09/23/19 09:25 Blood Culture - Final Blood No Growth after 144 hours 09/23/19 08:46 Blood Culture - Final Blood No Growth after 144 hours Assessment and Plan Assessment: #1. Acute hypoxic respiratory failure secondary to cardiac arrest, requiring CPR for 9 minutes related to acute cardiogenic pulmonary edema requiring intubation mechanical ventilatory support. Failure to wean. #7 long Brovana coughed tracheostomy tube placed on 09/29/2019. Plan for tube placement today. #2. Acute cardiogenic pulmonary edema with possible diastolic dysfunction #3. Morbid obesity with acute on chronic respiratory acidosis, suspected underlying obstructive sleep apnea and obesity/hypoventilation syndrome #4. New-onset atrial fibrillation, and the patient remains in atrial fibrillation currently on heparin infusion, oral amiodarone, and metoprolol 100 mg 3 times daily. Possibility of pulmonary embolism is considered however was felt to be less likely especially with negative venous Dopplers, and patient is already on anticoagulation in the form of heparin for his atrial fibrillation with RVR. #5. Severe cellulitis of lower extremities and scrotal cellulitis, possible sepsis, wound cultures on bilateral lower extremities are nondiagnostic, patient remains on daptomycin and Zosyn #6. Possible sick brain injury, suspect anoxic encephalopathy #7. Status post PICC line placement on 09/25/2019 #8. Acute urinary tract infection secondary to E. coli #9. Acute kidney injury, ATN Plan: The patient was seen and evaluated by Dr. Dr. Decker FiO2 decreased to 80% PEEP increased to 18 Plan to continue to titrate down the FiO2 as tolerated PEG tube placement today We will continue to follow and make further recommendations based on his clinical status Critical care time 38 minutes I, the cosigning physician, performed a history & physical examination of the patient. Lungs sounds with crackles in the right base. Maintaining good O2 saturations in the 90s on 80% FiO2 with a PEEP of 18 on the mechanical john tilator. I discussed the assessment and plan of care with my nurse practitioner, Teresa López. I attest to the above note as dictated by her. Time with Patient: Greater than 30
[2019-09-30] MEDS: CHLORHEXIDINE GLUCONATE 15 ML CUP MUCOUS MEM SCH ×2 (08:17→20:06)
[2019-09-30] MEDS: METOPROLOL TARTRATE 50 MG TAB PO SCH ×4 (08:17→20:07)
[2019-09-30] MEDS: AMIODARONE 200 MG TAB PO SCH ×2 (08:17→20:06)
[2019-09-30] MEDS: PANTOPRAZOLE 40 MG/10 ML VIAL IV SCH (08:17)
[2019-09-30] MEDS: ASPIRIN 81 MG PO SCH (08:17)
[2019-09-30] MEDS ORDERED: METOLAZONE 2.5 MG TAB PO SCH (09:00)
--- NOTE | 2019-09-30 09:26 | PN ---
PROGRESS NOTE Mr. Ardon is a 54-year-old male who presented with symptoms of progressive dyspnea, had a cardiopulmonary arrest, had severe peripheral edema and has been intubated. He underwent tracheostomy yesterday. He is scheduled to undergo PEG tube placement today. He continues to be in atrial fibrillation with episode of rapid ventricular response. Hemodynamically, his blood pressure has been stable. He is not on any pressors. His urine output has been good. He continues to be at this point on amiodarone 400 mg twice a day, Diamox 250 mg twice a day, aspirin once a day. His IV heparin is on hold, pending the PEG tube placement. He is on Zaroxolyn 12.5 mg twice a day, metoprolol tartrate 100 mg 3 times a day, midodrine. PHYSICAL EXAMINATION: Blood pressure running in the 110s to 120s with a heart rate in the 110s to 120s as well. Intubated and sedated. Tracheostomy tube in place. LUNGS: Clear to auscultation anteriorly. HEART: Irregular, regular, S1, S2. Tachycardic. No S3. No rub appreciated. ABDOMEN: Soft, obese. Positive bowel sounds, no organomegaly. EXTREMITIES: +2 edema bilaterally. LAB DATA: Revealed a BUN and creatinine 65 and 1.85, which is worse compared to yesterday. His potassium is 3.9, hemoglobin of 14.2. IMPRESSION: 1. Respiratory failure with fluid overload and probable obstructive sleep apnea and diastolic dysfunction. 2. Acute kidney injury, worsening. 3. Fluid overload. 4. Cellulitis. 5. Atrial fibrillation with persistent episode of rapid ventricular response. RECOMMENDATION: From the cardiac standpoint, I will cut down the dose of his Zaroxolyn. I will increase the dose of his beta hayden. Will follow his renal function closely. Depending on his progress, further recommendation will be made. The prognosis remains guarded. MMODL / IJN: [id number] /
[2019-09-30] MEDS: LACTATED RINGERS 1,000 ML IV SCH (11:25)
[2019-09-30 11:33] LABS: Glucose,Whole Blood 124 mg/dL (75-99)
[2019-09-30] MEDS: TRIAMCINOLONE 0.1% CREAM 80 GM TUBE TOPICAL SCH ×2 (12:06→20:48)
[2019-09-30] MEDS: ACETAMINOPHEN IV (For NPO) 1,000 MG in EMPTY BAG 1 BAG IVPB PRN (12:30)
[2019-09-30] MEDS ORDERED: ANIDULAFUNGIN 200 MG in SODIUM CHLORIDE 0.9% 200 ML IVPB ONE (13:24)
--- NOTE | 2019-09-30 13:59 | PN ---
PROGRESS NOTE Patient is seen for followup for acute kidney injury. He has been maintained on Lasix drip for severe volume overload. Patient is status post cardiac arrest. He has had low blood pressures. Renal function has been declining with increased urine output. Patient has also made hypoxic on the vent. FiO2 has been increased. Patient is maintained on antibiotics as well. PHYSICAL EXAMINATION: On examination, patient is sedated on the vent. Blood pressure was 105/27, heart rate 112 per minute, he is afebrile. Examination of the heart S1, S2. Examination of the lungs, bilateral breath sounds are heard. Abdomen is morbidly obese. Examination of the lower extremities, bilateral extremities are wrapped. There is significant chronic skin changes and cellulitis noted. PROFILE TRIMMER exam cannot be performed. LABS: Sodium 138, potassium 3.9, chloride 93, CO2 is 33, BUN 65, serum creatinine 1.85. ASSESSMENT: 1. Acute kidney injury, ATN renal function currently worsening, mainly associated with hypotension and hypoperfusion. Patient is not on any nephrotoxic medications. He is maintained on Lasix drip, secondary to severe volume overload which was decreased from 10-5 mg/hour yesterday. His urine output has been ranging from 75- 250 mL an hour. I will continue with the Lasix drip for now. Midodrine was added to help with the hypotension. 2. Sepsis from cellulitis and urinary tract infection, maintained on an antibiotics. 3. Hypoxic respiratory failure, maintained on high PEEP, the FiO2 was increased. 4. Status post cardiac arrest. 5. Status post trach and PEG. PLAN: Overall prognosis is guarded. Continue with the Lasix drip for now. Continue with the midodrine. Avoid nephrotoxic agents. MMODL / IJN: [id number] /
[2019-09-30] MEDS: HEPARIN SOD,PORK IN 0.45% NACL 25,000 UNIT in 0.45% NACL 1 250ML.BAG IV SCH (15:21)
[2019-09-30] MEDS: MEROPENEM 1 GM in SODIUM CHLORIDE 0.9% 100 ML IVPB SCH ×3 (15:24→23:52)
--- NOTE | 2019-09-30 16:03 | XR ---
EXAMINATION TYPE: XR chest 1V portable DATE OF EXAM: 09/30/2019 COMPARISON: Prior chest x-ray 09/29/2019 HISTORY: Congestive heart failure TECHNIQUE: frontal view of the chest is obtained on 2 images. FINDINGS: Tracheostomy tube is overlying the tracheal air column, NG tube remains in place. Heart si ze may be exaggerated by rotation and is not significantly changed. Probable subsegmental bilateral a telectatic changes are present as on prior exam. There is a right-sided PICC line present, distal tip is overlying the superior vena cava. No evident pneumothorax. There is some perihilar vascular indis tinctness. IMPRESSION: Difficult to exclude some interstitial edema. There are atelectatic changes. Heart may b e enlarged..
[2019-09-30] MEDS: FUROSEMIDE 100 MG in SODIUM CHLORIDE 0.9% 90 ML IV SCH (16:25)
--- NOTE | 2019-09-30 17:20 | P.PN ---
Subjective Progress Note Date: 09/30/19 Patient is a 54-year-old male, who was initially seen by Dr. Devendra Todd on 09/25/2019 for cardiac arrest. Patient actually came to the hospital on 09/22/2019 with complains of testicular pain, swelling after he had reportedly "pinched" his testicle on the toilet. Patient had shortness of breath and lower extremity edema. Patient had elevated troponin in the ER. 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 Resuscitative measures were pursued and the patient reportedly had return of spontaneous circulation within 30-80 minutes. Patient has developed new onset atrial fibrillation. Patient also had acute cardiopulmonary edema and acute kidney injury. Patient continues to be intubated since then. Patient had an EEG on 09/25/2019, which showed slowing and disorganization of the background rhythm. Triphasic waves. The background slowing is nonspecific sign of bihemispheric neuronal dysfunction as seen in the moderate to severe diffuse encephalopathy. The presence of triphasic waves suggest a metabolic etiology and has been describing post anoxic cases. No epileptiform discharges or electrographic seizures were recorded. Patient cannot have computed tomography scan of the head because of his morbid obesity status. Objective - Vital Signs Vital signs: Vital Signs Temp 102.1 F H 09/30/19 12:00 Pulse 114 H 09/30/19 15:11 Resp 39 H 09/30/19 15:00 BP 97/75 09/30/19 15:00 Pulse Ox 93 L 09/30/19 15:00 Intake & Output 09/29/19 09/30/19 09/30/19 18:59 06:59 18:59 Intake Total 940.219 693.172 468.914 Output Total 5060 1725 960 Balance -4119.781 -1031.828 -491.086 Weight 239.497 kg 239.497 kg Intake: IV 359 210 80 0.9NS Pressure Bag 39 Piperacillin-Tazobactam 3 200 100 .375 gm In Sodium Chloride 0.9% 100 ml @ 25 mls/hr IVPB Q8HR [facility] Rx# :[id number] Sodium Chloride 0.9% 1, 120 110 80 000 ml @ 10 mls/hr IV . Q24H [facility] Rx#:[id number] Intake, IV Titration 481.219 483.172 388.914 Amount Furosemide 100 mg In 100 34.583 Sodium Chloride 0.9% 90 ml @ 5 MG/HR 5 mls/hr IV .Q20H [facility] Rx#:[id number] Heparin Sod,Pork in 0.45% 11.05 NaCl 25,000 unit In 0.45 % NaCl 1 250ml.bag @ 8. 846 UNITS/KG/HR 23 mls/hr IV .[id number] [facility] Rx#: [id number] Propofol 1,000 mg In 381.219 448.589 377.864 Empty Bag 1 bag @ Titrate IV .Q0M [facility] Rx#: [id number] Other 100 Output: Urine 5050 1725 960 Estimated Blood Loss 10 Other: Voiding Method Indwelling Catheter Indwelling Catheter Indwelling Catheter ABP, PAP, CO, CI - Last Documented Arterial Blood Pressure 93/64 - Exam On examination patient is currently on sedation with 30 g of propofol. Patient is status post tracheostomy yesterday. Patient does not follow commands. Patient's pupils are round and reacting. Patient is breathing over the ventilator. He does have gag and cough. Plantars are flat. Tone is equal bilaterally. No obvious seizure activity observed. - Labs CBC & Chem 7: 09/30/19 04:19 09/30/19 04:19 Labs: Abnormal Lab Results - Last 24 Hours (Table) 09/29/19 09/29/19 09/30/19 Range/Units 17:24 17:35 00:33 WBC (3.8-10.6) k/uL MCV (80.0-100.0) fL MCHC (31.0-37.0) g/dL ABG pCO2 (35-45) mmHg ABG pO2 (83-108) mmHg ABG HCO3 (21-25) mmol/L ABG Total CO2 (19-24) mmol/L ABG O2 Saturation (94-97) % Chloride (98-107) mmol/L Carbon Dioxide (22-30) mmol/L BUN (9-20) mg/dL Creatinine (0.66-1.25) mg/dL Glucose (74-99) mg/dL POC Glucose (mg/dL) 128 H 119 H (75-99) mg/dL Ur Leukocyte Esterase Moderate H (Negative) Urine RBC 7 H (0-5) /hpf Urine Mucus Rare H (None) /hpf 09/30/19 09/30/19 09/30/19 Range/Units 04:19 04:19 05:18 WBC 14.0 H (3.8-10.6) k/uL MCV 104.9 H (80.0-100.0) fL MCHC 30.5 L (31.0-37.0) g/dL ABG pCO2 63 H (35-45) mmHg ABG pO2 70 L (83-108) mmHg ABG HCO3 39 H (21-25) mmol/L ABG Total CO2 41 H (19-24) mmol/L ABG O2 Saturation 91.7 L (94-97) % Chloride 93 L (98-107) mmol/L Carbon Dioxide 33 H (22-30) mmol/L BUN 65 H (9-20) mg/dL Creatinine 1.85 H (0.66-1.25) mg/dL Glucose 141 H (74-99) mg/dL POC Glucose (mg/dL) (75-99) mg/dL Ur Leukocyte Esterase (Negative) Urine RBC (0-5) /hpf Urine Mucus (None) /hpf 09/30/19 09/30/19 Range/Units 05:43 11:31 WBC (3.8-10.6) k/uL MCV (80.0-100.0) fL MCHC (31.0-37.0) g/dL ABG pCO2 (35-45) mmHg ABG pO2 (83-108) mmHg ABG HCO3 (21-25) mmol/L ABG Total CO2 (19-24) mmol/L ABG O2 Saturation (94-97) % Chloride (98-107) mmol/L Carbon Dioxide (22-30) mmol/L BUN (9-20) mg/dL Creatinine (0.66-1.25) mg/dL Glucose (74-99) mg/dL POC Glucose (mg/dL) 139 H 124 H (75-99) mg/dL Ur Leukocyte Esterase (Negative) Urine RBC (0-5) /hpf Urine Mucus (None) /hpf Microbiology - Last 24 Hours (Table) 09/30/19 00:25 Sputum Culture - Preliminary Sputum Assessment and Plan Assessment: * Hypoxic encephalopathy, status post V. fib cardiopulmonary arrest on 09/23/2019. Patient continues to be encephalopathic. Also have component of toxic metabolic encephalopathy due to reasons mentioned below. Currently on sedation. * Acute scrotal cellulitis, secondary to local injury. * Septic and hypotensive shock, slow to respond, continues to be febrile. Lactic acidosis * Acute kidney injury, ATN, renal functions worsening. * New onset atrial fibrillation * Elevated troponin with cardiac and pulmonary edema, improved. * Morbid obesity with BMI of 70.8. * Status post tracheostomy 09/29/2019. Plan: * Patient is currently on sedation. * Patient at present has multiple medical issues, still having fevers, therefore will continue to be encephalopathic. * Patient will be undergoing a sedation holiday tomorrow. Will assess for clinical response. * Computed tomography scan of head, when possible. * Your medical management.
[2019-09-30 17:57] LABS: Glucose,Whole Blood 136 mg/dL (75-99)
--- NOTE | 2019-09-30 18:01 | P.PN ---
Subjective On-call hospitalist covering for Dr. Ramos From records This is a 54-year-old patient of Dr. Wilmer blount. Presented to ER with multiple complaints. Stated that 4 days ago. Patient's testicles on the toilet this is then he developed swelling and tenderness. Also complained of some lower back pain with walking that is had for years. Also chronic lower extremity swelling. Which is increase in the last few weeks. He is also noticing increasing fluid discharge from lower extremity thought it may be infected. Also shortness of breath going on for a few months. Patient is admitted to the medical floor. At 3:25 AM cord probing was activated. Patient did develop ventricular fibrillation on a ekg monitor and was found unresponsive in the room. Patient received IV epinephrine, sodium bicarbonate and calcium chloride. Initially found to be JANIA then into ventricular fibrillation and was shocked 3. Transferred to the ICU. Patient is return of spontaneous circulation at 3:43 AM. This morning patient is on the ventilator. Also had an episode of what could've been atrial fibrillation with a high heart rate of 160s was given 5 mg of IV metoprolol and then started on IV amiodarone. Admitted with-scrotal cellulitis, septic shock, troponin leak, cardiac arrest from DIMAS, bilateral lower extremity venous insufficiency wounds, paroxysmal atrial fibrillation with rapid ventricular rate, acute hypoxic and hypercapnic respiratory failure requiring ventilator support, acute kidney injury from ATN. Started on bronchodilators, steroids, daptomycin, Zosyn, pressor support propofol. Today-ICU. Remains on the ventilator. FiO2 50 and PEEP of 12. Atrial fibrillation. Drips include IV Lasix and IV propofol. 2 feeding 100 mL an hour. Sedated. 09/28/2019 Patient remains in the ICU, sedated and intubated. He is status post cardiac arrest for 9 minutes related to cardiopulmonary edema as per critical care team evaluation. With acute hypoxic respiratory failure needing intubation and mechanical ventilation. With suspected anoxic brain injury. Also patient found to have multiple problems including infection with UTIs secondary to E. coli and bilateral cellulitis of the leg and scrotal. Also he has acute diastolic congestive heart failure and new onset atrial fibrillation and placed on heparin drip. Because of fluid overload and pulmonary condition is on Lasix drip at 10 mg per hour. He needed pressors.. He is also on Zosyn and daptomycin and aspirin Surgery team are planning for peptic/tracheostomy tomorrow His creatinine is 1.4, baseline 1.0, WBCs 15.5 K, liver function tests slightly elevated liver enzymes. He had fever yesterday of 101, no fever so far today. His breathing at a rate of 30 09/29/2019 Patient in the ICU, intubated, he underwent check S to me today with interruption of anticoagulation. Also his planned for PEG tube placement by surgery service tomorrow. His labs showing creatinine is stable at 1.5 which is elevated. The procedure 13.3, he had a fever today of 101 and he remains on daptomycin and Zosyn. He is on mechanical ventilation with a breathing rate at 3, today after the tracheostomy he needed more oxygen with FiO2 increased to 100%. Also remains on heparin drip, Lasix drip was lowered to 5 mg per hour, no pressors. Midodrine has been added just x-ray showing improved duration Pulmonary/care team on the case and once a stable 1 trial will be attempted 09/30/2019 Patient in the ICU with vent management by pulmonary team, he had tracheostomy yesterday and planned for PEG tube placement today. His blood pressure low- normal about 97/75, heart rate 111, breathing rate at 39. His creatinine is stable at 1.8, WBC is 14 and his been followed by several consultants. His metoprolol increased to 4 times a day while decreasing his metolazone. Lasix drip was stopped and changed to IV Lasix 40 mg 3 times a day, Zosyn and daptomycin were stopped by ID team and started on meropenem and andulafungin Corrosion Prevention Metal Sprayer recommended CT of the head at some point in the future when he is more stable. His prognosis remains guarded Review of systems: N/a Active Medications Generic Name Dose Route Start Last Admin Trade Name Freq PRN Reason Stop Dose Admin Acetaminophen 650 mg 09/22/19 15:10 09/30/19 01:50 Tylenol Tab PO 650 mg Q6HR PRN Administration Mild Pain or Fever > 100.5 Acetazolamide Sodium 250 mg 09/25/19 09:00 09/30/19 08:30 Diamox IV 250 mg Q12HR VENANCIO Administration Albuterol/Ipratropium 3 ml 09/23/19 08:00 09/30/19 14:56 Duoneb 0.5 Mg-3 Mg/3 Ml Soln INHALATION 3 ml RT-Q4H VENANCIO Administration Albuterol/Ipratropium 3 ml 09/23/19 08:11 Duoneb 0.5 Mg-3 Mg/3 Ml Soln INHALATION RT-Q2H PRN Shortness Of Breath Or Wheezing Amiodarone HCl 400 mg 09/24/19 09:00 09/30/19 08:17 Cordarone PO 400 mg BID VENANCIO Administration Artificial Tears 2 drops 09/25/19 22:31 Artificial Tear Drops BOTH EYES QID PRN Dry Eye(s) Aspirin 81 mg 09/23/19 09:00 09/30/19 08:17 Aspirin PO 81 mg DAILY VENANCIO Administration Chlorhexidine Gluconate 15 ml 09/23/19 09:00 09/30/19 08:17 Peridex MUCOUS MEM 15 ml BID VENANCIO Administration Furosemide 40 mg 10/01/19 00:00 Lasix IV Q8HR VENANCIO Heparin Sodium (Porcine) 0 unit 09/23/19 09:45 09/28/19 17:25 Heparin IV 9,583 unit PER PROTOCOL PRN Administration Low PTT Protocol Hydromorphone HCl 0.5 mg 09/22/19 15:10 09/22/19 18:22 Dilaudid IVP 0.5 mg Q3HR PRN Administration Moderate Pain Propofol 1,000 mg/ IV Solution 100 mls @ 0 mls/hr 09/23/19 04:30 09/30/19 16:26 IV 30 mcg/kg/min .Q0M VENANCIO 43.109 mls/hr Administration Protocol Titrate Sodium Chloride 1,000 mls @ 10 mls/hr 09/23/19 07:00 09/30/19 06:46 Saline 0.9% IV 10 mls/hr .Q24H VENANCIO Administration Heparin Sodium/Sodium Chloride 250 mls @ 23 mls/hr 09/23/19 09:45 09/30/19 15:36 25,000 unit/ Sodium Chloride IV 8.85 units/kg/hr .[id number] VENANCIO 23 mls/hr Titration Protocol 8.846 UNITS/KG/HR Norepinephrine Bitartrate 4 mg 254 mls @ 49.53 mls/hr 09/23/19 10:00 09/30/19 16:34 / Sodium Chloride IV Not Given .Q5H8M VENANCIO Protocol 0.05 MCG/KG/MIN Lactated Ringer's 1,000 mls @ 20 mls/hr 09/30/19 09:41 09/30/19 11:25 Lactated Ringers IV Not Given .Q24H VENANCIO Acetaminophen 1,000 mg/ IV 100 mls @ 400 mls/hr 09/30/19 12:02 09/30/19 12:30 Solution IVPB 10/01/19 06:14 400 mls/hr Q6HR PRN Administration Fever if npo Anidulafungin 100 mg/ Sodium 100 mls @ 84 mls/hr 10/01/19 09:00 Chloride IVPB DAILY VENANCIO Meropenem 1 gm/ Sodium 100 mls @ 200 mls/hr 09/30/19 16:00 09/30/19 15:24 Chloride IVPB 200 mls/hr Q8HR VENANCIO Administration Protocol Insulin Aspart 0 unit 09/23/19 12:00 09/30/19 11:31 Novolog SQ Not Given Q6H VENANCIO Protocol Metolazone 2.5 mg 09/30/19 09:00 09/30/19 08:18 Zaroxolyn PO 2.5 mg DAILY VENANCIO Administration Metoprolol Tartrate 100 mg 09/30/19 09:00 09/30/19 12:07 Lopressor PO 100 mg QID VENANCIO Administration Midodrine 10 mg 09/29/19 17:30 09/30/19 12:36 Proamatine PO 10 mg AC-TID VENANCIO Administration Miscellaneous Information 1 each 09/25/19 06:41 Potassium Per Protocol MISCELLANE DAILY PRN Per Protocol Protocol Miscellaneous Information 1 each 09/30/19 06:04 Potassium Per Protocol MISCELLANE DAILY PRN Per Protocol Protocol Morphine Sulfate 4 mg 09/22/19 15:10 Morphine Sulfate (Inj) IV Q4HR PRN Severe Pain Naloxone HCl 0.2 mg 09/22/19 15:10 Narcan IV Q2M PRN Opioid Reversal Ondansetron HCl 4 mg 09/22/19 15:10 Zofran IVP Q8HR PRN Nausea And Vomiting Pantoprazole Sodium 40 mg 09/23/19 11:15 09/30/19 08:17 Protonix IV 40 mg DAILY VENANCIO Administration Sodium Chloride 10 ml 09/25/19 11:06 Saline Flush IV Q4HR PRN PICC Line Sodium Chloride 10 ml 10/02/19 09:00 Saline Flush IV WEEKLY VENANCIO Sodium Chloride 20 ml 09/25/19 11:06 Saline Flush IV Q4HR PRN PICC Line Triamcinolone Acetonide 1 applic 09/25/19 09:15 09/30/19 12:06 Kenalog TOPICAL 1 applic BID VENANCIO Administration Objective - Vital Signs Vital signs: Vital Signs Temp 102.1 F H 09/30/19 12:00 Pulse 114 H 09/30/19 15:11 Resp 39 H 09/30/19 15:00 BP 97/75 09/30/19 15:00 Pulse Ox 93 L 09/30/19 15:00 Intake & Output 09/29/19 09/30/19 09/30/19 18:59 06:59 18:59 Intake Total 940.219 693.172 698.914 Output Total 5060 1725 1285 Balance -4119.781 -1031.828 -586.086 Weight 239.497 kg 239.497 kg Intake: IV 359 210 110 0.9NS Pressure Bag 39 Piperacillin-Tazobactam 3 200 100 .375 gm In Sodium Chloride 0.9% 100 ml @ 25 mls/hr IVPB Q8HR VENANCIO Rx# :[id number] Sodium Chloride 0.9% 1, 120 110 110 000 ml @ 10 mls/hr IV . Q24H VENANCIO Rx#:[id number] Intake, IV Titration 481.219 483.172 388.914 Amount Furosemide 100 mg In 100 34.583 Sodium Chloride 0.9% 90 ml @ 5 MG/HR 5 mls/hr IV .Q20H VENANCIO Rx#:[id number] Heparin Sod,Pork in 0.45% 11.05 NaCl 25,000 unit In 0.45 % NaCl 1 250ml.bag @ 8. 846 UNITS/KG/HR 23 mls/hr IV .[id number] VENANCIO Rx#: [id number] Propofol 1,000 mg In 381.219 448.589 377.864 Empty Bag 1 bag @ Titrate IV .Q0M VENANCIO Rx#: [id number] Oral 200 Other 100 Output: Urine 5050 1725 1285 Estimated Blood Loss 10 Other: Voiding Method Indwelling Catheter Indwelling Catheter Indwelling Catheter ABP, PAP, CO, CI - Last Documented Arterial Blood Pressure 93/64 - Exam -GENERAL: The patient is intubated and sedated, morbidly obese HEENT: Pupils are round and equally reacting to light. EOMI. No scleral icterus. No conjunctival pallor. Normocephalic, atraumatic. No pharyngeal erythema. No thyromegaly. CARDIOVASCULAR: S1 and S2 present. No murmurs, rubs, or gallops. -PULMONARY: Chest is clear to auscultation, bilateral crepitation, low total breath sounds. ABDOMEN: Soft, nontender, nondistended, normoactive bowel sounds. No palpable organomegaly. MUSCULOSKELETAL: No joint swelling or deformity. -EXTREMITIES: No cyanosis, clubbing. Bilateral leg swelling and scrotal swelling NEUROLOGICAL: Gross neurological examination did not reveal any focal deficits. SKIN: No rashes. no petechiae. - Labs CBC & Chem 7: 09/30/19 04:19 09/30/19 04:19 Labs: Abnormal Lab Results - Last 24 Hours (Table) 09/29/19 09/30/19 09/30/19 Range/Units 17:35 00:33 04:19 WBC (3.8-10.6) k/uL MCV (80.0-100.0) fL MCHC (31.0-37.0) g/dL ABG pCO2 (35-45) mmHg ABG pO2 (83-108) mmHg ABG HCO3 (21-25) mmol/L ABG Total CO2 (19-24) mmol/L ABG O2 Saturation (94-97) % Chloride 93 L (98-107) mmol/L Carbon Dioxide 33 H (22-30) mmol/L BUN 65 H (9-20) mg/dL Creatinine 1.85 H (0.66-1.25) mg/dL Glucose 141 H (74-99) mg/dL POC Glucose (mg/dL) 119 H (75-99) mg/dL Ur Leukocyte Esterase Moderate H (Negative) Urine RBC 7 H (0-5) /hpf Urine Mucus Rare H (None) /hpf 09/30/19 09/30/19 09/30/19 Range/Units 04:19 05:18 05:43 WBC 14.0 H (3.8-10.6) k/uL MCV 104.9 H (80.0-100.0) fL MCHC 30.5 L (31.0-37.0) g/dL ABG pCO2 63 H (35-45) mmHg ABG pO2 70 L (83-108) mmHg ABG HCO3 39 H (21-25) mmol/L ABG Total CO2 41 H (19-24) mmol/L ABG O2 Saturation 91.7 L (94-97) % Chloride (98-107) mmol/L Carbon Dioxide (22-30) mmol/L BUN (9-20) mg/dL Creatinine (0.66-1.25) mg/dL Glucose (74-99) mg/dL POC Glucose (mg/dL) 139 H (75-99) mg/dL Ur Leukocyte Esterase (Negative) Urine RBC (0-5) /hpf Urine Mucus (None) /hpf 09/30/19 Range/Units 11:31 WBC (3.8-10.6) k/uL MCV (80.0-100.0) fL MCHC (31.0-37.0) g/dL ABG pCO2 (35-45) mmHg ABG pO2 (83-108) mmHg ABG HCO3 (21-25) mmol/L ABG Total CO2 (19-24) mmol/L ABG O2 Saturation (94-97) % Chloride (98-107) mmol/L Carbon Dioxide (22-30) mmol/L BUN (9-20) mg/dL Creatinine (0.66-1.25) mg/dL Glucose (74-99) mg/dL POC Glucose (mg/dL) 124 H (75-99) mg/dL Ur Leukocyte Esterase (Negative) Urine RBC (0-5) /hpf Urine Mucus (None) /hpf Microbiology - Last 24 Hours (Table) 09/29/19 15:15 Blood Culture - Preliminary Blood No Growth after 24 hours 09/30/19 00:25 Sputum Culture - Preliminary Sputum Assessment and Plan Assessment: Acute hypoxic respiratory failure, on mechanical ventilation Status post cardiac arrest related to cardiopulmonary edema Acute diastolic congestive heart failure New-onset atrial fibrillation Possible anoxic brain injury UTI secondary to E. coli Bilateral cellulitis of legs and scrotum Acute kidney injury Morbid obesity Plan: This is a 54 years old male who presents with cardiac arrest, anoxic brain inj ury, CHF and UTI/cellulitis. Continue with metoprolol. and antibiotics as per ID team. He is on heparin drip with plan to switch to oral antral cannulation by cardiology. Continue with diuretic . pressors as needed. he Is followed by several consultants including pulmonary/critical care team, nephrology, surgery, infectious disease and cardiology. And neurology who recommended CT of the brain. Labs and medication were reviewed.. Continue same treatment. Continue with symptomatic treatment. Resume home medication. Monitor lytes and vitals. DVT and GI prophylaxis. Further recommendations of the clinical course of the patient DVT prophylaxis: heparin GI Prophylaxis: Protonix Prognosis is guarded
--- NOTE | 2019-09-30 22:47 | PN ---
PROGRESS NOTE DATE OF SERVICE: 09/30/2019 REASON FOR FOLLOWUP: Fever and pneumonia. INTERVAL HISTORY: The patient has been running a fever with a temperature 101 to 102 degrees Fahrenheit. The patient did have cultures obtained yesterday. Those have been negative so far. The patient is hemodynamically stable, not on any pressor support. FiO2 is currently at 80%. No significant purulent secretions through the ET or any diarrhea has been reported or any other changes in clinical condition by the nursing staff. PHYSICAL EXAMINATION: Blood pressure 106/36, pulse of 92, temperature 102.5. He is 92% on 80% FiO2. General description is a middle-aged male intubated on the vent. RESPIRATORY SYSTEM: Unlabored breathing with decreased breath sounds at the base. No wheeze. HEART: S1, S2. Regular rate and rhythm. ABDOMEN: Soft. No tenderness. LABS: Creatinine is up to 1.85. Hemoglobin is 14.2, white count 14,000. CRP was 16. Culture so far negative. DIAGNOSTIC IMPRESSION AND PLAN: Patient with a fever, persistent in this patient who did have a cardiac arrest and concern for aspiration pneumonitis. However, sputum cultures have been negative for any resistant pathogen. With the persistent fever, possibly central fever, the patient's antibiotic has been adjusted to meropenem today. Will add vancomycin and monitor his clinical course closely. Overall prognosis remains guarded. Continue with supportive care. MMODL / IJN: [id number] /
[2019-09-30] MEDS: LINEZOLID 600 MG in DEXTROSE/WATER 1 300ML.BAG IVPB SCH (22:54)
[2019-09-30 23:40] LABS: Glucose,Whole Blood 203 mg/dL (75-99)
[2019-09-30] MEDS: FUROSEMIDE 10 MG/ML 4 ML VIAL IV SCH (23:52)
[2019-10-01] MEDS: HEPARIN SODIUM,PORCINE 5,000 UNIT/ML 1 ML VIAL IV PRN (00:44)
[2019-10-01] MEDS: PROPOFOL 1,000 MG in EMPTY BAG 1 BAG IV SCH ×4 (00:55→10:59)
[2019-10-01] MEDS: HEPARIN SOD,PORK IN 0.45% NACL 25,000 UNIT in 0.45% NACL 1 250ML.BAG IV SCH (01:45)
[2019-10-01] MEDS: IPRATROPIUM-ALBUTEROL 3 ML NEB INHALATION SCH ×3 (03:21→11:01)
[2019-10-01] MEDS: ACETAMINOPHEN TAB 325 MG TAB PO PRN (03:36)
[2019-10-01] MEDS: NOREPINEPHRINE 4 MG in SODIUM CHLORIDE 0.9% 250 ML IV SCH ×2 (03:54→08:43)
[2019-10-01 05:25] LABS: ABG Base Excess 12.2 mmol/L; ABG HCO3 38 mmol/L (21-25); ABG Oxygen Saturation 95.4 % (94-97); ABG PCO2 66 mmHg (35-45); ABG PH 7.37 (7.35-7.45); ABG PO2 83 mmHg (83-108); ABG TCO2 40 mmol/L (19-24); Allen Test Performed? Yes
[2019-10-01 05:51] LABS: Basophils # (A) 0.1 k/uL (0-0.2); Basophils % (A) 0 %; Eosinophils # (A) 0.1 k/uL (0-0.7); Eosinophils % (A) 0 %; HCT 46.7 % (39.0-53.0); HGB 13.9 gm/dL (13.0-17.5); Hypochromasia Marked; Lymphocytes # (A) 1.4 k/uL (1.0-4.8); Lymphocytes % (A) 7 %; MCH 31.8 pg (25.0-35.0); MCHC 29.8 g/dL (31.0-37.0); MCV 106.6 fL (80.0-100.0); Macrocytosis Moderate; Mean Platelet Volume 8.5; Monocytes # (A) 1.5 k/uL (0-1.0); Monocytes % (A) 7 %; Neutrophils # (A) 16.9 k/uL (1.3-7.7); Neutrophils % (A) 83 %; Platelet Count 321 k/uL (150-450); RBC 4.38 m/uL (4.30-5.90); RDW 14.6 % (11.5-15.5); WBC 20.3 k/uL (3.8-10.6)
[2019-10-01 05:59] LABS: Albumin 3.6 g/dL (3.5-5.0); Calcium 8.1 mg/dL (8.4-10.2); Potassium 3.5 mmol/L (3.5-5.1); Total Bilirubin 1.5 mg/dL (0.2-1.3); Total Protein 7.5 g/dL (6.3-8.2)
[2019-10-01] MEDS: ACETAMINOPHEN IV (For NPO) 1,000 MG in EMPTY BAG 1 BAG IVPB PRN (06:17)
[2019-10-01] MEDS: MIDODRINE 5 MG TAB PO SCH (06:41)
[2019-10-01] MEDS: INSULIN ASPART (NovoLOG) 100 UNIT/ML VIAL SQ SCH (06:41)
[2019-10-01] MEDS: POTASSIUM BICARBONATE/CIT AC 20 MEQ TABLET.EFF NG-TUBE SCH ×2 (06:41→10:58)
[2019-10-01] MEDS: SODIUM CHLORIDE 0.9% 1,000 ML IV SCH (06:42)
--- NOTE | 2019-10-01 07:30 | P.PN ---
Subjective Progress Note Date: 10/01/19 Principal diagnosis: Acute hypoxic respiratory failure secondary to cardiac arrest, requiring CPR The patient is seen today 09/30/2019 in follow-up in the intensive care unit. He did undergo tracheostomy tube placement yesterday 09/29/2019, he received a #7 long Brovana coughed tracheostomy tube. He remains on the mechanical ventilator at assist control rate of 30, tidal volume 500, FiO2 90% and a PEEP of 14. Morning blood gases reveal a pO2 70, pCO2 63, pH 7.40. White count 14.0. Hemoglobin 14.2. Sodium 138. Potassium 3.9. Creatinine 1.85. Glucose 141. He remains on a Lasix drip at 5 mg per hour. 0.9 normal saline at 10 MLS per hour. Propofol at 25 mcg/kg/m. The plan is for PEG tube placement today. Tube feeds are on hold. He remains on bronchodilators, daptomycin, Zosyn. Patient is seen today 10/01/2019 in follow-up in the intensive care unit. He remains sedated and on the mechanical ventilator. Current vent settings are assist control 30, tidal volume 500, FiO2 70% and a PEEP of 18. Morning blood gases reveal a P O2 of 83, pCO2 60 and a pH of 7.37. He is sedated with propofol at 25 mcg/kg/m. He did have issues with hypotension last night and is currently on norepinephrine at 0.05 mcg/kg/m equivalent to 12 g., Heparin drip is currently off pending PEG tube placement today that was not done yesterday. There is 0.9 normal saline at 10 MLS per hour. Urine output has been adequate at 7200 ML's per hour. He remains on Lasix at 40 mg IV every 8 hours. He is still having temperatures with a T-max of 102.6. Cultures from the are pending. ID is on the case. He is currently on meropenem, Zyvox and Eraxis. White count 20.3. Hemoglobin 13.9. Sodium 142. Potassium 3.5. Bicarb 36. Creatinine 2.86. He remains tachycardic in the 120s. Objective - Vital Signs Vital signs: Vital Signs Temp 102.6 F H 10/01/19 04:00 Pulse 125 H 10/01/19 06:00 Resp 30 H 10/01/19 06:00 BP 114/67 10/01/19 06:00 Pulse Ox 93 L 10/01/19 06:00 Intake & Output 09/30/19 10/01/19 10/01/19 18:59 06:59 18:59 Intake Total 7854.844 8567.755 110 Output Total 1435 1480 175 Balance -340.586 636.755 -65 Weight 239.497 kg 234.507 kg Intake: IV 120 120 10 Sodium Chloride 0.9% 1, 120 120 10 000 ml @ 10 mls/hr IV . Q24H VENANCIO Rx#:[id number] Intake, IV Titration 353.391 4301.755 100 Amount ACETAMINOPHEN IV (For NPO 100 ) 1,000 mg In Empty Bag 1 bag @ 400 mls/hr IVPB Q6HR PRN Rx#:[id number] Heparin Sod,Pork in 0.45% 11.05 238.950 NaCl 25,000 unit In 0.45 % NaCl 1 250ml.bag @ 8. 846 UNITS/KG/HR 23 mls/hr IV .[id number] VENANCIO Rx#: [id number] Linezolid 600 mg In 300 Dextrose/Water 1 300ml. bag @ 150 mls/hr IVPB Q12HR VENANCIO Rx#:[id number] Meropenem 1 gm In Sodium 100 Chloride 0.9% 100 ml @ 200 mls/hr IVPB Q8HR VENANCIO Rx#:[id number] Norepinephrine 4 mg In 158.001 Sodium Chloride 0.9% 250 ml @ 0.05 MCG/KG/MIN 49. 53 mls/hr IV .Q5H8M VENANCIO Rx#:[id number] Propofol 1,000 mg In 463.364 369.804 Empty Bag 1 bag @ Titrate IV .Q0M VENANCIO Rx#: [id number] Oral 300 100 Tube Feeding 200 700 Other 30 Output: Urine 1435 1480 175 Other: Voiding Method Indwelling Catheter Indwelling Catheter ABP, PAP, CO, CI - Last Documented Arterial Blood Pressure 93/64 - Exam GENERAL EXAM: Super morbidly obese 54-year-old male patient, sedated on mechanical ventilator, comfortable in no apparent distress. HEAD: Normocephalic/atraumatic. EYES: Normal reaction of pupils, equal size. Conjunctiva pink, sclera white. NOSE: Clear with pink turbinates. THROAT: No erythema or exudates. NECK: Tracheostomy tube secured in place. No masses, no JVD, no thyroid enlargement, no adenopathy. CHEST: No chest wall deformity. Symmetrical expansion. LUNGS: Equal air entry with crackles in the posterior bases CVS: Irregular rate and rhythm, normal S1 and S2, no gallops, no murmurs, no rubs ABDOMEN: Soft, nontender. No hepatosplenomegaly, normal bowel sounds, no guarding or rigidity. EXTREMITIES: No clubbing, 2+ lower extremity edema, nonpitting involving abdominal wall, and bilateral lower extremities with chronic venous stasis changes. no cyanosis, 2+ pulses and upper and lower extremities. MUSCULOSKELETAL: Muscle strength and tone normal. SPINE: No scoliosis or deformity SKIN: Cellulitis involving lower extremities both legs are wrapped. Redness, and rash involving upper arms CENTRAL NERVOUS SYSTEM: Sedated, remains on the mechanical ventilator. - Labs CBC & Chem 7: 10/01/19 05:16 10/01/19 05:16 Labs: Abnormal Lab Results - Last 24 Hours (Table) 09/30/19 09/30/19 09/30/19 Range/Units 11:31 17:56 21:35 WBC (3.8-10.6) k/uL MCV (80.0-100.0) fL MCHC (31.0-37.0) g/dL Neutrophils # (1.3-7.7) k/uL Monocytes # (0-1.0) k/uL APTT 32.7 H (22.0-30.0) sec ABG pCO2 (35-45) mmHg ABG HCO3 (21-25) mmol/L ABG Total CO2 (19-24) mmol/L Chloride (98-107) mmol/L Carbon Dioxide (22-30) mmol/L BUN (9-20) mg/dL Creatinine (0.66-1.25) mg/dL Glucose (74-99) mg/dL POC Glucose (mg/dL) 124 H 136 H (75-99) mg/dL Calcium (8.4-10.2) mg/dL Total Bilirubin (0.2-1.3) mg/dL ALT (4-49) U/L 09/30/19 10/01/19 10/01/19 Range/Units 23:38 05:09 05:16 WBC (3.8-10.6) k/uL MCV (80.0-100.0) fL MCHC (31.0-37.0) g/dL Neutrophils # (1.3-7.7) k/uL Monocytes # (0-1.0) k/uL APTT (22.0-30.0) sec ABG pCO2 66 H (35-45) mmHg ABG HCO3 38 H (21-25) mmol/L ABG Total CO2 40 H (19-24) mmol/L Chloride 94 L (98-107) mmol/L Carbon Dioxide 36 H (22-30) mmol/L BUN 87 H (9-20) mg/dL Creatinine 2.86 H (0.66-1.25) mg/dL Glucose 219 H (74-99) mg/dL POC Glucose (mg/dL) 203 H (75-99) mg/dL Calcium 8.1 L (8.4-10.2) mg/dL Total Bilirubin 1.5 H (0.2-1.3) mg/dL ALT 56 H (4-49) U/L 10/01/19 10/01/19 Range/Units 05:16 05:16 WBC 20.3 H (3.8-10.6) k/uL MCV 106.6 H (80.0-100.0) fL MCHC 29.8 L (31.0-37.0) g/dL Neutrophils # 16.9 H (1.3-7.7) k/uL Monocytes # 1.5 H (0-1.0) k/uL APTT 39.7 H (22.0-30.0) sec ABG pCO2 (35-45) mmHg ABG HCO3 (21-25) mmol/L ABG Total CO2 (19-24) mmol/L Chloride (98-107) mmol/L Carbon Dioxide (22-30) mmol/L BUN (9-20) mg/dL Creatinine (0.66-1.25) mg/dL Glucose (74-99) mg/dL POC Glucose (mg/dL) (75-99) mg/dL Calcium (8.4-10.2) mg/dL Total Bilirubin (0.2-1.3) mg/dL ALT (4-49) U/L Microbiology - Last 24 Hours (Table) 09/30/19 00:25 Gram Stain - Preliminary Sputum Sputum Culture - Preliminary 09/29/19 15:15 Blood Culture - Preliminary Blood No Growth after 24 hours Assessment and Plan Assessment: #1. Acute hypoxic respiratory failure secondary to cardiac arrest, requiring CPR for 9 minutes related to acute cardiogenic pulmonary edema requiring int ubation mechanical ventilatory support. Failure to wean. #7 long Brovana coughed tracheostomy tube placed on 09/29/2019. Plan for PEG tube placement today. #2. Acute cardiogenic pulmonary edema with possible diastolic dysfunction #3. Morbid obesity with acute on chronic respiratory acidosis, suspected underlying obstructive sleep apnea and obesity/hypoventilation syndrome #4. New-onset atrial fibrillation, and the patient remains in atrial fibrillation currently on heparin infusion, oral amiodarone, and metoprolol 100 mg 3 times daily. Possibility of pulmonary embolism is considered however was felt to be less likely especially with negative venous Dopplers, and patient is already on anticoagulation in the form of heparin for his atrial fibrillation with RVR. #5. Severe cellulitis of lower extremities and scrotal cellulitis, possible sepsis, wound cultures on bilateral lower extremities are nondiagnostic, patient remains on daptomycin and Zosyn #6. Possible sick brain injury, suspect anoxic encephalopathy #7. Status post PICC line placement on 09/25/2019 #8. Acute urinary tract infection secondary to E. coli #9. Acute kidney injury, ATN, creatinine up to 2.86 #10. Febrile illness, T. max last 24 hours 102.6, repeat cultures are pending on the currently on Zyvox, meropenem, Eraxis #11. Hypotension requiring norepinephrine Plan: The patient was seen and evaluated by Dr. Decker Chest x-ray, ABGs and labs reviewed FiO2 currently at 70% PEEP currently at 18 Plan to continue to titrate down the FiO2 as tolerated Repeat cultures pending On Zyvox, meropenem, Eraxis Currently requiring norepinephrine PEG tube placement today Condition remains guarded We will continue to follow and make further recommendations based on his clinical status Critical care time 36 minutes I, the cosigning physician, performed a history & physical examination of the patient. Lungs sounds with crackles in the bases. Maintaining good O2 saturations in the 90s on 70% FiO2 with a PEEP of 18 on the mechanical ventilator. I discussed the assessment and plan of care with my nurse practitioner, Teresa López. I attest to the above note as dictated by her. Time with Patient: Greater than 30
[2019-10-01 08:07] VITALS: TEMP 103.1
--- NOTE | 2019-10-01 08:19 | XR ---
EXAMINATION TYPE: XR chest 1V portable DATE OF EXAM: 10/01/2019 Comparison: 09/30/2019 Clinical History: 54-year-old male, assess lungs Findings: Tracheostomy cannula. Distal aspect of the ET tube is not adequately visualized due to underpenetrati on and motion. Heart remains enlarged with continued vascular prominence and diffuse interstitial density. Small enrique ateral pleural effusions with adjacent bibasilar opacities. Impression: Findings suggest continued CHF with mild interstitial edema. Continued small pleural effusions with a djacent atelectasis and/or consolidation.
[2019-10-01] MEDS: PANTOPRAZOLE 40 MG/10 ML VIAL IV SCH (08:52)
[2019-10-01] MEDS: AMIODARONE 200 MG TAB PO SCH (08:52)
[2019-10-01] MEDS: ASPIRIN 81 MG PO SCH (08:52)
[2019-10-01] MEDS: FUROSEMIDE 10 MG/ML 4 ML VIAL IV SCH (08:52)
[2019-10-01] MEDS: METOPROLOL TARTRATE 50 MG TAB PO SCH (08:53)
[2019-10-01] MEDS: TRIAMCINOLONE 0.1% CREAM 80 GM TUBE TOPICAL SCH (08:53)
[2019-10-01] MEDS: CHLORHEXIDINE GLUCONATE 15 ML CUP MUCOUS MEM SCH (08:53)
[2019-10-01] MEDS ORDERED: ANIDULAFUNGIN 100 MG in SODIUM CHLORIDE 0.9% 100 ML IVPB SCH (09:00)
[2019-10-01] MEDS ORDERED: LORazepam 2 MG/ML INJ IV PRN (09:52)
[2019-10-01] MEDS ORDERED: MORPHINE SULFATE 4 MG/ML SYRINGE IV PRN (09:52)
[2019-10-01] MEDS ORDERED: ATROPINE OPHTH SOLN 1% 5ML BTL SUBLINGUAL PRN (09:52)
--- NOTE | 2019-10-01 09:57 | P.PN ---
Progress Note - Text Progress Note Date: 10/01/19 Patient remains on the ventilator and the ICU. His condition really is unchanged. On exam tracheostomy site is clean dry. Patient was originally scheduled for PEG tube placement today. However the patient a be made comfort care. His PEG tube procedure will be canceled for now.
[2019-10-01] MEDS ORDERED: MORPHINE SULFATE (100 MG/2 ML) 100 MG in SODIUM CHLORIDE 0.9% 100 ML IV SCH (10:00)
--- NOTE | 2019-10-01 10:01 | PN ---
PROGRESS NOTE Mrs. Ardon is a 54-year-old male who presented with symptoms of progressive dyspnea and worsening edema, requiring mechanical ventilation. He remains intubated. He went in atrial fibrillation with episode of atrial flutter and rapid ventricular response. He had hypotension yesterday and he is febrile this morning. He is scheduled to undergo PEG tube placement today. He had no evidence of ventricular ectopic activity or significant pauses. He continues to be on Diamox 250 mg IV q.12 hours, Cordarone 400 mg twice a day, aspirin once a day, furosemide 40 mg IV q.8 hours, intravenous heparin is on hold for now, metolazone 2.5 mg daily, metoprolol 100 mg 4 times a day, midodrine 10 mg 3 times a day, Protonix. PHYSICAL EXAMINATION: Blood pressure 103/50 with a heart rate at this time running in the 120s. He was down to the 100s earlier. He is afebrile with T-max of 102.6. LUNGS: No wheezes anteriorly. HEART: Irregular, regular, tachycardic, S1, S2. No S3 with systolic murmur. ABDOMEN: Soft, obese. Positive bowel sounds. EXTREMITIES: +2 edema bilaterally. LAB DATA: Revealed a BUN and creatinine of 87 and 2.86, which has worsened compared to yesterday. Potassium 3.5, hemoglobin is 13.9. His white blood cell of up to 20.3. His chest x- ray shows pleural effusions bilaterally. IMPRESSION: 1. Respiratory failure requiring mechanical ventilation. 2. Febrile episode, source unclear. 3. Atrial fibrillation and flutter with episode of rapid ventricular response. 4. Worsening renal function. 5. Morbid obesity with probable obstructive sleep apnea. 6. Fluid overload with preserved systolic function. RECOMMENDATION: From the cardiac standpoint, I will continue present therapy once the PEG tube is placed and if he is stable, I would recommend to switch him to oral anticoagulation. Unfortunately, the prognosis is guarded. Will continue to monitor his heart rate and adjust his treatment as needed. The rapid ventricular response at this time could be worsened by the febrile episode. He has been evaluated by the Infectious Disease Service. MMODL / IJN: [id number] /
[2019-10-01] MEDS: LINEZOLID 600 MG in DEXTROSE/WATER 1 300ML.BAG IVPB SCH (10:14)
[2019-10-01] MEDS: LACTATED RINGERS 1,000 ML IV SCH (10:16)
--- NOTE | 2019-10-01 12:21 | PN ---
PROGRESS NOTE Patient is seen for followup for acute kidney injury. He is status post cardiac arrest. Patient's renal function has been worsening. He was maintained on Lasix drip which was discontinued yesterday as he has been negative 4 L for the last 3 days. Patient remains on the vent requiring high amount of FiO2 as well as high PEEP. He continues to have fever as well. Urine culture grew E coli. The patient is maintained on antibiotics. He is being followed by ID. PHYSICAL EXAMINATION: Patient remains on the vent, blood pressure 93/43, heart rate 101 per minute. He is sedated. Temperature was 103.1. Examination of the heart S1, S2. Examination of the lungs, bilateral breath sounds are heard. Abdomen is distended, obese. Examination of the lower extremities shows bilateral extremities to be wrapped. Chronic skin changes, chronic edema is present. LABS: Show sodium of 142, potassium 3.5, chloride 94, CO2 is 36, BUN 87, serum creatinine 2.86. ASSESSMENT: 1. Acute kidney injury, ATN associated with ongoing sepsis and hypotension. Patient has been started on pressors, his urine output remains at about 100-300 mL an hour. He is maintained on Lasix q.8 hours. There are no nephrotoxic agents on board, currently. 2. Urinary tract infection, maintained on antibiotics. 3. Severe volume overload, status post diuresis. The patient is -13 L since admission. 4. Status post cardiopulmonary arrest. 5. Acute hypoxic respiratory failure currently. Patient remains intubated, he is status post tracheostomy with plan for PEG tube placement today. .. 6. Severe cellulitis lower extremities and scrotal cellulitis maintained on daptomycin and Zosyn. PLAN: Maintain IV Lasix q.8 hours. If renal function continues to deteriorate, we may need to consider renal replacement therapy. Overall prognosis is guarded. MMODL / IJN: [id number] /
[2019-10-01 12:35] VITALS: BP 85/54; PULSE 106; RESP 13
--- NOTE | 2019-10-01 15:23 | PN ---
PROGRESS NOTE DATE OF SERVICE: 10/01/2019 REASON FOR FOLLOWUP: Fever, aspiration pneumonitis. INTERVAL HISTORY: The patient was seen on rounds this morning. The patient is still running a fever of 103 degrees Fahrenheit. The patient is hemodynamically stable, not on any pressor support. FiO2 is currently 70%. No significant purulent secretion through the ET or any diarrhea reported by nursing staff. PHYSICAL EXAMINATION: Blood pressure 117/62 with a pulse of 126, temperature 103. He is 94% on 70% FiO2. General description is a middle-aged male intubated on the vent. RESPIRATORY SYSTEM: Unlabored breathing. Clear to auscultation anteriorly. HEART: S1, S2. Regular rate and rhythm. ABDOMEN: Soft. No distention. Extremities are currently wrapped up. LABS: Hemoglobin 13.9, white count 20.3. Creatinine is 2.86. Sputum showing Gram-negative bacilli. DIAGNOSTIC IMPRESSION AND PLAN: Patient with fever which is multifactorial, possibly Gram-negative pneumonia. The patient did have persistent fever despite adjustment in antibiotic to meropenem yesterday, which is a broad-spectrum. However, the family is leaning more toward hospice which may be appropriate for him. Will discontinue antibiotic change of his clinical status. Discussed with the RN. MICHAEL / IJN: [id number] /
[2019-10-01 15:36] VITALS: BMI 64.6
--- NOTE | 2019-10-02 16:31 | CDI ---
Documentation Clarification Form Date: 10/02/19 From: Marichuy Alva Phone: If you have a question about this query, please contact Amber Ochoa Vehicle Upholsterer at [phone] between 8am and 5pm. Admit Date: 09/22/19 Discharge Date:10/01/19 Patient Name: Troy Ardon Visit Number: [id number] ATTENTION: The Clinical Documentation Specialists (CDI) and [facility] Coding Staff appreciate your assistance in clarifying documentation. Please respond to the clarification below the line at the bottom and electronically sign. The CDI & [facility] Coding staff will review the response and follow-up if needed. Please note: Queries are made part of the Legal Health Record. If you have any questions, please contact the author of this message via ITS. Dear Dr. Louis The patient presented with the following: shortness of breath, possible NSTEMI History/Risk Factors: Septic shock, cellulitis of the scrotum and bilateral lower extremities, hypotension, cardiac arrest, v-fib, anoxic brain injury, toxic encephalopathy, acute diastolic heart failure Clinical Indicators: Patient on 10/01/19 In your professional opinion, can you please clarify the Primary Cause of ? Heart Failure MTDD
--- NOTE | 2019-10-03 11:06 | P.DS ---
Providers Date of admission: 09/22/19 15:08 Attending physician: Gustabo Ramos Consults: 09/22/19 15:10 Consult Physician Stat Consulting Provider: Ghulam Cornell Consult Reason/Comments: nstemi, shortness of breath, morbid obeisty Do you want consulting provider notified?: Yes Consult Physician Stat Consulting Provider: Felipa Bae Consult Reason/Comments: nstemi, shortness of breath, morbid obesity Do you want consulting provider notified?: Yes 09/23/19 03:49 Consult Physician Urgent Consulting Provider: Felipa Bae Consult Reason/Comments: v fib,cardiac arrest Do you want consulting provider notified?: Yes 09/23/19 04:41 Consult Physician Routine Consulting Provider: Gurdeep Cantu Consult Reason/Comments: Kramer Placement Do you want consulting provider notified?: Yes 09/23/19 09:13 Consult Physician Routine Consulting Provider: Ani Garay Consult Reason/Comments: cellulitis, sepsis Do you want consulting provider notified?: Yes 09/23/19 11:53 Consult Physician Routine Consulting Provider: Kenny Berrios Consult Reason/Comments: MUNA Do you want consulting provider notified?: Yes 09/24/19 11:37 Consult Physician Routine Consulting Provider: Perez Ramsay Consult Reason/Comments: vfib arrest with downtime Do you want consulting provider notified?: Yes 09/27/19 08:47 Consult Physician Routine Consulting Provider: Hugo Clemente Consult Reason/Comments: trach and peg Do you want consulting provider notified?: Yes Primary care physician: Wilmer Marquez [place] [facility] Course: Patient on 10/01/2019 Diagnoses: Acute hypoxic respiratory failure, on mechanical ventilation Status post cardiac arrest related to cardiopulmonary edema Acute diastolic congestive heart failure New-onset atrial fibrillation Possible anoxic brain injury UTI secondary to E. coli Bilateral cellulitis of legs and scrotum Acute kidney injury Morbid obesity Hospital course: This is a 54-year-old patient of Dr. Wilmer marquez. Presented to ER with multiple complaints. Patient presents with testicular swelling and tenderness. Associated with leg swelling secondary to heart failure. Patient did develop ventricular fibrillation on a bus monitor and was found unresponsive in the room, CODE BLUE was activated. Found to have PEA and ventricular fibrillation and received 3 times shock and transferred to the ICU. He got intubated and placed on mechanical ventilation. He has other conditions like cellulitis of the legs and scrotum. Atrial fibrillation with rapid ventricular rate. Urinary tract infection and possible anoxic brain injury. He had a prolonged stay in the ICU where he was followed by several consult is including pulmonary/critical care, net developer architect, neurologist, surgical and infectious disease. Issues received multiple treatments including different antibiotics, anticoagulation, Lasix drip, he needed pressors at certain points, medodrin and aspirin. Patient showed poor response to treatment. Eventually family talked to the critical care team and decided to make the patient comfort care and on the same day he , please refer to nurses and pulmonary team notes Exam prior to expiration -GENERAL: The patient is intubated and sedated, morbidly obese HEENT: Pupils are round and equally reacting to light. EOMI. No scleral icterus. No conjunctival pallor. Normocephalic, atraumatic. No pharyngeal erythema. No thyromegaly. CARDIOVASCULAR: S1 and S2 present. No murmurs, rubs, or gallops. -PULMONARY: Chest is clear to auscultation, bilateral crepitation, low total breath sounds. ABDOMEN: Soft, nontender, nondistended, normoactive bowel sounds. No palpable organomegaly. MUSCULOSKELETAL: No joint swelling or deformity. -EXTREMITIES: No cyanosis, clubbing. Bilateral leg swelling and scrotal swelling NEUROLOGICAL: Gross neurological examination did not reveal any focal deficits. SKIN: No rashes. no petechiae. Time spent more than 35 minutes Patient Condition at Discharge: Good Plan - Discharge Summary Discharge Rx Participant: No New Discharge Prescriptions: No Action Acetaminophen [Tylenol] 1,500 mg PO DAILY PRN PRN Reason: Pain Discharge Medication List Acetaminophen [Tylenol] 1,500 mg PO DAILY PRN 09/22/19 [History] Follow up Appointment(s)/Referral(s): Wilmer Marquez MD [Primary Care Provider] - 1-2 days Activity/Diet/Wound Care/Special Instructions: Patient will be admitted Discharge Disposition: - Preliminary Cause of Preliminary Cause of : heart failure with complications
[2019-10-03 16:37] LABS: LD Isoenzymes 1 24 % (19-38); LD Isoenzymes 2 34 % (30-43); LD Isoenzymes 3 13 % (16-26); LD Isoenzymes 4 8 % (3-12); LD Isoenzymes 5 21 % (3-14); Lactacte Dehydrogenase(LD) ISO 332 U/L (120-250)
== END 2019-10-01 15:56 | disposition expired | DRG 4 ==
LOC: EC 12:52 → 3SCARD 15:08 → 2SICU 09-23 04:07
PROVIDERS: ADMIT Hospitalist; ATTEND Hospitalist
PROC: 03HB33Z Insertion of Infusion Device into Right Radial Artery, Percutaneous Approach (ICD-10-PCS; 2019-09-23)
PROC: 3E033XZ Introduction of Vasopressor into Peripheral Vein, Percutaneous Approach (ICD-10-PCS; 2019-09-23)
PROC: 0D9670Z Drainage of Stomach with Drainage Device, Via Natural or Artificial Opening (ICD-10-PCS; 2019-09-23)
PROC: 5A12012 Performance of Cardiac Output, Single, Manual (ICD-10-PCS; 2019-09-23)
PROC: 5A1955Z Respiratory Ventilation, Greater than 96 Consecutive Hours (ICD-10-PCS; principal; 2019-09-23 11:15)
PROC: 0BH17EZ Insertion of Endotracheal Airway into Trachea, Via Natural or Artificial Opening (ICD-10-PCS; principal; 2019-09-23 11:15)
PROC: 05H533Z Insertion of Infusion Device into Right Subclavian Vein, Percutaneous Approach (ICD-10-PCS; 2019-09-25)
PROC: 0B113F4 Bypass Trachea to Cutaneous with Tracheostomy Device, Percutaneous Approach (ICD-10-PCS; 2019-09-29)
DX: A41.51 Sepsis due to Escherichia coli [E. coli] (principal); G92 Toxic encephalopathy; I50.31 Acute diastolic (congestive) heart failure; J69.0 Pneumonitis due to inhalation of food and vomit; J96.01 Acute respiratory failure with hypoxia; J96.02 Acute respiratory failure with hypercapnia; N17.0 Acute kidney failure with tubular necrosis; R65.21 Severe sepsis with septic shock; J15.6 Pneumonia due to other Gram-negative bacteria; R40.2344 Coma scale, best motor response, flexion withdrawal, 24 hours or more after hospital admission; E66.2 Morbid (severe) obesity with alveolar hypoventilation; Z68.45 Body mass index [BMI] 70 or greater, adult; G93.1 Anoxic brain damage, not elsewhere classified; I47.2 Ventricular tachycardia; L97.929 Non-pressure chronic ulcer of unspecified part of left lower leg with unspecified severity; L97.919 Non-pressure chronic ulcer of unspecified part of right lower leg with unspecified severity; Z68.44 Body mass index [BMI] 60.0-69.9, adult; N39.0 Urinary tract infection, site not specified; E87.4 Mixed disorder of acid-base balance; J98.11 Atelectasis; I48.92 Unspecified atrial flutter; Z20.828 Contact with and (suspected) exposure to other viral communicable diseases; I46.2 Cardiac arrest due to underlying cardiac condition; I49.01 Ventricular fibrillation; Z51.5 Encounter for palliative care; I11.0 Hypertensive heart disease with heart failure; I48.0 Paroxysmal atrial fibrillation; N49.2 Inflammatory disorders of scrotum; J44.9 Chronic obstructive pulmonary disease, unspecified; E78.5 Hyperlipidemia, unspecified; L03.115 Cellulitis of right lower limb; L03.116 Cellulitis of left lower limb; F32.9 Major depressive disorder, single episode, unspecified; I87.2 Venous insufficiency (chronic) (peripheral); K64.9 Unspecified hemorrhoids; N50.89 Other specified disorders of the male genital organs; T50.2X5A Adverse effect of carbonic-anhydrase inhibitors, benzothiadiazides and other diuretics, initial encounter; G89.29 Other chronic pain; M54.5 Low back pain; R73.03 Prediabetes; R79.89 Other specified abnormal findings of blood chemistry; R33.9 Retention of urine, unspecified; Z79.82 Long term (current) use of aspirin; Z79.899 Other long term (current) drug therapy; Z95.1 Presence of aortocoronary bypass graft; Z82.49 Family history of ischemic heart disease and other diseases of the circulatory system; Z83.3 Family history of diabetes mellitus; Z80.8 Family history of malignant neoplasm of other organs or systems
CPT/HCPCS: 36410; 36415; 36573; 36600; 71045; 71046; 76870; 76937; 80048; 80053; 80076; 81001; 82140; 82805; 83605; 83625; 83735; 83880; 84132; 84443; 84484; 85025; 85027; 85379; 85610; 85730; 86140; 87040; 87070; 87077; 87086; 87186; 87205; 93005; 93306; 93970; 93975; 94002; 94003; 94640; 95816; 96360; 99285